=== PATIENT | female | born 1950 | race Caucasian/White ===

== ENCOUNTER → 2016-04-07 | Outpatient (CLI) | payer OTHER ==
[2016-04-07 13:50] LABS: ALBUMIN 3.2 GM/DL (3.2-5.2); ALBUMIN/GLOBULIN RATIO 0.64 (1.00-1.93); BILIRUBIN,TOTAL 0.5 MG/DL (0.2-1.0); CALCIUM LEVEL 8.7 MG/DL (8.8-10.2); CREATININE FOR GFR 1.49 MG/DL (0.55-1.02); FREE T4 1.31 NG/DL (0.76-1.46); GLOMERULAR FILTRATION RATE 37.2 (>45); POTASSIUM SERUM 4.6 MEQ/L (3.5-5.1); TOTAL PROTEIN 8.2 GM/DL (6.4-8.2); URIC ACID 9.2 MG/DL (2.6-6.0)
== END ==
LOC: M SMT 08:29
PROVIDERS: ATTEND Family Medicine
DX: I10 Essential (primary) hypertension (principal); M10.9 Gout, unspecified; E03.9 Hypothyroidism, unspecified; D51.9 Vitamin B12 deficiency anemia, unspecified

== ENCOUNTER → 2016-04-07 | Outpatient (REF) | payer OTHER | LOC: M LAB REF 13:06 | PROVIDERS: ATTEND Internal Medicine Medical Oncology | DX: D51.9 Vitamin B12 deficiency anemia, unspecified (principal) ==

== ENCOUNTER → 2016-07-09 | Outpatient (CLI) | payer OTHER ==
[2016-07-09 14:15] LABS: ALBUMIN 3.1 GM/DL (3.2-5.2); ALBUMIN/GLOBULIN RATIO 0.67 (1.00-1.93); BILIRUBIN,TOTAL 0.5 MG/DL (0.2-1.0); CALCIUM LEVEL 8.5 MG/DL (8.8-10.2); CREATININE FOR GFR 1.57 MG/DL (0.55-1.02); FREE T4 0.99 NG/DL (0.76-1.46); POTASSIUM SERUM 4.8 MEQ/L (3.5-5.1); TOTAL PROTEIN 7.7 GM/DL (6.4-8.2)
== END ==
LOC: M SMT 07:46
PROVIDERS: ATTEND Family Medicine
DX: E03.9 Hypothyroidism, unspecified (principal)

== ENCOUNTER → 2016-09-28 | Outpatient (CLI) | payer OTHER ==
[2016-09-28 14:30] LABS: CALCIUM LEVEL 8.8 MG/DL (8.8-10.2); CREATININE FOR GFR 1.53 MG/DL (0.55-1.02); FREE T4 1.26 NG/DL (0.76-1.46); POTASSIUM SERUM 4.3 MEQ/L (3.5-5.1); THYROXINE (T4) 7.7 UG/DL (4.5-12.0)
== END ==
LOC: M SMT 08:11
PROVIDERS: ATTEND Family Medicine
DX: E03.9 Hypothyroidism, unspecified (principal); I10 Essential (primary) hypertension

== ENCOUNTER → 2017-04-08 | Outpatient (REF) | payer OTHER ==
[2017-04-08 14:53] LABS: ANION GAP 9 MEQ/L (8-16); BLOOD UREA NITROGEN 22 MG/DL (7-18); CALCIUM LEVEL 8.6 MG/DL (8.8-10.2); CARBON DIOXIDE LEVEL 28 MEQ/L (21-32); CHLORIDE LEVEL 107 MEQ/L (98-107); CREATININE FOR GFR 1.33 MG/DL (0.55-1.02); FREE T4 1.51 NG/DL (0.76-1.46); GLOMERULAR FILTRATION RATE 42.2 (>45); GLUCOSE, FASTING 113 MG/DL (80-110); POTASSIUM SERUM 4.7 MEQ/L (3.5-5.1); SODIUM LEVEL 144 MEQ/L (136-145)
[2017-04-08 15:51] LABS: ESTIMATED AVERAGE GLUCOSE 97 MG/DL (60-110)
== END ==
LOC: M LABSMT 13:46
DX: E03.9 Hypothyroidism, unspecified (principal); R94.4 Abnormal results of kidney function studies; R73.9 Hyperglycemia, unspecified

== ENCOUNTER → 2017-07-26 | Outpatient (CLI) | payer OTHER ==
[2017-07-26 13:31] LABS: BASO # 0.1 10^3/uL (0.0-0.2); BASO % 0.6 % (0.0-1.0); EOS # 0.1 10^3/uL (0.0-0.50); EOS % 1.4 % (0.0-3.0); HEMATOCRIT 40.3 % (36.0-47.0); HEMOGLOBIN 13.2 g/dl (12.0-15.5); IMMATURE GRANULOCYTE % 0.5 % (0-3.0); LYMPH # 2.4 10^3/uL (1.5-4.5); LYMPH % 28.5 % (24.0-44.0); MEAN CORPUSCULAR HEMOGLOBIN 32.1 pg (27.0-33.0); MEAN CORPUSCULAR HGB CONC 32.8 g/dl (32.0-36.5); MEAN CORPUSCULAR VOLUME 98.1 fl (80.0-96.0); MONO # 0.5 10^3/uL (0.0-0.8); MONO % 5.6 % (0.0-5.0); NEUTROPHILS # 5.4 10^3/uL (1.8-7.7); NEUTROPHILS % 63.4 % (36.0-66.0); PLATELET COUNT, AUTOMATED 187 10^3/uL (150-450); RED BLOOD COUNT 4.11 10^6/uL (4.00-5.40); RED CELL DISTRIBUTION WIDTH 12.7 % (11.5-14.5); WHITE BLOOD COUNT 8.6 10^3/uL (4.0-10.0)
[2017-07-26 13:42] LABS: ALBUMIN 3.4 GM/DL (3.2-5.2); ALBUMIN/GLOBULIN RATIO 0.71 (1.00-1.93); ALKALINE PHOSPHATASE 119 U/L (45-117); ALT/SGPT 13 U/L (12-78); ANION GAP 7 MEQ/L (8-16); AST/SGOT 14 U/L (7-37); BILIRUBIN,TOTAL 0.8 MG/DL (0.2-1.0); BLOOD UREA NITROGEN 25 MG/DL (7-18); CALCIUM LEVEL 8.7 MG/DL (8.8-10.2); CARBON DIOXIDE LEVEL 27 MEQ/L (21-32); CHLORIDE LEVEL 110 MEQ/L (98-107); CHOLESTEROL LEVEL 174 MG/DL (<200); CHOLESTEROL RISK RATIO 3.702 (<5); FREE T4 1.21 NG/DL (0.76-1.46); GLOMERULAR FILTRATION RATE 39.8 (>45); GLUCOSE, FASTING 105 MG/DL (70-100); HDL CHOLESTEROL 47 MG/DL (>40); NON-HDL-C 127 MG/DL; SODIUM LEVEL 144 MEQ/L (136-145); TOTAL PROTEIN 8.2 GM/DL (6.4-8.2); TRIGLYCERIDES LEVEL 105 MG/DL (<150); URIC ACID 7.6 MG/DL (2.6-6.0)
[2017-07-26 13:46] LABS: POTASSIUM SERUM 5.3 MEQ/L (3.5-5.1)
== END ==
LOC: M SMT 08:18
DX: E03.9 Hypothyroidism, unspecified (principal); I10 Essential (primary) hypertension; M10.9 Gout, unspecified
CPT/HCPCS: 84443

== ENCOUNTER → 2017-10-11 | Outpatient (CLI) | payer OTHER ==
[2017-10-11 14:06] LABS: ANION GAP 7 MEQ/L (8-16); BLOOD UREA NITROGEN 30 MG/DL (7-18); CALCIUM LEVEL 8.7 MG/DL (8.8-10.2); CARBON DIOXIDE LEVEL 28 MEQ/L (21-32); CHLORIDE LEVEL 109 MEQ/L (98-107); FREE T4 1.18 NG/DL (0.76-1.46); GLOMERULAR FILTRATION RATE 36.8 (>45); GLUCOSE, FASTING 107 MG/DL (70-100); POTASSIUM SERUM 5.2 MEQ/L (3.5-5.1); SODIUM LEVEL 144 MEQ/L (136-145)
== END ==
LOC: M SMT 08:15
DX: E03.9 Hypothyroidism, unspecified (principal)

== ENCOUNTER → 2018-01-12 | Outpatient (CLI) | payer OTHER ==
[2018-01-12 12:37] LABS: ESTIMATED AVERAGE GLUCOSE 100 MG/DL (60-110); HEMOGLOBIN A1c 5.1 %
[2018-01-12 13:15] LABS: ANION GAP 10 MEQ/L (8-16); BLOOD UREA NITROGEN 39 MG/DL (7-18); CALCIUM LEVEL 8.6 MG/DL (8.8-10.2); CARBON DIOXIDE LEVEL 25 MEQ/L (21-32); CHLORIDE LEVEL 107 MEQ/L (98-107); GLOMERULAR FILTRATION RATE 34.1 (>45); GLUCOSE, FASTING 98 MG/DL (70-100); POTASSIUM SERUM 4.8 MEQ/L (3.5-5.1); SODIUM LEVEL 142 MEQ/L (136-145)
== END ==
LOC: M SMT 07:56
DX: R73.01 Impaired fasting glucose (principal); E03.9 Hypothyroidism, unspecified
CPT/HCPCS: 84443

== ENCOUNTER → 2018-04-17 | Outpatient (CLI) | payer OTHER ==
[2018-04-17 10:26] LABS: BASO % 0.4 % (0.0-1.0); EOS # 0.1 10^3/uL (0.0-0.50); EOS % 0.7 % (0.0-3.0); HEMATOCRIT 39.1 % (36.0-47.0); HEMOGLOBIN 13.2 g/dl (12.0-15.5); LYMPH # 2.3 10^3/uL (1.5-4.5); MEAN CORPUSCULAR HEMOGLOBIN 32.3 pg (27.0-33.0); MEAN CORPUSCULAR HGB CONC 33.8 g/dl (32.0-36.5); MEAN CORPUSCULAR VOLUME 95.6 fl (80.0-96.0); MONO # 0.6 10^3/uL (0.0-0.8); MONO % 5.4 % (0.0-5.0); NEUTROPHILS # 7.5 10^3/uL (1.8-7.7); NEUTROPHILS % 70.9 % (36.0-66.0); PLATELET COUNT, AUTOMATED 208 10^3/uL (150-450); RED BLOOD COUNT 4.09 10^6/uL (4.00-5.40); WHITE BLOOD COUNT 10.6 10^3/uL (4.0-10.0)
[2018-04-17 10:59] LABS: CREATININE FOR GFR 1.5 MG/DL (0.55-1.30); FREE T4 1.35 NG/DL (0.76-1.46); GLOMERULAR FILTRATION RATE 36.7 (>45); POTASSIUM SERUM 4.8 MEQ/L (3.5-5.1); THYROID STIMULATING HORMONE 4.48 uIU/ML (0.358-3.740); URIC ACID 8.2 MG/DL (2.6-6.0)
== END ==
LOC: M SMT 07:45
PROVIDERS: ATTEND Physician Assistant
DX: E03.9 Hypothyroidism, unspecified (principal); D51.9 Vitamin B12 deficiency anemia, unspecified; R73.01 Impaired fasting glucose; M10.9 Gout, unspecified

== ENCOUNTER → 2018-07-18 | Outpatient (CLI) | payer OTHER ==
[2018-07-18 10:34] LABS: ALBUMIN 2.9 GM/DL (3.2-5.2); BILIRUBIN,TOTAL 0.9 MG/DL (0.2-1.0); CREATININE FOR GFR 1.41 MG/DL (0.55-1.30); FREE T4 1.45 NG/DL (0.76-1.46); GLOMERULAR FILTRATION RATE 39.4 (>45); POTASSIUM SERUM 4.6 MEQ/L (3.5-5.1); THYROID STIMULATING HORMONE 3.56 uIU/ML (0.358-3.740); TOTAL PROTEIN 7.9 GM/DL (6.4-8.2); URIC ACID 7.6 MG/DL (2.6-6.0)
[2018-07-18 10:50] LABS: HEMOGLOBIN A1c 5.2 %
== END ==
LOC: M SMT 07:57
PROVIDERS: ATTEND Physician Assistant
DX: R73.01 Impaired fasting glucose (principal); E03.9 Hypothyroidism, unspecified; M10.9 Gout, unspecified; D51.9 Vitamin B12 deficiency anemia, unspecified

== ENCOUNTER → 2018-09-12 | Outpatient (CLI) | payer OTHER ==
[2018-09-12 10:12] LABS: BASO % 0.4 % (0.0-1.0); EOS # 0.1 10^3/uL (0.0-0.50); EOS % 1.8 % (0.0-3.0); HEMATOCRIT 41.1 % (36.0-47.0); HEMOGLOBIN 13.2 g/dl (12.0-15.5); LYMPH # 2.6 10^3/uL (1.5-4.5); LYMPH % 34.3 % (24.0-44.0); MEAN CORPUSCULAR HEMOGLOBIN 32.2 pg (27.0-33.0); MEAN CORPUSCULAR HGB CONC 32.1 g/dl (32.0-36.5); MEAN CORPUSCULAR VOLUME 100.2 fl (80.0-96.0); MONO # 0.5 10^3/uL (0.0-0.8); MONO % 6.3 % (0.0-5.0); NEUTROPHILS # 4.3 10^3/uL (1.8-7.7); NEUTROPHILS % 56.5 % (36.0-66.0); PLATELET COUNT, AUTOMATED 175 10^3/uL (150-450); WHITE BLOOD COUNT 7.6 10^3/uL (4.0-10.0)
[2018-09-12 10:14] LABS: CALCIUM LEVEL 8.7 MG/DL (8.8-10.2); CREATININE FOR GFR 1.39 MG/DL (0.55-1.30); POTASSIUM SERUM 4.6 MEQ/L (3.5-5.1)
== END ==
LOC: M SMT 07:45
PROVIDERS: ATTEND Physician Assistant
DX: Z01.818 Encounter for other preprocedural examination (principal)

== ENCOUNTER → 2019-08-28 | Outpatient (CLI) | payer OTHER ==
[2019-08-28 11:04] LABS: HEMATOCRIT 40.9 % (36.0-47.0); HEMOGLOBIN 13.5 g/dl (12.0-15.5); PLATELET COUNT, AUTOMATED 144 10^3/uL (150-450); RED BLOOD COUNT 4.09 10^6/uL (4.00-5.40); WHITE BLOOD COUNT 6.6 10^3/uL (4.0-10.0)
[2019-08-28 11:32] LABS: CALCIUM LEVEL 8.7 MG/DL (8.8-10.2); CHOLESTEROL RISK RATIO 3.528 (<5); CREATININE FOR GFR 1.39 MG/DL (0.55-1.30); GLOMERULAR FILTRATION RATE 39.9 (>39); POTASSIUM SERUM 4.6 MEQ/L (3.5-5.1)
== END ==
LOC: M LAB 08:35
PROVIDERS: ATTEND Physician Assistant
DX: I11.9 Hypertensive heart disease without heart failure (principal)

== ENCOUNTER → 2019-09-07 | Outpatient (CLI) | payer OTHER ==
[2019-09-07 08:14] LABS: BASO % 0.3 % (0.0-1.0); EOS # 0.1 10^3/uL (0.0-0.5); EOS % 1.6 % (0.0-3.0); LYMPH # 1.5 10^3/uL (1.5-5.0); LYMPH % 21.5 % (24.0-44.0); MEAN CORPUSCULAR HEMOGLOBIN 32.2 pg (27.0-33.0); MEAN CORPUSCULAR HGB CONC 32.4 g/dl (32.0-36.5); MEAN CORPUSCULAR VOLUME 99.2 fl (80.0-96.0); MONO # 0.5 10^3/uL (0.0-0.8); MONO % 7.3 % (0.0-5.0); NEUTROPHILS # 4.7 10^3/uL (1.5-8.5); NEUTROPHILS % 68.6 % (36.0-66.0); PLATELET COUNT, AUTOMATED 123 10^3/uL (150-450); RED BLOOD COUNT 3.73 10^6/uL (4.00-5.40); WHITE BLOOD COUNT 6.9 10^3/uL (4.0-10.0)
== END ==
LOC: M LAB 07:35
PROVIDERS: ATTEND Nurse Practitioner Family
DX: D69.6 Thrombocytopenia, unspecified (principal)

== ENCOUNTER → 2019-10-09 | Outpatient (CLI) | payer OTHER ==
[2019-10-09 07:50] LABS: BASO % 0.6 % (0.0-1.0); EOS # 0.1 10^3/uL (0.0-0.5); EOS % 2.1 % (0.0-3.0); HEMOGLOBIN 12.2 g/dl (12.0-15.5); LYMPH # 1.3 10^3/uL (1.5-5.0); LYMPH % 24.2 % (24.0-44.0); MEAN CORPUSCULAR HEMOGLOBIN 33.3 pg (27.0-33.0); MEAN CORPUSCULAR VOLUME 101.1 fl (80.0-96.0); MONO # 0.4 10^3/uL (0.0-0.8); MONO % 7.6 % (0.0-5.0); NEUTROPHILS # 3.4 10^3/uL (1.5-8.5); NEUTROPHILS % 64.7 % (36.0-66.0); PLATELET COUNT, AUTOMATED 118 10^3/uL (150-450); RED BLOOD COUNT 3.66 10^6/uL (4.00-5.40); WHITE BLOOD COUNT 5.3 10^3/uL (4.0-10.0)
[2019-10-09 08:25] LABS: ALBUMIN 2.9 GM/DL (3.2-5.2); BILIRUBIN,TOTAL 1.1 MG/DL (0.2-1.0); CALCIUM LEVEL 8.2 MG/DL (8.8-10.2); CREATININE FOR GFR 1.3 MG/DL (0.55-1.30); FREE T4 1.22 NG/DL (0.76-1.46); GLOMERULAR FILTRATION RATE 43.1 (>39); THYROID STIMULATING HORMONE 7.97 uIU/ML (0.358-3.740); TOTAL PROTEIN 7.4 GM/DL (6.4-8.2)
== END ==
LOC: M LAB 07:26
PROVIDERS: ATTEND Nurse Practitioner Family
DX: Z01.812 Encounter for preprocedural laboratory examination (principal)

== ENCOUNTER → 2019-11-23 | Outpatient (CLI) | payer OTHER ==
[2019-11-23 09:15] LABS: CALCIUM LEVEL 8.2 MG/DL (8.8-10.2); CREATININE FOR GFR 1.32 MG/DL (0.55-1.30); FREE T4 1.15 NG/DL (0.76-1.46); GLOMERULAR FILTRATION RATE 42.4 (>39); POTASSIUM SERUM 5.3 MEQ/L (3.5-5.1); THYROID STIMULATING HORMONE 5.85 uIU/ML (0.358-3.740)
[2019-11-23 12:58] LABS: HEMOGLOBIN A1c 5.2 %
== END ==
LOC: M LAB 06:55
PROVIDERS: ATTEND Physician Assistant
DX: D51.9 Vitamin B12 deficiency anemia, unspecified (principal); E03.9 Hypothyroidism, unspecified; R73.01 Impaired fasting glucose; I10 Essential (primary) hypertension

== ENCOUNTER → 2019-11-30 | Outpatient (CLI) | payer OTHER ==
[2019-11-30 08:14] LABS: BASO % 0.4 % (0.0-1.0); EOS # 0.1 10^3/uL (0.0-0.5); EOS % 2.2 % (0.0-3.0); HEMATOCRIT 37.9 % (36.0-47.0); HEMOGLOBIN 12.4 g/dl (12.0-15.5); LYMPH # 1.3 10^3/uL (1.5-5.0); MEAN CORPUSCULAR HEMOGLOBIN 33.1 pg (27.0-33.0); MEAN CORPUSCULAR HGB CONC 32.7 g/dl (32.0-36.5); MEAN CORPUSCULAR VOLUME 101.1 fl (80.0-96.0); MONO # 0.4 10^3/uL (0.0-0.8); MONO % 7.2 % (0.0-5.0); NEUTROPHILS # 3.6 10^3/uL (1.5-8.5); NEUTROPHILS % 65.6 % (36.0-66.0); PLATELET COUNT, AUTOMATED 124 10^3/uL (150-450); RED BLOOD COUNT 3.75 10^6/uL (4.00-5.40); WHITE BLOOD COUNT 5.4 10^3/uL (4.0-10.0)
== END ==
LOC: M LAB 07:22
PROVIDERS: ATTEND Physician Assistant
DX: D51.9 Vitamin B12 deficiency anemia, unspecified (principal); E03.9 Hypothyroidism, unspecified; R73.01 Impaired fasting glucose; I10 Essential (primary) hypertension

== ENCOUNTER → 2020-08-25 | Outpatient (CLI) | payer OTHER ==
[2020-08-25 08:23] LABS: BASO % 0.7 % (0.0-1.0); EOS # 0.1 10^3/uL (0.0-0.5); EOS % 2.3 % (0.0-3.0); HEMATOCRIT 38.9 % (36.0-47.0); HEMOGLOBIN 12.6 g/dl (12.0-15.5); LYMPH # 1.2 10^3/uL (1.5-5.0); LYMPH % 20.7 % (24.0-44.0); MEAN CORPUSCULAR HEMOGLOBIN 33.4 pg (27.0-33.0); MEAN CORPUSCULAR HGB CONC 32.4 g/dl (32.0-36.5); MEAN CORPUSCULAR VOLUME 103.2 fl (80.0-96.0); MONO # 0.4 10^3/uL (0.0-0.8); MONO % 7.3 % (2.0-8.0); NEUTROPHILS # 3.9 10^3/uL (1.5-8.5); NEUTROPHILS % 68.3 % (36.0-66.0); PLATELET COUNT, AUTOMATED 93 10^3/uL (150-450); RED BLOOD COUNT 3.77 10^6/uL (4.00-5.40); WHITE BLOOD COUNT 5.7 10^3/uL (4.0-10.0)
[2020-08-25 08:53] LABS: FREE T4 1.23 NG/DL (0.76-1.46); THYROID STIMULATING HORMONE 5.33 uIU/ML (0.358-3.740)
[2020-08-25 10:12] LABS: FOLATE 9.9 NG/ML
== END ==
LOC: M LAB 07:16
PROVIDERS: ATTEND Family Medicine
DX: D51.9 Vitamin B12 deficiency anemia, unspecified (principal); E66.01 Morbid (severe) obesity due to excess calories

== ENCOUNTER 2020-11-25 07:07 | Inpatient (IN) | payer OTHER, MEDICARE ==
[~2020-11-25] VITALS: Ht 175.3 cm; Wt 113.9 kg
[2020-11-25] MEDS ORDERED: SYNT112T2 PO (07:28)
[2020-11-25] MEDS ORDERED: ALLO100T PO (07:28)
[2020-11-25] MEDS ORDERED: AMLO1TAB24 PO (07:28)
[2020-11-25] MEDS ORDERED: NYST10006 TOP (07:28)
[2020-11-25] MEDS ORDERED: COLC1TAB14 PO (07:28)
[2020-11-25] MEDS ORDERED: TELM1TAB17 PO (07:28)
[2020-11-25] MEDS ORDERED: CYAN1000VL IM (07:28)
[2020-11-25] MEDS ORDERED: TIMO0.5S29 OU (07:28)
[2020-11-25] MEDS ORDERED: ERGO500029 PO (07:28)
[2020-11-25 07:48] LABS: HEMATOCRIT 41.2 % (36.0-47.0); HEMOGLOBIN 13.4 g/dl (12.0-15.5); MEAN CORPUSCULAR HEMOGLOBIN 32.7 pg (27.0-33.0); MEAN CORPUSCULAR HGB CONC 32.5 g/dl (32.0-36.5); MEAN CORPUSCULAR VOLUME 100.5 fl (80.0-96.0); PLATELET COUNT, AUTOMATED 314 10^3/uL (150-450); WHITE BLOOD COUNT 20.9 10^3/uL (4.0-10.0)
[2020-11-25] MEDS: METOPROLOL 5 MG/5 ML VIAL IV SCH ×3 (07:50→08:08)
--- NOTE | 2020-11-25 08:11 | REP ---
INDICATION: dysrhythmia. COMPARISON: No comparison chest x-ray TECHNIQUE: Portable upright AP chest radiograph. FINDINGS: The lungs are symmetrically aerated and no focal infiltrate is seen. Pleural angles are sharp. Heart is enlarged. Pulmonary vasculature is not increased. EKG electrodes are seen. IMPRESSION: Cardiomegaly. Otherwise no acute disease. <Electronically signed by Odin Conklin > 11/25/20 [id number]
[2020-11-25] MEDS ORDERED: ALLO300T2 PO (08:12)
[2020-11-25] MEDS ORDERED: HOME MED LIST COMPLETE! XX SCH (08:25)
[2020-11-25 08:36] LABS: LYMPHOCYTES 11 % (16-44); METAMYELOCYTES 2 % (0-0); MONOCYTES 3 % (0-5); MYELOCYTES 1 % (0-0); NEUTROPHILS 82 % (28-66); PLATELET ESTIMATE NORMAL (NORMAL); POLYCHROMASIA 1+
[2020-11-25] MEDS ORDERED: allopurinoL 300 MG TAB PO SCH (09:00)
[2020-11-25 09:10] LABS: RSV AMPLIFICATION NEGATIVE (NEGATIVE)
[2020-11-25 09:14] LABS: INR 1.19; PROTHROMBIN TIME 15.5 SECONDS (12.7-14.5)
[2020-11-25 09:50] LABS: ALBUMIN 1.4 GM/DL (3.2-5.2); BILIRUBIN,DIRECT 1.3 MG/DL (0.0-0.2); BILIRUBIN,TOTAL 2.2 MG/DL (0.2-1.0); CALCIUM LEVEL 7.9 MG/DL (8.8-10.2); CK-MB VALUE MASS 1.6 NG/ML (<3.6); CREATININE FOR GFR 2.87 MG/DL (0.55-1.30); FREE T4 1.29 NG/DL (0.76-1.46); GLOMERULAR FILTRATION RATE 17.2 (>39); MAGNESIUM LEVEL 2.3 MG/DL (1.8-2.4); MB/CK RELATIVE INDEX 4.57 (< OR =4); PHOSPHORUS LEVEL 4.6 MG/DL (2.5-4.9); POTASSIUM SERUM 4.3 MEQ/L (3.5-5.1); THYROID STIMULATING HORMONE 5.43 uIU/ML (0.358-3.740); TOTAL PROTEIN 7.1 GM/DL (6.4-8.2); TROPONIN I 0.5 NG/ML (< 0.10)
[2020-11-25] MEDS ORDERED: DIGOXIN INJ 0.5 MG/2 ML AMP (J1160) IV ONE ×2 (10:10→16:00)
[2020-11-25] MEDS ORDERED: atenoloL 50 MG TAB PO ONE (10:10)
[2020-11-25] MEDS ORDERED: NS 1,000 ML IV SCH (11:45)
[2020-11-25] MEDS ORDERED: FLUCONAZOLE IV ONE (12:00)
[2020-11-25] MEDS ORDERED: NYSTATIN 100,000 UNITS/GM TOPICAL PWD 15 GM TOP PRN (12:05)
[2020-11-25] MEDS ORDERED: HEPARIN SOD (PORCINE) 5000UNITS/ML 1ML VIAL/SYRINGE IV PRN (12:15)
[2020-11-25] MEDS ORDERED: HEPARIN SOD (PORCINE) 5000UNITS/ML 1ML VIAL/SYRINGE IV ONE (12:15)
[2020-11-25 12:42] LABS: PTH INTACT 360.6 PG/ML (18.5-88.0); TOTAL 25(OH) VITAMIN D 10.1 NG/ML (30.0-100.0)
[2020-11-25] MEDS ORDERED: diltiaZEM 125 MG in NS 100 ML IV SCH (13:15)
[2020-11-25] MEDS ORDERED: cefTRIAXone SOD 1 GM in D5W MINI-BAG PLUS 50 ML IV SCH (14:00)
--- NOTE | 2020-11-25 14:21 | HPEPDOC ---
[facility] Medical History & Physical Date of Admission Nov 25, 2020 Date of Service: Nov 25, 2020 Attending Physician: TIM MALONE MD History and Physical CHIEF COMPLAINT: new onset A-fib/ A-flutter with RVR. Sepsis by SIRS criteria. HISTORY OF PRESENT ILLNESS: Pt is a 70 y/o female who was transported to [facility] ED by EMS for complaints of generalized weakness and fatigue. In the ER EKG found that the patient was in A-fib. Patient complained of no chest pain, palpitations, SOB, dyspnea, or any other symptoms consistent with A-fib. Pt was subsequently treated with Metoprolol and Digoxin in the ER. Patient has no history of A-fib in the past. Pt was also found to have diffuse rash over her chest and groin. Patient has no fever, chills, night sweats, or constitutional symptoms. Pt says that she has frequent occurrences of generalized weakness before her B12 injections, but current episode was worse than previous ones. PAST MEDICAL HISTORY: 1. CKD-3B 2. Hypothyroidism. 3. Vitamin B12 deficiency 4. HTN. PAST SURGICAL HISTORY: 1. Surgery for glaucoma - pt unsure of procedure. 2. Colonoscopy. SOCIAL HISTORY: Children: 3 adult children Tobacco use:Pt denies ETOH: Pt denies Illicit drug use: Pt denies IV drug use: Pt denies FAMILY HISTORY: Father: Dies from heart problems Mother: No relevant conditions ALLERGIES: Please see below. REVIEW OF SYSTEMS: CONSTITUTIONAL: Pt denies fever or chills. HEENT: Pt denies headache. CARDIOVASCULAR: Denies chest pain or palpitations. RESPIRATORY: Patient denies SOB or dyspnea. GASTROINTESTINAL: Denies ABD pain at rest. GENITOURINARY: Denies pain or discoloration with urination. MUSCULOSKELETAL: No joint pain. NEUROLOGICAL: No numbness or tingling. HOME MEDICATIONS: Please see below. PHYSICAL EXAMINATION: VITAL SIGNS: see below. GENERAL APPEARANCE: Pt is a 69 y/o female seen supine in an ER bed. Pt was not in any acute distress. HEENT: NC, AT, EOMI, no scleral icterus, and mucous membranes are moist. CARDIOVASCULAR: Normal S1 and S2. No extra heart sounds or murmurs are heard. LUNGS: BL clear and equal breath sounds on exam. No wheezing, stridor, or crackles on auscultation. ABDOMEN: Pt has tenderness on palpation of her RUQ possibly from cellulitis. Pt has no tenderness anywhere else on her ABD. Rash covers genital area and covers both side of chest under her breast in her folds. Rash is erythematous, foul smelling, and macular. EXTREMITIES: No edema present BL. NEUROLOGICAL: No weakness or loss of sensation. PSYCHIATRIC: Alert and oriented *4. LABORATORY DATA: See below. new IMAGING "IMPRESSION: Cardiomegaly. Otherwise no acute disease." MICROBIOLOGY: Please see below. ASSESSMENT: Pt is a 69 y/o female with PMHx of Hypothyroidism, Intrinsic factor deficiency, Gout, HTN, and Hypothyroidism. Pt presented to the [facility] ED with complaints of generalized weakness and fatigue greater than normal. Pt was found to be in A-fib with RVR on EKG, BUN and Cr elevated above baseline indicating JENN, Rash covering her left chest and groin that is consistent with cellulitis, and patient has elevated billirubin with unknown etiology. PLAN: # New onset A-fib or A-flutter with RVR 2/2 due to sepsis vs. dehydration - Patient was tachycardic with rate of 152 on admission. - Pt was received IV digoxin and Metoprolol for rate control in the ER. We will continue these medications. - Patient has a CHADVASC score of 3, making her a candidate for anticoagulation. Pt will be put on Heparin IV. - Cause of A-fib is unknown, Blood Cultures were drawn to rule out sepsis and IV fluids will be started to treat dehydration. - Patient will get 2D echo to assess for thrombus and structural changes that could cause A-fib. # JENN 2/2 dehydration - Patient has elevated BUN and Cr above normal levels. (based on previous labs Pt has CKD 3B as of 11/23/19) - Patient's JENN is most likely pre-renal due to dehydration. Patient will be put on IV fluids at 100cc/hr. - Patient has elevated PTH and low 25-OH Vitamin D consistent with Diagnosis of CKD. - Renal ultrasound is pending. - Hold losartan # Cellulitis - cause is bacterial or fungal or both. - Patient has no fever, Tachycardia, and WBC count of >20K. Patient fulfills SIRS criteria. - Blood cultures pending - Lactic acid was elevated - Start IV ceftriaxone and IV fluconazole. #Elevated Billirubin - etiology unknown. - AST , ALP, and ALT within normal limits. - Pts Albumin is low. - Liver ultrasound is pending. # Elevated Troponin - Troponin's are elevated on blood draw in the ER. ECG showed A-fib/ a-flutter. - Most likely etiology is type 2 TN from blood shunting from stress on the heart in A-fib/ A-flutter. We will continue to trend Troponin's for changes. # Hypothyroidism - TSH levels were slightly elevated. Pt's fatigue could be partially be due to low thyroid hormone. - Continue Patient's Levothyroxine. We will reassess and determine if higher dose will benefit patient. # HTN - Continue at home amlodipine. # DVT prophylaxis - Patient in on IV heparin for A-fib/A-flutter see above. Code status: Full code Disposition: Pending clinical improvement. Vital Signs Vital Signs Date Time Temp Pulse Resp B/P (MAP) Pulse Ox O2 Delivery O2 Flow Rate FiO2 11/25/20 13:31 104 118/56 (76) 96 Room Air 11/25/20 10:05 20 11/25/20 07:21 96.8 Laboratory Data Labs 24H Laboratory Tests 2 11/25/20 07:35: Immature Granulocyte % (Auto) , Neutrophils (%) (Auto) , Nucleated Red Blood Cells % (auto) 0.0, Neutrophils 82H, Band Neutrophils 1, Lymphocytes (Manual) 11L, Monocytes (Manual) 3, Metamyelocytes 2H, Myelocytes 1H, Polychromasia 1+, Macrocytosis 1+, Platelet Estimate NORMAL 11/25/20 07:41: Coronavirus (COVID-19)(PCR) NEGATIVE, Influenza Type A (RT-PCR) NEGATIVE, Influenza Type B (RT-PCR) NEGATIVE, Respiratory Syncytial Virus (PCR) NEGATIVE 11/25/20 08:28: Osmolality 321H, 25-Hydroxy Vitamin D Total 10.1L, Parathyroid Hormone (Intact) 360.6H 11/25/20 08:51: Prothrombin Time 15.5H, Prothromb Time International Ratio 1.19, Activated Partial Thromboplast Time 20.0L, Anion Gap 9, Glomerular Filtration Rate 17.2L, Calcium Level 7.9L, Phosphorus Level 4.6, Magnesium Level 2.3, Total Bilirubin 2.2H, Direct Bilirubin 1.3H, Aspartate Amino Transf (AST/SGOT) 23, Alanine Aminotransferase (ALT/SGPT) 12, Alkaline Phosphatase 95, Total Creatine Kinase 35, Creatine Kinase MB 1.6, Creatine Kinase MB Relative Index 4.57H, Troponin I 0.50H, Total Protein 7.1, Albumin 1.4L, Albumin/Globulin Ratio 0.2L, Thyroid Stimulating Hormone (TSH) 5.430H, Free Thyroxine 1.29 CBC/BMP Laboratory Tests 11/25/20 07:35 11/25/20 08:51 Microbiology Microbiology 11/25/20 Blood Culture, Received Pending Home Medications Scheduled Amlodipine Besylate (Amlodipine Besylate) 5 Mg Tablet, 5 MG PO DAILY Cyanocobalamin (Cyanocobalamin Injection) 1,000 Mcg/1 Ml Vial, 1 ML IM Q30D NEXT DOSE DUE 12/01/20 Ergocalciferol (Vitamin D2) (Vitamin D2) 50,000 Units Cap, 50,000 UNITS PO QWEEK SUNDAYS Levothyroxine Sodium (Synthroid) 112 Mcg Tablet, 112 MCG PO DAILY Telmisartan/Hydrochlorothiazid (Telmisartan-Hctz 80-25 mg Tab) 1 Each Tablet, 1 TAB PO DAILY Timolol Maleate (Timolol Maleate) 0.5% 5ML Drops, 1 DROP OU BID allopurinoL (allopurinoL) 300 Mg Tablet, 300 MG PO DAILY Scheduled PRN Nystatin (Nystop) 60 Gm Powder, 1 APLCT TOP TID PRN for RASH APPLIES UNDER BREASTS Allergies Coded Allergies: No Known Allergies (Unverified , 11/25/20) A-FIB/CHADSVASC A-FIB History Current/History of A-Fib/PAF?: Yes Current PO Anticoag Therapy: Yes Age/Risk Factor Scoring CHADSVASC: CHADSVASC Response (Comments) Value Age Risk Factor Age 65-74 years old 1 Gender Risk Factor Female 1 Hx of CHF No 0 Hx of HTN Yes 1 Hx of Stroke/TIA/or VTE No 0 Hx of Diabetes No 0 Hx of Vascular Disease No 0 Total 3 Treatment Treatment ordered: Other Other anticoagulant ordered: Heparin Subcutaneous GME ATTESTATION GME ATTESTATION My faculty preceptor for this patient encounter was physically present during the encounter and was fully available. All aspects of the patient interview, examination, medical decision making process, and medical care plan development were reviewed and approved by the faculty preceptor. The faculty preceptor is aware and concurs with the plan as stated in the body of this note and will attest to such by his/her cosignature. ATTENDING NOTE I, Tim Malone MD, have independently examined this patient and performed my own physical exam, as well as reviewed the documentation and edited where necessary. I have discussed in detail with the resident / student the findings and plan of treatment as documented by the resident / student and edited their note. I agree with their findings and treatment plan and have edited their documentation. PAUL SHRESTHA OMS-3 Nov 25, 2020 14:21 NORMA MAY DO Nov 27, 2020 17:42 TIM MALONE MD Dec 05, 2020 11:28
[2020-11-25] MEDS ORDERED: FLUCONAZOLE IV SCH (15:35)
[2020-11-25 15:56] LABS: CK-MB VALUE MASS 1.7 NG/ML (<3.6); MB/CK RELATIVE INDEX 8.1 (< OR =4); TROPONIN I 0.51 NG/ML (< 0.10)
--- NOTE | 2020-11-25 15:58 | REP ---
INDICATION: INCREASED BILIRUBIN, JENN. COMPARISON: None. TECHNIQUE: Transabdominal ultrasound FINDINGS: Multiple ultrasonographic images of the liver show the hepatic parenchymal echo pattern to be diffusely increased and coarsened in appearance. There is no intrahepatic or extrahepatic ductal dilatation. The common bile duct measures 3.6 mm. Multiple ultrasonographic images of the gallbladder show multiple mobile echogenic foci within the gallbladder lumen which cast acoustic shadows. The gallbladder wall measures 3.3 mm. The imaged portion of the pancreas is within normal limits. The spleen measures 14.5 x 6.3 x12.2 cm. No perisplenic abnormalities are noted. The right kidney measures 9.9 x 6.2 x 4.8 cm. The renal cortical echotexture is within normal limits. Corticomedullary differentiation is preserved. There is no hydronephrosis. There are no masses. The left kidney measures 9.4 x 4.7 x 4.7 cm. The renal cortical echotexture is within normal limits. Corticomedullary differentiation is preserved. There is no hydronephrosis. There is an oval-shaped solid appearing hypoechoic nodule in the interpolar region which measures 1.4 x 1.2 x 1.5 cm. The imaged portion of the abdominal aorta is within normal limits. There is evidence of free fluid. IMPRESSION: 1. Evidence of fatty infiltration of the liver. 2. Cholelithiasis with gallbladder wall thickening and positive sonographic Merida sign. Correlate clinically to assess for cholecystitis. 3. Possible left renal mass as described above. Pre and postcontrast enhanced renal CT is recommended. 4. There is a small amount of ascites. 5. There is splenomegaly. <Electronically signed by Durga Marie > 11/25/20 [id number]
[2020-11-25 16:02] VITALS: BP 130/61
[2020-11-25] MEDS: amLODIPine 5 MG TAB PO SCH (16:37)
[2020-11-25] MEDS: METOPROLOL TART 12.5 MG PER 1/2 TAB PO SCH (18:01)
[2020-11-25] MEDS: HEPARIN DRIP 25,000 UNITS in IV 1 EA IV SCH (18:53)
[2020-11-25 20:00] VITALS: BP 123/58
[2020-11-25] MEDS: PIPERACILLIN/TAZOBACTAM SOD 4.5 GM in D5W MINI-BAG PLUS 50 ML IV SCH (20:38)
--- NOTE | 2020-11-25 20:38 | ECHO ---
ECHOCARDIOGRAM DATE OF PROCEDURE: 11/25/2020 Age: 70 years Gender: Female Height: 69 inches Weight: 246 pounds Body Surface Area: 2.26 m2. Inpatient: PCU, room 3214 REFERRING PHYSICIAN: Rebeka Roland D.O. INDICATION: Atrial fibrillation. Murmur. Abnormal EKG. MEASUREMENTS: 2D Measurements: RV 4.6 cm LV 4.6 cm Septum 1.3 cm Posterior wall 1.3 cm Aortic Root 3.2 cm LA 4.7 cm LVEF 55% Doppler Measurements: AV 3.15 m/s LVOT 1.08 m/s LVOT diameter 1.9 cm Mean AV gradient 22 mmHg Dimensionless index 0.38 MV-E 1.59 Early mitral deceleration time 224 ms Pressure half-time 66 ms MVA 3.3 cm2 PV 1.0 m/s Pulmonary artery acceleration time 85 ms PASP 43 mmHg IVC 2.2 cm COMMENTS: Underlying atrial fibrillation with controlled ventricular response. Subtle intraventricular conduction disturbance. Technically difficult study in light of the patient's body habitus, but diagnostically useful information was still obtained. M-Mode and Two Dimensional Echocardiography was performed with pulse, continuous wave, color flow, and tissue Doppler studies. Mild concentric left ventricular hypertrophy with normal wall motion. Moderately dilated left atrium, but unable to comment on LV diastolic function or estimate mean left atrial pressure in light of mitral valve disorder and atrial fibrillation. Mildly dilated right heart chambers with slight right ventricular free wall hypokinesis and Doppler evidence of at least moderately severe pulmonary hypertension. Mildly dilated inferior vena cava (IVC) with reduced respiratory collapse suggestive of at least a mildly elevated central venous pressure. Moderate calcific aortic stenosis with mild insufficiency. Normal aortic dimensions. Moderately severe mitral annular calcification with at least mild LV inflow tract obstruction and moderate mitral insufficiency. Normal-appearing tricuspid valve with at least mild insufficiency. Unable to detect any clear cut vegetation or pedunculated mass, but could not rule out a small sessile vegetation in light of the irregularity of her valvular structures believed to be related to degenerative change. No pericardial effusion. MTDD
[2020-11-25] MEDS: FLUCONAZOLE 50MG TABLET PO SCH (20:43)
[2020-11-25] MEDS ORDERED: METOPROLOL TART 12.5 MG PER 1/2 TAB PO SCH (21:00)
[2020-11-25 21:41] LABS: CK-MB VALUE MASS 1.7 NG/ML (<3.6); MB/CK RELATIVE INDEX 6.3 (< OR =4); TROPONIN I 0.49 NG/ML (< 0.10)
[2020-11-25] MEDS: TIMOLOL MALEATE 0.5% OPHTH SOLN 5 ML OU SCH (21:53)
[2020-11-26] VITALS (7 sets, daily range): BP systolic 100–122; BP diastolic 55–69
[2020-11-26] MEDS: PIPERACILLIN/TAZOBACTAM SOD 4.5 GM in D5W MINI-BAG PLUS 50 ML IV SCH ×3 (04:16→20:25)
--- NOTE | 2020-11-26 04:28 | ECGEPIP ---
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
[2020-11-26] MEDS: LEVOTHYROXINE 112MCG TABLET (0.112MG) PO SCH (06:29)
[2020-11-26 08:23] LABS: INR 1.34
[2020-11-26 08:25] LABS: PARTIAL THROMBOPLASTIN TIME 73.6 SECONDS (25.9-37.0)
[2020-11-26 08:46] LABS: ALBUMIN 1.3 GM/DL (3.2-5.2); BILIRUBIN,TOTAL 1.7 MG/DL (0.2-1.0); CALCIUM LEVEL 7.4 MG/DL (8.8-10.2); CREATININE FOR GFR 2.8 MG/DL (0.55-1.30); GLOMERULAR FILTRATION RATE 17.7 (>39); POTASSIUM SERUM 4.5 MEQ/L (3.5-5.1); TOTAL PROTEIN 6.2 GM/DL (6.4-8.2)
[2020-11-26 09:10] LABS: BASO % 0.2 % (0.0-1.0); EOS # 0.1 10^3/uL (0.0-0.5); EOS % 0.3 % (0.0-3.0); HEMATOCRIT 38.1 % (36.0-47.0); HEMOGLOBIN 12.4 g/dl (12.0-15.5); LYMPH # 1.7 10^3/uL (1.5-5.0); LYMPH % 9.6 % (24.0-44.0); MEAN CORPUSCULAR HGB CONC 32.5 g/dl (32.0-36.5); MEAN CORPUSCULAR VOLUME 101.3 fl (80.0-96.0); MONO # 0.8 10^3/uL (0.0-0.8); MONO % 4.5 % (2.0-8.0); NEUTROPHILS # 13.8 10^3/uL (1.5-8.5); NEUTROPHILS % 76.5 % (36.0-66.0); PLATELET COUNT, AUTOMATED 290 10^3/uL (150-450); RED BLOOD COUNT 3.76 10^6/uL (4.00-5.40)
[2020-11-26] MEDS ORDERED: NS 1,000 ML IV SCH (09:10)
[2020-11-26] MEDS: amLODIPine 5 MG TAB PO SCH (09:36)
[2020-11-26] MEDS: METOPROLOL TART 12.5 MG PER 1/2 TAB PO SCH (09:36)
[2020-11-26] MEDS: TIMOLOL MALEATE 0.5% OPHTH SOLN 5 ML OU SCH ×2 (09:37→21:22)
[2020-11-26] MEDS: FLUCONAZOLE 50MG TABLET PO SCH (09:37)
[2020-11-26] MEDS ORDERED: FLUCONAZOLE IV SCH (12:00)
[2020-11-26] MEDS: HEPARIN DRIP 25,000 UNITS in IV 1 EA IV SCH (12:15)
--- NOTE | 2020-11-26 14:17 | IPNPDOC ---
Text Note Date of Service The patient was seen on 11/26/20. NOTE Subjective: Patient is a 70-year-old female who was transported to the [facility] emergency department EMS with complaints of generalized weakness and fatigue. In speaking with the patient's , the patient has been feeling weak and complaining of some right-sided upper abdominal/back pain for some time. Patient apparently fell out of bed at home. Patient was found to be in atrial fibrillation which the patient does not have a history of. Patient is now rate controlled after a few doses of metoprolol. Patient had echocardiogram ordered that was performed and shows mild left ventricular inflow obstruction and a possible vegetation. Patient is otherwise feeling well at this time does not have any other complaints. Review of systems: General: Patient denies fevers HEENT: Patient denies headaches Cardiovascular: Patient denies chest pain Respiratory: Patient denies shortness of breath, cough GI: Patient denies abdominal pain, nausea, vomiting, diarrhea : Patient denies increased frequency or pain with urination Extremities: Patient denies swelling or pain in extremities Neurological: Patient denies numbness or tingling in legs Physical exam: Vitals: See below General: Alert and oriented female patient who was laying in bed when I walked in the room. Patient not appear to be in any acute distress. HEENT: Normocephalic, atraumatic, moist mucous membranes. Neck: No lymphadenopathy or thyromegaly Cardiac: Regular rate and rhythm, no murmurs, normal S1, normal S2 Pulm: Clear to auscultation bilaterally. No wheezes, rhonchi, rales Abd: Nondistended, nontender to palpation, normal bowel sounds Ext: No edema bilateral lower extremities Skin: [place] macules with raised scales on the underside of the breast and under the abdominal fold Labs: See below Imaging: Abdominal ultrasound performed on 11/25/2020 is reported to show evidence of fatty infiltration of the liver. Cholelithiasis with gallbladder wall thickening and positive sonographic Merida sign. Correlate clinically to assess for cholecystitis. Possible left renal mass as described above pre and postcontrast enhanced renal CT is recommended. There is small amount of ascites. There is splenomegaly. Assessment/plan: 70-year-old female who presented to the hospital with weakness was found to meet sepsis criteria most likely secondary to cholecystitis who was also found to be in atrial fibrillation with RVR. 1. New onset atrial fibrillation with rapid ventricular response. Patient initially had heart rate of 152. Patient received IV digoxin and metoprolol for rate control which helped. Patient's rate is now controlled. Patient was started on heparin drip. I spoke with Dr. Kemp who read the patient's echocardiogram. Recommendations appreciated. Patient has been switched to Eliquis from heparin drip. Patient will also have repeat blood cultures as the vegetation on the valve may represent endocarditis however, patient does not have any other signs of endocarditis and does not have any other criteria. If the repeat blood cultures are negative and the patient does not clinically improve as we believe the patient's infection is comfortable cholecystitis, then LEN will not be performed. If the patient clinically gets worse, LEN can be p erformed. We also put the patient on atenolol 25 mg 4 times daily with hold parameters less than 90. This will allow us to see what the dose of atenolol will be to send the patient home on depending on how much she gets in 24 hours to keep her heart rate less than 90. 2. Acute kidney injury secondary to dehydration. Patient received 1 L of IV fluids which did not improve her creatinine. She received another liter of IV fluids at this time we will continue to monitor the patient's creatinine closely. If the patient's creatinine continues not to resolve with IV fluids, patient may require nephrology consult. 3. Cholecystitis. Patient is currently on IV Zosyn and will need to continue on this. I have contacted Dr. Rosas of general surgery who will see the patient. 4. Intertrigo. Patient is currently on ketoconazole and nystatin cream. 5. Elevated bilirubin. AST and ALT are within normal limits. Liver ultrasound did show fatty infiltration. Bilirubin has been mildly improved. 6. Elevated troponin. Patient's troponins are most likely secondary to A. fib. Now the patient is rate controlled we will monitor the troponins however, these were trended x3 and were unchanged. 7. Hypothyroidism. TSH levels were slightly elevated. We will continue to monitor. 8. Hypertension. Continue home amlodipine. DVT Prophylaxis: IV heparin Disposition: Pending clinical improvement I did attempt to review records from [facility] on the patient as the patient says she sees cardiology in [place] and has seen providers in [place] however, the patient had initially selected to decline this axis. I did speak with the patient about this and she did verbally agree to give consent however, as of 14:19 I was still unable to access her records on [facility]. VS,Noelle, I+O VS, Noelle, I+O Laboratory Tests 11/26/20 07:35 Vital Signs Date Time Temp Pulse Resp B/P (MAP) Pulse Ox O2 Delivery O2 Flow Rate FiO2 11/26/20 09:36 91 105/61 11/26/20 08:00 96.4 20 99 Room Air I&O- Last 24 Hours up to 6 AM 11/26/20 06:00 Intake Total 250 ml Output Total 50 ml Balance 200 ml KRISTIN AIKEN DO Nov 26, 2020 14:17
[2020-11-26 16:52] LABS: CALCIUM LEVEL 7.1 MG/DL (8.8-10.2); CREATININE FOR GFR 2.77 MG/DL (0.55-1.30); POTASSIUM SERUM 4.5 MEQ/L (3.5-5.1)
[2020-11-26] MEDS: atenoloL 25 MG TAB PO SCH ×2 (18:00→20:25)
[2020-11-26] MEDS: APIXABAN 5 MG TAB (ELIQUIS) PO SCH (20:25)
--- NOTE | 2020-11-26 20:59 | CR ---
CONSULTATION DATE: 11/26/2020 REASON FOR CONSULTATION: Sepsis with gallbladder ultrasound showing evidence of gallstones and reported gallbladder wall thickening although the gallbladder wall is within normal limits by their measurements. Given that normal is greater than 4 mm and it was measured at its greatest width of 3.3 mm. HISTORY OF PRESENT ILLNESS: In any case, the patient presented with weakness and I have asked her if she has had any abdominal pain. She states that she has no abdominal pain. She is a relatively difficult historian to get a straight story out of but came in for mostly weakness and fatigue and was found to have atrial fibrillation, and an elevated white count of 20,000. She states that she has been recently on some steroids for some gout although I am not sure if she is still in the midst of tapering this or where she is in her current treatment for this. In any case, she had some evidence of a fungal rash underneath her right breast with some significant erythema to this and the concern was that this was a cellulitis originally, and then after performing an ultrasound of her abdomen because of elevated bilirubin, the gallbladder was found to have gallstones. PAST MEDICAL HISTORY: The patient's past medical history is significant for: 1. History of chronic kidney disease. 2. Hypothyroidism. 3. Intrinsic factor deficiency. 4. Hypertension. 5. History of glaucoma. PAST SURGICAL HISTORY: The patient's past surgical history is significant for history of colonoscopies with diverticulosis. PHYSICAL EXAMINATION: GENERAL APPEARANCE: A 69-year-old morbidly obese female who looks stated age. HEENT: Unremarkable. LUNGS: Clear anteriorly. HEART: Regular with multiple irregular beats. ABDOMEN: Soft, mildly uncomfortable with palpation in the right upper quadrant, over the rash but truly no other significant areas of tenderness. EXTREMITIES: Warm and well perfused. IMPRESSION AND PLAN: The patient has some gallstones and at this point I am not convinced that this is cholecystitis given that she states her abdomen does not hurt and she has been eating fine without any GI complaints and thus it seems less likely that this is the etiology. I feel that it is reasonable to progress her diet to a low fat diet as tolerated, but etiology of the sepsis/elevated white count is questionable whether this was a cellulitis on her abdominal wall/underneath her breasts on the right hand side, this is relatively significant and severe but relatively surprising to give a white count of 20,000. Once again, I am not sure where she is in her treatment for her gout with her steroid taper or whether this is a historical issue, or whether this is where she is somewhere in the middle of this taper, but she did remark that she is wondering if all this going on is related to the steroid taper that she has been on. In any case, I would recommend continue supportive care, increase her activity and continue local care with the cellulitis/fungal infection and contact us if she has increasing abdominal pain or concerns. But otherwise I feel that this can be treated from a medical standpoint and will be glad to reevaluate her should that be necessary.
[2020-11-26] MEDS ORDERED: atenoloL 50 MG TAB PO SCH (21:00)
[2020-11-27] VITALS: BP 104/51
[2020-11-27 04:00] VITALS: BP 119/56
[2020-11-27] MEDS: PIPERACILLIN/TAZOBACTAM SOD 4.5 GM in D5W MINI-BAG PLUS 50 ML IV SCH ×3 (04:53→20:47)
[2020-11-27] MEDS: atenoloL 25 MG TAB PO SCH ×3 (05:17→16:56)
[2020-11-27] MEDS: LEVOTHYROXINE 112MCG TABLET (0.112MG) PO SCH (05:17)
[2020-11-27 07:18] VITALS: BP 111/53
[2020-11-27 07:25] LABS: HEMATOCRIT 37.1 % (36.0-47.0); HEMOGLOBIN 12.1 g/dl (12.0-15.5); MEAN CORPUSCULAR HEMOGLOBIN 33.1 pg (27.0-33.0); MEAN CORPUSCULAR HGB CONC 32.6 g/dl (32.0-36.5); MEAN CORPUSCULAR VOLUME 101.4 fl (80.0-96.0); PLATELET COUNT, AUTOMATED 297 10^3/uL (150-450); RED BLOOD COUNT 3.66 10^6/uL (4.00-5.40); WHITE BLOOD COUNT 18.6 10^3/uL (4.0-10.0)
[2020-11-27 07:46] LABS: ALBUMIN 1.2 GM/DL (3.2-5.2); CALCIUM LEVEL 7.5 MG/DL (8.8-10.2); CREATININE FOR GFR 2.7 MG/DL (0.55-1.30); GLOMERULAR FILTRATION RATE 18.5 (>39); PHOSPHORUS LEVEL 5.1 MG/DL (2.5-4.9)
[2020-11-27] MEDS: amLODIPine 5 MG TAB PO SCH (08:06)
[2020-11-27 08:16] LABS: EOSINOPHILS 1 % (0-3); LYMPHOCYTES 5 % (16-44); METAMYELOCYTES 3 % (0-0); MONOCYTES 1 % (0-5); MYELOCYTES 2 % (0-0); NEUTROPHILS 86 % (28-66); PLATELET ESTIMATE NORMAL (NORMAL)
--- NOTE | 2020-11-27 08:52 | IPNPDOC ---
Subjective Date Seen The patient was seen on 11/27/20. Subjective Chief Complaint/HPI This is a 70 y/o female with a pmh of htn, hypothyroidism, gout and obesity who presented to our ED on 11/25 with a cc of weakness and fatigue as well as some right sided abd pain. Patient apparently suffered a fall out of bed. Patient found to be in atrial fibrillation with rapid ventricular response in our ED. ECHO performed showed possible vegetation and patient was started on empiric zosyn. As of my exam of the patient on 11/27, she states that she is feeling mostly well despite some persistent abdominal discomfort. Patient tells me that she has also begun experiencing bouts of diarrhea and come on so rapidly she has trouble making it to the bathroom. Patient tells me that the bouts come and go and has had several the past two days. Patient denies any nausea/vomiting associated with her symptoms. Please see ROS for complete symptoms review. General: Denies: Chills, Night Sweats Constitutional: Denies: Chills, Fever Eyes: Denies: Vision change ENT: Denies: Head Aches, Dysphagia Skin: Denies: Rash, Lesions Pulmonary: Denies: Dyspnea, Cough Cardiovascular: Denies: Chest Pain, Palpitations Gastrointestinal: Reports: Abdominal Pain, Diarrhea; Denies: Nausea, Vomiting Genitourinary: Denies: Dysuria Hematologic: Denies: Bruising Neurological: Denies: Weakness, Numbness Objective Physical Examination General Exam: Positive: Alert, No Acute Distress Eye Exam: Positive: EOMI; Negative: Sclera icteric ENT Exam: Positive: Atraumatic, Mucous membr. moist/pink Chest Exam: Positive: Clear to auscultation, Normal air movement Heart Exam: Positive: Rate Normal, Irregular Rhythm Abdomen Exam: Positive: Soft; Negative: Tenderness Extremity Exam: Negative: Clubbing, Cyanosis, Edema Skin Exam: Positive: Nl turgor and temperature; Negative: Rash Neuro Exam: Positive: Normal Speech Psych Exam: Positive: Mental status NL; Negative: Mood NL (depressed mood, tearful at times) Assessment /Plan Assessment This is a 70 y/o female with a pmh of htn, hypothyroidism, gout and obesity who presented to our ED on 11/25 with a cc of weakness and fatigue as well as some right sided abd pain. Patient apparently suffered a fall out of bed. Patient found to be in atrial fibrillation with rapid ventricular response in our ED. ECHO performed showed possible vegetation and patient was started on empiric zosyn. Plan/VTE VTE Prophylaxis Ordered?: Yes Plan 1. A-fib with RVR - patient converted with iv digoxin and metoprolol - Dr. Kemp, cardiology, consulted and recommended atenolol, eliquis as medical therapy. Appreciate [employer] tre[employer] consultant advice. - Telemetry unremarkable overnight 2. Diarrhea - patient states that she has begun having loose bowel movements with bowel urgency - will monitor as patient has been on iv abx zosyn 3. Leukocytosis - Patient's leukocytosis currently a flat curve with no significant improvement - Patient thought to have possible endocarditis on ECHO - second set of blood cultures are pending - Patient found to have gallstones on abdominal imaging, Dr. Rosas, general surgery, has been consulted and recommends supportive care. Appreciate [employer] tre[employer] consultant advice. - If blood cultures negative, leukocytosis likely secondary to mild cholecystitis - continue zosyn 4. Acute kidney injury - patient's cr still 2.7 despite two days of iv fluids - Dr. Bryanna Hannon, nephrology, has been consulted. Appreciate all assistance and recommendations - Continue to monitor on daily labs 5. Intertrigo - continue topical ketoconazole and nystatin 6. Troponinemia - 2/2 tachyarrhythmia - Flat curve over 3 sets 7. Hypothyroidism - monitor for now 8. HTN - continue amlodipine DVT prophylaxis - eliquis Disposition Pending clinical improvement VS, I&O, 24H, Fishbone Vital Signs/I&O Vital Signs Date Time Temp Pulse Resp B/P (MAP) Pulse Ox O2 Delivery O2 Flow Rate FiO2 11/27/20 08:06 98 111/53 11/27/20 07:18 97.5 20 98 Room Air I&O- Last 24 Hours up to 6 AM 11/27/20 06:00 Intake Total 1535 ml Output Total 180 ml Balance 1355 ml Laboratory Data 24H LABS Laboratory Tests 2 11/26/20 15:50: Anion Gap 10, Glomerular Filtration Rate 18.0L, Calcium Level 7.1L 11/26/20 17:07: Urine Color YELLOW, Urine Appearance CLOUDYH, Urine pH 5.0, Urine Specific [place] 1.017, Urine Protein NEGATIVE, Urine Glucose (UA) NEGATIVE, Urine Ketones NEGATIVE, Urine Blood 2+H, Urine Nitrite NEGATIVE, Urine Bilirubin NEGATIVE, Urine Urobilinogen 2.0H, Urine Leukocyte Esterase 1+H, Urine WBC (Auto) 10H, Urine RBC (Auto) 1, Urine Hyaline Casts (Auto) 0, Urine Bacteria (Auto) 1+H, Urine Squamous Epithelial Cells 6, Urine Sperm (Auto) 11/26/20 17:35: Erythrocyte Sedimentation Rate 75H, C-Reactive Protein, Quantitative 11.20H 11/27/20 07:08: Anion Gap 10, Glomerular Filtration Rate 18.5L, Calcium Level 7.5L, Immature Granulocyte % (Auto) , Neutrophils (%) (Auto) , Nucleated Red Blood Cells % (auto) 0.0, Neutrophils 86H, Band Neutrophils 2, Lymphocytes (Manual) 5L, Monocytes (Manual) 1, Eosinophils (Manual) 1, Metamyelocytes 3H, Myelocytes 2H, Macrocytosis 1+, Platelet Estimate NORMAL, Phosphorus Level 5.1H, Albumin 1.2L CBC/BMP Laboratory Tests 11/26/20 15:50 11/27/20 07:08 Microbiology Microbiology 11/26/20 Blood Culture, Received Pending 11/26/20 Blood Culture, Received Pending 11/26/20 Urine Culture, Received Pending 11/25/20 Blood Culture - Preliminary, Resulted No growth after 24 hours . All specim... 11/25/20 Blood Culture - Preliminary, Resulted No growth after 24 hours . All specim... YEIMY BETANOCURT Nov 27, 2020 08:52
[2020-11-27] MEDS: FLUCONAZOLE 50MG TABLET PO SCH (09:08)
[2020-11-27] MEDS: TIMOLOL MALEATE 0.5% OPHTH SOLN 5 ML OU SCH ×2 (09:08→20:48)
[2020-11-27] MEDS: APIXABAN 5 MG TAB (ELIQUIS) PO SCH ×2 (09:08→20:47)
[2020-11-27 11:09] VITALS: BP 116/51
[2020-11-27 15:06] VITALS: BP 122/53
[2020-11-27 17:41] LABS: CLOSTRIDIUM DIFFICILE PCR NEGATIVE (NEGATIVE)
[2020-11-27 20:00] VITALS: BP 108/62
--- NOTE | 2020-11-27 22:15 | ECGEPIP ---
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: oliver : 1950 Requested By: Rebeka Roland Order Number: [id number] Reading MD: Jose Gaitan Measurements Intervals Harvey Rate: 107 P: GA: QRS: -25 QRSD: 120 T: 135 QT: 382 QTc: 509 Interpretive Statements Poor data quality, interpretation may be adversely affected Atrial fibrillation with rapid ventricular response Left ventricular hypertrophy with QRS widening and repolarization abnormality ( R in aVL , [place] product ) Possible prior anteroseptal infarct , age undetermined Last tracing on 11/25/20, heart rate was 139 bpm Electronically Signed on 11-27-2020 22:15:06 EDT by Jose Gaitan
[2020-11-28] VITALS (7 sets, daily range): BP systolic 101–153; BP diastolic 49–77
[2020-11-28] MEDS: PIPERACILLIN/TAZOBACTAM SOD 4.5 GM in D5W MINI-BAG PLUS 50 ML IV SCH (04:45)
[2020-11-28] MEDS: atenoloL 25 MG TAB PO SCH ×5 (05:23→23:59)
[2020-11-28] MEDS: LEVOTHYROXINE 112MCG TABLET (0.112MG) PO SCH (05:23)
[2020-11-28 05:24] LABS: HEMATOCRIT 36.7 % (36.0-47.0); MEAN CORPUSCULAR HEMOGLOBIN 32.8 pg (27.0-33.0); MEAN CORPUSCULAR HGB CONC 32.7 g/dl (32.0-36.5); MEAN CORPUSCULAR VOLUME 100.3 fl (80.0-96.0); PLATELET COUNT, AUTOMATED 327 10^3/uL (150-450); RED BLOOD COUNT 3.66 10^6/uL (4.00-5.40); WHITE BLOOD COUNT 18.5 10^3/uL (4.0-10.0)
[2020-11-28 05:49] LABS: ALBUMIN 1.3 GM/DL (3.2-5.2); CREATININE FOR GFR 2.77 MG/DL (0.55-1.30); PHOSPHORUS LEVEL 4.8 MG/DL (2.5-4.9); POTASSIUM SERUM 4.1 MEQ/L (3.5-5.1)
[2020-11-28 05:56] LABS: EOSINOPHILS 1 % (0-3); LYMPHOCYTES 11 % (16-44); METAMYELOCYTES 1 % (0-0); MONOCYTES 6 % (0-5); MYELOCYTES 4 % (0-0); NEUTROPHILS 77 % (28-66); PLATELET ESTIMATE NORMAL (NORMAL)
[2020-11-28 05:57] LABS: PLATELET CLUMPS SMALL AMT
[2020-11-28] MEDS: amLODIPine 5 MG TAB PO SCH (09:58)
[2020-11-28] MEDS: APIXABAN 5 MG TAB (ELIQUIS) PO SCH ×2 (09:58→21:44)
[2020-11-28] MEDS: TIMOLOL MALEATE 0.5% OPHTH SOLN 5 ML OU SCH ×2 (09:59→21:45)
[2020-11-28] MEDS: FLUCONAZOLE 50MG TABLET PO SCH (09:59)
[2020-11-28] MEDS: CALCITRIOL 0.25 MCG CAP (S0169) PO SCH (12:16)
--- NOTE | 2020-11-28 13:12 | IPN ---
PROGRESS NOTE DATE: 11/28/2020 SUBJECTIVE: Ms. Auguste is seen and examined this morning at the bedside. She denies any shortness of breath. She reports incontinence. She also complains of diarrhea. Laboratory studies show essentially no change in renal function. PHYSICAL EXAMINATION: VITAL SIGNS: Temperature 96.5, pulse 73, respiratory rate 18, blood pressure 136/63, saturating 100% on room air. INTAKE/OUTPUT: Intake yesterday was not fully recorded. Urine output was recorded as 3 voids and 3 bowel movements were recorded as well. Weight in the bed scale today is 110.9 kg. GENERAL: Patient is seen awake, alert, oriented, sitting in bed, in no distress. HEENT: Extraocular muscles are intact. Tongue is moist. Dentition is very poor; multiple missing teeth. Jugular veins are not elevated. HEART: Heart sounds are irregularly irregular. There is no peripheral edema. LUNGS: Clear to auscultation. No crackle or rale. ABDOMEN: Soft and nontender on exam. Her rash was not examined today. NEUROLOGIC: She is oriented x3, interactive, conversational. PSYCH: Appropriate mood and affect. LABORATORY DATA: White count 18.5, hemoglobin 12.0, platelets 327,000. Potassium 4.1, bicarbonate 20, creatinine 2.77. GFR 18. Albumin 1.3. MICROBIOLOGY: Blood cultures drawn November 26 no growth for 24 hours times two sets. Urine culture done November 26 no growth of clinical significance. INPATIENT MEDICATIONS: Reviewed by myself. No changes are noted as compared to yesterday. PROBLEMS: 1. 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 Vanita Maguire, to get labs done between the period of November 2019 up until this admission to see when the decline in renal function first started. She is off of ARB therapy which she was taking at home. There is no obstruction on imaging. There is no proteinuria. There is no hematuria. She has been complaining of diarrhea and watery bowel movements, but she is tolerating p.o. intake. I will give a small dose of I.V. fluid today in view of her diarrhea. 2. Possible left renal mass: 1.5 cm lesion seen in the left interpolar region. She is going to need to follow-up with urology for this. She is not suitable for any CAT scan with I.V. contrast in view of her GRF of only 18 mL per minute and high risk of contrast induced nephropathy. 3. Hypertension: She was on Telmisartan and Hydrochlorothiazide at home, these have both been discontinued in view of worsening renal function. Blood pressure is now well controlled with Amlodipine and Atenolol, and heart rate is controlled as well given her new onset atrial fibrillation. 4. Metabolic acidosis: It is mild, there is no need for sodium bicarbonate supplementation at this time. 5. Hypoalbuminemia: Her albumin levels are very low; less than 1.5. She also has mild elevation in total bilirubin and on imaging there was a coarsened apparent to the hepatic parenchyma. Patient herself is unaware of any baseline liver issues. 6. Status post sepsis: White count remains elevated at 18, but the patient is afebrile and hemodynamically stable. She also had elevated ESR and elevated CRP. She is on antibiotics as per the primary service and on antifungal as well and topical antifungal powder. She had multiple sets of negative blood cultures and urine culture.
--- NOTE | 2020-11-28 13:12 | IPN ---
PROGRESS NOTE DATE: 11/28/2020 SUBJECTIVE: She is seen in the PCU. She was admitted with weakness and fatigue after falling out of bed with atrial fibrillation with rapid ventricular response, since has converted to sinus rhythm on echocardiogram. The note talks about there being a hospital vegetation but I think closer reading of the echocardiogram report is that was unable to detect any clear cut vegetation or pediculated mass, but could not rule out small sessile vegetation in light of the irregularity of her valvular structures believed to be related to degenerative change. Essentially, I think cardiology is saying that this is a degenerate valve without obvious vegetation. Blood cultures have been negative. She has a history of chronic kidney disease. Dr. Hannon has been seeing her. Her renal function has not improved despite IV fluid. She has leukocytosis, which has been persisting as well. She is currently on some IV Zosyn. OBJECTIVE: Physical examination: Afebrile. Vital signs: Stable. Systolic pressure is between 101 and 153, pulse is 73 and regular. 100% O2 saturation. She is alert and oriented and conversant. Lungs: Clear. Heart: Regular rate and rhythm. 1/6 systolic ejection murmur. Abdomen: Soft, obese, nontender, no masses. Intertrigo underneath the right breast, which is improving per the patient. Trace peripheral edema. LABORATORY: White count 18.5, hemoglobin 12, platelets 327. Sodium 141, potassium 4.1, BUN 84, creatinine 2.7, glucose 119. Clostridium difficile yesterday was negative. IMPRESSION: 1. Atrial fibrillation converted to sinus rhythm. She seems to be in sinus rhythm on examination today. 2. Leukocytosis, seems to be chronic and unchanged. She has been seen by General surgery concerning her gallbladder. Her blood cultures are negative. I do not think she has endocarditis. Will probably stop her antibiotics and re-culture if she increases her white count or pick ups a fever to include diarrhea on Zosyn. 3. Acute kidney injury. Nephrology has been consulted as renal function is stable with decreased filtration rate. 4. Intertrigo, improved with her current topical.
--- NOTE | 2020-11-28 14:31 | CR ---
CONSULTATION DATE: 11/27/2020 REQUESTING PROVIDER: SUNNY Red REASON FOR CONSULTATION: Worsening renal function in this patient with known CKD stage 3D along with abnormal renal imaging. PAST MEDICAL HISTORY: Miss Kalyani Correa is previously unknown to me. She is a 70-year-old female with a past medical history of longstanding CKD stage 3B. I reviewed prior labs in the [facility] going back to 2011 and the patient's baseline GFR is about 35-40 mL per minute. She was last at her documented baseline renal function in November of 2019 with a GFR of 42 mL per minute at that time. The patient then has no labs in the [facility] until November of this year when she was hospitalized. The patient was hospitalized on November 25 because of new onset atrial fibrillation with rapid ventricular response along with sepsis in the setting of cellulitis. The patient's admission creatinine was 2.8 and over the past 4 days of her hospital stay, her renal function has been essentially unchanged. She had ultrasound done of her kidneys which revealed no obstruction but there is a possible 1.5 cm mass in the interpolar region of the left kidney. The patient herself had no idea of her prior CKD stage 3B, tells me her PCP is Dr. Maguire, cannot recall the last time that she had outpatient blood work done, reports occasional use of NSAID but nothing on a regular basis and her complaint is regarding rash on her chest and perineal area. The patient initially received IV digoxin on this admission and is now on atenolol for rate control and she is anticoagulated with Eliquis. PAST MEDICAL HISTORY: 1. CKD stage 3B last at her documented baseline renal function in November,. 2. Hypothyroidism. 3. Hypertension. 4. Vitamin B12 deficiency. 5. New onset atrial fibrillation. 6. Moderate to severe pulmonary hypertension. 7. Hypothyroidism. 8. Morbid obesity. 9. Possible left renal mass. 10. Secondary hyperparathyroidism of renal origin. 11. Gout. PAST SURGICAL HISTORY: Colonoscopy. SOCIAL HISTORY: , lives with her , has three children, denies alcohol, drugs or smoking. FAMILY HISTORY: Significant for heart disease. ALLERGIES: No known drug allergies. HOME MEDICATIONS: Reviewed and include amlodipine 5 mg daily, vitamin D2 50,000 units once weekly, cyanocobalamin injection once a month, levothyroxine 112 mcg p.o. daily, telmisartan hydrochlorothiazide one tab daily, allopurinol 300 mg daily, nystatin p.r.n. powder. REVIEW OF SYSTEMS: Constitutional: Denies fevers or chills. Eyes: Denies vision changes or tearing. ENT: Reports poor dentition, missing teeth. Denies odynophagia. Cardiac: Reports atrial fibrillation. Denies chest pain. Denies leg swelling. Respiratory: Denies shortness of breath or cough. Gastrointestinal: Denies nausea, vomiting or diarrhea. Genitourinary: Denies dysuria or hematuria. Musculoskeletal: Reports a history of gout. Endocrine: Reports hypothyroidism and secondary hyperparathyroidism. Hematologic: Denies anemia, was recently started on anticoagulant. Skin: Reports cellulitis and rash of the chest and groin. Neurologic: Denies seizure or syncope. Psychiatric: Denies depression. Reports some anxiety. Remainder of review of systems is negative or as per HPI. PHYSICAL EXAMINATION: Vital signs: Temperature 98.5, pulse 74, respiratory rate 16, blood pressure 108/62, saturating 98% on room air. Intake yesterday was 1.5 liters. Urine output was recorded as a total of 5 voids. Weight in the bed scale today is 113.4 kg. General: Patient was seen sitting in bed, elderly and obese female, awake, alert, oriented x3 in no distress. HEENT: Extraocular muscles are intact. Tongue is moist. Dentition is very poor. There are multiple missing teeth. Neck veins were not elevated. Heart: Heart sounds are irregularly irregular. There is no peripheral edema. There is no dependent edema. Lungs: Clear to auscultation bilaterally, no crackle, rale or rhonchus. Abdomen: Soft, obese and nontender. She has a rash underneath her breast folds and she also reports a rash in the perineal area which I did not examine. Neurologic: She is oriented x3, no focal deficit. Psychiatric: Appropriate mood and affect. LABORATORY DATA: White count 18.5. On admission, white count was 20.9, hemoglobin 12.0, platelets 327. Sodium 141, potassium 4.1, bicarbonate 20. BUN 84. On admission, BUN was 92. Creatinine 2.7. On admission, creatinine was 2.8. GFR 18. Glucose 112. Phosphorus 4.8, albumin 1.3. Parathyroid hormone 360. Vitamin D was only 10.1. Urinalysis is negative for protein and there is only 1 RBC per high powered film. There was 1+ bacteria and leukocyte esterase. IMAGING: She had an abdominal ultrasound done on November 25 that shows no obstruction of the kidneys. There is a possible 1.5 cm left renal mass in the interpolar region. INPATIENT MEDICATIONS: 1. Zosyn 4.5 gm IV q.8 hourly. 2. Tylenol 650 mg p.o. p.r.n. 3. Amlodipine 5 mg daily. 4. Eliquis 5 mg p.o. b.i.d. 5. Atenolol 25 mg p.o. q.6 hourly withholding parameters. 6. Fluconazole 150 mg p.o. daily. 7. Levothyroxine 112 mcg p.o. daily. 8. Vitamin D 50,000 units p.o. on Sundays. PROBLEMS: 1. JENN superimposed on CKD stage 3B versus possible progression of CKD stage 3B now to CKD stage 4. I reviewed the historical labs in the [facility] from 2011 up until 2020. The patient has a baseline GFR of about 35-40 mL per minute going back all the way to 2011. She was last at her baseline renal function in November, (GFR equals 42 at that time). Then there are no labs seen in the [facility] for a whole year up until admission currently with labs done on November 25. At that point, creatinine has been around 2.7 with a GFR of 18 and has had virtually no change throughout this admission. We are checking with PCP office to see if patient has had any interval labs between November of 2019 and November of 2020 so that we can ascertain when the decline in renal function occurred. She takes NSAIDs at home on a p.r.n. basis and is also on Telmisartan hydrochlorothiazide at home and I would keep her off of all of these medications going forward. Her urinalysis is otherwise fairly benign with no significant proteinuria and no significant RBC in the urine. Her electrolytes and volume status are acceptable and renal imaging was likewise negative for obstruction. She is going to need close followup in the nephrology office once she is medically ready for discharge. There is no indication for dialysis at this time. 2. Possible left renal mass. Abdominal ultrasound is reviewed with a 1.5 cm possible mass in the left interpolar region. The patient is not suitable for contrast CT scan in view of current GFR of 18 mL per minute and high risk of dye induced nephropathy. She is going to need to follow up with urology as an outpatient in view of this possible left renal mass. 3. Hypertension. The patient takes amlodipine, telmisartan and hydrochlorothiazide at home. I would keep her off of NICK, ARB or diuretic at the present time. In the hospital, blood pressure is controlled with amlodipine and atenolol and no changes are being made to this regimen. 4. Status post sepsis. Most likely related to a cellulitic rash of the groin and under the breast folds and it is being managed by the primary team. Her white count still persists. She is on Zosyn as well. She had an echocardiogram done on November 25 that could not rule out any smaller sessile vegetation and she did have two sets of blood cultures done on November 25 and on November 26 and all blood cultures were negative. Management of antibiotics and cellulitis is all as per primary service. 5. Secondary hyperparathyroidism of renal origin. Parathyroid hormone level was elevated at 360. I feel this is also indicative that patient has had progression of her chronic kidney disease. Her vitamin D level was deficient. She is receiving vitamin D supplementation and I have also ordered calcitriol three days per week. 6. New onset atrial fibrillation. The patient is on atenolol for rate control and on Eliquis for anticoagulation. 7. Disposition. We will try and obtain labs between November, and November, to see when the decline in renal function first began. No need for IV fluids at this time. Keep off of NICK, ARB and nephrotoxics. She will need to see urology as an outpatient for possible left renal mass and will need to see nephrology as well. We will continue to follow her along with you. Thank you for the consult. GODFREY
--- NOTE | 2020-11-28 15:48 | IPN ---
PROGRESS NOTE DATE: 11/28/2020 SUBJECTIVE: I was informed around 11:45 this morning that Kalyani had 7 seconds of asystole. She became responsive after stimulation and she was back in atrial fibrillation with a heart rate around 48 and blood pressure 136/63 after the event. She was sleeping at the time. The case was discussed with Dr. Tayo Kemp, who will see the patient in consultation. He read her echocardiogram and he agrees that there is nothing on the echocardiogram to strongly suggest endocarditis and with the negative blood cultures, the diagnosis is not tenable. He advised change in the parameters of the Atenolol to only give if the heart rate is greater than 125 and I made those changes. I am also stopping her Fluconazole as it has potential toxicity and drug interactions with some of her other medications.
[2020-11-29] VITALS: BP 110/53
[2020-11-29 04:00] VITALS: BP 103/65
[2020-11-29] MEDS: atenoloL 25 MG TAB PO SCH ×3 (06:00→18:00)
[2020-11-29 06:20] LABS: HEMATOCRIT 34.9 % (36.0-47.0); HEMOGLOBIN 11.4 g/dl (12.0-15.5); MEAN CORPUSCULAR HGB CONC 32.7 g/dl (32.0-36.5); MEAN CORPUSCULAR VOLUME 101.2 fl (80.0-96.0); PLATELET COUNT, AUTOMATED 312 10^3/uL (150-450); RED BLOOD COUNT 3.45 10^6/uL (4.00-5.40); WHITE BLOOD COUNT 18.3 10^3/uL (4.0-10.0)
[2020-11-29] MEDS: LEVOTHYROXINE 112MCG TABLET (0.112MG) PO SCH (06:32)
[2020-11-29 06:40] LABS: ALBUMIN 1.4 GM/DL (3.2-5.2); CALCIUM LEVEL 7.3 MG/DL (8.8-10.2); CREATININE FOR GFR 2.56 MG/DL (0.55-1.30); GLOMERULAR FILTRATION RATE 19.7 (>39); PHOSPHORUS LEVEL 4.7 MG/DL (2.5-4.9)
[2020-11-29 06:45] LABS: ATYPICAL LYMPH 2 % (0-5); LYMPHOCYTES 7 % (16-44); METAMYELOCYTES 1 % (0-0); MONOCYTES 6 % (0-5); MYELOCYTES 2 % (0-0); NEUTROPHILS 82 % (28-66); PLATELET ESTIMATE NORMAL (NORMAL)
[2020-11-29 06:46] LABS: PLATELET CLUMPS SMALL AMT; POIKILOCYTOSIS 1+
[2020-11-29 08:00] VITALS: BP 118/60
[2020-11-29] MEDS: amLODIPine 5 MG TAB PO SCH (09:00)
[2020-11-29] MEDS: TIMOLOL MALEATE 0.5% OPHTH SOLN 5 ML OU SCH ×2 (10:19→21:11)
[2020-11-29] MEDS: APIXABAN 5 MG TAB (ELIQUIS) PO SCH ×2 (10:19→21:11)
--- NOTE | 2020-11-29 11:16 | IPN ---
PROGRESS NOTE DATE: 11/29/2020 SUBJECTIVE: Kalyani seen in PCU. No reports of further asystole. Discussed with Dr. Kemp case twice yesterday, waiting for his formal consultation. She denies any syncope, chest pain or shortness of breath. OBJECTIVE: Vital signs listed. Afebrile. Lungs clear. Heart regular rate and rhythm, right around 70. Abdomen soft, nontender, no masses. Trace peripheral edema. Intertrigo is improved. LABS: White count 18.3, hemoglobin 11.4, platelets 312. Sodium 141, potassium 4, BUN 82, creatinine 2.5. ASSESSMENT: 1. Asystole, no recurrence. Cardiology has been consulted, awaiting their formal consultation. 2. Leukocytosis. Case was discussed with Dr. Angel yesterday. She is concerned that the lesion on the liver as seen on ultrasound might be an area of infection. I have ordered CT of abdomen and pelvis without contrast today. 3. Intertrigo, improved with current therapy. I did discontinue her oral Fluconazole yesterday after she had her asystolic event. 4. Atrial fibrillation, converted to sinus rhythm. She is anticoagulated with Eliquis 5 mg twice daily. 5. We did stop her Zosyn yesterday, she has not developed any fever, her white count is unchanged. 6. Hypothyroidism, current dose of Levothyroxine 112 mcg daily. 7. Hypertension, continue her Amlodipine 5 mg daily. 8. Acute kidney injury superimposed on stage 3B chronic kidney disease. Nephrology involvement, she was on Telmisartan as well as non-steroidal at home which might have contributed.
--- NOTE | 2020-11-29 11:41 | REP ---
INDICATION: ? mass on US COMPARISON: 02/22/2006 CT, 11/25/2020 ultrasound. TECHNIQUE: CT Scan of the abdomen and pelvis was performed without intravenous contrast. Sagittal and coronal reconstruction images performed. Study is limited by patient body habitus and streak artifact from the patient's arms, as well as the lack of IV contrast. FINDINGS: Lung bases: There are small bilateral effusions with dependent atelectatic changes in both lung bases. Liver: Grossly unremarkable. Gallbladder: Grossly unremarkable. Spleen: Grossly unremarkable. Adrenals: Normal. Pancreas: Grossly unremarkable.. Kidneys: No hydronephrosis. There are scattered bilateral punctate calcifications seen in both pelvocaliceal regions. Ureters demonstrate no dilatation or calculus. Renal contours appear unchanged compared to the prior CT exam, with no gross mass identified. However, without IV contrast a small intraparenchymal nodule cannot be excluded. Small and large bowel: There is sigmoid and left colonic diverticulosis. There is no free air or obstruction. Free fluid: There is moderate ascites, located predominantly on the right side of the abdomen and pelvis.. Abdominal aorta: No aneurysm. Adenopathy: None. Appendix: Not inflamed. Osseous structures: There are degenerative changes of the spine without compression deformity. Pelvis: No mass. No bladder calculus seen. IMPRESSION: Small bilateral pleural effusions and dependent atelectatic changes. No gross renal mass, however, evaluation is limited without IV contrast. No free air or obstruction. Moderate abdominal and pelvic ascites, located primarily to the right of midline. <Electronically signed by Martir Laurent > 11/29/20 [id number]
[2020-11-29 12:00] VITALS: BP 120/58
--- NOTE | 2020-11-29 14:44 | CR ---
CONSULTATION DATE: 11/25/2020 TIME: 12:01 p.m. REFERRING PHYSICIAN: Owen Carter M.D. REASON FOR CONSULTATION: Sick sinus syndrome/tachycardia/bradycardia syndrome. Persistent atrial fibrillation. HISTORY OF PRESENT ILLNESS: Kalyani Correa is a 70-year-old woman with persistent atrial fibrillation (this hospitalization), sick sinus syndrome/tachycardiac-bradycardia syndrome requiring AV giancarlo slowing medications to control rapid ventricular response and observation of a seven second asystole episode that occurred 11/28/2020 at 11:19 a.m. She has systemic hypertension, hypertensive heart disease (without heart failure), nonrheumatic mitral valve disease with mitral regurgitation and mitral stenosis, and degenerative, calcific aortic valve disease with aortic regurgitation and aortic stenosis (nonrheumatic). Echocardiogram Doppler 11/25/2020 reported moderate left atrial dilatation (4.7 cm), preserved LV systolic function with LVEF 55%. The patient was in atrial fibrillation with controlled ventricular response at the time of her echocardiogram. It was noted to be a technically difficult study. Mild concentric LVH with normal wall motion. Mildly dilated right ventricle and right atrium with slight hypokinesis of the right ventricular free wall and suggestive of at least moderately-severe pulmonary hypertension. Mildly dilated IVC with reduced respiratory variation suggestive of at least mild elevation of CVP. Moderate calcific aortic valve stenosis with mild aortic regurgitation. Moderately severe mitral annular calcification with at least mild mitral stenosis and presence of moderate mitral regurgitation. Normal tricuspid valve with at least mild tricuspid regurgitation. The patient presented to the hospital on this occasion on 11/25/2020 at which time she was noted to have new onset atrial fibrillation which rapid ventricular response and per admission H&P had sepsis by SIRS criteria. She was also noted to have acute kidney injury, cellulitis, elevated bilirubin, elevated troponin, hypothyroidism. Cardiac status: Patient is not aware of any palpitations. Denies any presyncope and syncope or lightheadedness. Denies any shortness of breath with exertion. No orthopnea or PND. No chest pain or chest discomfort with or without activity. No embolic events and no intermittent claudication. No known adverse drug reactions. MEDICATIONS PRIOR TO ADMISSION: 1. Allopurinol 300 mg daily. 2. Amlodipine 5 mg daily. 3. Vitamin B12 1000 mcg intramuscular every 30 days. 4. Vitamin D2 5000 units p.o. once a week on Sundays. 5. Levothyroxine 112 mcg daily. 6. Nystatin topical t.i.d. p.r.n. on her breasts. 7. Telmisartan/hydrochlorothiazide 8025 mg once daily. 8. Timolol ophthalmic solution 0.5% one drop on both eyes b.i.d. The patient's current medications in the hospital are as follows: 1. Vitamin D 5000 units on Sundays. 2. Calcitriol 0.25 mcg p.o. Mondays, Wednesdays, Fridays. 3. Eliquis 5 mg b.i.d. 4. Atenolol 25 mg p.o. q.6 h. 5. Levothyroxine 112 mcg daily. 6. Timolol ophthalmic solution one drop, both eyes b.i.d. 7. Nystatin topical t.i.d. p.r.n. applied to rash. 8. Acetaminophen 650 mg q.4h p.r.n. 9. Amlodipine 5 mg p.o. daily. PAST MEDICAL AND SURGICAL HISTORY: Chronic kidney disease stage 3D, hypothyroidism, vitamin B12 deficiency, systemic hypertension, hypertensive heart disease (with CHF), abnormal ECG, obesity, persistent atrial fibrillation (this hospitalization, diagnosis 11/25/2020). She was in sinus rhythm the last time she was seen in my office on 08/29/2020. Regadenoson stress SPECT myocardial perfusion study, 10/16/2018 was thought to show normal perfusion. Normal LV wall motion. LVEF 56%. PAST SURGICAL HISTORY: 1. Colonoscopy 06/2013. 2. Pulmonary biopsy, 04/2015. 3. Cataract extraction, left eye, 10/2018. 4. Right eye cataract extraction, 2019. FAMILY HISTORY: Father diseased of heart disease, age 52. Mother at age 78 of natural causes. One son with heart disease. One brother diseased at age 68, another brother with CAD and kidney disease on dialysis. Sister with heart disease, at age 50, another sister at age 56 with ovarian cancer and another sister with heart disease. SOCIAL HISTORY: . Lives with spouse. Disabled. 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 Ambulates with a wheeled quad walker with hand breaks and seat. Nonsmoker, No alcohol. She is vision impaired. REVIEW OF SYSTEMS: Fatigue. Nocturia twice a night. Arthralgias, arthritis, gout. Anxiety and depression. No panic attacks. Anemia. All other 12-point review of systems negative. PHYSICAL EXAMINATION: BP this morning was 118/60 with a pulse of 72 (irregular). Temperature 97.2, respiratory rate 20, O2 saturation 98% on room air. Height 69 inches, weight 113.4 kilograms, BMI 36.9. Patient is obese, not in any respiratory or psychologic distress. No conjunctival scleral icterus or xanthomas. Teeth were in poor condition. Trachea midline. No palpable thyroid. Jugular venous pulsations were 3 cm. Respiratory expansion and effort were good. No crackles or wheezes. Variable S1. S2 was single. No S3. A grade 2-3 systolic ejection murmur, right second interspace with radiation to the carotids. Carotids are normal in volume and contour, and without bruits. No palpable abdominal aorta but difficult to palpate due to abdominal obesity. Pedal pulses normal. No peripheral edema in the legs. No clubbing of the nail beds, cyanosis or splinter hemorrhages. Abdomen was obese, soft, nontender with normal bowel sounds. No hepatosplenomegaly or organomegaly palpable. Liver span difficult to assess due to abdominal obesity. Stool for occult blood to be ordered as the patient has been diagnosed with atrial fibrillation. Gait testing deferred. No kyphosis or scoliosis. Gross motor strength and tone appear normal. No fasciculations or tremors. No skin lesions, skin pallor or icterus. Oriented to person, place and time. Mood and affect was normal. Laboratory work 11/29/2020 showed WBC 18.3, hemoglobin 11.4, hematocrit 34.9, platelets 312, sodium 141, potassium 4.0, chloride 109, CO2 22, BUN 82, creatinine 2.56, estimated GFR 19.7, glucose 106. calcium low at 7.3, phosphorus normal at 4.7, albumin low at 1.4. Laboratory work 11/25/2020 showed TSH of 5.430 (elevated), free T4 1.29. I independently visualized the patient's portable AP sitting chest x-ray acquired 11/25/2020. Appears to have cardiomegaly. Some scoliosis was present. Pleural angles sharp. Pulmonary vasculature did not appear increased. Electrocardiogram, 11/25/2020 at 7:30 a.m. shows atrial fibrillation with rapid ventricular response, 151 BPM, LVH with moderate QRS widening (____) with LVH repolarization abnormalities, poor R wave progression (could not rule out septal infarct, age undetermined), repolarization abnormalities most likely secondary to LVH, cannot rule out high lateral subendocardial ischemia. ASSESSMENT AND PLAN: 1. Persistent atrial fibrillation. Patient has not been symptomatic with palpitations. She was last noted to be in sinus rhythm in our office on 08/29/2020. She has been in atrial fibrillation since she was hospitalized on this occasion, 11/25/2020 without any episodes of sinus rhythm. She presented with rapid response and requires AV giancarlo slowing medication to control the rapid response. During this hospitalization, she had a seven second pause observed 11/29/2020 at 11:19 a.m. She therefore would also be considered to have tachycardia-bradycardia syndrome and qualifies for a permanent pacemaker. She qualifies for anticoagulation and is presently on Eliquis 5 mg b.i.d. She has associated valvular heart disease with her echocardiogram Doppler during this hospitalization showing extensive mitral annular calcification with at least mild mitral stenosis and moderate mitral regurgitation. I recommend a rate controlled approach rather than anti-electrode therapy or atrial fibrillation radiofrequency ablation or cryoballoon atrial fibrillation ablation. Unless I see documentation of the patient spontaneously converting to sinus rhythm during this hospitalization, I believe that it would be appropriate just to go forward with a single chamber permanent pacemaker. Pacemaker implantation was explained to the patient including the alternative of no pacemaker (increased risk for recurrent asystole resulting in syncope and its consequences including potential for bodily harm as a result of syncope). Risks of pacemaker implantation explained to the patient including but not all inclusive: Infection (1%), pneumothorax (1%), bleeding and hematoma (increased risk with recent exposure to anticoagulation), redislodgement, poor wound healing, cardiac dysrhythmias, adverse drug reaction and cardiac perforation with cardiac tamponade (3-06/999). Patient was very reluctant to agree to a pacemaker at this time and wanted to discuss this further with her . As it stands at this time, the patient is not willing to undergo implantation of a permanent pacemaker. The other issue with regards to pacemaker implant is when would this patient be cleared from the standpoint of infectious disease to safely implant a pacemaker. I spoke by cell phone to Dr. Owen Carter with regards to the situation with the patient electing to have a pacemaker at this time and also with regards to timing of pacemaker implant with regards to her being cleared from an infectious disease standpoint. Dr. Carter indicated that he would speak with infectious disease physician, Dr. Angel, to get her opinion as to when it would be safe to implant a pacemaker from the infectious disease standpoint. For now, agree with ongoing use of atenolol and Eliquis. At this point, I would not discontinue the patient's timolol eye drops. 2. Sick sinus syndrome/tachycardia-bradycardia syndrome. As per persistent atrial fibrillation category above. 3. Systemic hypertension. Blood pressure presently controlled in hospital. Patient's blood pressure is currently controlled on atenolol and amlodipine. No changes were made to the patient's atenolol and amlodipine dosing at this time. 4. Hypertensive heart disease (CHF). Documentation of left ventricular hypertrophy by ECG and echo. NYHA functional class 1. Appears compensated on examination. No history of decompensated heart failure. Management of hypertension as above. 5. Nonrheumatic mitral valve disease with extensive mitral annular calcification. Moderate mitral regurgitation and at least mild mitral stenosis reported on the echocardiogram Doppler from this hospitalization. Recommend a yearly echocardiogram Doppler. At this point, patient does not qualify for mitral valve surgery. 6. Nonrheumatic aortic valve disease with echocardiogram Doppler during this hospitalization reporting moderate aortic stenosis and mild aortic regurgitation. Recommend a yearly echocardiogram Doppler. At this point, she does not qualify for a TAVR. 7. Abnormal ECG. ECG findings as noted above. Thank you kindly for asking me to participate in the cardiac care of Kalyani Correa. Ivelisse Angel M.D.
[2020-11-29 16:00] VITALS: BP 124/67
[2020-11-29 20:00] VITALS: BP 115/57
[2020-11-30] VITALS: BP 126/69
[2020-11-30 03:30] LABS: HEMATOCRIT 34.8 % (36.0-47.0); HEMOGLOBIN 11.4 g/dl (12.0-15.5); MEAN CORPUSCULAR HGB CONC 32.8 g/dl (32.0-36.5); MEAN CORPUSCULAR VOLUME 100.9 fl (80.0-96.0); PLATELET COUNT, AUTOMATED 267 10^3/uL (150-450); RED BLOOD COUNT 3.45 10^6/uL (4.00-5.40); WHITE BLOOD COUNT 13.4 10^3/uL (4.0-10.0)
[2020-11-30 03:58] LABS: ALBUMIN 1.3 GM/DL (3.2-5.2); CALCIUM LEVEL 7.2 MG/DL (8.8-10.2); CREATININE FOR GFR 2.16 MG/DL (0.55-1.30); GLOMERULAR FILTRATION RATE 23.9 (>39); PHOSPHORUS LEVEL 4.1 MG/DL (2.5-4.9); POTASSIUM SERUM 3.8 MEQ/L (3.5-5.1)
[2020-11-30 04:00] VITALS: BP 123/68
[2020-11-30 04:20] LABS: EOSINOPHILS 1 % (0-3); LYMPHOCYTES 9 % (16-44); METAMYELOCYTES 3 % (0-0); MONOCYTES 7 % (0-5); NEUTROPHILS 79 % (28-66)
[2020-11-30 04:21] LABS: PLATELET ESTIMATE NORMAL (NORMAL)
[2020-11-30] MEDS: atenoloL 25 MG TAB PO SCH ×2 (06:00)
[2020-11-30] MEDS: LEVOTHYROXINE 112MCG TABLET (0.112MG) PO SCH (06:07)
[2020-11-30 08:00] VITALS: BP 145/72
[2020-11-30] MEDS: APIXABAN 5 MG TAB (ELIQUIS) PO SCH (09:00)
[2020-11-30] MEDS: VITAMIN D 50,000 UNITS CAPSULE (ERGOCALCIFEROL 1.25MG) PO SCH (09:11)
[2020-11-30] MEDS: amLODIPine 5 MG TAB PO SCH (09:12)
[2020-11-30] MEDS: TIMOLOL MALEATE 0.5% OPHTH SOLN 5 ML OU SCH ×2 (09:12→20:29)
[2020-11-30 12:00] VITALS: BP 142/88
--- NOTE | 2020-11-30 13:59 | IPN ---
PROGRESS NOTE DATE: 11/30/2020 SUBJECTIVE: Liyah is seen in the progressive care unit (PCU). No more asystolic events. Case was discussed yesterday with Dr. Gamble, who feels the patient would be appropriate for a pacemaker. We want to make sure that she is clear for this from an infectious disease standpoint. Dr. Angel and I have been discussing the case informally and I am going to put her on formal consultation. Her leukocytosis is resolving. I stopped her Zosyn on 11/28/2020. There has been no fever and her white count is trending down. Blood cultures are all negative. There was some concern about a possible left renal mass on ultrasound and we wanted to make sure that did not look like an abscess, so we did a CT scan yesterday and there is no mention of any abnormality in the left kidney of any note. Clinically, she is stable. She is not cooperating with physical therapy today. PHYSICAL EXAMINATION: VITAL SIGNS: Blood pressure 126/68, pulse 64. GENERAL APPEARANCE: Alert, conversant. No distress. Arguing with the physical therapist about getting out of bed. LUNGS: Clear. HEART: Regular rhythm with a 1/6 systolic ejection murmur. ABDOMEN: Soft, nontender. No masses. EXTREMITIES: Trace peripheral edema. LABORATORY DATA: White count 13.4, hemoglobin 11, platelets 267. Sodium 142, potassium 3.8, BUN 76, creatinine 2.1, glucose 118. IMPRESSION: 1. Asystolic event. Appreciate cardiology's input. The feel she is appropriate for a pacemaker. We will let Dr. Angel to weight in to make sure there are no infectious complications to prevent this being done. I held her Eliquis today in anticipation of possible procedure tomorrow. 2. Leukocytosis. This is improving. Left renal lesion was not present on CT scan. White count is trending down. She has been off antibiotics for 48 hours now with improved white count and no fever. 3. Atrial fibrillation. Rate is controlled. 4. Hypothyroidism. Stable on current dose of levothyroxine. 5. Acute kidney injury. Nephrology is involved. She is off her angiotensin converting enzyme (NICK) inhibitor and nonsteroidal. 6. Deconditioning. She is poorly motivated to participate with physical therapy, which will delay her improvement.
[2020-11-30 20:00] VITALS: BP 124/62
[2020-11-30] MEDS: ATENOLOL 12.5MG PER 1/2 TABLET PO SCH ×2 (20:15→21:00)
--- NOTE | 2020-11-30 22:12 | IPN ---
NEPHROLOGY PROGRESS NOTE DATE: 11/30/2020 SUBJECTIVE: Kalyani was seen and examined this morning at the bedside. She has no complaints. She reports no shortness of breath. Her renal function has marginally improved on the blood work today. Her white count has also significantly improved from 18 down to 13. OBJECTIVE: VITAL SIGNS: Temperature 97.5, pulse 75, respiratory rate 17, blood pressure 142/88, saturating 99% on room air. INTAKE AND OUTPUT: Intake yesterday was 1.8 liters. Urine output was recorded as 7 voids. Weight in the bed scale today is not recorded. PHYSICAL EXAMINATION: GENERAL APPEARANCE: The patient was seen lying in bed morbidly obese female, awake, alert, oriented and in no distress. HEENT: The extraocular muscles are intact. Tongue is moist. NECK: Supple. Jugular veins are not elevated. HEART: Irregular. There is a faint murmur. LUNGS: Clear to auscultation. No crackles or rales. ABDOMEN: Soft, obese and nontender. EXTREMITIES: No significant edema. LABORATORY STUDIES: Sodium 142, potassium 3.8, bicarbonate 22, BUN 76, creatinine 2.1, phosphorous 4.1, albumin 1.3, hemoglobin 11.4. IMAGING: She had a CT of the abdomen and pelvis yesterday to further image the small possible left renal mass that was seen on ultrasound (1.5 cm). The non-contrast CAT scan did not worm picker any such findings. INPATIENT MEDICATIONS: She continues on Amlodipine 5 mg p.o. daily. She is off of Eliquis. Her Atenolol dose is decreased to 12.5 mg p.o. twice daily. The remainder medications are unchanged as compared to yesterday. PROBLEMS: 1. Acute kidney injury superimposed on chronic kidney disease stage 3b peak creatinine on this admission was 2.8, and over the past 48 hours renal function has improved with creatinine down to 2.1. She takes Lotensin, Hydrochlorothiazide at home which has been held thus far on this admission, and there have not been any fluid problems so far. I would to hold the diuretic. She had a prior baseline GFR of about 40 mL per minute as recently as November of 2019. Apparently she did not have any renal function checked between November of 2019 until this admission. 2. Leukocytosis her white count was persistently elevated at 18 but now over the past 24 hours, white count has finally come down to 13. The improvement in her leukocytosis also coincided with the improvement in renal function. She has been off of antibiotics and afebrile. 3. Atrial fibrillation with recent asystolic pause - The patient is most likely going to agree for a pacemaker placement and her chronic anticoagulation is hence on hold, and her beta davonte dose was also decreased by Cardiology. 4. Possible left renal mass, too small to characterize via non-contrast CAT scan either the patient will have a repeat renal ultrasound in 6 months to reevaluate/Urology follow up/possibility of CAT scan with contrast only if her renal function significantly improves.
[2020-12-01] VITALS: BP 126/59
[2020-12-01 04:00] VITALS: BP 137/68
[2020-12-01 05:31] LABS: HEMATOCRIT 36.1 % (36.0-47.0); HEMOGLOBIN 11.6 g/dl (12.0-15.5); MEAN CORPUSCULAR HEMOGLOBIN 32.8 pg (27.0-33.0); MEAN CORPUSCULAR HGB CONC 32.1 g/dl (32.0-36.5); PLATELET COUNT, AUTOMATED 252 10^3/uL (150-450); RED BLOOD COUNT 3.54 10^6/uL (4.00-5.40); WHITE BLOOD COUNT 11.7 10^3/uL (4.0-10.0)
[2020-12-01 05:50] LABS: ALBUMIN 1.3 GM/DL (3.2-5.2); CALCIUM LEVEL 7.2 MG/DL (8.8-10.2); GLOMERULAR FILTRATION RATE 26.1 (>39); POTASSIUM SERUM 4.3 MEQ/L (3.5-5.1)
[2020-12-01 06:17] LABS: EOSINOPHILS 1 % (0-3); LYMPHOCYTES 11 % (16-44); METAMYELOCYTES 1 % (0-0); MONOCYTES 2 % (0-5); MYELOCYTES 4 % (0-0); NEUTROPHILS 79 % (28-66); SMUDGE CELLS 1+
[2020-12-01 06:18] LABS: PLATELET CLUMPS SMALL AMT; PLATELET ESTIMATE NORMAL (NORMAL)
[2020-12-01] MEDS: LEVOTHYROXINE 112MCG TABLET (0.112MG) PO SCH (06:25)
[2020-12-01 07:05] VITALS: BP 120/57
[2020-12-01] MEDS: ATENOLOL 12.5MG PER 1/2 TABLET PO SCH ×2 (10:01→21:00)
[2020-12-01] MEDS: amLODIPine 5 MG TAB PO SCH (10:01)
[2020-12-01] MEDS: TIMOLOL MALEATE 0.5% OPHTH SOLN 5 ML OU SCH ×2 (10:01→21:09)
[2020-12-01] MEDS: CALCITRIOL 0.25 MCG CAP (S0169) PO SCH (10:06)
[2020-12-01 11:46] VITALS: BP 129/60
--- NOTE | 2020-12-01 12:50 | IPN ---
PROGRESS NOTE DATE: 12/01/2020 SUBJECTIVE: Kalyani has had no further asystole episodes. She is in atrial fibrillation with a controlled rate. Plan is for a pacemaker tomorrow. She was seen by Dr. Gamble from Cardiology and Dr. Marylou Hannon from Nephrology. She has had no fever or chills. She has been hesitant to participate with Physical Therapy and seems to lack some motivation towards working towards discharge. OBJECTIVE: VITAL SIGNS: Blood pressure is 120/57, afebrile. She was 100% O2 saturation on room air. GENERAL APPEARANCE: She is alert and conversant. LUNGS: Clear. HEART: Irregular rate and rhythm. ABDOMEN: Soft, nontender. EXTREMITIES: Trace peripheral edema. LABORATORY DATA: Sodium is 142, potassium is 4.3, creatinine is 2 from 2.5 two days ago, white count is down to 11.7, potassium is steadily declining as well. Hemoglobin is 11.6, platelets are 252,000. Per telemetry nurse, there has been no asystole. IMPRESSION: 1. Asystole, no recurrence since the initial event. Cardiology was consulted. Pacemaker is planned. 2. Leukocytosis, white count has gradually declined. I stopped the IV antibiotics two days ago and white count continues to improve. There is no sign of infection. 3. Intertrigo, improved on her topical regimen. 4. Atrial fibrillation, her Eliquis is on hold pending pacemaker. 5. Hypertension, blood pressure is well-controlled. 6. Acute kidney injury superimposed on Stage III chronic kidney disease. Her Telmisartan has been held. Nephrology is following her. Creatinine is gradually returning to baseline.
[2020-12-01 15:25] VITALS: BP 141/67
--- NOTE | 2020-12-01 19:35 | IPN ---
NEPHROLOGY PROGRESS NOTE DATE: 12/01/2020 SUBJECTIVE: Mrs. Correa is seen this morning at her bedside. She is laying in her bed without any acute distress. She denies any dyspnea, chest pain, palpitations, nausea or vomiting. She understands the Cardiology recommendation for a permanent pacemaker placement and is willing to proceed. She is concerned about her kidney function and asked several questions. I have explained to her that kidney function is gradually improving. She was admitted with atrial fibrillation and rapid ventricular rate. She had a 7 second pause due to which permanent pacemaker has been recommended by Dr. Gamble. She did have an echocardiogram during this hospitalization which has already been reviewed. OBJECTIVE: PHYSICAL EXAMINATION: VITAL SIGNS: Temperature is 97.1 degrees Fahrenheit, heart rate 74 per minute, respiratory rate 18 per minute, blood pressure 129/60 mm of mercury and oxygen saturation is 100% on room air. HEENT: Head is atraumatic. NECK: Supple and without JVD or thyroid enlargement. HEART: Sounds seem to be regular at present. LUNGS: Clear to auscultation bilaterally. ABDOMEN: Soft, obese and nontender and bowel sounds are normal. EXTREMITIES: Without any cyanosis or clubbing. NEUROLOGICAL: Awake, alert and oriented x3. INPATIENT MEDICATIONS: The patient's medications have been reviewed. She remains on Atenolol 12.5 mg twice daily, vitamin D 50,000 units once a week, Calcitriol 0.25 mcg three times a week, Levothyroxine 112 mcg daily, Amlodipine 5 mg daily, Tylenol 650 mg as needed for pain, Timolol eye drops twice daily. LABORATORY STUDIES: Today's labs show sodium 142, potassium 4.3, chloride 112, CO2 22, BUN 70 and creatinine 2.0, glucose 114, and calcium 7.2. Albumin level is only 1.3. WBC count is 11.7, hemoglobin 11.6 and hematocrit 36, platelet count 252. PROBLEMS: 1. Acute kidney injury superimposed on chronic kidney disease most likely this was related to rapid atrial fibrillation and kidney function is now gradually improving. The patient has no uremic symptoms and I have reassured her that at this point she is not at any significant risk for ending up on dialysis. Her electrolytes are stable and volume status seems well compensated. 2. Congestive heart failure most likely this was also related to atrial fibrillation with rapid ventricular rate. Clinically her volume status seems well compensated and she is now being followed by Cardiology and scheduled for a permanent pacemaker in view of tachybrady syndrome. 3. Hypoalbuminemia - The patient seems to have either fatty infiltration of the liver or cirrhosis. Her albumin level is significantly low and some peripheral edema could be related to low albumin. 4. Anemia her anemia is mild and stable. There is no need for any urgent intervention. 5. Tachybrady syndrome - The patient is going to have a permanent pacemaker and waiting for it.
[2020-12-01 20:00] VITALS: BP 139/58
[2020-12-02] VITALS: BP 117/58
[2020-12-02 04:00] VITALS: BP 123/63
[2020-12-02] MEDS: LEVOTHYROXINE 112MCG TABLET (0.112MG) PO SCH (05:14)
[2020-12-02 05:32] LABS: HEMATOCRIT 36.3 % (36.0-47.0); HEMOGLOBIN 11.7 g/dl (12.0-15.5); MEAN CORPUSCULAR HEMOGLOBIN 32.6 pg (27.0-33.0); MEAN CORPUSCULAR HGB CONC 32.2 g/dl (32.0-36.5); MEAN CORPUSCULAR VOLUME 101.1 fl (80.0-96.0); PLATELET COUNT, AUTOMATED 246 10^3/uL (150-450); RED BLOOD COUNT 3.59 10^6/uL (4.00-5.40); WHITE BLOOD COUNT 11.3 10^3/uL (4.0-10.0)
[2020-12-02 05:56] LABS: ALBUMIN 1.3 GM/DL (3.2-5.2); CALCIUM LEVEL 7.3 MG/DL (8.8-10.2); CREATININE FOR GFR 1.81 MG/DL (0.55-1.30); GLOMERULAR FILTRATION RATE 29.3 (>39); PHOSPHORUS LEVEL 3.4 MG/DL (2.5-4.9); POTASSIUM SERUM 3.7 MEQ/L (3.5-5.1)
[2020-12-02 06:12] LABS: ATYPICAL LYMPH 1 % (0-5); LYMPHOCYTES 17 % (16-44); MONOCYTES 6 % (0-5); MYELOCYTES 2 % (0-0); NEUTROPHILS 74 % (28-66)
[2020-12-02 06:13] LABS: PLATELET ESTIMATE NORMAL (NORMAL)
[2020-12-02 06:14] LABS: POLYCHROMASIA 1+
--- NOTE | 2020-12-02 07:15 | IPN ---
PROGRESS NOTE DATE: 12/01/2020 SUBJECTIVE: The patient denies any chest pain or chest discomfort. She is not having any dyspnea at rest or with minimal activity in the room. No dizziness or lightheadedness. Denies any palpitations. PHYSICAL EXAMINATION: Not in any respiratory or psychologic distress. Weight 111 kilograms. Temperature 97.5, pulse 69 (atrial fibrillation), respiratory rate 18, BP 141/67, O2 saturation 98% on room air. Jugular venous pulsations were 3 cm. First heart sound was variable in intensity. Second heart sound was normal in intensity. No S3 appreciated. Grade 1 systolic ejection murmur over the right second interspace without radiation to the carotids appreciated. Respiratory expansion effort was good. No crackles or wheezes. No edema in the legs. Abdomen was obese, soft and nontender. Alert and oriented x3. Mood and affect were normal. Laboratory work, 12/01/2020 was reviewed: WBC 11.7, hemoglobin 11.6, hematocrit 36.1, platelets 252, sodium 143, potassium 4.7, chloride 112, CO2 22, BUN 70, creatinine 2.00, estimated GFR 26.1, glucose 114, albumin 1.3. ASSESSMENT AND RECOMMENDATIONS: 1. Persistent atrial fibrillation, suspect atrial fibrillation is likely longstanding and may very well be permanent. Asymptomatic. She has associated sick sinus syndrome/tachycardiac/bradycardia syndrome with advanced AV block with documentation of a more than 7 second episode of asystole. She requires AV giancarlo slowing medications to control the tachycardia response of the tachy-steven syndrome. Pacemaker implantation was again discussed with the patient. Today she is agreeable to undergo implantation of a single chamber pacemaker. Risks of pacemaker implantation discussed with the patient included but not all inclusive: infection (1%), pneumothorax (1%), bleeding, poor wound healing, adverse drug reaction, cardiac dysrhythmias, lead dislodgement, and cardiac perforation with cardiac tamponade (05/999). She signed the consent form. The plan is to proceed with implantation of a single chamber pacemaker sometime tomorrow. She will be placed back on anticoagulation 12 hours after implantation of a permanent pacemaker. Continue atenolol at the current dosage. 2. Sick sinus syndrome/tachycardia-bradycardia syndrome. As per atrial fibrillation category above. 3. Systemic hypertension. Blood pressure recently well controlled at the moment. Continue amlodipine and atenolol at the current dosages. 4. Hypertensive heart disease (with CHF). Management as per systemic hypertension category above. 5. Mitral valve disease (nonrheumatic) with mitral stenosis and mitral regurgitation. 6. Nonrheumatic aortic valve disease with aortic stenosis and aortic regurgitation. 7. Abnormal ECG. ECG findings as documented on the electrocardiogram interpretation.
[2020-12-02 08:00] VITALS: BP 125/61
[2020-12-02] MEDS ORDERED: LR 1,000 ML IV SCH ×2 (08:00→21:45)
[2020-12-02] MEDS: TIMOLOL MALEATE 0.5% OPHTH SOLN 5 ML OU SCH ×2 (10:08→22:53)
[2020-12-02] MEDS: amLODIPine 5 MG TAB PO SCH (10:09)
[2020-12-02] MEDS: ATENOLOL 12.5MG PER 1/2 TABLET PO SCH (10:10)
[2020-12-02 12:00] VITALS: BP 128/56
--- NOTE | 2020-12-02 14:44 | IPNPDOC ---
Date Seen The patient was seen on 12/02/20. Progress Note SUBJECTIVE: Patient was seen and examined at bedside. No acute events overnight. Telemetry was reviewed showing no significant asystole. Occasional episodes of bradycardia down to 45. Patient states that she is not having chest pain palpitation shortness of breath, nausea, vomiting or diarrhea. She patient was comfortable in bed. Patient is n.p.o. awaiting placement of a pacemaker this afternoon by Dr. Hernandez. OBJECTIVE PHYSICAL EXAMINATION: VITAL SIGNS: please see below General: NAD, comfortable HEENT: PERRLA, EOMI, sclerae clear Neck: supple, normal ROM, no JVD Respiratory: lungs CTAB, no wheeze, no rales, no crackles CVS: RRR, normal S1, S2, no murmurs Abdo: soft, no masses, no hepatosplenomegaly, BS+, no rebound tenderness Extremities: no edema, pulses 2+ MSK: no joint deformities, normal ROM Neuro: no focal neuro deficits, moving all 4 extremities, CN2-12 intact. Strength 5/5 in all 4 extremities. No nystagmus. Psych: calm, cooperative, AAO x 3 LABORATORY DATA, IMAGING STUDIES, MICROBIOLOGY: Please see below. DVT prophylaxis ordered?: Mechanical prophylaxis, Eliquis on hold anticipation of pacemaker placement ASSESSMENT AND PLAN: 70 y/o female with a pmh of htn, hypothyroidism, gout and obesity who presented to our ED on 11/25 with a cc of weakness and fatigue as well as some right sided abd pain. Patient apparently suffered a fall out of bed. Patient found to be in atrial fibrillation with rapid ventricular response in our ED. ECHO performed showed possible vegetation and patient was started on empiric zosyn. Patient received 3 days of zosyn, and it was DC. Dr. Angel is consulted on 12/02/20 to assess for endocarditis prior to placement of pacemaker. PROBLEMS: Asystole Persistent Atrial fibrillation: asymptomatic. Likely permanent. Requires atenol ol to slow tachycardia portion of Tachy Oniel syndrome. Has [address] Gamble consulted. Plan for pacemaker placement on 12/02/20. Resume eliquis 12 hrs after pacemaker implantation. Asystole/Sick Sinus Syndrome/Tachy Oniel syndrome: presented with advanced AV block, > 7 sec period of asystole. Pacemeker implantation on 12/02/[address] Gamble. Systemic Hypertension: BP well controlled. C/w atenolol and amlodipine. Leukocytosis: WBC trended down. patient has been afebrile. No abdominal pain. Has been examined by Dr. Rosas, no suspicion for cholecystitis. Blood cultures negative. Echo report per Dr. Kemp, was unable to r/o small sessile vegetation. I d/w Dr. Gamble, as patient has negative cultures, no fevers, very low suspicion for endocarditis. Patient received 3 days of zosyn, now DC. I consulted Dr. Angel on 12/02/20 to assess patient for endocarditis or other source of infection prior to placement of pacemaker. After evaluation, patient was cleared from ID standpoint to proceed with pacemaker placement. JENN on CKD III: followed by Dr. Hannon. Cr trending down. JENN likely attributed to afib. Electrolytes appropriate. Intertrigo: c/w topic therapy. Anemia: stable. Dispo: pending pacemaker implantation. Patient has low motivation to participate in PT. states will try more after pacemaker. VS, I&O, 24H, [facility] Vital Signs/I&O Vital Signs Date Time Temp Pulse Resp B/P (MAP) Pulse Ox O2 Delivery O2 Flow Rate FiO2 12/02/20 12:00 97.6 64 20 128/56 (80) 100 Room Air I&O- Last 24 Hours up to 6 AM 12/02/20 06:00 Intake Total 880 ml Output Total 0 ml Balance 880 ml Laboratory Data 24H LABS Laboratory Tests 2 12/01/20 21:07: Coronavirus (COVID-19)(PCR) NEGATIVE 12/02/20 05:12: Immature Granulocyte % (Auto) , Neutrophils (%) (Auto) , Nucleated Red Blood Cells % (auto) 0.0, Neutrophils 74H, Lymphocytes (Manual) 17, Monocytes (Manual) 6H, Myelocytes 2H, Atypical Lymphocytes 1, Red Blood Cell Morphology , Polychromasia 1+, Platelet Estimate NORMAL, Anion Gap 7L, Glomerular Filtration Rate 29.3L, Calcium Level 7.3L, Phosphorus Level 3.4, Albumin 1.3L CBC/BMP Laboratory Tests 12/02/20 05:12 Microbiology Microbiology 11/26/20 Blood Culture - Final, Complete NO GROWTH AFTER 5 DAYS 11/26/20 Blood Culture - Final, Complete NO GROWTH AFTER 5 DAYS 11/26/20 Urine Culture - Final, Complete 11/25/20 Blood Culture - Final, Complete NO GROWTH AFTER 5 DAYS 11/25/20 Blood Culture - Final, Complete NO GROWTH AFTER 5 DAYS ENMANUEL DIAZ MD Dec 02, 2020 14:44
[2020-12-02 16:00] VITALS: BP 127/61
[2020-12-02] MEDS ORDERED: ceFAZolin SOD 2 GM in IV 1 EA IV ONE (16:00)
[2020-12-02 16:50] LABS: C REACTIVE PROTEIN QUANTITATIV 4.96 MG/DL (0.00-0.30)
[2020-12-02] MEDS ORDERED: ceFAZolin 1GM VIAL (J0690 PER 500MG) As Ordered ONE (18:47)
[2020-12-02] MEDS ORDERED: MIDAZOLAM INJ 2MG/2ML VIAL (J2250 PER 1MG) As Ordered ONE (18:48)
[2020-12-02] MEDS ORDERED: fentaNYL 100 MCG/2 ML INJECTION (J3010) As Ordered ONE (18:49)
[2020-12-02] MEDS ORDERED: propofoL 200 MG/20 ML VIAL As Ordered ONE ×2 (18:49→18:59)
[2020-12-02] MEDS ORDERED: ONDANSETRON 4MG/2ML VIAL As Ordered ONE (18:49)
[2020-12-02] MEDS ORDERED: LIDOCAINE 2% 100MG/5ML SDV (FOR ANES.) As Ordered ONE (18:49)
[2020-12-02] MEDS ORDERED: ISOVUE-300 61% 50ML VIAL As Ordered ONE (18:50)
[2020-12-02] MEDS ORDERED: MUPIROCIN 2% OINT 22 GM TUBE As Ordered ONE (18:50)
[2020-12-02] MEDS ORDERED: LIDOCAINE 1% SDV 30ML VIAL As Ordered ONE (18:50)
[2020-12-02] MEDS ORDERED: PHENYLephrine 500MCG 5ML (100MCG/ML) SYRINGE As Ordered ONE ×3 (19:37→20:05)
[2020-12-02] MEDS ORDERED: ONDANSETRON 4MG/2ML VIAL IV PRN (21:45)
[2020-12-02] MEDS ORDERED: fentaNYL 100 MCG/2 ML INJECTION (J3010) IV PRN (21:45)
[2020-12-02] MEDS ORDERED: PERCOCET 5MG/325MG TAB PO PRN (21:45)
[2020-12-02] MEDS ORDERED: METOCLOPRAMIDE INJ 10MG/2ML VIAL (J2765 PER 1) IV PRN (21:45)
[2020-12-02 22:20] VITALS: BP 118/79
--- NOTE | 2020-12-02 22:39 | REPVR ---
PROCEDURE INFORMATION: Exam: XR Chest Exam date and time: 12/02/2020 9:51 PM Age: 70 years old Clinical indication: Device placement; Cardiac defibrillator placementor adjustment; Additional info: S/P pacemaker TECHNIQUE: Imaging protocol: XR of the chest. Views: 1 view. COMPARISON: CR PORTABLE CHEST X-RAY 11/25/2020 7:47 AM FINDINGS: Tubes, catheters and devices: Single lead pacer is present, with lead projecting over the right ventricle. Lungs: Degree of lung inflation is normal. No evidence of pulmonary edema. No focal consolidation or parenchymal lung mass. Pleural spaces: No pneumothorax. Blunted costophrenic angles suggest pleural fluid , correlating with recent CT findings Heart/Mediastinum: Cardiac silhouette is prominent in size. No adenopathy or hilar mass. Bones/joints: Osseous structures show no concerning abnormality. IMPRESSION: 1. Appropriate placement of right ventricular pacing device without evidence of pneumothorax or other complication. 2. Residual pleural effusions and cardiac enlargement as seen on the recent CT, but with no active pulmonary edema Electronically signed by: Alber Espinoza On 12/02/2020 22:38:40 PM
[2020-12-02] MEDS: NYSTATIN 100,000 UNITS/GM TOPICAL PWD 15 GM TOP SCH (22:54)
[2020-12-03] VITALS: BP 131/62
[2020-12-03 04:00] VITALS: BP 134/62
[2020-12-03 06:12] LABS: BASO # 0.1 10^3/uL (0.0-0.2); EOS # 0.1 10^3/uL (0.0-0.5); EOS % 0.7 % (0.0-3.0); HEMATOCRIT 39.2 % (36.0-47.0); HEMOGLOBIN 12.5 g/dl (12.0-15.5); LYMPH # 1.5 10^3/uL (1.5-5.0); LYMPH % 12.6 % (24.0-44.0); MEAN CORPUSCULAR HEMOGLOBIN 32.6 pg (27.0-33.0); MEAN CORPUSCULAR HGB CONC 31.9 g/dl (32.0-36.5); MEAN CORPUSCULAR VOLUME 102.3 fl (80.0-96.0); MONO # 1.1 10^3/uL (0.0-0.8); MONO % 8.7 % (2.0-8.0); NEUTROPHILS # 8.8 10^3/uL (1.5-8.5); NEUTROPHILS % 72.3 % (36.0-66.0); PLATELET COUNT, AUTOMATED 221 10^3/uL (150-450); RED BLOOD COUNT 3.83 10^6/uL (4.00-5.40); WHITE BLOOD COUNT 12.2 10^3/uL (4.0-10.0)
[2020-12-03] MEDS: LEVOTHYROXINE 112MCG TABLET (0.112MG) PO SCH (06:25)
[2020-12-03 06:46] LABS: ALBUMIN 1.4 GM/DL (3.2-5.2); CALCIUM LEVEL 7.1 MG/DL (8.8-10.2); CREATININE FOR GFR 1.63 MG/DL (0.55-1.30); GLOMERULAR FILTRATION RATE 33.1 (>39); PHOSPHORUS LEVEL 4.1 MG/DL (2.5-4.9); POTASSIUM SERUM 4.3 MEQ/L (3.5-5.1)
[2020-12-03 07:19] VITALS: BP 114/58
--- NOTE | 2020-12-03 07:55 | REP ---
INDICATION: PACEMAKER INSERTION. COMPARISON: None. TECHNIQUE: Intraoperative fluoroscopic imaging using portable C-arm technique. FINDINGS: Images demonstrate satisfactory single lead pacemaker placement. Total fluoroscopic time 18 minutes. IMPRESSION: Satisfactory single lead pacemaker placement. <Electronically signed by Raymundo Ramirez > 12/03/20 [id number]
[2020-12-03] MEDS: amLODIPine 5 MG TAB PO SCH (08:43)
[2020-12-03] MEDS: ASCORBIC ACID 250 MG TAB PO SCH (09:03)
[2020-12-03] MEDS: CALCITRIOL 0.25 MCG CAP (S0169) PO SCH (09:03)
[2020-12-03] MEDS: NYSTATIN 100,000 UNITS/GM TOPICAL PWD 15 GM TOP SCH (09:04)
[2020-12-03] MEDS: LACTOBACILLUS ACIDOPHILUS CAP (BACID) PO SCH ×2 (09:04→18:25)
[2020-12-03] MEDS: APIXABAN 5 MG TAB (ELIQUIS) PO SCH ×2 (09:04→20:43)
[2020-12-03] MEDS: METOPROLOL SUCC (TopROL XL) 50MG **XL** TAB PO SCH (09:04)
[2020-12-03] MEDS: TIMOLOL MALEATE 0.5% OPHTH SOLN 5 ML OU SCH ×2 (09:05→20:44)
--- NOTE | 2020-12-03 11:09 | RO ---
OPERATIVE NOTE DATE OF OPERATION: 12/02/2020 PREOPERATIVE DIAGNOSES: 1. Sick sinus syndrome/tachycardia-bradycardia syndrome. 2. Advanced second degree AV block (7 second asystole). POSTOPERATIVE DIAGNOSES: 1. Sick sinus syndrome/tachycardia-bradycardia syndrome. 2. Advanced second degree AV block (7 second asystole). FINDINGS: 1. Sick sinus syndrome/tachycardia-bradycardia syndrome. 2. Advanced second degree AV block (7 second asystole). PROCEDURE PERFORMED: Implantation of a Medtronic single chamber pacemaker. SURGEON: Shamar Gamble MD. FOAM CHARGER: None. ANESTHESIA: Lidocaine 1% local/monitored anesthetic care. SPECIMENS: No specimens. ESTIMATED BLOOD LOSS: 15 mL. No blood products replaced. DRAINS: None. COMPLICATIONS: None. PROCEDURE DESCRIPTION: Patient was prepped and draped over the left pectoral region. 3M Ioban was then applied. Lidocaine 1% was used for local anesthetic. The left subclavian venogram was performed using 20 mL of a mixture of 5 parts to 1 Isovue/normal saline. This was injected via a peripheral IV in the left upper extremity. This was used in real time with the venogram to obtain percutaneous venous access with a micropuncture needle which was successful. I noted that the left subclavian vein and left axillary vein was very small in diameter and was quite ectatic looking. I guidewire exchanged the micropuncture introducer with a guidewire from the 7-Jamaican sheath. Next, an incision approximately 2-1/2 inches in length was 1 cm below the skin entry site of the guidewire with the PEAK PlasmaBlade. The PEAK PlasmaBlade was used to get through the fatty layer and the fibrous Akila's fascia. I then formed the pacemaker pocket in a caudal direction using two fingers with blunt dissection the Akila's fascia from the prepectoral fascia. Next, the guidewire was pulled through the skin incision site. The 7-Jamaican sheath with introducer was placed over the guidewire. Attempts at getting the pacing lead to go from the innominate vein into the superior vena cava was unsuccessful due to severe tortuosity at that region. I then guidewire exchanged and used an angled guidewire and switched to a long 7-Jamaican SafeSheath. Ultimately I was successful using the long SafeSheath to get the pacing lead into the heart. I placed under fluoroscopic guidance the right ventricle pacing lead into the right ventricle where it was secured with a total of 10 turns. This position was found to be electrically and anatomically satisfactory, and no diaphragm stimulation could be palpated at either side a full output pacing. The 7-Jamaican sheath was then broken apart and removed. The ventricular lead was secured to the pectoral muscle using the supplied tie down sleeve using two individual sutures consisting of 0 Ethibond to secure it to the pectoral muscle. Next, I took an 0 Ethibond suture and placed it in the lateral aspect of the pacemaker pocket to the pectoral muscle to serve as a tie down for the pacemaker pulse generator. The terminal pin of the ventricular lead was placed into the pacemaker header and secured by tightening the set screw with the hex screwdriver. Next, this lead material was then coiled underneath the pacemaker pulse generator and placed along with the pacemaker pulse generator into the pacemaker pocket. I took a medium size Tyrx antimicrobial envelope and cut it into four pieces which were placed at the bottom of the pocket. The deep layer of the incision was closed using individual sutures consisting of 2-0 Vicryl. Some additional 3-0 Vicryl sutures were used to help approximate the more superficial layer. The skin was then closed using cordell. The patient tolerated the procedure well without any immediate complications. The pacemaker pulse generator implanted was a Medtronic Playita XT SR MRI SureScan which had model number W1SR01 with serial number [id number]. The Tyrx envelope implanted was a Cree with reference number [id number] with lot number [id number]. The right ventricle pacing lead implanted was a Medtronic model 4067-58 cm with serial number [id number]. Testing of the right ventricle lead with the pulse analyzer showed bipolar configuration and capture threshold of 0.8 volts at 0.4 milliseconds and a lead impedance of 1,045 ohms with R wave amplitude of 20.6. Device based testing in the operating room in bipolar configuration showed R waves of 20, lead impedance of 1,007 ohms and capture threshold of 0.75 volts at 0.4 milliseconds. [facility]
[2020-12-03 12:00] VITALS: BP 120/61
--- NOTE | 2020-12-03 13:16 | IPNPDOC ---
Date Seen The patient was seen on 12/03/20. Progress Note SUBJECTIVE: Patient seen examined at bedside. She is alert awake oriented to person time and place. She complains of slight tenderness at the site of the pacemaker insertion of the left upper chest. Her left arm is in a sling. Patient's denies any additional chest pain shortness of breath cavitations nausea vomiting or diarrhea. She tolerated her breakfast well. Yesterday she refused to participate in physical therapy, I encouraged her to work with them today. She appears to be debilitated and requires ongoing PT. I suspect she may return home with home services however at this stage rehab is not ruled out. OBJECTIVE PHYSICAL EXAMINATION: VITAL SIGNS: please see below General: NAD, comfortable, obese female HEENT: PERRLA, EOMI, sclerae clear Neck: supple, normal ROM, no JVD Respiratory: lungs CTAB, no wheeze, no rales, no crackles CVS: normal S1, S2, no murmurs. Rate is well controlled regular rhythm. Pacemaker in place in left upper chest. Left arm in sling. Abdo: soft, no masses, no hepatosplenomegaly, BS+, no rebound tenderness Extremities: no edema, pulses 2+ MSK: no joint deformities, normal ROM Neuro: no focal neuro deficits, moving all 4 extremities, CN2-12 intact. Strength 5/5 in all 4 extremities. No nystagmus. Psych: calm, cooperative, AAO x 3 LABORATORY DATA, IMAGING STUDIES, MICROBIOLOGY: Please see below. DVT prophylaxis ordered?: Mechanical prophylaxis, Eliquis on hold anticipation of pacemaker placement ASSESSMENT AND PLAN: 70 y/o female with a pmh of htn, hypothyroidism, gout and obesity who presented to our ED on 11/25 with a cc of weakness and fatigue as well as some right sided abd pain. Patient apparently suffered a fall out of bed. Patient found to be in atrial fibrillation with rapid ventricular response in our ED. ECHO performed showed possible vegetation and patient was started on empiric zosyn. Patient received 3 days of zosyn, and it was DC. Dr. Angel is consulted on 12/02/20 to assess for endocarditis prior to placement of pacemaker. Dr. Gay has cleared the patient to proceed with pacemaker implantation as the patient requires no further antibiotic therapy. PROBLEMS: Persistent Atrial fibrillation: asymptomatic. Likely permanent. Requires atenolol to slow tachycardia portion of Tachy Oniel syndrome. Has [address] Gamble consulted. Pacemaker implanted by Dr. Gamble on 12/02/2020. The patient was resumed on Eliquis 5 mg twice daily thereafter. Patient has atenolol switched to metoprolol XL 50 mg once per day Asystole/Sick Sinus Syndrome/Tachy Oniel syndrome: presented with advanced AV block, > 7 sec period of asystole. Pacemaker implantation on 12/02/[address] Gamble. Systemic Hypertension: BP well controlled. C/w metoprolol XL 50 mg daily and amlodipine. Leukocytosis: WBC trended down. patient has been afebrile. No abdominal pain. Has been examined by Dr. Rosas, no suspicion for cholecystitis. Blood cultures negative. Echo report per Dr. Kemp, was unable to r/o small sessile vegetation. I d/w Dr. Gamble, as patient has negative cultures, no fevers, very low suspicion for endocarditis. Patient received 3 days of zosyn, now DC. I consulted Dr. Angel on 12/02/20 to assess patient for endocarditis or other source of infection prior to placement of pacemaker. She cleared patient to proceed with pacemaker implantation. No further abx therapy indicated. JENN on CKD III: followed by Dr. Hannon. Cr trending down. JENN likely attributed to afib. Electrolytes appropriate. Intertrigo: c/w topical nystatin therapy. Anemia: stable. Dispo: Patient has low motivation to participate in PT. ongoing eval, may require rehab. [facility] Vital Signs/I&O Vital Signs Date Time Temp Pulse Resp B/P (MAP) Pulse Ox O2 Delivery O2 Flow Rate FiO2 12/03/20 09:04 68 114/58 12/03/20 07:19 97.0 18 99 Room Air 12/03/20 04:00 2.0 I&O- Last 24 Hours up to 6 AM 12/03/20 06:00 Intake Total 2080 ml Output Total 15 ml Balance 2065 ml Laboratory Data 24H LABS Laboratory Tests 2 12/03/20 05:33: Immature Granulocyte % (Auto) 4.7H, Neutrophils (%) (Auto) 72.3H, Lymphocytes (%) (Auto) 12.6L, Monocytes (%) (Auto) 8.7H, Eosinophils (%) (Auto) 0.7, Basophils (%) (Auto) 1.0, Neutrophils # (Auto) 8.8H, Lymphocytes # (Auto) 1.5, Monocytes # (Auto) 1.1H, Eosinophils # (Auto) 0.1, Basophils # (Auto) 0.1, Nucleated Red Blood Cells % (auto) 0.0, Anion Gap 11, Glomerular Filtration Rate 33.1L, Calcium Level 7.1L, Phosphorus Level 4.1#, Albumin 1.4L CBC/BMP Laboratory Tests 12/03/20 05:33 Microbiology Microbiology 11/26/20 Blood Culture - Final, Complete NO GROWTH AFTER 5 DAYS 11/26/20 Blood Culture - Final, Complete NO GROWTH AFTER 5 DAYS 11/26/20 Urine Culture - Final, Complete 11/25/20 Blood Culture - Final, Complete NO GROWTH AFTER 5 DAYS 11/25/20 Blood Culture - Final, Complete NO GROWTH AFTER 5 DAYS ENMANUEL DIAZ MD Dec 03, 2020 13:16
--- NOTE | 2020-12-03 13:30 | CR ---
CONSULTATION DATE: 12/02/2020 REQUESTED BY: Dr. Maynard REASON FOR CONSULTATION: Evaluation of sepsis. HISTORY OF PRESENT ILLNESS: Mrs. Correa is a 70-year-old female who was brought into [facility] by ambulance for weakness and fatigue. In the ER she had been in atrial fibrillation and later was noted to have significant asystolic pauses on telemetry. The patient was seen in consultation by Dr. aGmble and he recommended pacemaker placement to be done tonight. The patient denied any chest pain, palpitations, shortness of breath or any significant symptoms other than weakness. She denied any dysuria, hematuria, nausea, vomiting on admission. She started having diarrhea after started IV antibiotic. The patient was noted to have on admission a rash that was felt to be related to mucocutaneous candidiasis, it was mostly on her abdomen under her breasts which were extremely large. The rash was treated with Fluconazole for a total of 4 days with marked improvement. She also was treated with Ceftriaxone one dose on 11/25 and Zosyn for 4 days. Blood cultures were negative times two sets. Urine culture had less than 10,000 gram negative rods. On 11/26 blood culture repeated negative as well. She had CT of abdomen and pelvis which showed moderate ascites on the right side of the pelvis and there was concern on ultrasound of left renal mass which was not confirmed by CT abdomen. The patient feels well. She was only concerned about her frequent bowel movements, happening about 6 times a day. According to the nurse today they are getting more consistent since antibiotics were discontinued. MEDICAL HISTORY: Chronic kidney disease stage 3B, hypothyroidism, vitamin B12 deficiency, hypertension, morbid obesity with very large breasts, mucocutaneous candidiasis, sick sinus syndrome with asystolic pauses and atrial fibrillation. SURGICAL HISTORY: Glaucoma, colonoscopy. FAMILY HISTORY: Significant for heart disease. SOCIAL HISTORY: She lives at home. She has three adult children. She does not smoke, drink or use alcohol. REVIEW OF SYSTEMS: The patient denies any fever, chills or headache. She has no chest pain or palpitations. She is just complaining of weakness. She has no urinary symptoms. No cough or shortness of breath. She stated her rash has resolved with treatment. LABORATORY DATA: On admission white count 20.9, down to 18.5 and currently 11.3; hemoglobin 11.7, hematocrit 36.3, platelets 246. 74% neutrophils, 17% lymphocytes, 2% myelocytes. Sodium 142, potassium 3.7, chloride 113, bicarb 22, BUN 63, creatinine 1.81, glucose 112, calcium 7.3, phosphorus 3.4, CRP 4.96 down from 11.2. Albumin 1.3. Procalcitonin was 3.05. Blood cultures, two sets on 11/25 and 11/26, four sets total are negative. Urine culture has less than 10,000 gram negative rods. PHYSICAL EXAMINATION: GENERAL: Pleasant female in no acute distress, sitting on the commode. VITAL SIGNS: Temperature 97.8, pulse 77, respirations 18, blood pressure 117/69, O2 sat 99% on 2 liters nasal cannula. HEART: Normal S1, S2, no S3 appreciated. Grade 1/6 systolic ejection murmur. LUNGS: Clear, no wheezes, rhonchi or rales. ABDOMEN: Morbidly obese, soft, nontender. EXTREMITIES: No cyanosis, clubbing or edema. NEUROLGIC: Normal, alert and oriented x3. Moves all extremities. BREASTS: Very large with mild erythema underneath and moisture. IMPRESSION: This is a 70-year-old female who was admitted with sepsis based on SIRS criteria but the patient did not have any symptoms to localize an infection. Her white count was elevated at 20,000, blood cultures times four sets were negative, urinalysis had only 10 white cells but urine culture had less than 10,000 bacteria. The patient was treated with four days of broad spectrum including Rocephin and Zosyn. She clinically improved but she was noted to have sick sinus syndrome with significant asystole and needed a pacemaker. At this point I do not see any indication for more IV antibiotics. She was treated for mucocutaneous candidiasis with improvement of her rash. PLAN: Do not resume antibiotics. Monitor for diarrhea as she is having at least six bowel movements of loose stools. If it worsens she may need to get C. diff testing. Suggest using probiotics twice a day. There is no contraindication for pacemaker placement darrin. Needs Nystatin powder under breasts routinely for two weeks not as needed. Case discussed with Dr. Maynard and the patient will undergo pacemaker placement by Dr. Mavis clifford. [facility] MED[facility] CENTERMahesh
--- NOTE | 2020-12-03 14:23 | REP ---
INDICATION: Day 1 post pacemaker implant, may be off telemetry for CXR COMPARISON: 12/02/2020. TECHNIQUE: AP and lateral. FINDINGS: On the lateral view posteriorly and inferiorly there is a small area of increased density suggesting atelectasis or infiltrate in that region. There is mild cardiomegaly. There is tortuosity of the thoracic aorta. The mediastinal silhouette is unchanged. Left single lead pacemaker appears to be in good position. There are degenerative changes of the spine. IMPRESSION: Suspect small area of atelectasis or infiltrate posteriorly and inferiorly, as seen on the lateral view, not visualized on the frontal view. Left single lead pacemaker. <Electronically signed by Martir Laurent > 12/03/20 [id number]
[2020-12-03 16:00] VITALS: BP 124/69
[2020-12-03 20:00] VITALS: BP 115/63
[2020-12-04] VITALS: BP 107/58
[2020-12-04 04:00] VITALS: BP 129/68
[2020-12-04] MEDS: LEVOTHYROXINE 112MCG TABLET (0.112MG) PO SCH (06:12)
[2020-12-04 08:00] VITALS: BP 116/55
--- NOTE | 2020-12-04 08:37 | ECGEPIP ---
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
[2020-12-04] MEDS: amLODIPine 5 MG TAB PO SCH (09:00)
[2020-12-04 09:08] LABS: BASO # 0.1 10^3/uL (0.0-0.2); BASO % 0.5 % (0.0-1.0); EOS # 0.1 10^3/uL (0.0-0.5); EOS % 0.5 % (0.0-3.0); HEMATOCRIT 35.4 % (36.0-47.0); HEMOGLOBIN 11.4 g/dl (12.0-15.5); LYMPH # 1.4 10^3/uL (1.5-5.0); LYMPH % 10.9 % (24.0-44.0); MEAN CORPUSCULAR HEMOGLOBIN 32.7 pg (27.0-33.0); MEAN CORPUSCULAR HGB CONC 32.2 g/dl (32.0-36.5); MEAN CORPUSCULAR VOLUME 101.4 fl (80.0-96.0); MONO # 1.1 10^3/uL (0.0-0.8); MONO % 8.6 % (2.0-8.0); NEUTROPHILS # 10.1 10^3/uL (1.5-8.5); NEUTROPHILS % 77.2 % (36.0-66.0); PLATELET COUNT, AUTOMATED 213 10^3/uL (150-450); RED BLOOD COUNT 3.49 10^6/uL (4.00-5.40); WHITE BLOOD COUNT 13.1 10^3/uL (4.0-10.0)
[2020-12-04 09:39] LABS: ALBUMIN 1.4 GM/DL (3.2-5.2); BILIRUBIN,TOTAL 0.7 MG/DL (0.2-1.0); CALCIUM LEVEL 7.4 MG/DL (8.8-10.2); CREATININE FOR GFR 1.77 MG/DL (0.55-1.30); GLOMERULAR FILTRATION RATE 30.1 (>39); MAGNESIUM LEVEL 2.1 MG/DL (1.8-2.4); POTASSIUM SERUM 4.2 MEQ/L (3.5-5.1); TOTAL PROTEIN 6.5 GM/DL (6.4-8.2)
[2020-12-04] MEDS: ASCORBIC ACID 250 MG TAB PO SCH (10:25)
[2020-12-04] MEDS: APIXABAN 5 MG TAB (ELIQUIS) PO SCH ×2 (10:26→20:02)
[2020-12-04] MEDS: METOPROLOL SUCC (TopROL XL) 50MG **XL** TAB PO SCH (10:26)
[2020-12-04] MEDS: NYSTATIN 100,000 UNITS/GM TOPICAL PWD 15 GM TOP SCH (10:27)
[2020-12-04] MEDS: TIMOLOL MALEATE 0.5% OPHTH SOLN 5 ML OU SCH ×2 (10:27→20:02)
[2020-12-04] MEDS: LACTOBACILLUS ACIDOPHILUS CAP (BACID) PO SCH ×2 (10:35→18:14)
--- NOTE | 2020-12-04 11:08 | IPNPDOC ---
Date Seen The patient was seen on 12/04/20. Progress Note SUBJECTIVE: Patient seen examined at bedside. She is alert awake oriented to person time and place. She does not have any chest pain shortness of breath cavitations nausea vomiting or diarrhea. No acute events noted on telemetry. Dates that her diarrhea has resolved. OBJECTIVE PHYSICAL EXAMINATION: VITAL SIGNS: please see below General: NAD, comfortable, obese female HEENT: PERRLA, EOMI, sclerae clear Neck: supple, normal ROM, no JVD Respiratory: lungs CTAB, no wheeze, no rales, no crackles CVS: normal S1, S2, no murmurs. Rate is well controlled regular rhythm. Pacemaker in place in left upper chest. Left arm in sling. Abdo: soft, no masses, no hepatosplenomegaly, BS+, no rebound tenderness Extremities: no edema, pulses 2+ MSK: no joint deformities, normal ROM Neuro: no focal neuro deficits, moving all 4 extremities, CN2-12 intact. Strength 5/5 in all 4 extremities. No nystagmus. Psych: calm, cooperative, AAO x 3 LABORATORY DATA, IMAGING STUDIES, MICROBIOLOGY: Please see below. DVT prophylaxis ordered?: Mechanical prophylaxis, Eliquis on hold anticipation of pacemaker placement ASSESSMENT AND PLAN: 70 y/o female with a pmh of htn, hypothyroidism, gout and obesity who presented to our ED on 11/25 with a cc of weakness and fatigue as well as some right sided abd pain. Patient apparently suffered a fall out of bed. Patient found to be in atrial fibrillation with rapid ventricular response in our ED. ECHO performed showed possible vegetation and patient was started on empiric zosyn. Patient received 3 days of zosyn, and it was DC. Dr. Angel is consulted on 12/02/20 to assess for endocarditis prior to placement of pacemaker. Dr. Gay has cleared the patient to proceed with pacemaker implantation as the patient requires no further antibiotic therapy. Patient had a pacemaker implanted on 12/02/2020. PROBLEMS: Persistent Atrial fibrillation: asymptomatic. Likely permanent. Requires atenolol to slow tachycardia portion of Tachy Oniel syndrome. Has [address] Gamble consulted. Pacemaker implanted by Dr. Gamble on 12/02/2020. The patient was resumed on Eliquis 5 mg twice daily thereafter. Patient has atenolol switched to metoprolol XL 50 mg once per day Asystole/Sick Sinus Syndrome/Tachy Oniel syndrome: presented with advanced AV block, > 7 sec period of asystole. Pacemaker implantation on 12/02/[address] Gamble. Systemic Hypertension: BP well controlled. C/w metoprolol XL 50 mg daily and amlodipine. Leukocytosis: WBC trended down. patient has been afebrile. No abdominal pain. Has been examined by Dr. Rosas, no suspicion for cholecystitis. Blood cultures negative. Echo report per Dr. Kemp, was unable to r/o small sessile vegetation. I d/w Dr. Gamble, as patient has negative cultures, no fevers, very low suspicion for endocarditis. Patient received 3 days of zosyn, now DC. I consulted Dr. Angel on 12/02/20 to assess patient for endocarditis or other source of infection prior to placement of pacemaker. She cleared patient to proceed with pacemaker implantation. No further abx therapy indicated. She had several episodes of the diarrhea however these have now resolved. She denies abdominal pain. JENN on CKD III: followed by Dr. Hannon. Cr trending down. JENN likely attributed to afib. Electrolytes appropriate. Intertrigo: c/w topical nystatin therapy. Anemia: stable. Dispo: Patient has low motivation to participate in PT. ongoing eval, may require rehab. Patient made ALC status as of 12/04/2020 VS, I&O, 24H, Fishbone Vital Signs/I&O Vital Signs Date Time Temp Pulse Resp B/P (MAP) Pulse Ox O2 Delivery O2 Flow Rate FiO2 12/04/20 10:26 105 122/80 12/04/20 08:00 97.1 16 100 Room Air 12/03/20 12:00 2.0 I&O- Last 24 Hours up to 6 AM 12/04/20 06:00 Intake Total 1140 ml Output Total 0 ml Balance 1140 ml Laboratory Data 24H LABS Laboratory Tests 2 12/04/20 08:48: Immature Granulocyte % (Auto) 2.3, Neutrophils (%) (Auto) 77.2H, Lymphocytes (%) (Auto) 10.9L, Monocytes (%) (Auto) 8.6H, Eosinophils (%) (Auto) 0.5, Basophils (%) (Auto) 0.5, Neutrophils # (Auto) 10.1H, Lymphocytes # (Auto) 1.4L, Monocytes # (Auto) 1.1H, Eosinophils # (Auto) 0.1, Basophils # (Auto) 0.1, Nucleated Red Blood Cells % (auto) 0.0, Anion Gap 8, Glomerular Filtration Rate 30.1L, Calcium Level 7.4L, Magnesium Level 2.1, Total Bilirubin 0.7, Aspartate Amino Transf (AST/SGOT) 19, Alanine Aminotransferase (ALT/SGPT) 19, Alkaline Phosphatase 65, Total Protein 6.5, Albumin 1.4L, Albumin/Globulin Ratio 0.3L CBC/BMP Laboratory Tests 12/04/20 08:48 Microbiology Microbiology 11/26/20 Blood Culture - Final, Complete NO GROWTH AFTER 5 DAYS 11/26/20 Blood Culture - Final, Complete NO GROWTH AFTER 5 DAYS 11/26/20 Urine Culture - Final, Complete 11/25/20 Blood Culture - Final, Complete NO GROWTH AFTER 5 DAYS 11/25/20 Blood Culture - Final, Complete NO GROWTH AFTER 5 DAYS ENMANUEL DIAZ MD Dec 04, 2020 11:08
[2020-12-04 12:00] VITALS: BP 113/58
--- NOTE | 2020-12-04 19:24 | IPN ---
PROGRESS NOTE DATE: 12/04/2020 SUBJECTIVE: Kalyani had her pacemaker placed 48 hours ago. She had no complications, no nausea, vomiting or diarrhea. She only had one documented bowel movement today, but was incontinent. Stools are more firm. LABORATORY: White count 13.1, hemoglobin 11.4, hematocrit 35.4, platelets 213, 77% neutrophils, 11% lymphocytes, 8% monocytes. Sodium 142, potassium 4.2, chloride 111, bicarbonate 23, BUN 55, creatinine 1.77, which has increased from 2.87, magnesium 2.1, bilirubin 0.7, AST 19, ALT 19, alkaline phosphatase 65, total protein 6.5, albumin 1.4, C-reactive protein 4.96 down from 11.2. PHYSICAL EXAMINATION: Pacemaker left upper chest, nontender, mild dry blood on the dressing. Temperature is 96.3, pulse 72, respirations 14, blood pressure 113/58, O2 saturation 100% on room air. Heart: Normal S1, S2, distant. Lungs are clear, no wheezes, rales or rhonchi. Abdomen: Morbidly obese with large breasts, nontender. Extremities: No clubbing, cyanosis or edema. Neurological examination: Alert and oriented x3. The patient states she is anxious about snf or rehab placement. However, she does not want to get out of bed. She is upset. IMPRESSION: 1. Atrial fibrillation persistent, status post pacemaker for asystole and sick sinus syndrome, doing well. 2. Leukocytosis, improving. C-reactive protein had decreased. The patient has been off antibiotics since 11/28 with no evidence of recurrent infection. 3. Mucocutaneous candidiasis, much improved with Diflucan and nystatin powder. PLAN: Infectious disease is signing off. There is no current evidence of infection.
[2020-12-04 20:00] VITALS: BP 107/56
--- NOTE | 2020-12-04 22:44 | IPN ---
NEPHROLOGY PROGRESS NOTE DATE: 12/04/2020 SUBJECTIVE: Mrs. Correa is seen this morning at her bedside. She is feeling better today and reports that she did walk with the physical therapist, however could not climb stairs. She is somewhat discouraged. She denies any nausea, vomiting, dyspnea or chest pain at present. OBJECTIVE: PHYSICAL EXAMINATION: VITAL SIGNS: Temperature is 96.3 degrees Fahrenheit, heart rate 72 per morning, respiratory rate 16 per minute, blood pressure is 113/58 mm of mercury and oxygen saturation is 100% on room air. HEENT: Head is atraumatic. NECK: Supple and without JVD or thyroid enlargement. CHEST: New pacemaker on left upper chest is present. Incision is clean. HEART: Sounds are irregular in rhythm. LUNGS: Clear to auscultation. ABDOMEN: Obese, soft and nontender and bowel sounds are normal. EXTREMITIES: Without any cyanosis or clubbing. She has no peripheral edema. NEUROLOGICAL: She is awake, alert and oriented x3. LABORATORY STUDIES: Today's labs show sodium 142, potassium 4.2, CO2 23, BUN 55 and creatinine 1.77. Glucose 108 and calcium 7.4. Total protein 6.5 and albumin 1.4. Hemoglobin 11.4 and hematocrit 35.4. WBC count is 13.1. PROBLEMS: 1. Acute kidney injury superimposed on chronic kidney disease - kidney function seems stable with slight changes. At this point she is not on any diuretics and we will continue to monitor her kidney function closely. 2. Atrial fibrillation and tachybrady syndrome - The patient is status post pacemaker placement and she is now on Eliquis 5 mg twice daily. Her pacemaker is functioning well. 3. Congestive heart failure at present her volume status is very well compensated and no need for diuretics. 4. Secondary hyperparathyroidism - The patient remains on Calcitriol 0.25 mcg three times a week. 5. Generalized weakness and deconditioning - The patient is likely to require some more rehab before she can be safely discharged to home.
[2020-12-05 05:03] VITALS: BP 119/65
[2020-12-05] MEDS: LEVOTHYROXINE 112MCG TABLET (0.112MG) PO SCH (05:10)
[2020-12-05] MEDS: amLODIPine 5 MG TAB PO SCH (09:00)
[2020-12-05] MEDS: METOPROLOL SUCC (TopROL XL) 50MG **XL** TAB PO SCH (09:52)
[2020-12-05] MEDS: ASCORBIC ACID 250 MG TAB PO SCH (09:52)
[2020-12-05] MEDS: NYSTATIN 100,000 UNITS/GM TOPICAL PWD 15 GM TOP SCH (09:52)
[2020-12-05] MEDS: TIMOLOL MALEATE 0.5% OPHTH SOLN 5 ML OU SCH ×2 (09:52→21:49)
[2020-12-05] MEDS: APIXABAN 5 MG TAB (ELIQUIS) PO SCH ×2 (09:52→21:49)
[2020-12-05] MEDS: LACTOBACILLUS ACIDOPHILUS CAP (BACID) PO SCH ×2 (09:53→17:25)
[2020-12-05] MEDS: CALCITRIOL 0.25 MCG CAP (S0169) PO SCH (09:56)
[2020-12-05] MEDS ORDERED: FUROSEMIDE 20 MG TAB PO ONE (12:45)
[2020-12-05 20:00] VITALS: BP 128/59
--- NOTE | 2020-12-05 21:10 | IPN ---
NEPHROLOGY PROGRESS NOTE DATE: 12/05/2020 SUBJECTIVE: Mrs. Correa is seen this morning on her bedside. She is feeing about the same. She reports that she is going to walk with the physical therapist. Yesterday she could not climb the stairs. She denies any dyspnea or chest pain. She has no nausea or vomiting. PHYSICAL EXAMINATION: VITAL SIGNS: Temperature 98.2 degrees Fahrenheit, heart rate 82 per minute, respiratory rate 17 per minute, blood pressure 119/65 mmHg, oxygen saturation 96% on room air. HEAD: Atraumatic. NECK: Supple and jugular venous distention (JVD) difficult to be assessed. HEART SOUNDS: Irregular in rhythm. LUNGS: Slightly diminished breath sounds at dependent parts. ABDOMEN: Obese and nontender. Bowel sounds are normal. EXTREMITIES: Without any cyanosis or clubbing. She has now trace edema bilaterally. NEUROLOGIC: She is awake, alert and oriented times three. LABORATORY DATA: Patient did not have any labs done today. PROBLEMS: 1. Acute kidney injury superimposed on chronic kidney disease. Her kidney function has improved and leveled off. Yesterday her creatinine was 1.7. We will check her renal profile again tomorrow. 2. Congestive heart failure. Her volume status is now slightly decompensated. I am going to start her on furosemide 20 mg daily. 3. Hypertension. Blood pressure has been very well controlled and she remains on amlodipine. She is also on metoprolol now 50 mg daily along with amlodipine 5 mg. 4. Hyperparathyroidism. Patient remains on calcitriol 0.25 mcg on Tuesday, Tuesday and Tuesday. 5. Anemia. Her anemia has been stable and does not need any intervention. CBC will be checked again tomorrow. 6. Hypoalbuminemia. This is a chronic issue and unchanged. She needs to increase her protein intake. Peripheral edema could also be related to low serum albumin level.
[2020-12-05 21:45] VITALS: BP 127/67
[2020-12-06] MEDS: LEVOTHYROXINE 112MCG TABLET (0.112MG) PO SCH (05:42)
[2020-12-06 06:00] VITALS: BP 122/81
[2020-12-06 06:33] LABS: HEMATOCRIT 33.8 % (36.0-47.0); HEMOGLOBIN 10.8 g/dl (12.0-15.5); MEAN CORPUSCULAR HEMOGLOBIN 32.8 pg (27.0-33.0); MEAN CORPUSCULAR VOLUME 102.7 fl (80.0-96.0); PLATELET COUNT, AUTOMATED 171 10^3/uL (150-450); RED BLOOD COUNT 3.29 10^6/uL (4.00-5.40); WHITE BLOOD COUNT 9.7 10^3/uL (4.0-10.0)
[2020-12-06 06:47] LABS: ALBUMIN 1.3 GM/DL (3.2-5.2); CALCIUM LEVEL 7.5 MG/DL (8.8-10.2); CREATININE FOR GFR 1.93 MG/DL (0.55-1.30); GLOMERULAR FILTRATION RATE 27.2 (>39); PHOSPHORUS LEVEL 3.3 MG/DL (2.5-4.9); POTASSIUM SERUM 4.4 MEQ/L (3.5-5.1)
[2020-12-06] MEDS: amLODIPine 5 MG TAB PO SCH (09:00)
[2020-12-06] MEDS ORDERED: FUROSEMIDE 20 MG TAB PO SCH (09:00)
[2020-12-06] MEDS: METOPROLOL SUCC (TopROL XL) 50MG **XL** TAB PO SCH (09:00)
[2020-12-06] MEDS: LACTOBACILLUS ACIDOPHILUS CAP (BACID) PO SCH ×2 (09:26→18:01)
[2020-12-06] MEDS: TIMOLOL MALEATE 0.5% OPHTH SOLN 5 ML OU SCH ×2 (09:28→20:51)
[2020-12-06] MEDS: NYSTATIN 100,000 UNITS/GM TOPICAL PWD 15 GM TOP SCH (09:28)
[2020-12-06] MEDS: ASCORBIC ACID 250 MG TAB PO SCH (09:30)
[2020-12-06] MEDS: APIXABAN 5 MG TAB (ELIQUIS) PO SCH ×2 (09:30→20:50)
--- NOTE | 2020-12-06 12:57 | IPN ---
PROGRESS NOTE DATE: 12/06/2020 Mrs. Correa is seen this morning on her bedside. She is lying in her bed as usual. She reports that she did get out of bed and sit in the chair for 3 yours yesterday. She also walked in the room with her walker and physical therapist. She denies any nausea, vomiting, dyspnea, or chest pain. PHYSICAL EXAMINATION: This morning temperature is 96.9 degrees Fahrenheit, heart rate 72 per minute, respiratory rate 18 per minute, blood pressure 122/80 mmHg, and oxygen saturation 100% on room air. Head is atraumatic. Neck supple and without jugular venous distention (JVD) or thyroid enlargement. Perm-A-Cath is present on left upper chest, and incision is clean. Heart sounds are irregular, and lungs sound clear to auscultation. Abdomen soft, and nontender, and bowel sounds are normal. Extremities without any cyanosis or clubbing. She has minimal peripheral edema. Today's labs show WBC count 9.7, hemoglobin 10.8, hematocrit 33.8, platelets 171. Sodium 142, potassium 4.4, CO2 of 26, BUN 50, and creatinine 1.93. Glucose 98 and calcium 7.5. Her albumin level is 1.3. PROBLEMS: 1. Acute kidney injury superimposed on chronic kidney disease. Kidney function had initially improved; however, now her creatinine is gradually increasing again. She was given furosemide 20 mg yesterday and today. I am going to stop the diuretic for now. She does have some peripheral edema; however, she also has very low serum albumin, which may have caused the peripheral edema. She is also on amlodipine, which can be a cause of peripheral edema. In any event, at this point I will hold off on further diuretic use and watch her volume status closely. 2. Atrial fibrillation with tachy-steven syndrome. Patient is status post new pacemaker placement, which is healing nicely. 3. Generalized weakness and deconditioning. Patient is getting some physical therapy, and she is anticipating to go for subacute rehabilitation before she can go home.
[2020-12-07] MEDS: LEVOTHYROXINE 112MCG TABLET (0.112MG) PO SCH (05:55)
[2020-12-07 06:00] VITALS: BP 132/72
[2020-12-07] MEDS: LACTOBACILLUS ACIDOPHILUS CAP (BACID) PO SCH ×2 (10:03→17:44)
[2020-12-07] MEDS: VITAMIN D 50,000 UNITS CAPSULE (ERGOCALCIFEROL 1.25MG) PO SCH (10:04)
[2020-12-07] MEDS: APIXABAN 5 MG TAB (ELIQUIS) PO SCH ×2 (10:04→20:49)
[2020-12-07] MEDS: ASCORBIC ACID 250 MG TAB PO SCH (10:04)
[2020-12-07] MEDS: NYSTATIN 100,000 UNITS/GM TOPICAL PWD 15 GM TOP SCH (10:05)
[2020-12-07] MEDS: TIMOLOL MALEATE 0.5% OPHTH SOLN 5 ML OU SCH ×2 (10:06→20:49)
[2020-12-07] MEDS: METOPROLOL SUCC (TopROL XL) 50MG **XL** TAB PO SCH (10:11)
[2020-12-07] MEDS: amLODIPine 5 MG TAB PO SCH (10:11)
--- NOTE | 2020-12-07 13:45 | IPN ---
NEPHROLOGY PROGRESS NOTE DATE: 12/07/2020 SUBJECTIVE: Mrs. Correa is seen this morning on her bedside. She is resting in the bed and laying comfortably. She reports that she did get up and sit in the chair yesterday, but did not get up so far today. She denies any dyspnea, chest pain, nausea or vomiting. PHYSICAL EXAMINATION: VITAL SIGNS: Temperature 97.8 degrees Fahrenheit, heart rate 80 per minute, respiratory rate 18 per minute, blood pressure 132/72 mmHg, oxygen saturation 97% on room air. HEAD: Atraumatic. NECK: Supple and jugular venous distention (JVD) difficult to be assessed. LUNGS: Clear to auscultation. HEART SOUNDS: Irregular. ABDOMEN: Obese and nontender. Bowel sounds are normal. EXTREMITIES: Without any cyanosis or clubbing. Lower extremity edema is mild and unchanged. LABORATORY DATA: Patient did not have any new labs done today. PROBLEMS: 1. Acute kidney injury superimposed on chronic kidney disease. She had slight fluctuation in her kidney function when she was off diuretic. Kidney function improved; however, even with small dose of diuretic, her kidney function seems to be heading back to where it was. Her renal profile will be checked tomorrow morning. 2. Congestive heart failure. She had rapid atrial fibrillation and tachy/steven syndrome. Since her pacemaker, her heart rate has been well-controlled and she is now on furosemide 20 mg daily. She also has very low serum albumin level of only 1.3, which is most likely contributing to some peripheral edema. She is laying very comfortably without any problems with her breathing and lungs sound clear. 3. Anemia. Her anemia has been stable and does not need any intervention.
[2020-12-08] MEDS: LEVOTHYROXINE 112MCG TABLET (0.112MG) PO SCH (05:56)
[2020-12-08 06:00] VITALS: BP 111/53
[2020-12-08 06:18] LABS: BASO # 0.1 10^3/uL (0.0-0.2); BASO % 0.8 % (0.0-1.0); EOS # 0.1 10^3/uL (0.0-0.5); EOS % 1.7 % (0.0-3.0); HEMATOCRIT 34.6 % (36.0-47.0); LYMPH # 1.4 10^3/uL (1.5-5.0); MEAN CORPUSCULAR HEMOGLOBIN 32.9 pg (27.0-33.0); MEAN CORPUSCULAR HGB CONC 31.8 g/dl (32.0-36.5); MEAN CORPUSCULAR VOLUME 103.6 fl (80.0-96.0); MONO # 0.8 10^3/uL (0.0-0.8); NEUTROPHILS % 66.2 % (36.0-66.0); PLATELET COUNT, AUTOMATED 142 10^3/uL (150-450); RED BLOOD COUNT 3.34 10^6/uL (4.00-5.40); WHITE BLOOD COUNT 7.5 10^3/uL (4.0-10.0)
[2020-12-08 06:30] LABS: CALCIUM LEVEL 7.4 MG/DL (8.8-10.2); CREATININE FOR GFR 1.8 MG/DL (0.55-1.30); GLOMERULAR FILTRATION RATE 29.5 (>39); POTASSIUM SERUM 4.5 MEQ/L (3.5-5.1)
[2020-12-08] MEDS: ASCORBIC ACID 250 MG TAB PO SCH (09:26)
[2020-12-08] MEDS: LACTOBACILLUS ACIDOPHILUS CAP (BACID) PO SCH ×2 (09:26→18:02)
[2020-12-08] MEDS: APIXABAN 5 MG TAB (ELIQUIS) PO SCH ×2 (09:26→20:20)
[2020-12-08] MEDS: NYSTATIN 100,000 UNITS/GM TOPICAL PWD 15 GM TOP SCH (09:27)
[2020-12-08] MEDS: TIMOLOL MALEATE 0.5% OPHTH SOLN 5 ML OU SCH ×2 (09:28→20:20)
[2020-12-08] MEDS: CALCITRIOL 0.25 MCG CAP (S0169) PO SCH (09:34)
[2020-12-08] MEDS: METOPROLOL SUCC (TopROL XL) 50MG **XL** TAB PO SCH (09:36)
[2020-12-08] MEDS: amLODIPine 5 MG TAB PO SCH (09:36)
--- NOTE | 2020-12-08 20:46 | IPNPDOC ---
Subjective CC/HPI The patient is a 70-year-old female admitted with a reason for visit of Acute Renal Failure, Atrial Fibrillation With Rapi. Events since last encounter No New complaints. She remains in persistent Afib, Cr slowly improving. Currently ALC status, awaiting placement. General: Denies: ROS Unobtainable, Chills, Night Sweats, Fatigue, Malaise, Normal Appetite, Other Symptoms Constitutional: Denies: Chills, Fever, Malaise, Night Sweats, Weakness, Fatigue, Weight Loss, Lethargy, Other Eyes: Denies: Pain, Vision change, Conjunctivae inflammation, Eyelid inflam mation, Redness, Other ENT: Denies: Head Aches, Ear Pain, Dysphagia, Sinus Congestion, Post Nasal Drip, Sore Throat, Epistaxis, Other Symptoms Skin: Denies: Rash, Lesions, Jaundice, Bruising, Itching, Dry, Breakdown, Nail Changes, Other Pulmonary: Denies: Dyspnea, Cough, Pleuritic Chest Pain, Other Symptoms Cardiovascular: Reports: Palpitations; Denies: Edema Gastrointestinal: Denies: Nausea, Vomiting, Abdominal Pain, Diarrhea, Constipation, Melena, Hematochezia, Other Symptoms Genitourinary: Denies: Dysuria, Frequency, Incontinence, Hematuria, Retention, Other Symptoms Hematologic: Denies: Bruising, Bleeding Excessively, Petecchia, Purpura, Enlarged Lymph Nodes, Other Hematologic Endocrine: Denies: Polydipsia, Polyphagia, Polyuria, Heat Intolerance, Cold Intolerance, Other Endocrine Sx Musculoskeletal: Denies: Neck Pain, Back Pain, Shoulder Pain, Arm Pain, Hand Pain, Leg Pain, Foot Pain, Joint Pain, Muscle Pain, Spasms, Other Symptoms Neurological: Denies: Weakness, Numbness, Incoordination, Change in speech, Confusion, Seizures, Other Symptoms Psych: Denies: Mood Normal, Anxiety, Depression, Memory Issues, Thoughts of Self Harm, Anger, Thoughts of Harming Other, Other Psych Objective Physical Examination General Exam: Alert, No Acute Distress, Other (Obese body habitus) EYE EXAM: PERRLA, Conjunctiva & lids normal, EOMI ENT EXAM: Atraumatic, Mucous membr. moist/pink Neck Exam: Supple; No: JVD Chest Exam: Clear to auscultation, Normal air movement Heart Exam: Tachycardic, Irregular Rhythm, Other (Lt sided Pacemkaer noted) Telemetry: Atrial fibrillation ABDOMEN EXAM: Normal bowel sounds, Soft; No: Tenderness, Hepatospenomegaly Extremity Exam: Normal pulses; No: Clubbing, Cyanosis, Edema Skin Exam: Nl turgor and temperature Neuro Exam: Normal Speech, Strength at 5/5 X4 ext Psych Exam: Mental status NL, Mood NL Vital Signs/I&O Vital Signs Date Time Temp Pulse Resp B/P (MAP) Pulse Ox O2 Delivery O2 Flow Rate FiO2 12/08/20 09:36 105 141/78 12/08/20 06:00 97.8 17 97 Room Air 12/03/20 12:00 2.0 I&O- Last 24 Hours up to 6 AM 12/08/20 06:00 Intake Total 570 ml Output Total 0 ml Balance 570 ml Laboratory Data Labs 24H Laboratory Tests 2 12/08/20 05:29: Immature Granulocyte % (Auto) 1.3, Neutrophils (%) (Auto) 66.2H, Lymphocytes (%) (Auto) 19.0L, Monocytes (%) (Auto) 11.0H, Eosinophils (%) (Auto) 1.7, Basophils (%) (Auto) 0.8, Neutrophils # (Auto) 5.0, Lymphocytes # (Auto) 1.4L, Monocytes # (Auto) 0.8, Eosinophils # (Auto) 0.1, Basophils # (Auto) 0.1, Nucleated Red Blood Cells % (auto) 0.0, Anion Gap 6L, Glomerular Filtration Rate 29.5L, Calcium Level 7.4L, Magnesium Level 2.0 CBC/BMP Laboratory Tests 12/08/20 05:29 Current Medications Current Medications Medications (Trade) Dose Ordered Sig/Ba Route PRN Reason Start Time Stop Time Status Last Admin Dose Admin Acetaminophen (Tylenol Tab) 650 mg Q4H PRN PO MILD PAIN or TEMP > 101 11/25/20 11:40 Allopurinol (Zyloprim) 300 mg DAILY PO 11/25/20 09:00 11/25/20 13:39 DC Amlodipine Besylate (Norvasc) 5 mg DAILY PO 11/25/20 09:00 12/08/20 09:36 Apixaban (Eliquis) 5 mg BID PO 12/03/20 09:00 12/08/20 20:20 Apixaban (Eliquis) 5 mg BID PO 11/26/20 21:00 11/30/20 10:26 DC 11/29/20 21:11 Ascorbic Acid (Vitamin C) 250 mg DAILY PO 12/03/20 09:00 01/01/21 09:01 12/08/20 09:26 Atenolol (Tenormin) 12.5 mg BID PO 11/30/20 21:00 12/02/20 22:19 DC 12/02/20 10:10 Atenolol (Tenormin) 25 mg Q6H PO 11/26/20 18:00 11/30/20 12:10 DC 11/28/20 12:16 Atenolol (Tenormin) 50 mg BID PO 11/26/20 21:00 11/26/20 17:01 DC Calcitriol (Rocaltrol) 0.25 mcg MoWeFr PO 11/28/20 09:00 12/08/20 09:34 Ceftriaxone Sodium 1 gm/ Dextrose 50 ml @ 100 mls/hr Q24H IV 11/25/20 14:00 11/25/20 19:46 DC 11/25/20 16:53 Diltiazem HCl 125 mg/Sodium Chloride 125 ml @ 5 mls/hr Q24H IV 11/25/20 13:15 11/25/20 16:50 DC Fentanyl Citrate (Sublimaze) 25 mcg Q5MP PRN IV PAIN LEVEL 8-10 12/02/20 21:45 12/03/20 00:45 DC Fluconazole (Diflucan) 150 mg DAILY PO 11/25/20 09:00 11/28/20 14:25 DC 11/28/20 09:59 Fluconazole 300 mg/IV Miscellaneous Supplies 150 ml @ 100 mls/hr Q24H IV 11/25/20 15:35 11/25/20 15:41 DC Fluconazole 330 mg/IV Miscellaneous Supplies 165 ml @ 100 mls/hr Q24H IV 11/26/20 12:00 11/25/20 14:20 DC Furosemide (Lasix) 20 mg DAILY PO 12/06/20 09:00 12/06/20 12:36 DC 12/06/20 09:27 Heparin Sodium (Porcine) (Heparin) ASDIRECTED PRN IV SEE LABEL COMMENTS 11/25/20 12:15 11/26/20 17:01 DC Heparin Sodium (Porcine) 46457 units/IV Miscellaneous Supplies 250 ml @ 0 mls/hr Q0M IV 11/25/20 12:15 11/26/20 17:01 DC 11/26/20 12:15 Home Med (Home Med List Complete!) ASDIRECTED XX 11/25/20 08:25 11/25/20 08:29 DC Lactated Ringer's 1,000 ml @ 90 mls/hr Q11H7M IV 12/02/20 08:00 12/02/20 22:20 DC 12/02/20 10:10 Lactated Ringer's 1,000 ml @ 100 mls/hr Q10H IV 12/02/20 21:45 12/03/20 00:45 DC 12/02/20 22:55 Lactobacillus Acidophilus (Bacid) 1 ea BIDWM PO 12/03/20 08:00 12/08/20 18:02 Levothyroxine Sodium (Synthroid) 112 mcg DAILY@0600 PO 11/26/20 06:00 12/08/20 05:56 Metoclopramide HCl (REGLAN INJection) 10 mg Q6HP PRN IV NAUSEA OR VOMITING 12/02/20 21:45 12/03/20 00:45 DC Metoprolol Succinate (TopROL XL) 50 mg DAILY PO 12/03/20 09:00 12/08/20 09:36 Metoprolol Tartrate (Lopressor) 5 mg Q5M IV 11/25/20 07:40 11/25/20 07:51 DC 11/25/20 08:08 Metoprolol Tartrate (Lopressor) 12.5 mg BID PO 11/25/20 16:50 11/26/20 16:47 DC 11/26/20 09:36 Metoprolol Tartrate (Lopressor) 12.5 mg BID PO 11/25/20 21:00 11/25/20 16:47 DC Non-Formulary Medication (Heparin Iv Rate Change Documentation ml/ Hr) ASDIRECTED XX 11/25/20 12:15 11/26/20 17:01 DC Nystatin (Mycostatin Powder, Nystop) 1 dose TID PRN TOP RASH 11/25/20 12:05 12/02/20 22:02 DC Nystatin (Mycostatin Powder, Nystop) APPLY UNDER BREASTS DAILY TOP 12/02/20 22:05 12/08/20 09:27 Ondansetron HCl (ZOFRAN INJection) 4 mg Q4HP PRN IV NAUSEA OR VOMITING 12/02/20 21:45 12/03/20 00:45 DC Oxycodone/ Acetaminophen (Percocet 5mg/ 325mg Tablet) 1 tab ASDIRECTED PRN PO PAIN LEVEL 1-4 12/02/20 21:45 12/03/20 00:45 DC Piperacillin Sod/ Tazobactam Sod 4.5 gm/Dextrose 50 ml @ 50 mls/hr Q8H IV 11/25/20 20:00 11/28/20 10:30 DC 11/28/20 04:45 Sodium Chloride 1,000 ml @ 100 mls/hr Q10H IV 11/25/20 11:45 11/25/20 21:44 DC 11/25/20 16:37 Sodium Chloride 1,000 ml @ 200 mls/hr Q5H IV 11/26/20 09:10 11/26/20 14:09 DC 11/26/20 09:47 Timolol Maleate (Timoptic 0.5% Ophth Narcisa) 1 drop BID OU 11/25/20 21:00 12/08/20 20:20 Vitamin D (Drisdol) 50,000 units Hernandez@0900 PO 11/30/20 09:00 12/07/20 10:04 Allergies Coded Allergies: No Known Allergies (Unverified , 11/25/20) Assessment/Plan Date Seen The patient was seen on 12/08/20 at 20:40. Plan / VTE VTE Prophylaxis Ordered?: Yes Plan Orders past 48 Hours Orders Cbc With Differential (12/08/20 06:00) Cbc With Differential (12/09/20 06:00) Cbc With Differential (12/10/20 06:00) Cbc With Differential (12/11/20 06:00) Cbc With Differential (12/12/20 06:00) Cbc With Differential (12/13/20 06:00) Cbc With Differential (12/14/20 06:00) Basic Metabolic Profile (12/08/20 06:00) Basic Metabolic Profile (12/09/20 06:00) Basic Metabolic Profile (12/10/20 06:00) Basic Metabolic Profile (12/11/20 06:00) Basic Metabolic Profile (12/12/20 06:00) Basic Metabolic Profile (12/13/20 06:00) Basic Metabolic Profile (12/14/20 06:00) Magnesium Level (12/08/20 06:00) Magnesium Level (12/09/20 06:00) Magnesium Level (12/10/20 06:00) Magnesium Level (12/11/20 06:00) Magnesium Level (12/12/20 06:00) Magnesium Level (12/13/20 06:00) Magnesium Level (12/14/20 06:00) Plan Text JENN on CKD3 Baseline Cr 1.3 Iron Def anemia Persistent Afib sick Sinus syndrome/Tachy Oniel s/p Pacemaker. Chronic Gout. No need of diuretic. Renal function gradually improving. IV Iron for anemia. Afib managed by cardiology. Pt is ALC she will be seen couple times a week now. Please call nephrology for any questions. LINDSAY MAKI MD Dec 08, 2020 20:46
[2020-12-09 06:00] VITALS: BP 106/60
[2020-12-09] MEDS: LEVOTHYROXINE 112MCG TABLET (0.112MG) PO SCH (06:02)
[2020-12-09 06:21] LABS: BASO # 0.1 10^3/uL (0.0-0.2); BASO % 0.6 % (0.0-1.0); EOS # 0.1 10^3/uL (0.0-0.5); EOS % 1.7 % (0.0-3.0); HEMATOCRIT 32.8 % (36.0-47.0); HEMOGLOBIN 10.6 g/dl (12.0-15.5); LYMPH # 1.6 10^3/uL (1.5-5.0); LYMPH % 19.3 % (24.0-44.0); MEAN CORPUSCULAR HEMOGLOBIN 33.1 pg (27.0-33.0); MEAN CORPUSCULAR HGB CONC 32.3 g/dl (32.0-36.5); MEAN CORPUSCULAR VOLUME 102.5 fl (80.0-96.0); MONO # 0.9 10^3/uL (0.0-0.8); MONO % 10.4 % (2.0-8.0); NEUTROPHILS # 5.5 10^3/uL (1.5-8.5); NEUTROPHILS % 66.5 % (36.0-66.0); PLATELET COUNT, AUTOMATED 137 10^3/uL (150-450); WHITE BLOOD COUNT 8.3 10^3/uL (4.0-10.0)
[2020-12-09 06:38] LABS: CALCIUM LEVEL 7.4 MG/DL (8.8-10.2); CREATININE FOR GFR 1.73 MG/DL (0.55-1.30); GLOMERULAR FILTRATION RATE 30.9 (>39); MAGNESIUM LEVEL 2.1 MG/DL (1.8-2.4); POTASSIUM SERUM 4.5 MEQ/L (3.5-5.1)
[2020-12-09] MEDS: LACTOBACILLUS ACIDOPHILUS CAP (BACID) PO SCH ×2 (09:13→17:47)
[2020-12-09] MEDS: ASCORBIC ACID 250 MG TAB PO SCH (09:13)
[2020-12-09] MEDS: amLODIPine 5 MG TAB PO SCH (09:14)
[2020-12-09] MEDS: APIXABAN 5 MG TAB (ELIQUIS) PO SCH ×2 (09:15→20:09)
[2020-12-09] MEDS: METOPROLOL SUCC (TopROL XL) 50MG **XL** TAB PO SCH (09:15)
[2020-12-09] MEDS: NYSTATIN 100,000 UNITS/GM TOPICAL PWD 15 GM TOP SCH (09:17)
[2020-12-09] MEDS: TIMOLOL MALEATE 0.5% OPHTH SOLN 5 ML OU SCH ×2 (09:18→20:09)
[2020-12-09 09:43] LABS: URIC ACID 12.1 MG/DL (2.6-6.0)
--- NOTE | 2020-12-09 12:40 | IPNPDOC ---
Text Note Date of Service The patient was seen on 12/09/20. NOTE Subjective: Patient is a 70-year-old female with a PMHx of HTN, Hypothyroidism, Gout, Obesity, who presented to the emergency room on 11/25 with complaint of weakness and fatigue. Patient also complains of right-sided abdominal pain. Patient reported that she had fallen out of bed. Upon arrival to emergency room, patient was found to have atrial fibrillation with RVR. Patient had an echocardiogram completed which had revealed possible evidence of vegetation and patient was started on empiric antibiotics. Infectious disease was called on consultation; had deemed that the patient does not have endocarditis is cleared to proceed with pacemaker placement on 12/02. Patient was seen and examined at the bedside. Patient denies any chest pain, shortness breath or palpitations. Has not spent any nausea, vomiting, abdominal pain or diarrhea. Objective: Vitals (See below) General: Lying in bed, appears comfortable, Awake / Alert, Oriented x3 HEENT: NC, AT CVS: +S1S2 Lungs: Fair air entry b/l, no wheezing, rales or rhonchi Abdomen: Soft, ND, NT Extremities: - Edema, - Calf tenderness Imaging: CXR 11/25: Cardiomegaly. Otherwise no acute disease. Abdomen US 11/25: 1. Evidence of fatty infiltration of the liver. 2. Cholelithiasis with gallbladder wall thickening and positive sonographic Merida sign. Correlate clinically to assess for cholecystitis. 3. Possible left renal mass as described above. Pre and postcontrast enhanced renal CT is recommended. 4. There is a small amount of ascites. 5. There is splenomegaly. CT abdomen / pelvis 11/29: Small bilateral pleural effusions and dependent atelectatic changes. No gross renal mass, however, evaluation is limited without IV contrast. No free air or obstruction. Moderate abdominal and pelvic ascites, located primarily to the right of midline. Fluoro guided Pacemaker placement 12/02: Satisfactory single lead pacemaker placement. CXR 12/02: 1. Appropriate placement of right ventricular pacing device without evidence of pneumothorax or other complication. 2. Residual pleural effusions and cardiac enlargement as seen on the recent CT, but with no active pulmonary edema CXR 12/03: Suspect small area of atelectasis or infiltrate posteriorly and inferiorly, as seen on the lateral view, not visualized on the frontal view. Left single lead pacemaker. Assessment and plan: Persistent A. fib - Patient is currently asymptomatic - s/p PM placement on 12/02 - c/w Metoprolol succinate - c/w full anticoagulation with Eliquis Asystole/Sick Sinus Syndrome/Tachy Oniel syndrome - Presented with advanced AV block, > 7 sec period of asystole - s/p Pacemaker implantation on 12/02/[address] Gamble Systemic Hypertension - BP well controlled - c/w Amlodipine / Metoprolol s/p Leukocytosis - ROS negative - Patient is hemodynamically stable and afebrile - Initial echocardiogram completed suggested small sessile vegetation; of her clinically patient did not exhibit any signs of endocarditis - Findings were initially discussed with Dr. Gamble, and infectious disease, Dr. Angel - no indication for further antibiotics - Was evaluated by General surgery on 12/02; no evidence of cholecystitis - ID on consultation; appreciate their input JENN on CKD - Cr baseline of 1.3-1.6 - Cr has been trending toward baseline - Nephrology on consultation; appreciate their input Intertrigo - c/w topical nystatin therapy Hypothyroidism - c/w Levothyroxine Anemia - Hg stable - No evidence of bleeding / indications for transfusion DVT prophylaxis - c/w full anticoagulation with Eliquis Disposition: - c/w ALC status - Awaiting PT / OT clearance; may need rehab VSNoelle, I+O VSNoelle I+O Laboratory Tests 12/09/20 05:24 Vital Signs Date Time Temp Pulse Resp B/P (MAP) Pulse Ox O2 Delivery O2 Flow Rate FiO2 12/09/20 09:15 78 116/61 12/09/20 06:00 97.4 17 97 Room Air 12/03/20 12:00 2.0 I&O- Last 24 Hours up to 6 AM 12/09/20 06:00 Intake Total 400 ml Output Total 0 ml Balance 400 ml KARLY COLE MD Dec 09, 2020 12:40
[2020-12-10] MEDS: LEVOTHYROXINE 112MCG TABLET (0.112MG) PO SCH (05:31)
[2020-12-10 06:00] VITALS: BP 116/62
[2020-12-10 06:00] LABS: BASO # 0.1 10^3/uL (0.0-0.2); BASO % 0.7 % (0.0-1.0); EOS # 0.1 10^3/uL (0.0-0.5); EOS % 1.6 % (0.0-3.0); HEMATOCRIT 32.5 % (36.0-47.0); HEMOGLOBIN 10.4 g/dl (12.0-15.5); LYMPH # 1.9 10^3/uL (1.5-5.0); LYMPH % 23.1 % (24.0-44.0); MEAN CORPUSCULAR HEMOGLOBIN 32.6 pg (27.0-33.0); MEAN CORPUSCULAR VOLUME 101.9 fl (80.0-96.0); MONO # 0.9 10^3/uL (0.0-0.8); MONO % 10.9 % (2.0-8.0); NEUTROPHILS % 62.5 % (36.0-66.0); PLATELET COUNT, AUTOMATED 133 10^3/uL (150-450); RED BLOOD COUNT 3.19 10^6/uL (4.00-5.40)
[2020-12-10 06:32] LABS: CALCIUM LEVEL 7.2 MG/DL (8.8-10.2); CREATININE FOR GFR 1.78 MG/DL (0.55-1.30); GLOMERULAR FILTRATION RATE 29.9 (>39); POTASSIUM SERUM 4.7 MEQ/L (3.5-5.1)
[2020-12-10] MEDS: LACTOBACILLUS ACIDOPHILUS CAP (BACID) PO SCH ×2 (08:15→17:07)
[2020-12-10] MEDS: METOPROLOL SUCC (TopROL XL) 50MG **XL** TAB PO SCH (08:15)
[2020-12-10] MEDS: APIXABAN 5 MG TAB (ELIQUIS) PO SCH ×2 (08:15→20:17)
[2020-12-10] MEDS: amLODIPine 5 MG TAB PO SCH (08:15)
[2020-12-10] MEDS: ASCORBIC ACID 250 MG TAB PO SCH (08:15)
[2020-12-10] MEDS: TIMOLOL MALEATE 0.5% OPHTH SOLN 5 ML OU SCH ×2 (08:15→20:17)
[2020-12-10] MEDS: NYSTATIN 100,000 UNITS/GM TOPICAL PWD 15 GM TOP SCH (08:15)
[2020-12-10] MEDS: CALCITRIOL 0.25 MCG CAP (S0169) PO SCH (08:38)
[2020-12-10] MEDS: allopurinoL 300 MG TAB PO SCH (09:40)
[2020-12-10] MEDS ORDERED: FUROSEMIDE 40MG/4ML VIAL (J1940) IV ONE (11:35)
[2020-12-10] MEDS ORDERED: TORSEMIDE 20 MG TAB PO ONE (12:20)
--- NOTE | 2020-12-10 12:52 | IPNPDOC ---
Subjective CC/HPI The patient is a 70-year-old female admitted with a reason for visit of Acute Renal Failure, Atrial Fibrillation With Rapi. Events since last encounter Seen after 2 days. Feels good. Reports Rt leg edema. Renal function is stable with Cr 1.7-->1.7 General: Reports: ROS Unobtainable; Denies: Chills, Night Sweats, Fatigue, Malaise, Normal Appetite, Other Symptoms Constitutional: Denies: Chills, Fever, Malaise, Night Sweats, Weakness, Fatigue, Weight Loss, Lethargy, Other Eyes: Denies: Pain, Vision change, Conjunctivae inflammation, Eyelid inflammation, Redness, Other ENT: Denies: Head Aches, Ear Pain, Dysphagia, Sinus Congestion, Post Nasal Drip, Sore Throat, Epistaxis, Other Symptoms Skin: Denies: Rash, Lesions, Jaundice, Bruising, Itching, Dry, Breakdown, Nail Changes, Other Pulmonary: Denies: Dyspnea, Cough, Pleuritic Chest Pain, Other Symptoms Cardiovascular: Reports: Edema (Rt leg); Denies: Chest Pain, Palpitations, Orthopnea, Paroxysmal Noc. Dyspnea, Lt Headedness, Other Symptoms Gastrointestinal: Denies: Nausea, Vomiting, Abdominal Pain, Diarrhea, Constipation, Melena, Hematochezia, Other Symptoms Genitourinary: Denies: Dysuria, Frequency, Incontinence, Hematuria, Retention, Other Symptoms Hematologic: Denies: Bruising, Bleeding Excessively, Petecchia, Purpura, Enlarged Lymph Nodes, Other Hematologic Musculoskeletal: Denies: Neck Pain, Back Pain, Shoulder Pain, Arm Pain, Hand Pain, Leg Pain, Foot Pain, Joint Pain, Muscle Pain, Spasms, Other Symptoms Neurological: Denies: Numbness Psych: Reports: Mood Normal Objective Physical Examination General Exam: Alert, No Acute Distress, Other (Obese body habitus) EYE EXAM: PERRLA, Conjunctiva & lids normal, EOMI ENT EXAM: Atraumatic, Mucous membr. moist/pink Neck Exam: Supple; No: JVD Chest Exam: Clear to auscultation, Normal air movement Heart Exam: Tachycardic, Irregular Rhythm, Other (Lt sided Pacemkaer noted) Telemetry: Atrial fibrillation ABDOMEN EXAM: Normal bowel sounds, Soft; No: Tenderness, Hepatospenomegaly Extremity Exam: Edema (Rt leg 1+ edema, Lt leg trace edema), Normal pulses; No: Clubbing, Cyanosis Skin Exam: Nl turgor and temperature Neuro Exam: Normal Speech, Strength at 5/5 X4 ext Psych Exam: Mental status NL, Mood NL Vital Signs/I&O Vital Signs Date Time Temp Pulse Resp B/P (MAP) Pulse Ox O2 Delivery O2 Flow Rate FiO2 12/10/20 06:00 98.3 82 18 116/62 (80) 98 Room Air I&O- Last 24 Hours up to 6 AM 12/10/20 05:59 Intake Total 1570 ml Output Total 0 ml Balance 1570 ml Laboratory Data Labs 24H Laboratory Tests 2 12/10/20 05:46: Immature Granulocyte % (Auto) 1.2, Neutrophils (%) (Auto) 62.5, Lymphocytes (%) (Auto) 23.1L, Monocytes (%) (Auto) 10.9H, Eosinophils (%) (Auto) 1.6, Basophils (%) (Auto) 0.7, Neutrophils # (Auto) 5.0, Lymphocytes # (Auto) 1.9, Monocytes # (Auto) 0.9H, Eosinophils # (Auto) 0.1, Basophils # (Auto) 0.1, Nucleated Red Blood Cells % (auto) 0.0, Anion Gap 5L, Glomerular Filtration Rate 29.9L, Calcium Level 7.2L, Magnesium Level 2.0 CBC/BMP Laboratory Tests 12/10/20 05:46 Current Medications Current Medications Medications (Trade) Dose Ordered Sig/Ba Route PRN Reason Start Time Stop Time Status Last Admin Dose Admin Acetaminophen (Tylenol Tab) 650 mg Q4H PRN PO MILD PAIN or TEMP > 101 11/25/20 11:40 Allopurinol (Zyloprim) 300 mg DAILY PO 12/10/20 09:00 12/10/20 09:40 Allopurinol (Zyloprim) 300 mg DAILY PO 11/25/20 09:00 11/25/20 13:39 DC Amlodipine Besylate (Norvasc) 5 mg DAILY PO 11/25/20 09:00 12/09/20 09:14 Apixaban (Eliquis) 5 mg BID PO 12/03/20 09:00 12/10/20 08:15 Apixaban (Eliquis) 5 mg BID PO 11/26/20 21:00 11/30/20 10:26 DC 11/29/20 21:11 Ascorbic Acid (Vitamin C) 250 mg DAILY PO 12/03/20 09:00 01/01/21 09:01 12/10/20 08:15 Atenolol (Tenormin) 12.5 mg BID PO 11/30/20 21:00 12/02/20 22:19 DC 12/02/20 10:10 Atenolol (Tenormin) 25 mg Q6H PO 11/26/20 18:00 11/30/20 12:10 DC 11/28/20 12:16 Atenolol (Tenormin) 50 mg BID PO 11/26/20 21:00 11/26/20 17:01 DC Calcitriol (Rocaltrol) 0.25 mcg MoWeFr PO 11/28/20 09:00 12/10/20 08:38 Ceftriaxone Sodium 1 gm/ Dextrose 50 ml @ 100 mls/hr Q24H IV 11/25/20 14:00 11/25/20 19:46 DC 11/25/20 16:53 Diltiazem HCl 125 mg/Sodium Chloride 125 ml @ 5 mls/hr Q24H IV 11/25/20 13:15 11/25/20 16:50 DC Fentanyl Citrate (Sublimaze) 25 mcg Q5MP PRN IV PAIN LEVEL 8-10 12/02/20 21:45 12/03/20 00:45 DC Fluconazole (Diflucan) 150 mg DAILY PO 11/25/20 09:00 11/28/20 14:25 DC 11/28/20 09:59 Fluconazole 300 mg/IV Miscellaneous Supplies 150 ml @ 100 mls/hr Q24H IV 11/25/20 15:35 11/25/20 15:41 DC Fluconazole 330 mg/IV Miscellaneous Supplies 165 ml @ 100 mls/hr Q24H IV 11/26/20 12:00 11/25/20 14:20 DC Furosemide (Lasix) 20 mg DAILY PO 12/06/20 09:00 12/06/20 12:36 DC 12/06/20 09:27 Heparin Sodium (Porcine) (Heparin) ASDIRECTED PRN IV SEE LABEL COMMENTS 11/25/20 12:15 11/26/20 17:01 DC Heparin Sodium (Porcine) 22295 units/IV Miscellaneous Supplies 250 ml @ 0 mls/hr Q0M IV 11/25/20 12:15 11/26/20 17:01 DC 11/26/20 12:15 Home Med (Home Med List Complete!) ASDIRECTED XX 11/25/20 08:25 11/25/20 08:29 DC Lactated Ringer's 1,000 ml @ 90 mls/hr Q11H7M IV 12/02/20 08:00 12/02/20 22:20 DC 12/02/20 10:10 Lactated Ringer's 1,000 ml @ 100 mls/hr Q10H IV 12/02/20 21:45 12/03/20 00:45 DC 12/02/20 22:55 Lactobacillus Acidophilus (Bacid) 1 ea BIDWM PO 12/03/20 08:00 12/10/20 08:15 Levothyroxine Sodium (Synthroid) 112 mcg DAILY@0600 PO 11/26/20 06:00 12/10/20 05:31 Metoclopramide HCl (REGLAN INJection) 10 mg Q6HP PRN IV NAUSEA OR VOMITING 12/02/20 21:45 12/03/20 00:45 DC Metoprolol Succinate (TopROL XL) 50 mg DAILY PO 12/03/20 09:00 12/10/20 08:15 Metoprolol Tartrate (Lopressor) 5 mg Q5M IV 11/25/20 07:40 11/25/20 07:51 DC 11/25/20 08:08 Metoprolol Tartrate (Lopressor) 12.5 mg BID PO 11/25/20 16:50 11/26/20 16:47 DC 11/26/20 09:36 Metoprolol Tartrate (Lopressor) 12.5 mg BID PO 11/25/20 21:00 11/25/20 16:47 DC Non-Formulary Medication (Heparin Iv Rate Change Documentation ml/ Hr) ASDIRECTED XX 11/25/20 12:15 11/26/20 17:01 DC Nystatin (Mycostatin Powder, Nystop) 1 dose TID PRN TOP RASH 11/25/20 12:05 12/02/20 22:02 DC Nystatin (Mycostatin Powder, Nystop) APPLY UNDER BREASTS DAILY TOP 12/02/20 22:05 12/10/20 08:15 Ondansetron HCl (ZOFRAN INJection) 4 mg Q4HP PRN IV NAUSEA OR VOMITING 12/02/20 21:45 12/03/20 00:45 DC Oxycodone/ Acetaminophen (Percocet 5mg/ 325mg Tablet) 1 tab ASDIRECTED PRN PO PAIN LEVEL 1-4 12/02/20 21:45 12/03/20 00:45 DC Piperacillin Sod/ Tazobactam Sod 4.5 gm/Dextrose 50 ml @ 50 mls/hr Q8H IV 11/25/20 20:00 11/28/20 10:30 DC 11/28/20 04:45 Sodium Chloride 1,000 ml @ 100 mls/hr Q10H IV 11/25/20 11:45 11/25/20 21:44 DC 11/25/20 16:37 Sodium Chloride 1,000 ml @ 200 mls/hr Q5H IV 11/26/20 09:10 11/26/20 14:09 DC 11/26/20 09:47 Timolol Maleate (Timoptic 0.5% Ophth Narcisa) 1 drop BID OU 11/25/20 21:00 12/10/20 08:15 Vitamin D (Drisdol) 50,000 units Hernandez@0900 PO 11/30/20 09:00 12/07/20 10:04 Allergies Coded Allergies: No Known Allergies (Unverified , 11/25/20) Assessment/Plan Date Seen The patient was seen on 12/10/20 at 12:48. Plan / VTE VTE Prophylaxis Ordered?: Yes Plan Orders past 48 Hours Orders Uric Acid (12/09/20 05:24) Allopurinol (Zyloprim) (12/10/20 09:00) Ot Eval & Treat As Needed (12/10/20 09:55) Furosemide Injection (Lasix Injection) (12/10/20 11:35) Torsemide (Demadex) (12/10/20 12:20) Plan Text JENN on CKD3 Baseline Cr 1.3 Iron Def anemia Persistent Afib sick Sinus syndrome/Tachy Oniel s/p Pacemaker. Chronic Gout. Leg edema Give torsemide 20 mg today. Renal function stable with Cr~1.7. Afib controlled. Allopurinol restarted due to elevated uric acid level. LINDSAY MAKI MD Dec 10, 2020 12:52
[2020-12-11 01:25] LABS: MYOGLOBIN SCREEN, URINE POSITIVE (NEGATIVE)
[2020-12-11] MEDS: LEVOTHYROXINE 112MCG TABLET (0.112MG) PO SCH (05:48)
[2020-12-11 06:00] VITALS: BP 120/64
[2020-12-11 06:12] LABS: BASO # 0.1 10^3/uL (0.0-0.2); BASO % 0.7 % (0.0-1.0); EOS # 0.1 10^3/uL (0.0-0.5); EOS % 1.6 % (0.0-3.0); HEMATOCRIT 34.6 % (36.0-47.0); HEMOGLOBIN 11.1 g/dl (12.0-15.5); LYMPH # 1.7 10^3/uL (1.5-5.0); LYMPH % 20.4 % (24.0-44.0); MEAN CORPUSCULAR HEMOGLOBIN 32.7 pg (27.0-33.0); MEAN CORPUSCULAR HGB CONC 32.1 g/dl (32.0-36.5); MEAN CORPUSCULAR VOLUME 102.1 fl (80.0-96.0); MONO # 0.8 10^3/uL (0.0-0.8); MONO % 10.3 % (2.0-8.0); NEUTROPHILS # 5.4 10^3/uL (1.5-8.5); NEUTROPHILS % 65.8 % (36.0-66.0); PLATELET COUNT, AUTOMATED 133 10^3/uL (150-450); RED BLOOD COUNT 3.39 10^6/uL (4.00-5.40); WHITE BLOOD COUNT 8.2 10^3/uL (4.0-10.0)
[2020-12-11 06:38] LABS: CALCIUM LEVEL 7.2 MG/DL (8.8-10.2); CREATININE FOR GFR 1.86 MG/DL (0.55-1.30); GLOMERULAR FILTRATION RATE 28.4 (>39); MAGNESIUM LEVEL 1.9 MG/DL (1.8-2.4); POTASSIUM SERUM 4.5 MEQ/L (3.5-5.1)
[2020-12-11] MEDS: ASCORBIC ACID 250 MG TAB PO SCH (08:44)
[2020-12-11] MEDS: LACTOBACILLUS ACIDOPHILUS CAP (BACID) PO SCH ×2 (08:44→18:08)
[2020-12-11] MEDS: NYSTATIN 100,000 UNITS/GM TOPICAL PWD 15 GM TOP SCH (08:44)
[2020-12-11] MEDS: allopurinoL 300 MG TAB PO SCH (08:44)
[2020-12-11] MEDS: CEFDINIR 300 MG CAP (OMNICEF) PO SCH ×2 (08:44→20:47)
[2020-12-11] MEDS: TIMOLOL MALEATE 0.5% OPHTH SOLN 5 ML OU SCH ×2 (08:44→20:47)
[2020-12-11] MEDS: APIXABAN 5 MG TAB (ELIQUIS) PO SCH ×2 (08:47→20:47)
[2020-12-11] MEDS: amLODIPine 5 MG TAB PO SCH (08:47)
[2020-12-11] MEDS: METOPROLOL SUCC (TopROL XL) 50MG **XL** TAB PO SCH (09:00)
--- NOTE | 2020-12-11 13:36 | REP ---
INDICATION: Edema Rt>Lt. R/o DVT COMPARISON: None. TECHNIQUE: Real time compression and duplex Doppler interrogation of the bilateral lower extremity deep venous system is performed. Compression ultrasound is performed of the bilateral peroneal and posterior tibial veins. FINDINGS: Bilaterally, the common femoral, superficial femoral and popliteal veins are fully compressible with transducer pressure and demonstrate normal spontaneous and phasic flow, without evidence of deep venous thrombosis. The peroneal and posterior tibial veins could not be visualized due to patient body habitus. IMPRESSION: No evidence of deep venous thrombosis of the bilateral lower extremity femoral popliteal venous system. <Electronically signed by Martir Laurent > 12/11/20 [id number]
[2020-12-11] MEDS: ACETAMINOPHEN TAB 650MG DOSE (2X325MG) PO PRN (18:09)
--- NOTE | 2020-12-11 20:49 | IPNPDOC ---
Subjective CC/HPI The patient is a 70-year-old female admitted with a reason for visit of Acute Renal Failure, Atrial Fibrillation With Rapi. Events since last encounter Pt seen today AM. She c/o dysuria, feels tired today, also reports Rt leg edema. Renal function stable Cr1.7-->1.8 today. General: Reports: Fatigue, Malaise; Denies: Chills, Night Sweats Constitutional: Reports: Malaise; Denies: Chills, Fever, Night Sweats, Weakness Eyes: Denies: Pain, Vision change, Conjunctivae inflammation, Eyelid inflammation, Redness, Other ENT: Denies: Head Aches, Ear Pain, Dysphagia, Sinus Congestion, Post Nasal Drip, Sore Throat, Epistaxis, Other Symptoms Skin: Denies: Rash, Lesions, Jaundice, Bruising, Itching, Dry, Breakdown, Nail Changes, Other Pulmonary: Denies: Dyspnea, Cough Cardiovascular: Denies: Chest Pain, Palpitations, Orthopnea, Paroxysmal Noc. Dyspnea, Edema, Lt Headedness, Other Symptoms Gastrointestinal: Denies: Nausea, Vomiting, Abdominal Pain, Diarrhea, Constipation, Melena, Hematochezia, Other Symptoms Genitourinary: Denies: Dysuria, Frequency, Incontinence, Hematuria, Retention, Other Symptoms Hematologic: Denies: Bruising, Bleeding Excessively, Petecchia, Purpura, Enlarged Lymph Nodes, Other Hematologic Musculoskeletal: Denies: Neck Pain, Back Pain, Shoulder Pain, Arm Pain, Hand Pain, Leg Pain, Foot Pain, Joint Pain, Muscle Pain, Spasms, Other Symptoms Neurological: Denies: Weakness, Numbness, Incoordination, Change in speech, Confusion, Seizures, Other Symptoms Psych: Reports: Mood Normal Objective Physical Examination General Exam: Alert, No Acute Distress, Other (Obese body habitus) EYE EXAM: PERRLA, Conjunctiva & lids normal, EOMI ENT EXAM: Atraumatic, Mucous membr. moist/pink Neck Exam: Supple; No: JVD Chest Exam: Clear to auscultation, Normal air movement Heart Exam: Tachycardic, Irregular Rhythm, Other (Lt sided Pacemkaer noted with sadia in skin) Telemetry: Atrial fibrillation ABDOMEN EXAM: Normal bowel sounds, Soft; No: Tenderness, Hepatospenomegaly Extremity Exam: Edema (Rt leg 1+ edema, Lt leg trace edema), Normal pulses; No: Clubbing, Cyanosis Skin Exam: Nl turgor and temperature Neuro Exam: Normal Speech, Strength at 5/5 X4 ext Psych Exam: Mental status NL, Mood NL Vital Signs/I&O Vital Signs Date Time Temp Pulse Resp B/P (MAP) Pulse Ox O2 Delivery O2 Flow Rate FiO2 12/11/20 09:00 84 115/62 12/11/20 06:00 97.5 16 100 Room Air I&O- Last 24 Hours up to 6 AM 12/11/20 06:00 Intake Total 490 ml Output Total 380 ml Balance 110 ml Laboratory Data Labs 24H Laboratory Tests 2 12/11/20 00:51: Total Creatine Kinase 9L 12/11/20 01:17: Urine Color REDH, Urine Appearance CLOUDYH, Urine pH 6.0, Urine Specific [place] 1.006, Urine Protein 2+H, Urine Glucose (UA) NEGATIVE, Urine Ketones NEGATIVE, Urine Blood 3+H, Urine Nitrite NEGATIVE, Urine Bilirubin NEGATIVE, Urine Urobilinogen 0.2, Urine Leukocyte Esterase 2+H, Urine WBC (Auto) 145H, Urine RBC (Auto) TNTCH, Urine Hyaline Casts (Auto) 0, Urine Bacteria (Auto) NEGATIVE, Urine Squamous Epithelial Cells 11, Urine Sperm (Auto) , Urine Myoglobin POSITIVEH 12/11/20 05:33: Total Creatine Kinase 11L, Immature Granulocyte % (Auto) 1.2, Neutrophils (%) (Auto) 65.8, Lymphocytes (%) (Auto) 20.4L, Monocytes (%) (Auto) 10.3H, Eosinophils (%) (Auto) 1.6, Basophils (%) (Auto) 0.7, Neutrophils # (Auto) 5.4, Lymphocytes # (Auto) 1.7, Monocytes # (Auto) 0.8, Eosinophils # (Auto) 0.1, Basophils # (Auto) 0.1, Nucleated Red Blood Cells % (auto) 0.0, Anion Gap 7L, Glomerular Filtration Rate 28.4L, Calcium Level 7.2L, Magnesium Level 1.9 CBC/BMP Laboratory Tests 12/11/20 05:33 Current Medications Current Medications Medications (Trade) Dose Ordered Sig/Ba Route PRN Reason Start Time Stop Time Status Last Admin Dose Admin Acetaminophen (Tylenol Tab) 650 mg Q4H PRN PO MILD PAIN or TEMP > 101 9/7/21 11:40 12/11/20 18:09 Allopurinol (Zyloprim) 300 mg DAILY PO 12/10/20 09:00 12/11/20 08:44 Allopurinol (Zyloprim) 300 mg DAILY PO 11/25/20 09:00 11/25/20 13:39 DC Amlodipine Besylate (Norvasc) 5 mg DAILY PO 11/25/20 09:00 12/09/20 09:14 Apixaban (Eliquis) 5 mg BID PO 12/03/20 09:00 12/11/20 08:47 Apixaban (Eliquis) 5 mg BID PO 11/26/20 21:00 11/30/20 10:26 DC 11/29/20 21:11 Ascorbic Acid (Vitamin C) 250 mg DAILY PO 12/03/20 09:00 01/01/21 09:01 12/11/20 08:44 Atenolol (Tenormin) 12.5 mg BID PO 11/30/20 21:00 12/02/20 22:19 DC 12/02/20 10:10 Atenolol (Tenormin) 25 mg Q6H PO 11/26/20 18:00 11/30/20 12:10 DC 11/28/20 12:16 Atenolol (Tenormin) 50 mg BID PO 11/26/20 21:00 11/26/20 17:01 DC Calcitriol (Rocaltrol) 0.25 mcg MoWeFr PO 11/28/20 09:00 12/10/20 08:38 Cefdinir (Omnicef) 300 mg BID PO 12/11/20 09:00 12/11/20 08:44 Ceftriaxone Sodium 1 gm/ Dextrose 50 ml @ 100 mls/hr Q24H IV 11/25/20 14:00 11/25/20 19:46 DC 11/25/20 16:53 Diltiazem HCl 125 mg/Sodium Chloride 125 ml @ 5 mls/hr Q24H IV 11/25/20 13:15 11/25/20 16:50 DC Fentanyl Citrate (Sublimaze) 25 mcg Q5MP PRN IV PAIN LEVEL 8-10 12/02/20 21:45 12/03/20 00:45 DC Fluconazole (Diflucan) 150 mg DAILY PO 11/25/20 09:00 11/28/20 14:25 DC 11/28/20 09:59 Fluconazole 300 mg/IV Miscellaneous Supplies 150 ml @ 100 mls/hr Q24H IV 11/25/20 15:35 11/25/20 15:41 DC Fluconazole 330 mg/IV Miscellaneous Supplies 165 ml @ 100 mls/hr Q24H IV 11/26/20 12:00 11/25/20 14:20 DC Furosemide (Lasix) 20 mg DAILY PO 12/06/20 09:00 12/06/20 12:36 DC 12/06/20 09:27 Heparin Sodium (Porcine) (Heparin) ASDIRECTED PRN IV SEE LABEL COMMENTS 11/25/20 12:15 11/26/20 17:01 DC Heparin Sodium (Porcine) 00743 units/IV Miscellaneous Supplies 250 ml @ 0 mls/hr Q0M IV 11/25/20 12:15 11/26/20 17:01 DC 11/26/20 12:15 Home Med (Home Med List Complete!) ASDIRECTED XX 11/25/20 08:25 11/25/20 08:29 DC Lactated Ringer's 1,000 ml @ 90 mls/hr Q11H7M IV 12/02/20 08:00 12/02/20 22:20 DC 12/02/20 10:10 Lactated Ringer's 1,000 ml @ 100 mls/hr Q10H IV 12/02/20 21:45 12/03/20 00:45 DC 12/02/20 22:55 Lactobacillus Acidophilus (Bacid) 1 ea BIDWM PO 12/03/20 08:00 12/11/20 18:08 Levothyroxine Sodium (Synthroid) 112 mcg DAILY@0600 PO 11/26/20 06:00 12/11/20 05:48 Metoclopramide HCl (REGLAN INJection) 10 mg Q6HP PRN IV NAUSEA OR VOMITING 12/02/20 21:45 12/03/20 00:45 DC Metoprolol Succinate (TopROL XL) 50 mg DAILY PO 12/03/20 09:00 12/10/20 08:15 Metoprolol Tartrate (Lopressor) 5 mg Q5M IV 11/25/20 07:40 11/25/20 07:51 DC 11/25/20 08:08 Metoprolol Tartrate (Lopressor) 12.5 mg BID PO 11/25/20 16:50 11/26/20 16:47 DC 11/26/20 09:36 Metoprolol Tartrate (Lopressor) 12.5 mg BID PO 11/25/20 21:00 11/25/20 16:47 DC Non-Formulary Medication (Heparin Iv Rate Change Documentation ml/ Hr) ASDIRECTED XX 11/25/20 12:15 11/26/20 17:01 DC Nystatin (Mycostatin Powder, Nystop) 1 dose TID PRN TOP RASH 11/25/20 12:05 12/02/20 22:02 DC Nystatin (Mycostatin Powder, Nystop) APPLY UNDER BREASTS DAILY TOP 12/02/20 22:05 12/11/20 08:44 Ondansetron HCl (ZOFRAN INJection) 4 mg Q4HP PRN IV NAUSEA OR VOMITING 12/02/20 21:45 12/03/20 00:45 DC Oxycodone/ Acetaminophen (Percocet 5mg/ 325mg Tablet) 1 tab ASDIRECTED PRN PO PAIN LEVEL 1-4 12/02/20 21:45 12/03/20 00:45 DC Piperacillin Sod/ Tazobactam Sod 4.5 gm/Dextrose 50 ml @ 50 mls/hr Q8H IV 11/25/20 20:00 11/28/20 10:30 DC 11/28/20 04:45 Sodium Chloride 1,000 ml @ 100 mls/hr Q10H IV 11/25/20 11:45 11/25/20 21:44 DC 11/25/20 16:37 Sodium Chloride 1,000 ml @ 200 mls/hr Q5H IV 11/26/20 09:10 11/26/20 14:09 DC 11/26/20 09:47 Timolol Maleate (Timoptic 0.5% Ophth Narcisa) 1 drop BID OU 11/25/20 21:00 12/11/20 08:44 Vitamin D (Drisdol) 50,000 units Hernandez@0900 PO 11/30/20 09:00 12/07/20 10:04 Allergies Coded Allergies: No Known Allergies (Unverified , 11/25/20) Assessment/Plan Date Seen The patient was seen on 12/11/20 at 20:44. Plan / VTE VTE Prophylaxis Ordered?: Yes Plan Orders past 48 Hours Orders Allopurinol (Zyloprim) (12/10/20 09:00) Ot Eval & Treat As Needed (12/10/20 09:55) Furosemide Injection (Lasix Injection) (12/10/20 11:35) Torsemide (Demadex) (12/10/20 12:20) Ua W/ Reflex To Culture (12/11/20 00:23) Creatine Phosphokinase (12/11/20 00:23) Urine Myoglobin Screen (12/11/20 00:23) Catheter - Urinary Straight (12/11/20 00:40) Reflex Urine Culture (12/11/20 01:17) Cefdinir (Omnicef) (12/11/20 09:00) * Nursing Order * (12/11/20 09:16) Creatine Phosphokinase (12/11/20 05:33) Duplex, Ext Lower Veins, Bilat (12/11/20 12:01) Remove Sadia / Sutures (12/11/20 13:20) * Nursing Order * (12/11/20 13:20) Plan Text JENN on CKD3 Baseline Cr 1.3 Iron Def anemia Persistent Afib sick Sinus syndrome/Tachy Oniel s/p Pacemaker. Chronic Gout. Leg edema Hematuria Given torsemide 20 mg yesterday. Renal function stable with Cr~1.7. Afib controlled. Allopurinol restarted due to elevated uric acid level. Doppler Bilat LE done which ruled out DVT. No diuretic today. Check bladder scan to r/o retention Send urine Cx. LINDSAY MAKI MD Dec 11, 2020 20:49
[2020-12-12] MEDS: LEVOTHYROXINE 112MCG TABLET (0.112MG) PO SCH (05:33)
[2020-12-12 06:00] VITALS: BP 142/81
[2020-12-12 06:43] LABS: BASO # 0.1 10^3/uL (0.0-0.2); BASO % 0.7 % (0.0-1.0); EOS # 0.2 10^3/uL (0.0-0.5); EOS % 2.3 % (0.0-3.0); HEMATOCRIT 33.8 % (36.0-47.0); HEMOGLOBIN 10.8 g/dl (12.0-15.5); LYMPH # 1.6 10^3/uL (1.5-5.0); LYMPH % 22.5 % (24.0-44.0); MEAN CORPUSCULAR HEMOGLOBIN 32.9 pg (27.0-33.0); MONO # 0.6 10^3/uL (0.0-0.8); MONO % 8.2 % (2.0-8.0); NEUTROPHILS # 4.8 10^3/uL (1.5-8.5); NEUTROPHILS % 65.2 % (36.0-66.0); PLATELET COUNT, AUTOMATED 128 10^3/uL (150-450); RED BLOOD COUNT 3.28 10^6/uL (4.00-5.40); WHITE BLOOD COUNT 7.3 10^3/uL (4.0-10.0)
[2020-12-12 07:09] LABS: CALCIUM LEVEL 7.4 MG/DL (8.8-10.2); CREATININE FOR GFR 2.07 MG/DL (0.55-1.30); GLOMERULAR FILTRATION RATE 25.1 (>39); MAGNESIUM LEVEL 1.6 MG/DL (1.8-2.4); POTASSIUM SERUM 4.6 MEQ/L (3.5-5.1)
[2020-12-12] MEDS: amLODIPine 5 MG TAB PO SCH (09:00)
[2020-12-12 09:33] VITALS: BP 119/58
[2020-12-12] MEDS: CALCITRIOL 0.25 MCG CAP (S0169) PO SCH (09:43)
[2020-12-12] MEDS: APIXABAN 5 MG TAB (ELIQUIS) PO SCH ×2 (09:43→21:13)
[2020-12-12] MEDS: CEFDINIR 300 MG CAP (OMNICEF) PO SCH ×2 (09:43→21:13)
[2020-12-12] MEDS: allopurinoL 300 MG TAB PO SCH (09:43)
[2020-12-12] MEDS: METOPROLOL SUCC (TopROL XL) 50MG **XL** TAB PO SCH (09:43)
[2020-12-12] MEDS: TIMOLOL MALEATE 0.5% OPHTH SOLN 5 ML OU SCH ×2 (09:44→21:13)
[2020-12-12] MEDS: LACTOBACILLUS ACIDOPHILUS CAP (BACID) PO SCH ×2 (09:44→17:12)
[2020-12-12] MEDS: ASCORBIC ACID 250 MG TAB PO SCH (09:44)
[2020-12-12] MEDS: NYSTATIN 100,000 UNITS/GM TOPICAL PWD 15 GM TOP SCH (09:44)
[2020-12-12] MEDS ORDERED: MAGNESIUM OXIDE 400MG TAB (MAG-OX) PO ONE (09:55)
--- NOTE | 2020-12-12 10:32 | REP ---
INDICATION: Retention / Hematuria. COMPARISON: 11/29/2020 the latest prior TECHNIQUE: Once again, standard helical technique without intravenous or oral bowel preparatory contrast. This causes exam limitations as on the prior exam. FINDINGS: The lung bases are unchanged. There are bilateral pleural effusions status quo. There are bilateral lung base subsegmental atelectatic changes. Concomitant pneumonia cannot be ruled out. There is ascites status quo. The liver, spleen, gallbladder, pancreas, adrenal glands, and kidneys are unchanged. The abdominal aorta and para-aortic regions are unchanged. The bowel loops and the mesenteries are unchanged. The osseous structures are unchanged. IMPRESSION: Limited noncontrast CT examination of the abdomen and pelvis, as described above, showing no evidence of change compared to the examination which was obtained 13 days ago. <Electronically signed by Durga Marie > 12/12/20 [id number]
[2020-12-12] MEDS ORDERED: TORSEMIDE 10 MG TABLET PO ONE (11:30)
--- NOTE | 2020-12-12 12:06 | IPNPDOC ---
Subjective CC/HPI The patient is a 70-year-old female admitted with a reason for visit of Acute Renal Failure, Atrial Fibrillation With Rapi. Events since last encounter Pt was seen at bedside. She was requiring straight cath due to retention. Sahni was placed today AM. She c/o some edema Rt leg. Renal function worse General: Denies: Chills, Night Sweats, Fatigue Constitutional: Denies: Chills, Fever, Malaise, Night Sweats, Weakness, Fatigue, Weight Loss, Lethargy, Other Eyes: Denies: Pain, Vision change, Conjunctivae inflammation, Eyelid inflammation, Redness, Other ENT: Denies: Head Aches, Ear Pain, Dysphagia, Sinus Congestion, Post Nasal Drip, Sore Throat, Epistaxis, Other Symptoms Skin: Denies: Rash, Lesions, Jaundice, Bruising, Itching, Dry, Breakdown, Nail Changes, Other Pulmonary: Denies: Dyspnea, Cough, Pleuritic Chest Pain, Other Symptoms Cardiovascular: Denies: Chest Pain, Palpitations, Orthopnea, Paroxysmal Noc. Dyspnea, Edema, Lt Headedness, Other Symptoms Gastrointestinal: Denies: Nausea, Vomiting, Abdominal Pain, Diarrhea, Constipation, Melena, Hematochezia, Other Symptoms Genitourinary: Reports: Other Symptoms (Retention) Hematologic: Denies: Bruising, Bleeding Excessively Musculoskeletal: Denies: Neck Pain, Back Pain, Shoulder Pain, Arm Pain, Hand Pain, Leg Pain, Foot Pain, Joint Pain, Muscle Pain, Spasms, Other Symptoms Neurological: Denies: Weakness, Numbness, Incoordination, Change in speech, Confusion, Seizures, Other Symptoms Psych: Reports: Mood Normal Objective Physical Examination General Exam: Alert, No Acute Distress, Other (Obese body habitus) EYE EXAM: PERRLA, Conjunctiva & lids normal, EOMI ENT EXAM: Atraumatic, Mucous membr. moist/pink Neck Exam: Supple; No: JVD Chest Exam: Clear to auscultation, Normal air movement Heart Exam: Tachycardic, Irregular Rhythm, Other (Lt sided Pacemkaer noted with sadia in skin) Telemetry: Atrial fibrillation ABDOMEN EXAM: Normal bowel sounds (Sahni catheter in situ), Soft; No: Tenderness, Hepatospenomegaly Extremity Exam: Edema (Rt leg 1+ edema, Lt leg trace edema), Normal pulses; No: Clubbing, Cyanosis Skin Exam: Nl turgor and temperature Neuro Exam: Normal Speech, Strength at 5/5 X4 ext Psych Exam: Mental status NL, Mood NL Vital Signs/I&O Vital Signs Date Time Temp Pulse Resp B/P (MAP) Pulse Ox O2 Delivery O2 Flow Rate FiO2 12/12/20 09:43 99 119/58 12/12/20 09:33 98 Room Air 12/12/20 06:00 97.7 18 I&O- Last 24 Hours up to 6 AM 12/12/20 06:00 Intake Total 590 ml Output Total 0 ml Balance 590 ml Laboratory Data Labs 24H Laboratory Tests 2 12/12/20 05:46: Immature Granulocyte % (Auto) 1.1, Neutrophils (%) (Auto) 65.2, Lymphocytes (%) (Auto) 22.5L, Monocytes (%) (Auto) 8.2H, Eosinophils (%) (Auto) 2.3, Basophils (%) (Auto) 0.7, Neutrophils # (Auto) 4.8, Lymphocytes # (Auto) 1.6, Monocytes # (Auto) 0.6, Eosinophils # (Auto) 0.2, Basophils # (Auto) 0.1, Nucleated Red Blood Cells % (auto) 0.0, Anion Gap 7L, Glomerular Filtration Rate 25.1L, Calcium Level 7.4L, Magnesium Level 1.6L CBC/BMP Laboratory Tests 12/12/20 05:46 Current Medications Current Medications Medications (Trade) Dose Ordered Sig/Ba Route PRN Reason Start Time Stop Time Status Last Admin Dose Admin Acetaminophen (Tylenol Tab) 650 mg Q4H PRN PO MILD PAIN or TEMP > 101 11/25/20 11:40 12/11/20 18:09 Allopurinol (Zyloprim) 300 mg DAILY PO 12/10/20 09:00 12/12/20 09:43 Allopurinol (Zyloprim) 300 mg DAILY PO 11/25/20 09:00 11/25/20 13:39 DC Amlodipine Besylate (Norvasc) 5 mg DAILY PO 11/25/20 09:00 12/09/20 09:14 Apixaban (Eliquis) 5 mg BID PO 12/03/20 09:00 12/12/20 09:43 Apixaban (Eliquis) 5 mg BID PO 11/26/20 21:00 11/30/20 10:26 DC 11/29/20 21:11 Ascorbic Acid (Vitamin C) 250 mg DAILY PO 12/03/20 09:00 01/01/21 09:01 12/12/20 09:44 Atenolol (Tenormin) 12.5 mg BID PO 11/30/20 21:00 12/02/20 22:19 DC 12/02/20 10:10 Atenolol (Tenormin) 25 mg Q6H PO 11/26/20 18:00 11/30/20 12:10 DC 11/28/20 12:16 Atenolol (Tenormin) 50 mg BID PO 11/26/20 21:00 11/26/20 17:01 DC Calcitriol (Rocaltrol) 0.25 mcg MoWeFr PO 11/28/20 09:00 12/12/20 09:43 Cefdinir (Omnicef) 300 mg BID PO 12/11/20 09:00 12/12/20 09:43 Ceftriaxone Sodium 1 gm/ Dextrose 50 ml @ 100 mls/hr Q24H IV 11/25/20 14:00 11/25/20 19:46 DC 11/25/20 16:53 Diltiazem HCl 125 mg/Sodium Chloride 125 ml @ 5 mls/hr Q24H IV 11/25/20 13:15 11/25/20 16:50 DC Fentanyl Citrate (Sublimaze) 25 mcg Q5MP PRN IV PAIN LEVEL 8-10 12/02/20 21:45 12/03/20 00:45 DC Fluconazole (Diflucan) 150 mg DAILY PO 11/25/20 09:00 11/28/20 14:25 DC 11/28/20 09:59 Fluconazole 300 mg/IV Miscellaneous Supplies 150 ml @ 100 mls/hr Q24H IV 11/25/20 15:35 11/25/20 15:41 DC Fluconazole 330 mg/IV Miscellaneous Supplies 165 ml @ 100 mls/hr Q24H IV 11/26/20 12:00 11/25/20 14:20 DC Furosemide (Lasix) 20 mg DAILY PO 12/06/20 09:00 12/06/20 12:36 DC 12/06/20 09:27 Heparin Sodium (Porcine) (Heparin) ASDIRECTED PRN IV SEE LABEL COMMENTS 11/25/20 12:15 11/26/20 17:01 DC Heparin Sodium (Porcine) 96878 units/IV Miscellaneous Supplies 250 ml @ 0 mls/hr Q0M IV 11/25/20 12:15 11/26/20 17:01 DC 11/26/20 12:15 Home Med (Home Med List Complete!) ASDIRECTED XX 11/25/20 08:25 11/25/20 08:29 DC Lactated Ringer's 1,000 ml @ 90 mls/hr Q11H7M IV 12/02/20 08:00 12/02/20 22:20 DC 12/02/20 10:10 Lactated Ringer's 1,000 ml @ 100 mls/hr Q10H IV 12/02/20 21:45 12/03/20 00:45 DC 12/02/20 22:55 Lactobacillus Acidophilus (Bacid) 1 ea BIDWM PO 12/03/20 08:00 12/12/20 09:44 Levothyroxine Sodium (Synthroid) 112 mcg DAILY@0600 PO 11/26/20 06:00 12/12/20 05:33 Metoclopramide HCl (REGLAN INJection) 10 mg Q6HP PRN IV NAUSEA OR VOMITING 12/02/20 21:45 12/03/20 00:45 DC Metoprolol Succinate (TopROL XL) 50 mg DAILY PO 12/03/20 09:00 12/12/20 09:43 Metoprolol Tartrate (Lopressor) 5 mg Q5M IV 11/25/20 07:40 11/25/20 07:51 DC 11/25/20 08:08 Metoprolol Tartrate (Lopressor) 12.5 mg BID PO 11/25/20 16:50 11/26/20 16:47 DC 11/26/20 09:36 Metoprolol Tartrate (Lopressor) 12.5 mg BID PO 11/25/20 21:00 11/25/20 16:47 DC Non-Formulary Medication (Heparin Iv Rate Change Documentation ml/ Hr) ASDIRECTED XX 11/25/20 12:15 11/26/20 17:01 DC Nystatin (Mycostatin Powder, Nystop) 1 dose TID PRN TOP RASH 11/25/20 12:05 12/02/20 22:02 DC Nystatin (Mycostatin Powder, Nystop) APPLY UNDER BREASTS DAILY TOP 12/02/20 22:05 12/12/20 09:44 Ondansetron HCl (ZOFRAN INJection) 4 mg Q4HP PRN IV NAUSEA OR VOMITING 12/02/20 21:45 12/03/20 00:45 DC Oxycodone/ Acetaminophen (Percocet 5mg/ 325mg Tablet) 1 tab ASDIRECTED PRN PO PAIN LEVEL 1-4 12/02/20 21:45 12/03/20 00:45 DC Piperacillin Sod/ Tazobactam Sod 4.5 gm/Dextrose 50 ml @ 50 mls/hr Q8H IV 11/25/20 20:00 11/28/20 10:30 DC 11/28/20 04:45 Sodium Chloride 1,000 ml @ 100 mls/hr Q10H IV 11/25/20 11:45 11/25/20 21:44 DC 11/25/20 16:37 Sodium Chloride 1,000 ml @ 200 mls/hr Q5H IV 11/26/20 09:10 11/26/20 14:09 DC 11/26/20 09:47 Timolol Maleate (Timoptic 0.5% Ophth Narcisa) 1 drop BID OU 11/25/20 21:00 12/12/20 09:44 Vitamin D (Drisdol) 50,000 units Hernandez@0900 PO 11/30/20 09:00 12/07/20 10:04 Allergies Coded Allergies: No Known Allergies (Unverified , 11/25/20) Assessment/Plan Date Seen The patient was seen on 12/12/20 in AM. Plan / VTE VTE Prophylaxis Ordered?: Yes Plan Orders past 48 Hours Orders Torsemide (Demadex) (12/10/20 12:20) Ua W/ Reflex To Culture (12/11/20 00:23) Creatine Phosphokinase (12/11/20 00:23) Urine Myoglobin Screen (12/11/20 00:23) Catheter - Urinary Straight (12/11/20 00:40) Reflex Urine Culture (12/11/20 01:17) Cefdinir (Omnicef) (12/11/20 09:00) * Nursing Order * (12/11/20 09:16) Creatine Phosphokinase (12/11/20 05:33) Duplex, Ext Lower Veins, Bilat (12/11/20 12:01) Remove Sadia / Sutures (12/11/20 13:20) * Nursing Order * (12/11/20 13:20) Bladder Scan >300ml Notify Qmp (12/11/20 20:49) Catheter - Urinary Straight (12/12/20 06:28) Urinary Catheter DOCUMENT BID (12/12/20 09:37) Ct Abd & Pelvis W/O Contrast (12/12/20 09:44) Magnesium Oxide (Mag-Ox) (12/12/20 09:55) Torsemide (Demadex) (12/12/20 11:30) Plan Text JENN on CKD3 Baseline Cr 1.3 Persistent Afib sick Sinus syndrome/Tachy Oinel s/p Pacemaker. Chronic Gout. Leg edema Urinary retention torsemide today. Sahni was placed for retention. hopefully renal function should start improving. continue Allopurinol. Send urine Cx. LINDSAY MAKI MD Dec 12, 2020 12:06
--- NOTE | 2020-12-13 03:04 | IPNPDOC ---
Text Note Date of Service Significant event NOTE Notified patient having notable amount of bright red vaginal discharge. This is new for her, she is on Eliquis. No other new complaints, VSS. Plan for H&H monitoring and monitoring patient for any signs symptoms of symptomatic anemia. We will hold Eliquis for now. Consider gynecological recommendations in a.m.; should pt have any clinical changes- would opt for blood replacement and recommendations tonight. WCTM VS,Fishbone, I+O VS, Fishbone, I+O Laboratory Tests 12/12/20 05:46 Vital Signs Date Time Temp Pulse Resp B/P (MAP) Pulse Ox O2 Delivery O2 Flow Rate FiO2 12/12/20 09:43 99 119/58 12/12/20 09:33 98 Room Air 12/12/20 06:00 97.7 18 I&O- Last 24 Hours up to 6 AM 12/13/20 06:00 Intake Total 1050 ml Output Total 1450 ml Balance -400 ml WALTER MENESES NP Dec 13, 2020 03:00
[2020-12-13 05:42] LABS: BASO % 0.5 % (0.0-1.0); EOS # 0.2 10^3/uL (0.0-0.5); EOS % 2.4 % (0.0-3.0); HEMATOCRIT 32.3 % (36.0-47.0); HEMOGLOBIN 10.4 g/dl (12.0-15.5); LYMPH # 1.9 10^3/uL (1.5-5.0); LYMPH % 23.8 % (24.0-44.0); MEAN CORPUSCULAR HEMOGLOBIN 32.7 pg (27.0-33.0); MEAN CORPUSCULAR HGB CONC 32.2 g/dl (32.0-36.5); MEAN CORPUSCULAR VOLUME 101.6 fl (80.0-96.0); MONO # 0.7 10^3/uL (0.0-0.8); MONO % 8.3 % (2.0-8.0); NEUTROPHILS % 63.8 % (36.0-66.0); PLATELET COUNT, AUTOMATED 124 10^3/uL (150-450); RED BLOOD COUNT 3.18 10^6/uL (4.00-5.40); WHITE BLOOD COUNT 7.8 10^3/uL (4.0-10.0)
[2020-12-13] MEDS: LEVOTHYROXINE 112MCG TABLET (0.112MG) PO SCH (05:52)
[2020-12-13 05:58] LABS: CALCIUM LEVEL 7.1 MG/DL (8.8-10.2); CREATININE FOR GFR 2.21 MG/DL (0.55-1.30); GLOMERULAR FILTRATION RATE 23.3 (>39); MAGNESIUM LEVEL 1.8 MG/DL (1.8-2.4); POTASSIUM SERUM 4.3 MEQ/L (3.5-5.1)
[2020-12-13 06:00] VITALS: BP 139/60
[2020-12-13] MEDS: allopurinoL 300 MG TAB PO SCH (08:10)
[2020-12-13] MEDS: NYSTATIN 100,000 UNITS/GM TOPICAL PWD 15 GM TOP SCH (08:10)
[2020-12-13] MEDS: LACTOBACILLUS ACIDOPHILUS CAP (BACID) PO SCH ×2 (08:10→18:12)
[2020-12-13] MEDS: ASCORBIC ACID 250 MG TAB PO SCH (08:10)
[2020-12-13] MEDS: CEFDINIR 300 MG CAP (OMNICEF) PO SCH (08:10)
[2020-12-13] MEDS: TIMOLOL MALEATE 0.5% OPHTH SOLN 5 ML OU SCH ×2 (08:10→21:00)
[2020-12-13] MEDS: amLODIPine 5 MG TAB PO SCH (08:22)
[2020-12-13] MEDS: METOPROLOL SUCC (TopROL XL) 50MG **XL** TAB PO SCH (09:00)
--- NOTE | 2020-12-13 10:08 | REP ---
INDICATION: Reported vaginal discharge. COMPARISON: None. TECHNIQUE: 2D and color Doppler ultrasound images were obtained of the pelvis transabdominally. FINDINGS: The uterus measures 7.4 x 56.2 x 5.0 cm. There is hypoechoic material within the endometrial canal measuring 3.5 x 2.4 x 2.3 cm, may be hemorrhage/hematoma. There is no blood flow noted within the endometrial canal. There is a large amount of pelvic ascites. The ovaries are not identified. There is a Sahni catheter present in the urinary bladder. IMPRESSION: 1. Complex material within the endometrial canal may be hemorrhage/hematoma. 2. Large amount of ascites. 3. Sahni catheter present in the urinary bladder. <Electronically signed by Irving Guillermo > 12/13/20 1009
--- NOTE | 2020-12-13 10:35 | IPNPDOC ---
Subjective CC/HPI The patient is a 70-year-old female admitted with a reason for visit of Acute Renal Failure, Atrial Fibrillation With Rapi. 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 eliquis was stopped. Diuretic was given yesterday. Renal function is slightly worse Cr2-->2.2. General: Reports: Fatigue; Denies: Chills, Night Sweats Constitutional: Denies: Chills, Fever Eyes: Denies: Pain, Vision change ENT: Denies: Head Aches, Ear Pain Skin: Denies: Rash, Lesions Pulmonary: Denies: Dyspnea, Cough Cardiovascular: Denies: Chest Pain, Palpitations Gastrointestinal: Denies: Nausea, Vomiting Genitourinary: Reports: Other Symptoms (Sahni) Hematologic: Reports: Other Hematologic (Vaginal bleed) Musculoskeletal: Denies: Neck Pain, Back Pain Neurological: Reports: Weakness; Denies: Numbness Psych: Reports: Mood Normal Objective Physical Examination General Exam: Alert, No Acute Distress, Other (Obese body habitus) EYE EXAM: PERRLA, Conjunctiva & lids normal, EOMI ENT EXAM: Atraumatic, Mucous membr. moist/pink Neck Exam: Supple; No: JVD Chest Exam: Clear to auscultation, Normal air movement Heart Exam: Tachycardic, Irregular Rhythm, Other (Lt sided Pacemkaer noted ) Telemetry: Atrial fibrillation ABDOMEN EXAM: Normal bowel sounds (Sahni catheter in situ), Soft; No: Tenderness, Hepatospenomegaly Extremity Exam: Edema (trace edema in legs), Normal pulses; No: Clubbing, Cyanosis Skin Exam: Nl turgor and temperature Neuro Exam: Normal Speech, Strength at 5/5 X4 ext Psych Exam: Mental status NL, Mood NL Vital Signs/I&O Vital Signs Date Time Temp Pulse Resp B/P (MAP) Pulse Ox O2 Delivery O2 Flow Rate FiO2 12/13/20 08:22 92 111/62 12/13/20 06:00 97.8 19 96 Room Air I&O- Last 24 Hours up to 6 AM 12/13/20 06:00 Intake Total 1150 ml Output Total 1850 ml Balance -700 ml Laboratory Data Labs 24H Laboratory Tests 2 12/13/20 05:21: Immature Granulocyte % (Auto) 1.2, Neutrophils (%) (Auto) 63.8, Lymphocytes (%) (Auto) 23.8L, Monocytes (%) (Auto) 8.3H, Eosinophils (%) (Auto) 2.4, Basophils (%) (Auto) 0.5, Neutrophils # (Auto) 5.0, Lymphocytes # (Auto) 1.9, Monocytes # (Auto) 0.7, Eosinophils # (Auto) 0.2, Basophils # (Auto) 0.0, Nucleated Red Blood Cells % (auto) 0.0, Anion Gap 7L, Glomerular Filtration Rate 23.3L, Calcium Level 7.1L, Magnesium Level 1.8 CBC/BMP Laboratory Tests 12/13/20 05:21 Current Medications Current Medications Medications (Trade) Dose Ordered Sig/Ba Route PRN Reason Start Time Stop Time Status Last Admin Dose Admin Acetaminophen (Tylenol Tab) 650 mg Q4H PRN PO MILD PAIN or TEMP > 101 11/25/20 11:40 12/11/20 18:09 Allopurinol (Zyloprim) 300 mg DAILY PO 12/10/20 09:00 12/13/20 08:10 Allopurinol (Zyloprim) 300 mg DAILY PO 11/25/20 09:00 11/25/20 13:39 DC Amlodipine Besylate (Norvasc) 5 mg DAILY PO 11/25/20 09:00 12/09/20 09:14 Apixaban (Eliquis) 5 mg BID PO 12/03/20 09:00 Hold 12/12/20 21:13 Apixaban (Eliquis) 5 mg BID PO 11/26/20 21:00 11/30/20 10:26 DC 11/29/20 21:11 Ascorbic Acid (Vitamin C) 250 mg DAILY PO 12/03/20 09:00 01/01/21 09:01 12/13/20 08:10 Atenolol (Tenormin) 12.5 mg BID PO 11/30/20 21:00 12/02/20 22:19 DC 12/02/20 10:10 Atenolol (Tenormin) 25 mg Q6H PO 11/26/20 18:00 11/30/20 12:10 DC 11/28/20 12:16 Atenolol (Tenormin) 50 mg BID PO 11/26/20 21:00 11/26/20 17:01 DC Calcitriol (Rocaltrol) 0.25 mcg MoWeFr PO 11/28/20 09:00 12/12/20 09:43 Cefdinir (Omnicef) 300 mg BID PO 12/11/20 09:00 12/13/20 09:32 DC 12/13/20 08:10 Ceftriaxone Sodium 1 gm/ Dextrose 50 ml @ 100 mls/hr Q24H IV 11/25/20 14:00 11/25/20 19:46 DC 11/25/20 16:53 Diltiazem HCl 125 mg/Sodium Chloride 125 ml @ 5 mls/hr Q24H IV 11/25/20 13:15 11/25/20 16:50 DC Fentanyl Citrate (Sublimaze) 25 mcg Q5MP PRN IV PAIN LEVEL 8-10 12/02/20 21:45 12/03/20 00:45 DC Fluconazole (Diflucan) 150 mg DAILY PO 11/25/20 09:00 11/28/20 14:25 DC 11/28/20 09:59 Fluconazole 300 mg/IV Miscellaneous Supplies 150 ml @ 100 mls/hr Q24H IV 11/25/20 15:35 11/25/20 15:41 DC Fluconazole 330 mg/IV Miscellaneous Supplies 165 ml @ 100 mls/hr Q24H IV 11/26/20 12:00 11/25/20 14:20 DC Furosemide (Lasix) 20 mg DAILY PO 12/06/20 09:00 12/06/20 12:36 DC 12/06/20 09:27 Heparin Sodium (Porcine) (Heparin) ASDIRECTED PRN IV SEE LABEL COMMENTS 11/25/20 12:15 11/26/20 17:01 DC Heparin Sodium (Porcine) 96044 units/IV Miscellaneous Supplies 250 ml @ 0 mls/hr Q0M IV 11/25/20 12:15 11/26/20 17:01 DC 11/26/20 12:15 Home Med (Home Med List Complete!) ASDIRECTED XX 11/25/20 08:25 11/25/20 08:29 DC Lactated Ringer's 1,000 ml @ 90 mls/hr Q11H7M IV 12/02/20 08:00 12/02/20 22:20 DC 12/02/20 10:10 Lactated Ringer's 1,000 ml @ 100 mls/hr Q10H IV 12/02/20 21:45 12/03/20 00:45 DC 12/02/20 22:55 Lactobacillus Acidophilus (Bacid) 1 ea BIDWM PO 12/03/20 08:00 12/13/20 08:10 Levofloxacin (Levaquin) 750 mg Q48H PO 12/13/20 11:00 12/17/20 11:01 Levothyroxine Sodium (Synthroid) 112 mcg DAILY@0600 PO 11/26/20 06:00 12/13/20 05:52 Magnesium Hydroxide (Milk Of Magnesia) 30 ml BIDP PRN PO CONSTIPATION 12/13/20 09:30 Metoclopramide HCl (REGLAN INJection) 10 mg Q6HP PRN IV NAUSEA OR VOMITING 12/02/20 21:45 12/03/20 00:45 DC Metoprolol Succinate (TopROL XL) 50 mg DAILY PO 12/03/20 09:00 12/12/20 09:43 Metoprolol Tartrate (Lopressor) 5 mg Q5M IV 11/25/20 07:40 11/25/20 07:51 DC 11/25/20 08:08 Metoprolol Tartrate (Lopressor) 12.5 mg BID PO 11/25/20 16:50 11/26/20 16:47 DC 11/26/20 09:36 Metoprolol Tartrate (Lopressor) 12.5 mg BID PO 11/25/20 21:00 11/25/20 16:47 DC Non-Formulary Medication (Heparin Iv Rate Change Documentation ml/ Hr) ASDIRECTED XX 11/25/20 12:15 11/26/20 17:01 DC Nystatin (Mycostatin Powder, Nystop) 1 dose TID PRN TOP RASH 11/25/20 12:05 12/02/20 22:02 DC Nystatin (Mycostatin Powder, Nystop) APPLY UNDER BREASTS DAILY TOP 12/02/20 22:05 12/13/20 08:10 Ondansetron HCl (ZOFRAN INJection) 4 mg Q4HP PRN IV NAUSEA OR VOMITING 12/02/20 21:45 12/03/20 00:45 DC Oxycodone/ Acetaminophen (Percocet 5mg/ 325mg Tablet) 1 tab ASDIRECTED PRN PO PAIN LEVEL 1-4 12/02/20 21:45 12/03/20 00:45 DC Piperacillin Sod/ Tazobactam Sod 4.5 gm/Dextrose 50 ml @ 50 mls/hr Q8H IV 11/25/20 20:00 11/28/20 10:30 DC 11/28/20 04:45 Senna/Docusate Sodium (Senokot S) 2 tab BIDP PRN PO CONSTIPATION 12/13/20 09:30 Sodium Chloride 1,000 ml @ 100 mls/hr Q10H IV 11/25/20 11:45 11/25/20 21:44 DC 11/25/20 16:37 Sodium Chloride 1,000 ml @ 200 mls/hr Q5H IV 11/26/20 09:10 11/26/20 14:09 DC 11/26/20 09:47 Timolol Maleate (Timoptic 0.5% Ophth Narcisa) 1 drop BID OU 11/25/20 21:00 12/13/20 08:10 Vitamin D (Drisdol) 50,000 units Hernandez@0900 PO 11/30/20 09:00 12/07/20 10:04 Allergies Coded Allergies: No Known Allergies (Unverified , 11/25/20) Assessment/Plan Date Seen The patient was seen on 12/13/20 at 10:31. Plan / VTE VTE Prophylaxis Ordered?: No Plan Orders past 48 Hours Orders Duplex, Ext Lower Veins, Bilat (12/11/20 12:01) Remove [place] / Sutures (12/11/20 13:20) * Nursing Order * (12/11/20 13:20) Bladder Scan >300ml Notify Qmp (12/11/20 20:49) Catheter - Urinary Straight (12/12/20 06:28) Urinary Catheter DOCUMENT BID (12/12/20 09:37) Ct Abd & Pelvis W/O Contrast (12/12/20 09:44) Magnesium Oxide (Mag-Ox) (12/12/20 09:55) Torsemide (Demadex) (12/12/20 11:30) Hemoglobin & Hematocrit (12/13/20 14:00) Hemoglobin & Hematocrit (12/13/20 22:00) Hemoglobin & Hematocrit (12/14/20 06:00) Us Pelvic Non-Ob Complete (12/13/20 09:28) Docusate Sod/Senna (Senokot S) (12/13/20 09:30) Milk Of Magnesia (Milk Of Magnesia) (12/13/20 09:30) Levofloxacin (Levaquin) (12/13/20 11:00) * Nursing Order * (12/13/20 10:00) Plan Text JENN on CKD3 Baseline Cr 1.3 Persistent Afib sick Sinus syndrome/Tachy Oniel s/p Pacemaker. Chronic Gout. Leg edema Urinary retention Vaginal bleed. Bump in Cr 2-->2.2. No diuretic today.Continue Sahni for retention. continue Allopurinol. Eliquis stopped due to vaginal bleed. Clinical Statistical Programmer recommendations to follow. LINDSAY MAKI MD Dec 13, 2020 10:35
[2020-12-13] MEDS: LevoFLOXacin 750 MG TABLET PO SCH (10:49)
[2020-12-13] MEDS: SENOKOT S TAB PO PRN (15:59)
[2020-12-14 06:00] VITALS: BP 111/63
[2020-12-14] MEDS: LEVOTHYROXINE 112MCG TABLET (0.112MG) PO SCH (06:07)
[2020-12-14 06:09] LABS: BASO # 0.1 10^3/uL (0.0-0.2); BASO % 0.7 % (0.0-1.0); EOS # 0.2 10^3/uL (0.0-0.5); EOS % 2.2 % (0.0-3.0); HEMOGLOBIN 10.6 g/dl (12.0-15.5); LYMPH # 1.8 10^3/uL (1.5-5.0); LYMPH % 23.5 % (24.0-44.0); MEAN CORPUSCULAR HGB CONC 32.1 g/dl (32.0-36.5); MEAN CORPUSCULAR VOLUME 99.7 fl (80.0-96.0); MONO # 0.7 10^3/uL (0.0-0.8); MONO % 9.7 % (2.0-8.0); NEUTROPHILS # 4.7 10^3/uL (1.5-8.5); NEUTROPHILS % 62.4 % (36.0-66.0); PLATELET COUNT, AUTOMATED 125 10^3/uL (150-450); RED BLOOD COUNT 3.31 10^6/uL (4.00-5.40); WHITE BLOOD COUNT 7.6 10^3/uL (4.0-10.0)
[2020-12-14 06:31] LABS: CALCIUM LEVEL 7.2 MG/DL (8.8-10.2); CREATININE FOR GFR 2.05 MG/DL (0.55-1.30); GLOMERULAR FILTRATION RATE 25.4 (>39); MAGNESIUM LEVEL 1.5 MG/DL (1.8-2.4); POTASSIUM SERUM 4.3 MEQ/L (3.5-5.1)
[2020-12-14] MEDS: amLODIPine 5 MG TAB PO SCH (09:00)
[2020-12-14] MEDS: TIMOLOL MALEATE 0.5% OPHTH SOLN 5 ML OU SCH ×2 (09:14→20:30)
[2020-12-14] MEDS: LACTOBACILLUS ACIDOPHILUS CAP (BACID) PO SCH ×2 (09:14→17:18)
[2020-12-14] MEDS: allopurinoL 300 MG TAB PO SCH (09:14)
[2020-12-14] MEDS: APIXABAN 5 MG TAB (ELIQUIS) PO SCH ×2 (09:14→20:30)
[2020-12-14] MEDS: MAGNESIUM OXIDE 400MG TAB (MAG-OX) PO SCH (09:14)
[2020-12-14] MEDS: NYSTATIN 100,000 UNITS/GM TOPICAL PWD 15 GM TOP SCH (09:14)
[2020-12-14] MEDS: ASCORBIC ACID 250 MG TAB PO SCH (09:14)
[2020-12-14] MEDS: VITAMIN D 50,000 UNITS CAPSULE (ERGOCALCIFEROL 1.25MG) PO SCH (09:16)
[2020-12-14] MEDS: METOPROLOL SUCC (TopROL XL) 50MG **XL** TAB PO SCH (09:19)
--- NOTE | 2020-12-14 10:20 | IPNPDOC ---
Subjective CC/HPI The patient is a 70-year-old female admitted with a reason for visit of Acute Renal Failure, Atrial Fibrillation With Rapi. Events since last encounter Pt is tired and lazy. Reports she was not able to sleep well. she has Ps eudomonas UTI. Levaquin was started.Renal function stable General: Reports: Fatigue Constitutional: Reports: Malaise; Denies: Chills, Fever Eyes: Denies: Pain ENT: Denies: Head Aches, Ear Pain Skin: Denies: Rash, Lesions Pulmonary: Denies: Dyspnea, Cough Cardiovascular: Reports: Palpitations Gastrointestinal: Denies: Nausea, Vomiting Genitourinary: Denies: Dysuria, Frequency Hematologic: Denies: Bruising, Bleeding Excessively Musculoskeletal: Denies: Neck Pain, Back Pain Neurological: Reports: Weakness Psych: Reports: Mood Normal Objective Physical Examination General Exam: Alert, No Acute Distress, Other (Obese body habitus) EYE EXAM: PERRLA, Conjunctiva & lids normal, EOMI ENT EXAM: Atraumatic, Mucous membr. moist/pink Neck Exam: Supple; No: JVD Chest Exam: Clear to auscultation, Normal air movement Heart Exam: Tachycardic, Irregular Rhythm, Other (Lt sided Pacemkaer noted ) Telemetry: Atrial fibrillation ABDOMEN EXAM: Normal bowel sounds (Sahni catheter in situ), Soft; No: Tenderness, Hepatospenomegaly Extremity Exam: Edema (trace edema in legs), Normal pulses; No: Clubbing, Cyanosis Skin Exam: Nl turgor and temperature Neuro Exam: Normal Speech, Strength at 5/5 X4 ext Psych Exam: Mental status NL, Mood NL Vital Signs/I&O Vital Signs Date Time Temp Pulse Resp B/P (MAP) Pulse Ox O2 Delivery O2 Flow Rate FiO2 12/14/20 09:19 117 121/78 12/14/20 06:00 96.7 16 97 Room Air I&O- Last 24 Hours up to 6 AM 12/14/20 06:00 Intake Total 680 ml Output Total 950 ml Balance -270 ml Laboratory Data Labs 24H Laboratory Tests 2 12/14/20 05:19: Immature Granulocyte % (Auto) 1.5, Neutrophils (%) (Auto) 62.4, Lymphocytes (%) (Auto) 23.5L, Monocytes (%) (Auto) 9.7H, Eosinophils (%) (Auto) 2.2, Basophils (%) (Auto) 0.7, Neutrophils # (Auto) 4.7, Lymphocytes # (Auto) 1.8, Monocytes # (Auto) 0.7, Eosinophils # (Auto) 0.2, Basophils # (Auto) 0.1, Nucleated Red Blood Cells % (auto) 0.0, Anion Gap 8, Glomerular Filtration Rate 25.4L, Calcium Level 7.2L, Magnesium Level 1.5L CBC/BMP Laboratory Tests 12/14/20 05:19 Current Medications Current Medications Medications (Trade) Dose Ordered Sig/Ba Route PRN Reason Start Time Stop Time Status Last Admin Dose Admin Acetaminophen (Tylenol Tab) 650 mg Q4H PRN PO MILD PAIN or TEMP > 101 11/25/20 11:40 12/11/20 18:09 Allopurinol (Zyloprim) 300 mg DAILY PO 12/10/20 09:00 12/14/20 09:14 Allopurinol (Zyloprim) 300 mg DAILY PO 11/25/20 09:00 11/25/20 13:39 DC Amlodipine Besylate (Norvasc) 5 mg DAILY PO 11/25/20 09:00 12/09/20 09:14 Apixaban (Eliquis) 5 mg BID PO 12/03/20 09:00 12/14/20 09:14 Apixaban (Eliquis) 5 mg BID PO 11/26/20 21:00 11/30/20 10:26 DC 11/29/20 21:11 Ascorbic Acid (Vitamin C) 250 mg DAILY PO 12/03/20 09:00 01/01/21 09:01 12/14/20 09:14 Atenolol (Tenormin) 12.5 mg BID PO 11/30/20 21:00 12/02/20 22:19 DC 12/02/20 10:10 Atenolol (Tenormin) 25 mg Q6H PO 11/26/20 18:00 11/30/20 12:10 DC 11/28/20 12:16 Atenolol (Tenormin) 50 mg BID PO 11/26/20 21:00 11/26/20 17:01 DC Calcitriol (Rocaltrol) 0.25 mcg MoWeFr PO 11/28/20 09:00 12/12/20 09:43 Cefdinir (Omnicef) 300 mg BID PO 12/11/20 09:00 12/13/20 09:32 DC 12/13/20 08:10 Ceftriaxone Sodium 1 gm/ Dextrose 50 ml @ 100 mls/hr Q24H IV 11/25/20 14:00 11/25/20 19:46 DC 11/25/20 16:53 Diltiazem HCl 125 mg/Sodium Chloride 125 ml @ 5 mls/hr Q24H IV 11/25/20 13:15 11/25/20 16:50 DC Fentanyl Citrate (Sublimaze) 25 mcg Q5MP PRN IV PAIN LEVEL 8-10 12/02/20 21:45 12/03/20 00:45 DC Fluconazole (Diflucan) 150 mg DAILY PO 11/25/20 09:00 11/28/20 14:25 DC 11/28/20 09:59 Fluconazole 300 mg/IV Miscellaneous Supplies 150 ml @ 100 mls/hr Q24H IV 11/25/20 15:35 11/25/20 15:41 DC Fluconazole 330 mg/IV Miscellaneous Supplies 165 ml @ 100 mls/hr Q24H IV 11/26/20 12:00 11/25/20 14:20 DC Furosemide (Lasix) 20 mg DAILY PO 12/06/20 09:00 12/06/20 12:36 DC 12/06/20 09:27 Heparin Sodium (Porcine) (Heparin) ASDIRECTED PRN IV SEE LABEL COMMENTS 11/25/20 12:15 11/26/20 17:01 DC Heparin Sodium (Porcine) 08942 units/IV Miscellaneous Supplies 250 ml @ 0 mls/hr Q0M IV 11/25/20 12:15 11/26/20 17:01 DC 11/26/20 12:15 Home Med (Home Med List Complete!) ASDIRECTED XX 11/25/20 08:25 11/25/20 08:29 DC Lactated Ringer's 1,000 ml @ 90 mls/hr Q11H7M IV 12/02/20 08:00 12/02/20 22:20 DC 12/02/20 10:10 Lactated Ringer's 1,000 ml @ 100 mls/hr Q10H IV 12/02/20 21:45 12/03/20 00:45 DC 12/02/20 22:55 Lactobacillus Acidophilus (Bacid) 1 ea BIDWM PO 12/03/20 08:00 12/14/20 09:14 Levofloxacin (Levaquin) 750 mg Q48H PO 12/13/20 11:00 12/17/20 11:01 12/13/20 10:49 Levothyroxine Sodium (Synthroid) 112 mcg DAILY@0600 PO 11/26/20 06:00 12/14/20 06:07 Magnesium Hydroxide (Milk Of Magnesia) 30 ml BIDP PRN PO CONSTIPATION 12/13/20 09:30 Magnesium Oxide (Mag-Ox) 400 mg DAILY PO 12/14/20 09:00 12/14/20 09:14 Metoclopramide HCl (REGLAN INJection) 10 mg Q6HP PRN IV NAUSEA OR VOMITING 12/02/20 21:45 12/03/20 00:45 DC Metoprolol Succinate (TopROL XL) 50 mg DAILY PO 12/03/20 09:00 12/14/20 09:19 Metoprolol Tartrate (Lopressor) 5 mg Q5M IV 11/25/20 07:40 11/25/20 07:51 DC 11/25/20 08:08 Metoprolol Tartrate (Lopressor) 12.5 mg BID PO 11/25/20 16:50 11/26/20 16:47 DC 11/26/20 09:36 Metoprolol Tartrate (Lopressor) 12.5 mg BID PO 11/25/20 21:00 11/25/20 16:47 DC Non-Formulary Medication (Heparin Iv Rate Change Documentation ml/ Hr) ASDIRECTED XX 11/25/20 12:15 11/26/20 17:01 DC Nystatin (Mycostatin Powder, Nystop) 1 dose TID PRN TOP RASH 11/25/20 12:05 12/02/20 22:02 DC Nystatin (Mycostatin Powder, Nystop) APPLY UNDER BREASTS DAILY TOP 12/02/20 22:05 12/14/20 09:14 Ondansetron HCl (ZOFRAN INJection) 4 mg Q4HP PRN IV NAUSEA OR VOMITING 12/02/20 21:45 12/03/20 00:45 DC Oxycodone/ Acetaminophen (Percocet 5mg/ 325mg Tablet) 1 tab ASDIRECTED PRN PO PAIN LEVEL 1-4 12/02/20 21:45 12/03/20 00:45 DC Piperacillin Sod/ Tazobactam Sod 4.5 gm/Dextrose 50 ml @ 50 mls/hr Q8H IV 11/25/20 20:00 11/28/20 10:30 DC 11/28/20 04:45 Senna/Docusate Sodium (Senokot S) 2 tab BIDP PRN PO CONSTIPATION 12/13/20 09:30 12/13/20 15:59 Sodium Chloride 1,000 ml @ 100 mls/hr Q10H IV 11/25/20 11:45 11/25/20 21:44 DC 11/25/20 16:37 Sodium Chloride 1,000 ml @ 200 mls/hr Q5H IV 11/26/20 09:10 11/26/20 14:09 DC 11/26/20 09:47 Timolol Maleate (Timoptic 0.5% Ophth Narcisa) 1 drop BID OU 11/25/20 21:00 12/14/20 09:14 Vitamin D (Drisdol) 50,000 units Hernandez@0900 PO 11/30/20 09:00 12/14/20 09:16 Allergies Coded Allergies: No Known Allergies (Unverified , 11/25/20) Assessment/Plan Date Seen The patient was seen on 12/14/20 at 10:18. Plan / VTE VTE Prophylaxis Ordered?: No Plan Orders past 48 Hours Orders Torsemide (Demadex) (12/12/20 11:30) Us Pelvic Non-Ob Complete (12/13/20 09:28) Docusate Sod/Senna (Senokot S) (12/13/20 09:30) Milk Of Magnesia (Milk Of Magnesia) (12/13/20 09:30) Levofloxacin (Levaquin) (12/13/20 11:00) * Nursing Order * (12/13/20 10:00) * Nursing Order * (12/13/20 13:27) Party Plan Sales Unit Advisor Consult (12/13/20 13:27) Pap Request For Service (12/13/20 14:56) Pap Request For Service (12/13/20 15:03) * Nursing Order * (12/13/20 15:20) Magnesium Oxide (Mag-Ox) (12/14/20 09:00) Plan Text JENN on CKD3 Baseline Cr 1.3 Persistent Afib sick Sinus syndrome/Tachy Oniel s/p Pacemaker. Chronic Gout. Leg edema Urinary retention/ Pseudomonas UTI Cr fluctuating but stable 2.2-->2. No diuretic today.Continue Sahni for retention. Levaquin for Pseudomonas UTI. LINDSAY MAKI MD Dec 14, 2020 10:20
[2020-12-14] MEDS ORDERED: RAMELTEON 8 MG TAB (ROZEREM) PO PRN (15:40)
[2020-12-14] MEDS: MOM 30ML SUSPENSION UDC PO PRN (17:18)
[2020-12-14] MEDS: SENOKOT S TAB PO PRN (17:18)
[2020-12-15] MEDS: MOM 30ML SUSPENSION UDC PO PRN (05:20)
[2020-12-15] MEDS: SENOKOT S TAB PO PRN (05:20)
[2020-12-15] MEDS: LEVOTHYROXINE 112MCG TABLET (0.112MG) PO SCH (05:20)
[2020-12-15 06:00] VITALS: BP 128/66
[2020-12-15] MEDS: amLODIPine 5 MG TAB PO SCH (09:00)
[2020-12-15] MEDS: allopurinoL 300 MG TAB PO SCH (09:25)
[2020-12-15] MEDS: APIXABAN 5 MG TAB (ELIQUIS) PO SCH ×2 (09:25→20:08)
[2020-12-15] MEDS: ASCORBIC ACID 250 MG TAB PO SCH (09:25)
[2020-12-15] MEDS: MAGNESIUM OXIDE 400MG TAB (MAG-OX) PO SCH (09:25)
[2020-12-15] MEDS: LevoFLOXacin 750 MG TABLET PO SCH (09:25)
[2020-12-15] MEDS: LACTOBACILLUS ACIDOPHILUS CAP (BACID) PO SCH ×2 (09:25→17:22)
[2020-12-15] MEDS: NYSTATIN 100,000 UNITS/GM TOPICAL PWD 15 GM TOP SCH (09:26)
[2020-12-15] MEDS: TIMOLOL MALEATE 0.5% OPHTH SOLN 5 ML OU SCH ×2 (09:26→20:08)
[2020-12-15] MEDS: METOPROLOL SUCC (TopROL XL) 50MG **XL** TAB PO SCH (09:27)
[2020-12-15] MEDS: CALCITRIOL 0.25 MCG CAP (S0169) PO SCH (09:29)
[2020-12-15 10:05] LABS: BASO # 0.1 10^3/uL (0.0-0.2); BASO % 0.7 % (0.0-1.0); EOS # 0.2 10^3/uL (0.0-0.5); EOS % 1.6 % (0.0-3.0); HEMATOCRIT 35.1 % (36.0-47.0); HEMOGLOBIN 11.4 g/dl (12.0-15.5); LYMPH # 1.8 10^3/uL (1.5-5.0); LYMPH % 19.7 % (24.0-44.0); MEAN CORPUSCULAR HEMOGLOBIN 32.9 pg (27.0-33.0); MEAN CORPUSCULAR HGB CONC 32.5 g/dl (32.0-36.5); MEAN CORPUSCULAR VOLUME 101.2 fl (80.0-96.0); MONO # 0.7 10^3/uL (0.0-0.8); MONO % 7.5 % (2.0-8.0); NEUTROPHILS # 6.3 10^3/uL (1.5-8.5); NEUTROPHILS % 69.1 % (36.0-66.0); PLATELET COUNT, AUTOMATED 161 10^3/uL (150-450); RED BLOOD COUNT 3.47 10^6/uL (4.00-5.40); WHITE BLOOD COUNT 9.1 10^3/uL (4.0-10.0)
[2020-12-15 10:28] LABS: CALCIUM LEVEL 7.8 MG/DL (8.8-10.2); CREATININE FOR GFR 1.88 MG/DL (0.55-1.30); GLOMERULAR FILTRATION RATE 28.1 (>39); MAGNESIUM LEVEL 1.8 MG/DL (1.8-2.4); POTASSIUM SERUM 4.4 MEQ/L (3.5-5.1)
--- NOTE | 2020-12-15 18:09 | IPN ---
NEPHROLOGY PROGRESS NOTE DATE: 12/15/2020 SUBJECTIVE: Kalyani is seen and examined this morning at the bedside. She denies any new complaints. She is on alternate level of care status. Her renal function has been stable the past 2 weeks with creatinine ranging from mostly 1.7 to 2.0. The patient has intermittently received diuretics but she is not on any standing diuretics. She has a Sahni catheter because of episodes of urinary retention. She also had a pacemaker placed on December 02 and she is pending placement. She denies any shortness of breath. She reports chronic swelling in her right leg. OBJECTIVE: VITAL SIGNS: Temperature 97.4, pulse 76, respiratory rate 18, blood pressure 128/66, saturating 96% on room air. INTAKE AND OUTPUT: Intake yesterday was 1,380. Urine output was only recorded as 600 mL. Weight in the bed scale today is not recorded. GENERAL APPEARANCE: The patient is seen lying in bed, awake, alert, oriented, comfortable, in no distress. HEENT: The extraocular muscles are intact. Tongue is moist. NECK: Supple. Jugular veins are not elevated. HEART: Irregular, S1, S2. There is chronic edema in the right leg and the right leg is notably bigger than the left leg. CHEST: There is a pacemaker in the left chest wall. LUNGS: Clear to auscultation. No crackles or rales. ABDOMEN: Soft and nontender. There are bowel sounds. There is a Sahni catheter in place. EXTREMITIES: There is no clubbing or cyanosis. I noticed that the right leg is bigger in appearance and has about 1+ chronic edema and the left leg does not. NEUROLOGICAL: She is oriented x3, interactive and conversational. LABORATORY STUDIES: Sodium 142, potassium 4.4, bicarbonate 26, BUN 34, creatinine 1.8, magnesium 1.8, hemoglobin 11.4, platelet count 161. IMAGING: Duplex of the lower extremities is reviewed from December 11. That was negative for DVT in the lower extremities. INPATIENT MEDICATIONS: The patient's medications were reviewed by myself, and no change is noted over the past 2 days. PROBLEMS: 1. Acute kidney injury superimposed on chronic kidney disease stage 3b - The patient has a baseline GFR of about 40 mL per minute. Her peak creatinine on this admission was 2.8 and renal function has since improved and has been stable over the past 2 weeks with a GFR now in the 20's and creatinine of 1.8 on the latest labs. She did have an episode of urinary retention and now has a Sahni catheter. She has received diuretics on an as-needed basis during this admission. She does have asymmetric leg edema (right leg notably swollen as compared to the left) and her serum albumin is significantly low, likely leading to a third spacing of fluid. No diuretic was ordered for today. 2. Asymmetric localized edema - right lower extremity is notably larger than the left. She had a negative venous duplex several days ago. She has received diuretics on an intermittent basis. 3. Hypoalbuminemia serum albumin has been less than 1.5. The patient has bilateral pleural effusions seen on recent CAT scan along with moderate degree of ascites. However her renal function does seem to worsen when she is given regular diuretic, hence she has been receiving it on an as-needed basis. I will try her on Torsemide 20 mg every other day and see how she does. She should have high protein intake. The cause of her low albumin is unclear, possibly some liver issue. She did have low platelets that was transient and has improved. 4. Hypertension - blood pressures are well controlled with Metoprolol and Amlodipine. 5. Secondary hyperparathyroidism of renal origin she is on Calcitriol. 6. Atrial fibrillation status post pacemaker placement she is rate controlled with beta davonte and anticoagulated with Eliquis.
[2020-12-16] MEDS: LEVOTHYROXINE 112MCG TABLET (0.112MG) PO SCH (05:25)
[2020-12-16] MEDS: ACETAMINOPHEN TAB 650MG DOSE (2X325MG) PO PRN (05:26)
[2020-12-16 06:00] VITALS: BP 134/68
[2020-12-16 06:08] LABS: BASO % 0.5 % (0.0-1.0); EOS # 0.2 10^3/uL (0.0-0.5); EOS % 2.7 % (0.0-3.0); HEMATOCRIT 32.9 % (36.0-47.0); HEMOGLOBIN 10.6 g/dl (12.0-15.5); LYMPH # 1.8 10^3/uL (1.5-5.0); LYMPH % 23.7 % (24.0-44.0); MEAN CORPUSCULAR HEMOGLOBIN 32.5 pg (27.0-33.0); MEAN CORPUSCULAR HGB CONC 32.2 g/dl (32.0-36.5); MEAN CORPUSCULAR VOLUME 100.9 fl (80.0-96.0); MONO # 0.6 10^3/uL (0.0-0.8); MONO % 8.5 % (2.0-8.0); NEUTROPHILS # 4.7 10^3/uL (1.5-8.5); NEUTROPHILS % 62.6 % (36.0-66.0); PLATELET COUNT, AUTOMATED 154 10^3/uL (150-450); RED BLOOD COUNT 3.26 10^6/uL (4.00-5.40); WHITE BLOOD COUNT 7.5 10^3/uL (4.0-10.0)
[2020-12-16 06:33] LABS: CALCIUM LEVEL 7.5 MG/DL (8.8-10.2); CREATININE FOR GFR 1.96 MG/DL (0.55-1.30); GLOMERULAR FILTRATION RATE 26.8 (>39); MAGNESIUM LEVEL 1.9 MG/DL (1.8-2.4); POTASSIUM SERUM 4.5 MEQ/L (3.5-5.1)
[2020-12-16] MEDS: allopurinoL 300 MG TAB PO SCH (07:54)
[2020-12-16] MEDS: LACTOBACILLUS ACIDOPHILUS CAP (BACID) PO SCH ×2 (07:54→17:30)
[2020-12-16] MEDS: APIXABAN 5 MG TAB (ELIQUIS) PO SCH ×2 (07:54→20:00)
[2020-12-16] MEDS: ASCORBIC ACID 250 MG TAB PO SCH (07:55)
[2020-12-16] MEDS: amLODIPine 5 MG TAB PO SCH (07:55)
[2020-12-16] MEDS: METOPROLOL SUCC (TopROL XL) 50MG **XL** TAB PO SCH (07:56)
[2020-12-16] MEDS: MAGNESIUM OXIDE 400MG TAB (MAG-OX) PO SCH (07:56)
[2020-12-16] MEDS: TIMOLOL MALEATE 0.5% OPHTH SOLN 5 ML OU SCH ×2 (07:57→20:00)
[2020-12-16] MEDS: NYSTATIN 100,000 UNITS/GM TOPICAL PWD 15 GM TOP SCH (07:57)
[2020-12-16] MEDS: TORSEMIDE 20 MG TAB PO SCH (07:57)
[2020-12-16 14:12] VITALS: BP 127/73
[2020-12-16 22:00] VITALS: BP 103/55
[2020-12-17] MEDS: LEVOTHYROXINE 112MCG TABLET (0.112MG) PO SCH (05:41)
[2020-12-17 06:00] VITALS: BP 102/56
[2020-12-17 06:10] LABS: CALCIUM LEVEL 7.4 MG/DL (8.8-10.2); CREATININE FOR GFR 2.36 MG/DL (0.55-1.30); GLOMERULAR FILTRATION RATE 21.6 (>39); MAGNESIUM LEVEL 2.2 MG/DL (1.8-2.4); POTASSIUM SERUM 4.3 MEQ/L (3.5-5.1)
[2020-12-17 06:23] LABS: BASO # 0.1 10^3/uL (0.0-0.2); BASO % 0.7 % (0.0-1.0); EOS # 0.2 10^3/uL (0.0-0.5); EOS % 2.6 % (0.0-3.0); HEMATOCRIT 32.3 % (36.0-47.0); HEMOGLOBIN 10.3 g/dl (12.0-15.5); LYMPH # 2.2 10^3/uL (1.5-5.0); LYMPH % 28.9 % (24.0-44.0); MEAN CORPUSCULAR HEMOGLOBIN 32.6 pg (27.0-33.0); MEAN CORPUSCULAR HGB CONC 31.9 g/dl (32.0-36.5); MEAN CORPUSCULAR VOLUME 102.2 fl (80.0-96.0); MONO # 0.6 10^3/uL (0.0-0.8); MONO % 7.6 % (2.0-8.0); NEUTROPHILS # 4.4 10^3/uL (1.5-8.5); NEUTROPHILS % 57.8 % (36.0-66.0); PLATELET COUNT, AUTOMATED 163 10^3/uL (150-450); RED BLOOD COUNT 3.16 10^6/uL (4.00-5.40); WHITE BLOOD COUNT 7.6 10^3/uL (4.0-10.0)
[2020-12-17] MEDS: APIXABAN 5 MG TAB (ELIQUIS) PO SCH (09:00)
[2020-12-17] MEDS: amLODIPine 5 MG TAB PO SCH (09:00)
[2020-12-17 10:04] LABS: HEMATOCRIT 35.5 % (36.0-47.0); HEMOGLOBIN 11.2 g/dl (12.0-15.5)
[2020-12-17] MEDS: LACTOBACILLUS ACIDOPHILUS CAP (BACID) PO SCH ×2 (10:13→18:23)
[2020-12-17] MEDS: ASCORBIC ACID 250 MG TAB PO SCH (10:13)
[2020-12-17] MEDS: MAGNESIUM OXIDE 400MG TAB (MAG-OX) PO SCH (10:14)
[2020-12-17] MEDS: allopurinoL 300 MG TAB PO SCH (10:16)
[2020-12-17] MEDS: METOPROLOL SUCC (TopROL XL) 50MG **XL** TAB PO SCH (10:16)
[2020-12-17] MEDS: TIMOLOL MALEATE 0.5% OPHTH SOLN 5 ML OU SCH ×2 (10:17→20:23)
[2020-12-17] MEDS: NYSTATIN 100,000 UNITS/GM TOPICAL PWD 15 GM TOP SCH (10:17)
[2020-12-17] MEDS: CALCITRIOL 0.25 MCG CAP (S0169) PO SCH (10:21)
[2020-12-17] MEDS: LevoFLOXacin 750 MG TABLET PO SCH (11:22)
[2020-12-18] MEDS: LEVOTHYROXINE 112MCG TABLET (0.112MG) PO SCH (05:43)
[2020-12-18 06:00] VITALS: BP 105/64
[2020-12-18 06:06] LABS: BASO # 0.1 10^3/uL (0.0-0.2); EOS # 0.2 10^3/uL (0.0-0.5); EOS % 3.2 % (0.0-3.0); HEMATOCRIT 32.7 % (36.0-47.0); HEMOGLOBIN 10.4 g/dl (12.0-15.5); LYMPH # 1.8 10^3/uL (1.5-5.0); LYMPH % 27.9 % (24.0-44.0); MEAN CORPUSCULAR HEMOGLOBIN 32.6 pg (27.0-33.0); MEAN CORPUSCULAR HGB CONC 31.8 g/dl (32.0-36.5); MEAN CORPUSCULAR VOLUME 102.5 fl (80.0-96.0); MONO # 0.6 10^3/uL (0.0-0.8); MONO % 8.9 % (2.0-8.0); NEUTROPHILS # 3.5 10^3/uL (1.5-8.5); NEUTROPHILS % 56.3 % (36.0-66.0); PLATELET COUNT, AUTOMATED 161 10^3/uL (150-450); RED BLOOD COUNT 3.19 10^6/uL (4.00-5.40); WHITE BLOOD COUNT 6.3 10^3/uL (4.0-10.0)
[2020-12-18 06:30] LABS: CALCIUM LEVEL 7.6 MG/DL (8.8-10.2); CREATININE FOR GFR 2.26 MG/DL (0.55-1.30); GLOMERULAR FILTRATION RATE 22.7 (>39); MAGNESIUM LEVEL 2.2 MG/DL (1.8-2.4); POTASSIUM SERUM 4.4 MEQ/L (3.5-5.1)
[2020-12-18] MEDS: ASCORBIC ACID 250 MG TAB PO SCH (08:00)
[2020-12-18] MEDS: METOPROLOL SUCC (TopROL XL) 50MG **XL** TAB PO SCH ×2 (08:02→08:20)
[2020-12-18] MEDS: amLODIPine 5 MG TAB PO SCH (08:03)
[2020-12-18] MEDS: TORSEMIDE 20 MG TAB PO SCH (08:03)
[2020-12-18] MEDS: LACTOBACILLUS ACIDOPHILUS CAP (BACID) PO SCH ×2 (08:03→17:48)
[2020-12-18] MEDS: MAGNESIUM OXIDE 400MG TAB (MAG-OX) PO SCH (08:03)
[2020-12-18] MEDS: allopurinoL 300 MG TAB PO SCH (08:03)
[2020-12-18] MEDS: NYSTATIN 100,000 UNITS/GM TOPICAL PWD 15 GM TOP SCH (08:04)
[2020-12-18] MEDS: TIMOLOL MALEATE 0.5% OPHTH SOLN 5 ML OU SCH ×2 (08:04→20:18)
--- NOTE | 2020-12-18 12:06 | IPNPDOC ---
Text Note Date of Service The patient was seen on 12/18/20. NOTE SUBJECTIVE: -No acute complaints. Without complaints of chest pain, abdominal pain, flank pain, SOB, nausea or emesis -has been having vaginal bleeding, thankfully remains hemodynamically stable and with a stable H/H INTERIM EVENTS: -Heel Slugger has been officially consulted at this time with goal to pursue a D&C for persistent abnormal post menopausal vaginal bleeding with inconclusive pathology of recent biopsy, and building rental manager recommended a D&C. -Lissethis has thus been held at this time OBJECTIVE: Vitals: See below General: Lying in bed, appears comfortable, obese, Awake / Alert, Oriented x3 HEENT: NC, AT, poor dentition, MMM CVS: irregular rhythm, regular rate, +S1S2, systolic murmur at apex Lungs: CTAB, no wheezing, rales or rhonchi Abdomen: Soft, ND, NT Extremities: R lower extremity is larger than L per baseline, no calf tenderness, WWP Labs: WBC 6.3 hgb 10.4 platelets 161 na 140 K 4.4 BUN 33 Cr 2.26 Imaging: CXR 11/25: Cardiomegaly. Otherwise no acute disease. Abdomen US 11/25: 1. Evidence of fatty infiltration of the liver. 2. Cholelithiasis with gallbladder wall thickening and positive sonographic Merida sign. Correlate clinically to assess for cholecystitis. 3. Possible left renal mass as described above. Pre and postcontrast enhanced renal CT is recommended. 4. There is a small amount of ascites. 5. There is splenomegaly. CT abdomen / pelvis 11/29: Small bilateral pleural effusions and dependent atelectatic changes. No gross renal mass, however, evaluation is limited without IV contrast. No free air or obstruction. Moderate abdominal and pelvic ascites, located primarily to the right of midline. Fluoro guided Pacemaker placement 12/02: Satisfactory single lead pacemaker placement. CXR 12/02: 1. Appropriate placement of right ventricular pacing device without evidence of pneumothorax or other complication. 2. Residual pleural effusions and cardiac enlargement as seen on the recent CT, but with no active pulmonary edema CXR 12/03: Suspect small area of atelectasis or infiltrate posteriorly and inferiorly, as seen on the lateral view, not visualized on the frontal view. Left single lead pacemaker. TTE 11/25: INDICATION: Atrial fibrillation. Murmur. Abnormal EKG. MEASUREMENTS: 2D Measurements: RV 4.6 cm LV 4.6 cm Septum 1.3 cm Posterior wall 1.3 cm Aortic Root 3.2 cm LA 4.7 cm LVEF 55% Doppler Measurements: AV 3.15 m/s LVOT 1.08 m/s LVOT diameter 1.9 cm Mean AV gradient 22 mmHg Dimensionless index 0.38 MV-E 1.59 Early mitral deceleration time 224 ms Pressure half-time 66 ms MVA 3.3 cm2 PV 1.0 m/s Pulmonary artery acceleration time 85 ms PASP 43 mmHg IVC 2.2 cm COMMENTS: Underlying atrial fibrillation with controlled ventricular response. Subtle intraventricular conduction disturbance. Technically difficult study in light of the patient's body habitus, but diagnostically useful information was still obtained. M-Mode and Two Dimensional Echocardiography was performed with pulse, continuous wave, color flow, and tissue Doppler studies. Mild concentric left ventricular hypertrophy with normal wall motion. Moderately dilated left atrium, but unable to comment on LV diastolic function or estimate mean left atrial pressure in light of mitral valve disorder and atrial fibrillation. Mildly dilated right heart chambers with slight right ventricular free wall hypokinesis and Doppler evidence of at least moderately severe pulmonary hypertension. Mildly dilated inferior vena cava (IVC) with reduced respiratory collapse suggestive of at least a mildly elevated central venous pressure. Moderate calcific aortic stenosis with mild insufficiency. Normal aortic dimensions. Moderately severe mitral annular calcification with at least mild LV inflow tract obstruction and moderate mitral insufficiency. Normal-appearing tricuspid valve with at least mild insufficiency. Unable to detect any clear cut vegetation or pedunculated mass, but could not rule out a small sessile vegetation in light of the irregularity of her valvular structures believed to be related to degenerative change. 12/13: Pelvic US: The uterus measures 7.4 x 56.2 x 5.0 cm. There is hypoechoic material within the endometrial canal measuring 3.5 x 2.4 x 2.3 cm, may be hemorrhage/hematoma. There is no blood flow noted within the endometrial canal. There is a large amount of pelvic ascites. The ovaries are not identified. There is a Sahni catheter present in the urinary bladder. IMPRESSION: 1. Complex material within the endometrial canal may be hemorrhage/hematoma. 2. Large amount of ascites. 3. Sahni catheter present in the urinary bladder. 12/12 CT A/P: The lung bases are unchanged. There are bilateral pleural effusions status quo. There are bilateral lung base subsegmental atelectatic changes. Concomitant pneumonia cannot be ruled out. There is ascites status quo. The liver, spleen, gallbladder, pancreas, adrenal glands, and kidneys are unchanged. The abdominal aorta and para-aortic regions are unchanged. The bowel loops and the mesenteries are unchanged. The osseous structures are unchanged. IMPRESSION: Limited noncontrast CT examination of the abdomen and pelvis, as described above, showing no evidence of change compared to the examination which was obtained 13 days ago. 12/11: Bilateral lower extremity doppler venous US: Bilaterally, the common femoral, superficial femoral and popliteal veins are fully compressible with transducer pressure and demonstrate normal spontaneous and phasic flow, without evidence of deep venous thrombosis. The peroneal and posterior tibial veins could not be visualized due to patient body habitus. IMPRESSION: No evidence of deep venous thrombosis of the bilateral lower extremity femoral popliteal venous system. Assessment: 70-year-old W with HTN, Hypothyroidism, Gout, Obesity, who presented to the emergency room on 11/25 with complaint of weakness and fatigue, right-sided abdominal pain and a recent fall and was admitted for atrial fibrillation with RVR with a course that was c/b sick sinus syndrome and episodes of Mobitz II 2nd degree heart block s/p pacemaker placement on 12/02, pseudomonas UTI s/p a course of levaquin and more recently noted post menopausal vaginal bleeding now being considered for D&C by gynecology. Pre-op assessment for D&C: -Recent echo showed normal EF, mild volume overload with ongoing PRN diuresis and currently euvolemic -Recent EKG showed Afib without ST segment changes, and the patient has no complaints of chest pain -No current evidence of infection, recently treated fro pseudomonas UTI, completed 12/17 -has JENN on CKD that is being actively managed by nephrology with PRN diuretic therapy -BP is well controlled, to hold antihypertensives except for metoprolol that is to be administered on the day of surgery -Eliquis is currently on hold in anticipation of upcoming D&C -patient is recently s/p PPM -Anemia is stable with stable H/H despite some vaginal bleeding, no need for transfusion at this time -The patient is medically cleared for D&C surgery at this time Persistent A. fib - Patient is currently asymptomatic - s/p PPM placement on 9/14 - c/w Metoprolol succinate - holding Eliquis for upcoming surgery Asystole/Sick Sinus Syndrome/Tachy Oniel syndrome - Presented with advanced AV block, > 7 sec period of asystole - s/p Pacemaker implantation on 12/02/[address] Gamble Systemic Hypertension - BP well controlled - c/w Amlodipine / Metoprolol Presented with Leukocytosis - Initial echocardiogram completed suggested small sessile vegetation; of her clinically patient did not exhibit any signs of endocarditis - Findings were initially discussed with Dr. Gamble, and infectious disease, Dr. Angel - no indication for further antibiotics - Was evaluated by General surgery on 12/02; no evidence of cholecystitis - Bcx were negative JENN on CKD - Cr baseline of 1.3-1.6 - Nephrology on consultation; appreciate their input w/ PRN diuresis Intertrigo - c/w topical nystatin therapy Hypothyroidism - c/w Levothyroxine Anemia - Hg stable despite vaginal bleeding DVT prophylaxis - Holding Eliquis, for pending D&C Disposition: - Will need rehab s/p D&C VS,Noelle, I+O VS, Noelle, I+O Laboratory Tests 12/17/20 09:18 12/18/20 05:17 Vital Signs Date Time Temp Pulse Resp B/P (MAP) Pulse Ox O2 Delivery O2 Flow Rate FiO2 12/18/20 06:00 97.7 71 18 105/64 (78) 99 Room Air I&O- Last 24 Hours up to 6 AM 12/18/20 06:00 Intake Total 120 ml Output Total 800 ml Balance -680 ml RADHA LÓPEZ MD Dec 18, 2020 08:00
--- NOTE | 2020-12-18 17:41 | IPN ---
PROGRESS NOTE DATE: 12/18/2020 SUBJECTIVE: Kalyani is seen and examined this morning at the bedside. She reports no complaints. She is scheduled for dilatation and curettage (D and C) to be done tomorrow, and a request is on hold. She denies any shortness of breath. Reports she has been working with physical therapy. Laboratory studies show creatinine has bumped up slightly to 2.3 after initiation of every other day torsemide. VITAL SIGNS: Temperature 97.7, pulse 71, respiratory rate 18, blood pressure 105/64, saturating 99% on room air. Intake yesterday was not fully recorded. Urine output was recorded as 600 mL, and there were two bowel movements. The output is likely not completely recorded. GENERAL: She is seen lying in bed, elderly female, awake, alert, oriented times three in no distress. Extraocular muscles are intact. Tongue is moist. Dentition is very poor. HEART: Sounds are irregular, S1, S2. There is a systolic murmur. There is some chronic, nonpitting edema in the right lower extremity. The left leg has no edema. LUNGS: Clear to auscultation bilaterally. No crackle or rale. She is comfortable on room air. ABDOMEN: Soft, obese, and nontender. EXTREMITIES: She moves all four extremities on command. As mentioned before, the right extremity is larger. There is edema, but it is not pitting. The left extremity has no edema. NEUROLOGIC: She is oriented times three, interactive, conversational. LABORATORY DATA: Sodium 140, potassium 4.4, bicarbonate 27, BUN 33, creatinine 2.2, magnesium 2.2. Hemoglobin 10.4, platelets 161. INPATIENT MEDICATIONS: Reviewed by myself. She continues on torsemide 20 mg by mouth every other day. She has had two doses thus far. There is no change in her medications over the past several days. I do note that the Eliquis is on hold. PROBLEMS: 1. Acute kidney injury (JENN) superimposed on chronic kidney disease (CKD), stage IIIB, versus progression of chronic kidney disease now to stage IV. Patient's renal function has plateaued from around creatinine 1.8-2.2, and this might be her new renal function at baseline. She is only receiving every other day torsemide with a watch on the renal parameters, and if her creatinine rises any further, I will stop the torsemide. She does have asymmetric leg edema. Right leg is large as compared to left leg, but there is no pitting edema on the right. Her serum albumin is significantly low, likely leading to a third spacing of fluid. 2. Asymmetric localized edema, right lower extremity notably larger than the left but no pitting edema in either leg. She had a negative venous duplex several days ago. Her renal function does seem to worsen even with low-dose diuretic. Right now she is receiving torsemide 20 mg every other day, and if her creatinine increases above 2.2, I will stop the diuretic. 3. Hypoalbuminemia. Serum albumin has been less than 1.5. Patient also has bilateral pleural effusions seen on CT scan seen on imaging along with moderate degree of ascites. We are seeing how she does with a low dose every other day diuretic. The cause of her low albumin is unclear. Questionable liver issue. 4. Hypertension. Blood pressures are well controlled with metoprolol and amlodipine. 5. Secondary hyperparathyroidism of renal origin. She is on calcitriol. Her phosphorus and calcium levels are acceptable. 6. Hypomagnesemia. It has improved with magnesium supplementation. 7. Atrial fibrillation, status post pacemaker placement, rate controlled with metoprolol and has been anticoagulated with Eliquis.
[2020-12-19] VITALS (7 sets, daily range): BP systolic 106–126; BP diastolic 58–76
[2020-12-19] MEDS: LEVOTHYROXINE 112MCG TABLET (0.112MG) PO SCH (05:41)
[2020-12-19 06:31] LABS: BASO # 0.1 10^3/uL (0.0-0.2); BASO % 0.8 % (0.0-1.0); EOS # 0.1 10^3/uL (0.0-0.5); EOS % 2.2 % (0.0-3.0); HEMATOCRIT 31.3 % (36.0-47.0); HEMOGLOBIN 10.2 g/dl (12.0-15.5); LYMPH % 32.1 % (24.0-44.0); MEAN CORPUSCULAR HEMOGLOBIN 32.8 pg (27.0-33.0); MEAN CORPUSCULAR HGB CONC 32.6 g/dl (32.0-36.5); MEAN CORPUSCULAR VOLUME 100.6 fl (80.0-96.0); MONO # 0.6 10^3/uL (0.0-0.8); MONO % 9.8 % (2.0-8.0); NEUTROPHILS # 3.4 10^3/uL (1.5-8.5); NEUTROPHILS % 52.9 % (36.0-66.0); PLATELET COUNT, AUTOMATED 175 10^3/uL (150-450); RED BLOOD COUNT 3.11 10^6/uL (4.00-5.40); WHITE BLOOD COUNT 6.3 10^3/uL (4.0-10.0)
[2020-12-19 06:59] LABS: CALCIUM LEVEL 7.4 MG/DL (8.8-10.2); CREATININE FOR GFR 2.32 MG/DL (0.55-1.30); MAGNESIUM LEVEL 1.9 MG/DL (1.8-2.4); POTASSIUM SERUM 4.1 MEQ/L (3.5-5.1)
[2020-12-19] MEDS: LACTOBACILLUS ACIDOPHILUS CAP (BACID) PO SCH ×2 (08:00→18:01)
[2020-12-19] MEDS: amLODIPine 5 MG TAB PO SCH (08:40)
[2020-12-19] MEDS: CALCITRIOL 0.25 MCG CAP (S0169) PO SCH (08:40)
[2020-12-19] MEDS: MAGNESIUM OXIDE 400MG TAB (MAG-OX) PO SCH (08:40)
[2020-12-19] MEDS: NYSTATIN 100,000 UNITS/GM TOPICAL PWD 15 GM TOP SCH (08:41)
[2020-12-19] MEDS: METOPROLOL SUCC (TopROL XL) 50MG **XL** TAB PO SCH ×2 (08:41→15:53)
[2020-12-19] MEDS: ASCORBIC ACID 250 MG TAB PO SCH (08:41)
[2020-12-19] MEDS: TIMOLOL MALEATE 0.5% OPHTH SOLN 5 ML OU SCH ×2 (08:41→20:01)
[2020-12-19] MEDS: allopurinoL 300 MG TAB PO SCH (08:41)
[2020-12-19] MEDS ORDERED: propofoL 200 MG/20 ML VIAL As Ordered ONE (13:18)
[2020-12-19] MEDS ORDERED: LIDOCAINE 2% 100MG/5ML SDV (FOR ANES.) As Ordered ONE (13:18)
[2020-12-19] MEDS ORDERED: MIDAZOLAM INJ 2MG/2ML VIAL (J2250 PER 1MG) As Ordered ONE (13:18)
[2020-12-19] MEDS ORDERED: fentaNYL 100 MCG/2 ML INJECTION (J3010) As Ordered ONE (13:18)
[2020-12-19] MEDS ORDERED: ESMOLOL INJ 100MG/10ML VIAL As Ordered ONE (14:08)
[2020-12-19] MEDS ORDERED: ONDANSETRON 4MG/2ML VIAL IV PRN (15:25)
[2020-12-19] MEDS ORDERED: fentaNYL 100 MCG/2 ML INJECTION (J3010) IV PRN (15:25)
[2020-12-19] MEDS ORDERED: LR 1,000 ML IV SCH (15:25)
[2020-12-19] MEDS ORDERED: oxyCODONE 5MG TAB PO PRN (15:25)
--- NOTE | 2020-12-19 15:59 | RO ---
OPERATIVE NOTE DATE OF OPERATION: 12/19/2020 PREOPERATIVE DIAGNOSIS: Postmenopausal bleeding, abnormal sonogram. POSTOPERATIVE DIAGNOSIS: Postmenopausal bleeding, abnormal sonogram. PROCEDURE: Dilatation and curettage (D and C), hysteroscopy, Myosure. ANESTHESIA: Laryngeal mask airway (LMA). SURGEON: Dr. Britni Orr BRIEF DESCRIPTION OF PROCEDURE AND FINDINGS: Kalyani was brought to the operating room, where sufficient LMA anesthesia was induced. She was prepped, draped, and positioned in the usual sterile fashion. She already had a Sahni in from the floor separate from this procedure. So after anesthesia and prep, the cervix was grasped with a single-tooth tenaculum, carefully dilated in order to allow the hysteroscope to be placed, and the endometrial cavity visualized. There was overgrowth of the endometrium, which is not typical for a 70-year-old, with some polyps, but not the 3 cm lesion that had been suspected, but definitely overgrowth. The Myosure device was used to clear this. She did spot, consistent with her history of Eliquis, which, of course, was stopped perioperatively, but not a surprise for her to have some bleeding but not atypically so or dangerously so. With use of the Myosure, we removed the majority, though not 100% of that endometrial tissue, sent it to pathology for pathologic evaluation, and the procedure was ended. ESTIMATED BLOOD LOSS FOR THE PROCEDURE: About 10 mL. FLUID REPLACEMENT: Crystalloid. COMPLICATIONS: None. CONDITION AND DISPOSITION: Kalyani tolerated the procedure well and was recovering in the recovery room in good condition.
[2020-12-20 06:00] VITALS: BP 108/66
[2020-12-20] MEDS: LEVOTHYROXINE 112MCG TABLET (0.112MG) PO SCH (06:00)
[2020-12-20 06:46] LABS: BASO # 0.1 10^3/uL (0.0-0.2); BASO % 0.9 % (0.0-1.0); EOS # 0.1 10^3/uL (0.0-0.5); EOS % 2.2 % (0.0-3.0); HEMATOCRIT 33.3 % (36.0-47.0); HEMOGLOBIN 10.6 g/dl (12.0-15.5); LYMPH # 1.9 10^3/uL (1.5-5.0); LYMPH % 29.3 % (24.0-44.0); MEAN CORPUSCULAR HEMOGLOBIN 32.2 pg (27.0-33.0); MEAN CORPUSCULAR HGB CONC 31.8 g/dl (32.0-36.5); MEAN CORPUSCULAR VOLUME 101.2 fl (80.0-96.0); MONO # 0.6 10^3/uL (0.0-0.8); MONO % 9.6 % (2.0-8.0); NEUTROPHILS # 3.6 10^3/uL (1.5-8.5); NEUTROPHILS % 55.2 % (36.0-66.0); PLATELET COUNT, AUTOMATED 172 10^3/uL (150-450); RED BLOOD COUNT 3.29 10^6/uL (4.00-5.40); WHITE BLOOD COUNT 6.5 10^3/uL (4.0-10.0)
[2020-12-20 07:07] LABS: CALCIUM LEVEL 7.4 MG/DL (8.8-10.2); CREATININE FOR GFR 2.34 MG/DL (0.55-1.30); GLOMERULAR FILTRATION RATE 21.8 (>39); MAGNESIUM LEVEL 2.1 MG/DL (1.8-2.4); POTASSIUM SERUM 4.3 MEQ/L (3.5-5.1)
[2020-12-20] MEDS: amLODIPine 5 MG TAB PO SCH (07:52)
[2020-12-20] MEDS: METOPROLOL SUCC (TopROL XL) 50MG **XL** TAB PO SCH (07:53)
[2020-12-20] MEDS: TORSEMIDE 10 MG TABLET PO SCH (08:24)
[2020-12-20] MEDS: ASCORBIC ACID 250 MG TAB PO SCH (08:39)
[2020-12-20] MEDS: MAGNESIUM OXIDE 400MG TAB (MAG-OX) PO SCH (08:39)
[2020-12-20] MEDS: allopurinoL 300 MG TAB PO SCH (08:39)
[2020-12-20] MEDS: LACTOBACILLUS ACIDOPHILUS CAP (BACID) PO SCH ×2 (08:39→17:57)
[2020-12-20] MEDS: TIMOLOL MALEATE 0.5% OPHTH SOLN 5 ML OU SCH ×2 (08:40→20:14)
[2020-12-20] MEDS: NYSTATIN 100,000 UNITS/GM TOPICAL PWD 15 GM TOP SCH (08:40)
[2020-12-20 10:00] VITALS: BP 121/66
[2020-12-20 14:00] VITALS: BP 119/79
--- NOTE | 2020-12-20 14:56 | IPNPDOC ---
Text Note Date of Service The patient was seen on 12/20/20. NOTE SUBJECTIVE: -No acute complaints. Without complaints of chest pain, abdominal pain, flank pain, SOB, nausea or emesis -PPM incision dehisced, nursing placed foam dressing over it -some vaginal bleeding, much reduced amount per nursing from prior to D&C INTERIM EVENTS: -Had D&C on 12/19, without complications OBJECTIVE: Vitals: See below General: Lying in bed, appears comfortable, obese, Awake / Alert, Oriented x3 HEENT: NC, AT, poor dentition, MMM CVS: irregular rhythm, regular rate, +S1S2, systolic murmur at apex. PPM incision dehisced, nursing placed foam over it, no surrounding erythema or fluctuance Lungs: CTAB, no wheezing, rales or rhonchi Abdomen: Soft, ND, NT Extremities: R lower extremity is larger than L per baseline, no calf tenderness, WWP Labs: Reviewed, stable Imaging: CXR 11/25: Cardiomegaly. Otherwise no acute disease. Abdomen US 11/25: 1. Evidence of fatty infiltration of the liver. 2. Cholelithiasis with gallbladder wall thickening and positive sonographic Merida sign. Correlate clinically to assess for cholecystitis. 3. Possible left renal mass as described above. Pre and postcontrast enhanced renal CT is recommended. 4. There is a small amount of ascites. 5. There is splenomegaly. CT abdomen / pelvis 11/29: Small bilateral pleural effusions and dependent atelectatic changes. No gross renal mass, however, evaluation is limited without IV contrast. No free air or obstruction. Moderate abdominal and pelvic ascites, located primarily to the right of midline. Fluoro guided Pacemaker placement 12/02: Satisfactory single lead pacemaker placement. CXR 12/02: 1. Appropriate placement of right ventricular pacing device without evidence of pneumothorax or other complication. 2. Residual pleural effusions and cardiac enlargement as seen on the recent CT, but with no active pulmonary edema CXR 12/03: Suspect small area of atelectasis or infiltrate posteriorly and inferiorly, as seen on the lateral view, not visualized on the frontal view. Left single lead pacemaker. TTE 11/25: INDICATION: Atrial fibrillation. Murmur. Abnormal EKG. MEASUREMENTS: 2D Measurements: RV 4.6 cm LV 4.6 cm Septum 1.3 cm Posterior wall 1.3 cm Aortic Root 3.2 cm LA 4.7 cm LVEF 55% Doppler Measurements: AV 3.15 m/s LVOT 1.08 m/s LVOT diameter 1.9 cm Mean AV gradient 22 mmHg Dimensionless index 0.38 MV-E 1.59 Early mitral deceleration time 224 ms Pressure half-time 66 ms MVA 3.3 cm2 PV 1.0 m/s Pulmonary artery acceleration time 85 ms PASP 43 mmHg IVC 2.2 cm COMMENTS: Underlying atrial fibrillation with controlled ventricular response. Subtle intraventricular conduction disturbance. Technically difficult study in light of the patient's body habitus, but diagnostically useful information was still obtained. M-Mode and Two Dimensional Echocardiography was performed with pulse, continuous wave, color flow, and tissue Doppler studies. Mild concentric left ventricular hypertrophy with normal wall motion. Moderately dilated left atrium, but unable to comment on LV diastolic function or estimate mean left atrial pressure in light of mitral valve disorder and atrial fibrillation. Mildly dilated right heart chambers with slight right ventricular free wall hypokinesis and Doppler evidence of at least moderately severe pulmonary hypertension. Mildly dilated inferior vena cava (IVC) with reduced respiratory collapse suggestive of at least a mildly elevated central venous pressure. Moderate calcific aortic stenosis with mild insufficiency. Normal aortic dimensions. Moderately severe mitral annular calcification with at least mild LV inflow tract obstruction and moderate mitral insufficiency. Normal-appearing tricuspid valve with at least mild insufficiency. Unable to detect any clear cut vegetation or pedunculated mass, but could not rule out a small sessile vegetation in light of the irregularity of her valvular structures believed to be related to degenerative change. 12/13: Pelvic US: The uterus measures 7.4 x 56.2 x 5.0 cm. There is hypoechoic material within the endometrial canal measuring 3.5 x 2.4 x 2.3 cm, may be hemorrhage/hematoma. There is no blood flow noted within the endometrial canal. There is a large amount of pelvic ascites. The ovaries are not identified. There is a Sahni catheter present in the urinary bladder. IMPRESSION: 1. Complex material within the endometrial canal may be hemorrhage/hematoma. 2. Large amount of ascites. 3. Sahni catheter present in the urinary bladder. 12/12 CT A/P: The lung bases are unchanged. There are bilateral pleural effusions status quo. There are bilateral lung base subsegmental atelectatic changes. Concomitant pneumonia cannot be ruled out. There is ascites status quo. The liver, spleen, gallbladder, pancreas, adrenal glands, and kidneys are unchanged. The abdominal aorta and para-aortic regions are unchanged. The bowel loops and the mesenteries are unchanged. The osseous structures are unchanged. IMPRESSION: Limited noncontrast CT examination of the abdomen and pelvis, as described above, showing no evidence of change compared to the examination which was obtained 13 days ago. 12/11: Bilateral lower extremity doppler venous US: Bilaterally, the common femoral, superficial femoral and popliteal veins are fully compressible with transducer pressure and demonstrate normal spontaneous and phasic flow, without evidence of deep venous thrombosis. The peroneal and posterior tibial veins could not be visualized due to patient body habitus. IMPRESSION: No evidence of deep venous thrombosis of the bilateral lower extremity femoral popliteal venous system. 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 Persistent A. fib - Patient is currently asymptomatic - s/p PPM placement on 12/02 - c/w Metoprolol succinate - holding Eliquis with vaginal bleeding postop, to restart tomorrow if all stable Asystole/Sick Sinus Syndrome/Tachy Oniel syndrome s/p PPM c/b incision site dehiscence - Presented with advanced AV block, > 7 sec period of asystole - s/p Pacemaker implantation on 12/02/[address] Gamble - reached out to Dr. Gamble about the dehiscence, pending call back Systemic Hypertension - BP well controlled - c/w antihypertensives Presented with Leukocytosis - Initial echocardiogram completed suggested small sessile vegetation; of her clinically patient did not exhibit any signs of endocarditis - Findings were initially discussed with Dr. Gamble, and infectious disease, Dr. Angel - no indication for further antibiotics - Was evaluated by General surgery on 12/02; no evidence of cholecystitis - Bcx were negative JENN on CKD - Cr baseline of 1.3-1.6 - Nephrology on consultation; appreciate their input w/ PRN diuresis Intertrigo - c/w topical nystatin therapy Hypothyroidism - c/w Levothyroxine Anemia - Hg stable despite vaginal bleeding DVT prophylaxis - Holding Eliquis, with plan to restart tomorrow Disposition: - Will need rehab VS,Fishbone, I+O VS, Fishbone, I+O Laboratory Tests 12/20/20 05:41 Vital Signs Date Time Temp Pulse Resp B/P (MAP) Pulse Ox O2 Delivery O2 Flow Rate FiO2 12/20/20 10:00 97.1 77 16 121/66 (84) 98 Room Air 12/19/20 14:55 12.0 I&O- Last 24 Hours up to 6 AM 12/20/20 06:00 Intake Total 760 ml Output Total 460 ml Balance 300 ml RADHA LÓPEZ MD Dec 20, 2020 11:08
[2020-12-20] MEDS: APIXABAN 5 MG TAB (ELIQUIS) PO SCH (20:13)
[2020-12-21] MEDS: LEVOTHYROXINE 112MCG TABLET (0.112MG) PO SCH (05:35)
[2020-12-21] MEDS: ACETAMINOPHEN TAB 650MG DOSE (2X325MG) PO PRN (05:36)
[2020-12-21 06:00] VITALS: BP 113/67
[2020-12-21 06:18] LABS: BASO # 0.1 10^3/uL (0.0-0.2); BASO % 0.8 % (0.0-1.0); EOS # 0.1 10^3/uL (0.0-0.5); EOS % 2.2 % (0.0-3.0); HEMATOCRIT 32.7 % (36.0-47.0); HEMOGLOBIN 10.4 g/dl (12.0-15.5); LYMPH # 1.9 10^3/uL (1.5-5.0); LYMPH % 30.8 % (24.0-44.0); MEAN CORPUSCULAR HEMOGLOBIN 32.5 pg (27.0-33.0); MEAN CORPUSCULAR HGB CONC 31.8 g/dl (32.0-36.5); MEAN CORPUSCULAR VOLUME 102.2 fl (80.0-96.0); MONO # 0.6 10^3/uL (0.0-0.8); MONO % 9.3 % (2.0-8.0); NEUTROPHILS # 3.3 10^3/uL (1.5-8.5); NEUTROPHILS % 53.2 % (36.0-66.0); PLATELET COUNT, AUTOMATED 156 10^3/uL (150-450); WHITE BLOOD COUNT 6.2 10^3/uL (4.0-10.0)
[2020-12-21 06:37] LABS: CALCIUM LEVEL 7.7 MG/DL (8.8-10.2); CREATININE FOR GFR 2.04 MG/DL (0.55-1.30); GLOMERULAR FILTRATION RATE 25.6 (>39)
[2020-12-21] MEDS: amLODIPine 5 MG TAB PO SCH (09:00)
[2020-12-21] MEDS: NYSTATIN 100,000 UNITS/GM TOPICAL PWD 15 GM TOP SCH (10:47)
[2020-12-21] MEDS: LACTOBACILLUS ACIDOPHILUS CAP (BACID) PO SCH ×2 (10:47→17:03)
[2020-12-21] MEDS: TIMOLOL MALEATE 0.5% OPHTH SOLN 5 ML OU SCH ×2 (10:47→20:19)
[2020-12-21] MEDS: APIXABAN 5 MG TAB (ELIQUIS) PO SCH ×2 (10:47→20:18)
[2020-12-21] MEDS: MAGNESIUM OXIDE 400MG TAB (MAG-OX) PO SCH (10:48)
[2020-12-21] MEDS: ASCORBIC ACID 250 MG TAB PO SCH (10:48)
[2020-12-21] MEDS: allopurinoL 300 MG TAB PO SCH (10:48)
[2020-12-21] MEDS: METOPROLOL SUCC (TopROL XL) 50MG **XL** TAB PO SCH (10:48)
--- NOTE | 2020-12-21 13:31 | IPNPDOC ---
Text Note Date of Service The patient was seen on 12/21/20. NOTE SUBJECTIVE: -No acute complaints. Without complaints of chest pain, abdominal pain, flank pain, SOB, nausea or emesis -PPM incision dehisced, informed Dr. Gamble, who requested gen surgery consult for wound evaluation. Dr. Rosas on seeing images of the wound recommended wet to dry dressings BID and will evaluate her today -nephrology restarted her eliquis and she is doing well without increased bleeding. Now minimal vaginal bleeding OBJECTIVE: Vitals: See below General: Lying in bed, appears comfortable, obese, Awake / Alert, Oriented x3 HEENT: NC, AT, poor dentition, MMM CVS: irregular rhythm, regular rate, +S1S2, systolic murmur at apex. PPM incision dehisced, nursing placed dressing, c/d/i, no drainage or surrounding erythema Lungs: CTAB, no wheezing, rales or rhonchi Abdomen: Soft, ND, NT Extremities: R lower extremity is larger than L per baseline, no calf tenderness, WWP Labs: Reviewed, stable Imaging: CXR 11/25: Cardiomegaly. Otherwise no acute disease. Abdomen US 11/25: 1. Evidence of fatty infiltration of the liver. 2. Cholelithiasis with gallbladder wall thickening and positive sonographic Merida sign. Correlate clinically to assess for cholecystitis. 3. Possible left renal mass as described above. Pre and postcontrast enhanced renal CT is recommended. 4. There is a small amount of ascites. 5. There is splenomegaly. CT abdomen / pelvis 11/29: Small bilateral pleural effusions and dependent atelectatic changes. No gross renal mass, however, evaluation is limited without IV contrast. No free air or obstruction. Moderate abdominal and pelvic ascites, located primarily to the right of midline. Fluoro guided Pacemaker placement 12/02: Satisfactory single lead pacemaker placement. CXR 12/02: 1. Appropriate placement of right ventricular pacing device without evidence of pneumothorax or other complication. 2. Residual pleural effusions and cardiac enlargement as seen on the recent CT, but with no active pulmonary edema CXR 12/03: Suspect small area of atelectasis or infiltrate posteriorly and inferiorly, as seen on the lateral view, not visualized on the frontal view. Left single lead pacemaker. TTE 11/25: INDICATION: Atrial fibrillation. Murmur. Abnormal EKG. MEASUREMENTS: 2D Measurements: RV 4.6 cm LV 4.6 cm Septum 1.3 cm Posterior wall 1.3 cm Aortic Root 3.2 cm LA 4.7 cm LVEF 55% Doppler Measurements: AV 3.15 m/s LVOT 1.08 m/s LVOT diameter 1.9 cm Mean AV gradient 22 mmHg Dimensionless index 0.38 MV-E 1.59 Early mitral deceleration time 224 ms Pressure half-time 66 ms MVA 3.3 cm2 PV 1.0 m/s Pulmonary artery acceleration time 85 ms PASP 43 mmHg IVC 2.2 cm COMMENTS: Underlying atrial fibrillation with controlled ventricular response. Subtle intraventricular conduction disturbance. Technically difficult study in light of the patient's body habitus, but diagnostically useful information was still obtained. M-Mode and Two Dimensional Echocardiography was performed with pulse, continuous wave, color flow, and tissue Doppler studies. Mild concentric left ventricular hypertrophy with normal wall motion. Moderately dilated left atrium, but unable to comment on LV diastolic function or estimate mean left atrial pressure in light of mitral valve disorder and atrial fibrillation. Mildly dilated right heart chambers with slight right ventricular free wall hypokinesis and Doppler evidence of at least moderately severe pulmonary hypertension. Mildly dilated inferior vena cava (IVC) with reduced respiratory collapse suggestive of at least a mildly elevated central venous pressure. Moderate calcific aortic stenosis with mild insufficiency. Normal aortic dimensions. Moderately severe mitral annular calcification with at least mild LV inflow tract obstruction and moderate mitral insufficiency. Normal-appearing tricuspid valve with at least mild insufficiency. Unable to detect any clear cut vegetation or pedunculated mass, but could not rule out a small sessile vegetation in light of the irregularity of her valvular structures believed to be related to degenerative change. 12/13: Pelvic US: The uterus measures 7.4 x 56.2 x 5.0 cm. There is hypoechoic material within the endometrial canal measuring 3.5 x 2.4 x 2.3 cm, may be hemorrhage/hematoma. There is no blood flow noted within the endometrial canal. There is a large amount of pelvic ascites. The ovaries are not identified. There is a Sahni catheter present in the urinary bladder. IMPRESSION: 1. Complex material within the endometrial canal may be hemorrhage/hematoma. 2. Large amount of ascites. 3. Sahni catheter present in the urinary bladder. 12/12 CT A/P: The lung bases are unchanged. There are bilateral pleural effusions status quo. There are bilateral lung base subsegmental atelectatic changes. Concomitant pneumonia cannot be ruled out. There is ascites status quo. The liver, spleen, gallbladder, pancreas, adrenal glands, and kidneys are unchanged. The abdominal aorta and para-aortic regions are unchanged. The bowel loops and the mesenteries are unchanged. The osseous structures are unchanged. IMPRESSION: Limited noncontrast CT examination of the abdomen and pelvis, as described above, showing no evidence of change compared to the examination which was obtained 13 days ago. 12/11: Bilateral lower extremity doppler venous US: Bilaterally, the common femoral, superficial femoral and popliteal veins are f ully compressible with transducer pressure and demonstrate normal spontaneous and phasic flow, without evidence of deep venous thrombosis. The peroneal and posterior tibial veins could not be visualized due to patient body habitus. IMPRESSION: No evidence of deep venous thrombosis of the bilateral lower extremity femoral popliteal venous system. 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 Persistent A. fib - Patient is currently asymptomatic - s/p PPM placement on 12/02 - c/w Metoprolol succinate - continue eliquis Asystole/Sick Sinus Syndrome/Tachy Oniel syndrome s/p PPM c/b incision site d ehiscence - Presented with advanced AV block, > 7 sec period of asystole - s/p Pacemaker implantation on 12/02/[address] Gamble - reached out to Dr. Gamble about the dehiscence PPM incision site dehiscence: - informed Dr. Gamble, who requested gen surgery consult for wound evaluation. Dr. Rosas on seeing images of the wound recommended wet to dry dressings BID and will evaluate her today Systemic Hypertension - BP well controlled - c/w antihypertensives Presented with Leukocytosis - Initial echocardiogram completed suggested small sessile vegetation; of her clinically patient did not exhibit any signs of endocarditis - Findings were initially discussed with Dr. Gamble, and infectious disease, Dr. Angel - no indication for further antibiotics - Was evaluated by General surgery on 12/02; no evidence of cholecystitis - Bcx were negative JENN on CKD - Cr baseline of 1.3-1.6 - Nephrology on consultation; appreciate their input w/ PRN diuresis Intertrigo - c/w topical nystatin therapy Hypothyroidism - c/w Levothyroxine Anemia - Hg stable despite vaginal bleeding DVT prophylaxis - continue eliquis 5mg BID Disposition: - Will need rehab VS,Fishbone, I+O VS, Fishbone, I+O Laboratory Tests 12/21/20 05:41 Vital Signs Date Time Temp Pulse Resp B/P (MAP) Pulse Ox O2 Delivery O2 Flow Rate FiO2 12/21/20 06:00 97.2 89 18 113/67 (82) 96 Room Air 12/19/20 14:55 12.0 I&O- Last 24 Hours up to 6 AM 12/21/20 06:00 Intake Total 720 ml Output Total 480 ml Balance 240 ml RADHA LÓPEZ MD Dec 21, 2020 09:14
[2020-12-21] MEDS: VITAMIN D 50,000 UNITS CAPSULE (ERGOCALCIFEROL 1.25MG) PO SCH (15:47)
--- NOTE | 2020-12-22 05:34 | CR ---
CONSULTATION DATE: 12/21/2020 REASON FOR CONSULTATION: Wound dehiscence. BRIEF HISTORY OF PRESENT ILLNESS: Patient is a 70-year-old female without underwent pacemaker placement on 12/03 and presents two weeks later with cordell that were removed and essentially the wound was coming apart and I have been asked to see her for additional recommendations. She does not complain of any fevers or chills. She has not had an elevated white count. She has had no cellulitis. Unfortunately, she is in the hospital because of numerous medical issues with sepsis, chronic kidney disease, hypertension, essentially presented to the hospital with weakness and fatigue originally with atrial fibrillation and has been seen earlier in this hospital course for some sepsis issues and she has been doing poorly throughout and is essentially bed-bound and is a frail individual. PHYSICAL EXAMINATION: On her physical exam, specifically in the area of the pacemaker, she has some superficial wound separation with some minimal drainage at the site. There is really not much granulation tissue and I can seen an edge of a Vicryl in the wound itself but it is nontender. There is no evidence of hematoma. No evidence of cellulitis and no significant drainage at this time. IMPRESSION/PLAN: Patient has poor wound healing and unfortunately this has a very high likelihood of getting infected. At this point, I would recommend that we do some wet to dry dressing changes. We will see how it looks over the next 24 to 48 hours and otherwise possibly using some of Wound-Vac may be warranted although it is not significantly the edges, probably by 3 or 4 mm on its edges. My concern obviously is with the very atrophic skin that any re-resection of this area will be significantly likely to dehiscence as well or give us problems. In general, the wound has not any further since the cordell were removed yesterday. If there is still some ongoing issues, a second opinion from the [facility]ound [facility] is reasonable tomorrow.
[2020-12-22 05:56] LABS: BASO % 0.6 % (0.0-1.0); EOS # 0.2 10^3/uL (0.0-0.5); EOS % 2.2 % (0.0-3.0); HEMATOCRIT 32.4 % (36.0-47.0); HEMOGLOBIN 10.4 g/dl (12.0-15.5); LYMPH # 2.1 10^3/uL (1.5-5.0); LYMPH % 30.3 % (24.0-44.0); MEAN CORPUSCULAR HEMOGLOBIN 32.6 pg (27.0-33.0); MEAN CORPUSCULAR HGB CONC 32.1 g/dl (32.0-36.5); MEAN CORPUSCULAR VOLUME 101.6 fl (80.0-96.0); MONO # 0.6 10^3/uL (0.0-0.8); MONO % 9.3 % (2.0-8.0); NEUTROPHILS # 3.8 10^3/uL (1.5-8.5); PLATELET COUNT, AUTOMATED 163 10^3/uL (150-450); RED BLOOD COUNT 3.19 10^6/uL (4.00-5.40); WHITE BLOOD COUNT 6.9 10^3/uL (4.0-10.0)
[2020-12-22] MEDS: LEVOTHYROXINE 112MCG TABLET (0.112MG) PO SCH (05:59)
[2020-12-22 06:21] LABS: CALCIUM LEVEL 7.8 MG/DL (8.8-10.2); CREATININE FOR GFR 1.85 MG/DL (0.55-1.30); GLOMERULAR FILTRATION RATE 28.6 (>39); POTASSIUM SERUM 4.1 MEQ/L (3.5-5.1)
[2020-12-22 06:24] VITALS: BP 115/67
[2020-12-22] MEDS: amLODIPine 5 MG TAB PO SCH (09:00)
[2020-12-22] MEDS: ASCORBIC ACID 250 MG TAB PO SCH (09:32)
[2020-12-22] MEDS: MAGNESIUM OXIDE 400MG TAB (MAG-OX) PO SCH (09:32)
[2020-12-22] MEDS: LACTOBACILLUS ACIDOPHILUS CAP (BACID) PO SCH ×2 (09:32→17:16)
[2020-12-22] MEDS: TORSEMIDE 10 MG TABLET PO SCH (09:32)
[2020-12-22] MEDS: APIXABAN 5 MG TAB (ELIQUIS) PO SCH ×2 (09:33→20:08)
[2020-12-22] MEDS: allopurinoL 300 MG TAB PO SCH (09:33)
[2020-12-22] MEDS: METOPROLOL SUCC (TopROL XL) 50MG **XL** TAB PO SCH (09:33)
[2020-12-22] MEDS: TIMOLOL MALEATE 0.5% OPHTH SOLN 5 ML OU SCH ×2 (09:34→20:08)
[2020-12-22] MEDS: NYSTATIN 100,000 UNITS/GM TOPICAL PWD 15 GM TOP SCH (09:34)
[2020-12-22] MEDS: CALCITRIOL 0.25 MCG CAP (S0169) PO SCH (09:36)
[2020-12-22] MEDS: MOM 30ML SUSPENSION UDC PO PRN (12:39)
[2020-12-22] MEDS: SENOKOT S TAB PO PRN (12:39)
--- NOTE | 2020-12-22 14:37 | IPNPDOC ---
Text Note Date of Service The patient was seen on 12/22/20. NOTE SUBJECTIVE: -No acute complaints. Without complaints of chest pain, abdominal pain, flank pain, SOB, nausea or emesis -PPM incision dehisced wound without drainage, redness or pain OBJECTIVE: Vitals: See below General: Lying in bed, appears comfortable, obese, Awake / Alert, Oriented x3 HEENT: NC, AT, poor dentition, MMM CVS: irregular rhythm, regular rate, +S1S2, systolic murmur at apex. PPM dehisced incision with c/d/i dressing without drainage or surrounding erythema Lungs: CTAB, no wheezing, rales or rhonchi Abdomen: Soft, ND, NT Extremities: R lower extremity is larger than L per baseline, no calf tenderness, WWP Labs: Reviewed, stable Imaging: CXR 11/25: Cardiomegaly. Otherwise no acute disease. Abdomen US 11/25: 1. Evidence of fatty infiltration of the liver. 2. Cholelithiasis with gallbladder wall thickening and positive sonographic Merida sign. Correlate clinically to assess for cholecystitis. 3. Possible left renal mass as described above. Pre and postcontrast enhanced renal CT is recommended. 4. There is a small amount of ascites. 5. There is splenomegaly. CT abdomen / pelvis 11/29: Small bilateral pleural effusions and dependent atelectatic changes. No gross renal mass, however, evaluation is limited without IV contrast. No free air or obstruction. Moderate abdominal and pelvic ascites, located primarily to the right of midline. Fluoro guided Pacemaker placement 12/02: Satisfactory single lead pacemaker placement. CXR 12/02: 1. Appropriate placement of right ventricular pacing device without evidence of pneumothorax or other complication. 2. Residual pleural effusions and cardiac enlargement as seen on the recent CT, but with no active pulmonary edema CXR 12/03: Suspect small area of atelectasis or infiltrate posteriorly and inferiorly, as seen on the lateral view, not visualized on the frontal view. Left single lead pacemaker. TTE 11/25: INDICATION: Atrial fibrillation. Murmur. Abnormal EKG. MEASUREMENTS: 2D Measurements: RV 4.6 cm LV 4.6 cm Septum 1.3 cm Posterior wall 1.3 cm Aortic Root 3.2 cm LA 4.7 cm LVEF 55% Doppler Measurements: AV 3.15 m/s LVOT 1.08 m/s LVOT diameter 1.9 cm Mean AV gradient 22 mmHg Dimensionless index 0.38 MV-E 1.59 Early mitral deceleration time 224 ms Pressure half-time 66 ms MVA 3.3 cm2 PV 1.0 m/s Pulmonary artery acceleration time 85 ms PASP 43 mmHg IVC 2.2 cm COMMENTS: Underlying atrial fibrillation with controlled ventricular response. Subtle intraventricular conduction disturbance. Technically difficult study in light of the patient's body habitus, but diagnostically useful information was still obtained. M-Mode and Two Dimensional Echocardiography was performed with pulse, continuous wave, color flow, and tissue Doppler studies. Mild concentric left ventricular hypertrophy with normal wall motion. Moderately dilated left atrium, but unable to comment on LV diastolic function or estimate mean left atrial pressure in light of mitral valve disorder and atrial fibrillation. Mildly dilated right heart chambers with slight right ventricular free wall hypokinesis and Doppler evidence of at least moderately severe pulmonary hypertension. Mildly dilated inferior vena cava (IVC) with reduced respiratory collapse suggestive of at least a mildly elevated central venous pressure. Moderate calcific aortic stenosis with mild insufficiency. Normal aortic dimensions. Moderately severe mitral annular calcification with at least mild LV inflow tract obstruction and moderate mitral insufficiency. Normal-appearing tricuspid valve with at least mild insufficiency. Unable to detect any clear cut vegetation or pedunculated mass, but could not rule out a small sessile vegetation in light of the irregularity of her valvular structures believed to be related to degenerative change. 12/13: Pelvic US: The uterus measures 7.4 x 56.2 x 5.0 cm. There is hypoechoic material within the endometrial canal measuring 3.5 x 2.4 x 2.3 cm, may be hemorrhage/hematoma. There is no blood flow noted within the endometrial canal. There is a large amount of pelvic ascites. The ovaries are not identified. There is a Sahni catheter present in the urinary bladder. IMPRESSION: 1. Complex material within the endometrial canal may be hemorrhage/hematoma. 2. Large amount of ascites. 3. Sahni catheter present in the urinary bladder. 12/12 CT A/P: The lung bases are unchanged. There are bilateral pleural effusions status quo. There are bilateral lung base subsegmental atelectatic changes. Concomitant pneumonia cannot be ruled out. There is ascites status quo. The liver, spleen, gallbladder, pancreas, adrenal glands, and kidneys are unchanged. The abdominal aorta and para-aortic regions are unchanged. The bowel loops and the mesenteries are unchanged. The osseous structures are unchanged. IMPRESSION: Limited noncontrast CT examination of the abdomen and pelvis, as described above, showing no evidence of change compared to the examination which was obtained 13 days ago. 12/11: Bilateral lower extremity doppler venous US: Bilaterally, the common femoral, superficial femoral and popliteal veins are fully compressible with transducer pressure and demonstrate normal spontaneous and phasic flow, without evidence of deep venous thrombosis. The peroneal and posterior ti bial veins could not be visualized due to patient body habitus. IMPRESSION: No evidence of deep venous thrombosis of the bilateral lower extremity femoral popliteal venous system. 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 Chronic A. fib - Patient is currently asymptomatic - s/p PPM placement on 12/02 - c/w Metoprolol succinate - continue eliquis Asystole/Sick Sinus Syndrome/Tachy Oniel syndrome s/p PPM c/b incision site dehiscence - Presented with advanced AV block, > 7 sec period of asystole - s/p Pacemaker implantation on 12/02/[address] Gamble - reached out to Dr. Gamble about the dehiscence, aware that for now is on wet-to-dy dressings and surgery is onboard PPM incision site dehiscence: - informed Dr. Gamble, who requested gen surgery consult for wound evaluation. Dr. Rosas for now recommending wet-to-dry dressings and will watch closely given high risk for infection. Systemic Hypertension - BP well controlled - c/w antihypertensives Presented with Leukocytosis - Initial echocardiogram completed suggested small sessile vegetation; of her clinically patient did not exhibit any signs of endocarditis - Findings were initially discussed with Dr. Gamble, and infectious disease, Dr. Angel - no indication for further antibiotics - Was evaluated by General surgery on 12/02; no evidence of cholecystitis - Bcx were negative JENN on CKD - Cr baseline of 1.3-1.6 - Nephrology on consultation; appreciate their input w/ PRN diuresis Intertrigo - c/w topical nystatin therapy Hypothyroidism - c/w Levothyroxine Anemia - Hg stable despite vaginal bleeding DVT prophylaxis - continue eliquis 5mg BID Disposition: - Will need rehab VS,Fishbone, I+O VS, Fishbone, I+O Laboratory Tests 12/22/20 05:15 Vital Signs Date Time Temp Pulse Resp B/P (MAP) Pulse Ox O2 Delivery O2 Flow Rate FiO2 12/22/20 09:33 85 115/66 12/22/20 06:24 97.2 20 97 Room Air 12/19/20 14:55 12.0 I&O- Last 24 Hours up to 6 AM 12/22/20 06:00 Intake Total 900 ml Output Total 575 ml Balance 325 ml RADHA LÓPEZ MD Dec 22, 2020 14:37
[2020-12-22 21:00] VITALS: BP 111/52
[2020-12-23] MEDS: LEVOTHYROXINE 112MCG TABLET (0.112MG) PO SCH (05:31)
[2020-12-23] MEDS: APIXABAN 5 MG TAB (ELIQUIS) PO SCH ×2 (08:15→20:56)
[2020-12-23] MEDS: LACTOBACILLUS ACIDOPHILUS CAP (BACID) PO SCH ×2 (08:15→17:06)
[2020-12-23] MEDS: ASCORBIC ACID 250 MG TAB PO SCH (08:15)
[2020-12-23] MEDS: NYSTATIN 100,000 UNITS/GM TOPICAL PWD 15 GM TOP SCH (08:16)
[2020-12-23] MEDS: allopurinoL 300 MG TAB PO SCH (08:16)
[2020-12-23] MEDS: TIMOLOL MALEATE 0.5% OPHTH SOLN 5 ML OU SCH ×2 (08:16→20:57)
[2020-12-23] MEDS: MAGNESIUM OXIDE 400MG TAB (MAG-OX) PO SCH (08:16)
[2020-12-23] MEDS: amLODIPine 5 MG TAB PO SCH (08:19)
[2020-12-23] MEDS: METOPROLOL SUCC (TopROL XL) 50MG **XL** TAB PO SCH (08:20)
[2020-12-23] MEDS ORDERED: BISACODYL 10 MG SUPP PR PRN (09:00)
[2020-12-23] MEDS: MOM 30ML SUSPENSION UDC PO SCH ×2 (09:48→20:56)
[2020-12-23] MEDS: SENOKOT S TAB PO SCH ×2 (09:48→20:56)
--- NOTE | 2020-12-23 12:10 | IPN ---
PROGRESS NOTE DATE: 12/23/2020 SUBJECTIVE: Mrs. Correa is seen this morning on her bedside. She is feeling about the same. She is waiting for subacute rehab. She denies any nausea, vomiting, dyspnea or chest pain. OBJECTIVE: VITAL SIGNS: Temperature is 97.8 degrees Fahrenheit, heart rate is 80 per minute and respiratory rate is 18 per minute. Blood pressure is 110/53 mmHg and oxygen saturation 95% on room air. HEENT: Head is atraumatic. NECK: Supple without JVD or thyroid enlargement. CHEST: She has a new pacemaker on her left shoulder area and her incision is slightly which is now covered with a dressing. HEART: Heart sounds are irregular in rhythm. LUNGS: Clear to auscultation. ABDOMEN: Obese, nontender and bowel sounds are normal. EXTREMITIES: Without any cyanosis or clubbing. She has minimal edema on her right leg only. LABORATORY DATA: Her labs done yesterday showed a WBC count of 6.9, hemoglobin 10.4 and hematocrit 32.4. Sodium 142, potassium 4.1, CO2 28, BUN 30 and creatinine 1.85. PROBLEMS: 1. Acute kidney injury superimposed on chronic kidney disease, kidney function is mostly stable with slight fluctuations in her BUN and creatinine but overall it has been stable. Electrolytes are within normal range. 2. Congestive heart failure, volume status is very well compensated with minimal lower extremity edema and she is only on 10 mg of torsemide every 48 hours. 3. Anemia, her anemia is stable and does not need any urgent intervention. 4. Hyperparathyroidism. Patient has been on Calcitriol 0.25 mcg on Tuesday, Tuesday and Tuesday which should continue and this can be followed up as an outpatient. 5. Gout, her uric acid level has been appropriate and she is on Allopurinol 300 mg daily. 6. Hypertension, blood pressure has been well-controlled on current antihypertensive medications.
--- NOTE | 2020-12-23 12:15 | IPNPDOC ---
Text Note Date of Service The patient was seen on 12/23/20. NOTE Subjective: Patient is a 70-year-old female with a PMHx of HTN, Hypothyroidism, Gout, Obesity, who presented to the emergency room on 11/25 with complaint of weakness and fatigue. Patient also complains of right-sided abdominal pain. Patient reported that she had fallen out of bed. Upon arrival to emergency room, patient was found to have atrial fibrillation with RVR. Patient had an echocardiogram completed which had revealed possible evidence of vegetation and patient was started on empiric antibiotics. Infectious disease was called on consultation; had deemed that the patient does not have endocarditis is cleared to proceed with pacemaker placement on 12/02. Patient was seen and examined at the bedside. Patient reports that she feels relatively fine. She denies any chest pain, shortness breath, palpitations, nausea, vomiting, abdominal pain or diarrhea. Patient does report some discharge from her vagina. Objective: Vitals (See below) General: Patient is lying in bed and appears to be operable without any acute distress. She is awake, alert. She is oriented to person, place and time HEENT: Atraumatic and normocephalic CVS: +S1S2 Lungs: There appears to be fair air entry bilaterally without any evidence of crackles, wheezing or rhonchi Abdomen: Soft, nondistended and nontender Extremities: Lower extremities are without any edema Imaging: CXR 11/25: Cardiomegaly. Otherwise no acute disease. Abdomen US 11/25: 1. Evidence of fatty infiltration of the liver. 2. Cholelithiasis with gallbladder wall thickening and positive sonographic Merida sign. Correlate clinically to assess for cholecystitis. 3. Possible left renal mass as described above. Pre and postcontrast enhanced renal CT is recommended. 4. There is a small amount of ascites. 5. There is splenomegaly. CT abdomen / pelvis 11/29: Small bilateral pleural effusions and dependent atelectatic changes. No gross renal mass, however, evaluation is limited without IV contrast. No free air or obstruction. Moderate abdominal and pelvic ascites, located primarily to the right of midline. Fluoro guided Pacemaker placement 12/02: Satisfactory single lead pacemaker placement. CXR 12/02: 1. Appropriate placement of right ventricular pacing device without evidence of pneumothorax or other complication. 2. Residual pleural effusions and cardiac enlargement as seen on the recent CT, but with no active pulmonary edema CXR 12/03: Suspect small area of atelectasis or infiltrate posteriorly and inferiorly, as seen on the lateral view, not visualized on the frontal view. Left single lead pacemaker. Assessment and plan: PM incision site wound dehiscence - Currently does not appear to be any signs of infection - Gen. surgery has been called in consultation for evaluation - Will continue with wet-to-dry dressing as per surgery - Will have outpatient follow-up with general surgery and cardiology on discharge Vaginal bleeding - Patient has had an endometrial biopsy completed which was unrevealing - s/p dilation and curettage on 12/[address] Shanice Orr - Gynecology is following; Dr. Orr Pseudomonas UTI - Urine culture 12/11: Pseudomonas aeruginosa - s/p Antibiotics; Levofloxacin Chronic A. fib - Patient is currently asymptomatic - s/p PM placement on 12/02 - c/w Metoprolol succinate - c/w full anticoagulation with Eliquis Asystole/Sick Sinus Syndrome/Tachy Oniel syndrome - Presented with advanced AV block, > 7 sec period of asystole - s/p Pacemaker implantation on 12/02/[address] Gamble Systemic Hypertension - BP well controlled - c/w Amlodipine / Metoprolol s/p Leukocytosis - ROS negative - Remains hemodynamically stable and afebrile - Initial echocardiogram completed suggested small sessile vegetation; of her clinically patient did not exhibit any signs of endocarditis - Findings were initially discussed with Dr. Gamble, and infectious disease, Dr. Angel - no indication for further antibiotics - Was evaluated by General surgery on 12/02; no evidence of cholecystitis - ID on consultation; appreciate their input JENN on CKD - Cr baseline of 1.3-1.6 - Cr has been trending toward baseline - Nephrology on consultation; appreciate their input Intertrigo - c/w topical nystatin therapy Hypothyroidism - c/w Levothyroxine Anemia - Hg stable - No transfusions required DVT prophylaxis - c/w full anticoagulation with Eliquis Disposition: - c/w ALC status; Will need rehab VS,Fishbone, I+O VS, Fishbone, I+O Vital Signs Date Time Temp Pulse Resp B/P (MAP) Pulse Ox O2 Delivery O2 Flow Rate FiO2 12/23/20 08:19 80 110/53 12/22/20 21:00 97.8 18 95 Room Air 12/19/20 14:55 12.0 I&O- Last 24 Hours up to 6 AM 12/23/20 05:59 Intake Total 780 ml Output Total 450 ml Balance 330 ml KARLY COLE MD Dec 23, 2020 12:15
[2020-12-24] MEDS: LEVOTHYROXINE 112MCG TABLET (0.112MG) PO SCH (05:37)
[2020-12-24 06:00] VITALS: BP 108/54
[2020-12-24] MEDS: SENOKOT S TAB PO SCH ×2 (09:00→20:52)
[2020-12-24] MEDS: MOM 30ML SUSPENSION UDC PO SCH ×2 (09:00→20:52)
[2020-12-24] MEDS: LACTOBACILLUS ACIDOPHILUS CAP (BACID) PO SCH ×2 (09:15→17:06)
[2020-12-24] MEDS: allopurinoL 300 MG TAB PO SCH (09:15)
[2020-12-24] MEDS: METOPROLOL SUCC (TopROL XL) 50MG **XL** TAB PO SCH (09:15)
[2020-12-24] MEDS: ASCORBIC ACID 250 MG TAB PO SCH (09:15)
[2020-12-24] MEDS: APIXABAN 5 MG TAB (ELIQUIS) PO SCH ×2 (09:16→20:52)
[2020-12-24] MEDS: amLODIPine 5 MG TAB PO SCH (09:16)
[2020-12-24] MEDS: MAGNESIUM OXIDE 400MG TAB (MAG-OX) PO SCH (09:16)
[2020-12-24] MEDS: NYSTATIN 100,000 UNITS/GM TOPICAL PWD 15 GM TOP SCH (09:19)
[2020-12-24] MEDS: TIMOLOL MALEATE 0.5% OPHTH SOLN 5 ML OU SCH ×2 (09:19→20:52)
[2020-12-24] MEDS: CALCITRIOL 0.25 MCG CAP (S0169) PO SCH (09:23)
[2020-12-24] MEDS: TORSEMIDE 10 MG TABLET PO SCH (09:23)
--- NOTE | 2020-12-24 11:23 | IPNPDOC ---
Text Note Date of Service The patient was seen on 12/24/20. NOTE Subjective: Patient is a 70-year-old female with a PMHx of HTN, Hypothyroidism, Gout, Obesity, who presented to the emergency room on 11/25 with complaint of weakness and fatigue. Patient also complains of right-sided abdominal pain. Patient reported that she had fallen out of bed. Upon arrival to emergency room, patient was found to have atrial fibrillation with RVR. Patient had an echocardiogram completed which had revealed possible evidence of vegetation and patient was started on empiric antibiotics. Infectious disease was called on consultation; had deemed that the patient does not have endocarditis is cleared to proceed with pacemaker placement on 12/02. Patient was seen and examined at the bedside with her present. Patient denies any chest pain, shortness breath, palpitations, nausea, vomiting, abdominal pain or diarrhea. Has been up working with physical therapy. Objective: Vitals (See below) General: Patient is lying in bed, appears to be comfortable, not in acute distress, is awake and alert, oriented to person/place/time HEENT: NC, AT CVS: +S1S2 Lungs: Appears to have fair air entry b/l, no wheezing / crackles / rhonchi Abdomen: Abdomen remains soft, ND, NT Extremities: Lower tremors reveal trace to 1+ pitting edema Imaging: CXR 11/25: Cardiomegaly. Otherwise no acute disease. Abdomen US 11/25: 1. Evidence of fatty infiltration of the liver. 2. Cholelithiasis with gallbladder wall thickening and positive sonographic Merida sign. Correlate clinically to assess for cholecystitis. 3. Possible left renal mass as described above. Pre and postcontrast enhanced renal CT is recommended. 4. There is a small amount of ascites. 5. There is splenomegaly. CT abdomen / pelvis 11/29: Small bilateral pleural effusions and dependent atelectatic changes. No gross renal mass, however, evaluation is limited without IV contrast. No free air or obstruction. Moderate abdominal and pelvic ascites, located primarily to the right of midline. Fluoro guided Pacemaker placement 12/02: Satisfactory single lead pacemaker placement. CXR 12/02: 1. Appropriate placement of right ventricular pacing device without evidence of pneumothorax or other complication. 2. Residual pleural effusions and cardiac enlargement as seen on the recent CT, but with no active pulmonary edema CXR 12/03: Suspect small area of atelectasis or infiltrate posteriorly and inferiorly, as seen on the lateral view, not visualized on the frontal view. Left single lead pacemaker. Assessment and plan: PM incision site wound dehiscence - No signs of infection - Will continue vashe and hydroferra blue as per Dr. Morse - Will have outpatient follow-up with general surgery and cardiology on discharge - General surgery has been called in consultation for evaluation; appreciate their recommendations - Consulted advanced wound care with Dr. Morse; will be evaluated today Vaginal bleeding - Patient has had an endometrial biopsy completed which was unrevealing - s/p dilation and curettage on 12/[address] Shanice Orr - Pathology 12/22/20: Negative for hyperplasia / malignancy - Gynecology is following; Dr. Orr Pseudomonas UTI - Urine culture 12/11: Pseudomonas aeruginosa - s/p Antibiotics; Levofloxacin Chronic A. fib - Patient is currently asymptomatic - s/p PM placement on 12/02 - c/w Metoprolol succinate - c/w full anticoagulation with Eliquis Asystole/Sick Sinus Syndrome/Tachy Oniel syndrome - Presented with advanced AV block, > 7 sec period of asystole - s/p Pacemaker implantation on 12/02/[address] Gamble Systemic Hypertension - BP well controlled - c/w Amlodipine / Metoprolol s/p Leukocytosis - ROS negative - Remains hemodynamically stable and afebrile - Initial echocardiogram completed suggested small sessile vegetation; of her clinically patient did not exhibit any signs of endocarditis - Findings were initially discussed with Dr. Gamble, and infectious disease, Dr. Angel - no indication for further antibiotics - Was evaluated by General surgery on 12/02; no evidence of cholecystitis - ID on consultation; appreciate their input JENN on CKD - Cr baseline of 1.3-1.6 - Nephrology on consultation; appreciate their input - c/w Torsemide q48 hours Intertrigo - c/w topical nystatin therapy Hypothyroidism - c/w Levothyroxine Anemia - Hg stable - No transfusions required DVT prophylaxis - c/w full anticoagulation with Eliquis Disposition: - Awaiting wound care evaluation - Will need rehab moving forward VS,Fishbone, I+O VS, Fishbone, I+O Vital Signs Date Time Temp Pulse Resp B/P (MAP) Pulse Ox O2 Delivery O2 Flow Rate FiO2 12/24/20 09:16 108/54 12/24/20 09:15 92 12/24/20 06:00 98.4 18 97 Room Air 12/19/20 14:55 12.0 I&O- Last 24 Hours up to 6 AM 12/24/20 06:00 Intake Total 730 ml Output Total 800 ml Balance -70 ml KARLY COLE MD Dec 24, 2020 11:23
[2020-12-24 11:59] LABS: BASO # 0.1 10^3/uL (0.0-0.2); BASO % 0.9 % (0.0-1.0); EOS # 0.1 10^3/uL (0.0-0.5); EOS % 1.5 % (0.0-3.0); HEMATOCRIT 38.2 % (36.0-47.0); HEMOGLOBIN 12.1 g/dl (12.0-15.5); LYMPH # 2.1 10^3/uL (1.5-5.0); LYMPH % 24.3 % (24.0-44.0); MEAN CORPUSCULAR HEMOGLOBIN 32.2 pg (27.0-33.0); MEAN CORPUSCULAR HGB CONC 31.7 g/dl (32.0-36.5); MEAN CORPUSCULAR VOLUME 101.6 fl (80.0-96.0); MONO # 0.7 10^3/uL (0.0-0.8); MONO % 7.6 % (2.0-8.0); NEUTROPHILS # 5.4 10^3/uL (1.5-8.5); NEUTROPHILS % 63.1 % (36.0-66.0); PLATELET COUNT, AUTOMATED 218 10^3/uL (150-450); RED BLOOD COUNT 3.76 10^6/uL (4.00-5.40); WHITE BLOOD COUNT 8.5 10^3/uL (4.0-10.0)
[2020-12-24 13:08] LABS: CREATININE FOR GFR 1.86 MG/DL (0.55-1.30); GLOMERULAR FILTRATION RATE 28.4 (>39); MAGNESIUM LEVEL 2.4 MG/DL (1.8-2.4); POTASSIUM SERUM 4.2 MEQ/L (3.5-5.1)
[2020-12-25] MEDS: LEVOTHYROXINE 112MCG TABLET (0.112MG) PO SCH (05:23)
[2020-12-25 06:00] VITALS: BP 92/55
[2020-12-25 06:02] LABS: BASO % 0.4 % (0.0-1.0); EOS # 0.1 10^3/uL (0.0-0.5); EOS % 1.8 % (0.0-3.0); HEMATOCRIT 30.8 % (36.0-47.0); LYMPH # 2.3 10^3/uL (1.5-5.0); LYMPH % 33.6 % (24.0-44.0); MEAN CORPUSCULAR HGB CONC 31.8 g/dl (32.0-36.5); MEAN CORPUSCULAR VOLUME 100.7 fl (80.0-96.0); MONO # 0.7 10^3/uL (0.0-0.8); MONO % 9.8 % (2.0-8.0); NEUTROPHILS # 3.6 10^3/uL (1.5-8.5); NEUTROPHILS % 52.1 % (36.0-66.0); PLATELET COUNT, AUTOMATED 130 10^3/uL (150-450); RED BLOOD COUNT 3.06 10^6/uL (4.00-5.40); WHITE BLOOD COUNT 6.9 10^3/uL (4.0-10.0)
--- NOTE | 2020-12-25 06:02 | IPNPDOC ---
Text Note Date of Service Significant event NOTE Notified patient with small amount of vaginal bleeding yesterday and tonight that is described as moderate with few clots. A.m. blood pressure soft 92/55 heart rate 80 patient does endorse some lightheadedness. RN to obtain manual BP; Patient ALC status but may require gentle hydration for interim. Will obtain stat H&H with other a.m. labs. Her hemoglobin robust and reassuring at 12 yes terday morning. Base Remover has been following along since pt had D&C on 12/19. WCTM and adjust careplan accordingly. VS,Fishbone, I+O VS, Fishbone, I+O Laboratory Tests 12/24/20 11:07 Vital Signs Date Time Temp Pulse Resp B/P (MAP) Pulse Ox O2 Delivery O2 Flow Rate FiO2 12/24/20 09:16 108/54 12/24/20 09:15 92 12/24/20 06:00 98.4 18 97 Room Air 12/19/20 14:55 12.0 I&O- Last 24 Hours up to 6 AM 12/25/20 06:00 Intake Total 1740 ml Output Total 550 ml Balance 1190 ml WALTER MENESES NP Dec 25, 2020 06:02
[2020-12-25] MEDS ORDERED: NS 500 ML IV ONE (06:05)
[2020-12-25 06:13] LABS: HEMOGLOBIN 9.8 g/dl (12.0-15.5)
[2020-12-25 06:27] LABS: CALCIUM LEVEL 7.7 MG/DL (8.8-10.2); CREATININE FOR GFR 1.88 MG/DL (0.55-1.30); GLOMERULAR FILTRATION RATE 28.1 (>39); MAGNESIUM LEVEL 2.1 MG/DL (1.8-2.4); POTASSIUM SERUM 4.4 MEQ/L (3.5-5.1)
[2020-12-25 08:00] VITALS: BP 90/60
[2020-12-25] MEDS: APIXABAN 5 MG TAB (ELIQUIS) PO SCH (08:39)
[2020-12-25] MEDS: METOPROLOL SUCC (TopROL XL) 50MG **XL** TAB PO SCH (08:42)
[2020-12-25] MEDS: amLODIPine 5 MG TAB PO SCH (08:42)
[2020-12-25] MEDS: SENOKOT S TAB PO SCH ×2 (08:47→20:14)
[2020-12-25] MEDS: MOM 30ML SUSPENSION UDC PO SCH ×2 (08:47→20:15)
[2020-12-25] MEDS: ASCORBIC ACID 250 MG TAB PO SCH (09:13)
[2020-12-25] MEDS: LACTOBACILLUS ACIDOPHILUS CAP (BACID) PO SCH ×2 (09:13→17:11)
[2020-12-25] MEDS: MAGNESIUM OXIDE 400MG TAB (MAG-OX) PO SCH (09:14)
[2020-12-25] MEDS: NYSTATIN 100,000 UNITS/GM TOPICAL PWD 15 GM TOP SCH (09:14)
[2020-12-25] MEDS: allopurinoL 300 MG TAB PO SCH ×2 (09:14→09:25)
[2020-12-25] MEDS: TIMOLOL MALEATE 0.5% OPHTH SOLN 5 ML OU SCH ×2 (09:15→20:15)
--- NOTE | 2020-12-25 10:50 | IPNPDOC ---
Text Note Date of Service The patient was seen on 12/25/20. NOTE Interval update: - This morning I was informed by Valeria Cortez, WILLIAM about vaginal bleeding / clots that happened overnight - I have come to the bedside to evaluate patient - Patient's blood pressure appears to be at the borderline limits of normal - Hemoglobin was reported by nursing staff to had a significant decline; however review indicates that Hg has been at ~10 over the last 1 week (however a single measurement of 12 occurred yesterday) - Regardless, we will trend H&H / Type and Screen / Patient has been consented for blood - Eliquis will be held - Called and discussed case directly with Dr. Orr ([employer] TECHNOLOGIST); advised that this bleeding may be a normal finding after a D&C; recommended starting Medroxyprogesterone for 7-14 days - Updated patient's ; Otis Martinsbelle at the bedside this morning VS,Fishbone, I+O VS, Fishbone, I+O Laboratory Tests 12/24/20 11:07 12/25/20 05:22 Vital Signs Date Time Temp Pulse Resp B/P (MAP) Pulse Ox O2 Delivery O2 Flow Rate FiO2 12/25/20 08:00 97.7 94 16 90/60 (70) 97 Room Air 12/19/20 14:55 12.0 I&O- Last 24 Hours up to 6 AM 12/25/20 05:59 Intake Total 1865 ml Output Total 1100 ml Balance 765 ml KARLY COLE MD Dec 25, 2020 10:50
[2020-12-25 10:57] VITALS: BP 104/66
[2020-12-25] MEDS: medroxyPROGESTERone 5MG TABLET PO SCH (11:20)
[2020-12-25 13:14] LABS: HEMATOCRIT 31.7 % (36.0-47.0); HEMOGLOBIN 10.5 g/dl (12.0-15.5)
--- NOTE | 2020-12-25 13:52 | CR ---
ADVANCED WOUND CARE CONSULTATION VIA TELEMEDICINE DATE: 12/25/2020 REQUESTING PHYSICIAN: Dr. Lopez. REASON FOR CONSULTATION: Left chest wall wound dehiscence status post insertion of permanent pacemaker. Wound Care telemedicine provides a visual assessment of a wound without the benefit of physical examination. It can assist with establishing a diagnosis and etiology. This allows for initial treatment plan. As wounds often change, it may be necessary to modify the original care. Our recommendation is periodic wound reassessment to monitor treatment. Failure to comply may result in nonhealing of the wound, possible complications and/or a poor outcome. The recommendations given will serve as treatment options. As I will not be following this patient, this care plan will require the attending physician to give and sign the orders. Upon discharge, outpatient follow-up can be scheduled at our [facility]. HISTORY OF PRESENT ILLNESS: A 70-year-old female who appears much older than her stated age status post insertion of permanent pacemaker via a left chest wall approach, pacemaker inserted on December 03, 2020. Postoperatively, after suture removal, patient developed a wound dehiscence. Prior treatment was wet to dry dressings. PHYSICAL EXAMINATION: There is a partial wound dehiscence measuring 3.0 cm horizontally with a vertical width of 0.5 cm and a wound depth of 0.2 cm. The wound base shows superficial fat tissue necrosis without exposure of the underlying pacemaker. There is minimal serous drainage and the jessica-wound shows no erythema, maceration or ischemic change. TREATMENT RECOMMENDATIONS: Discontinue wet to dry dressing. Clean wound with Vashe Wound Cleanser for 10 minutes. This should be followed by a Hydrofera Blue Ready Foam dressing. This does not require a second overlying dressing. Skin prep should be used for the jessica-wound and the dressing should be changed on an every other day basis, at that time wound cleanser can be utilized. No indication for antibiotic therapy at this time. Case was discussed in detail with Dr. Lopez via telephone. GODFREY
[2020-12-25 19:14] LABS: HEMATOCRIT 31.1 % (36.0-47.0); HEMOGLOBIN 9.8 g/dl (12.0-15.5)
[2020-12-26 00:36] LABS: HEMATOCRIT 34.3 % (36.0-47.0); HEMOGLOBIN 10.9 g/dl (12.0-15.5)
[2020-12-26] MEDS: LEVOTHYROXINE 112MCG TABLET (0.112MG) PO SCH (05:12)
[2020-12-26 05:50] LABS: BASO % 0.4 % (0.0-1.0); EOS # 0.1 10^3/uL (0.0-0.5); EOS % 1.2 % (0.0-3.0); HEMATOCRIT 29.2 % (36.0-47.0); HEMOGLOBIN 9.5 g/dl (12.0-15.5); LYMPH # 1.7 10^3/uL (1.5-5.0); LYMPH % 22.9 % (24.0-44.0); MEAN CORPUSCULAR HEMOGLOBIN 32.4 pg (27.0-33.0); MEAN CORPUSCULAR HGB CONC 32.5 g/dl (32.0-36.5); MEAN CORPUSCULAR VOLUME 99.7 fl (80.0-96.0); MONO # 0.8 10^3/uL (0.0-0.8); MONO % 10.6 % (2.0-8.0); NEUTROPHILS # 4.6 10^3/uL (1.5-8.5); NEUTROPHILS % 63.5 % (36.0-66.0); PLATELET COUNT, AUTOMATED 127 10^3/uL (150-450); RED BLOOD COUNT 2.93 10^6/uL (4.00-5.40); WHITE BLOOD COUNT 7.3 10^3/uL (4.0-10.0)
[2020-12-26 06:00] VITALS: BP 118/65
[2020-12-26 06:13] LABS: CALCIUM LEVEL 7.5 MG/DL (8.8-10.2); CREATININE FOR GFR 1.68 MG/DL (0.55-1.30); MAGNESIUM LEVEL 1.9 MG/DL (1.8-2.4)
[2020-12-26] MEDS: ACETAMINOPHEN TAB 650MG DOSE (2X325MG) PO PRN (06:39)
[2020-12-26] MEDS: ASCORBIC ACID 250 MG TAB PO SCH (08:40)
[2020-12-26] MEDS: SENOKOT S TAB PO SCH ×2 (08:40→21:14)
[2020-12-26] MEDS: medroxyPROGESTERone 5MG TABLET PO SCH (08:40)
[2020-12-26] MEDS: TIMOLOL MALEATE 0.5% OPHTH SOLN 5 ML OU SCH ×2 (08:40→21:14)
[2020-12-26] MEDS: NYSTATIN 100,000 UNITS/GM TOPICAL PWD 15 GM TOP SCH (08:40)
[2020-12-26] MEDS: allopurinoL 300 MG TAB PO SCH (08:41)
[2020-12-26] MEDS: MAGNESIUM OXIDE 400MG TAB (MAG-OX) PO SCH (08:41)
[2020-12-26] MEDS: amLODIPine 5 MG TAB PO SCH (08:41)
[2020-12-26] MEDS: METOPROLOL SUCC (TopROL XL) 50MG **XL** TAB PO SCH (08:41)
[2020-12-26] MEDS: MOM 30ML SUSPENSION UDC PO SCH ×2 (08:42→21:13)
[2020-12-26] MEDS: TORSEMIDE 10 MG TABLET PO SCH (08:42)
[2020-12-26] MEDS: LACTOBACILLUS ACIDOPHILUS CAP (BACID) PO SCH ×2 (08:42→17:30)
[2020-12-26] MEDS: CALCITRIOL 0.25 MCG CAP (S0169) PO SCH (08:44)
[2020-12-26] MEDS ORDERED: METOPROLOL SUCC (TopROL XL) 50MG **XL** TAB PO ONE (11:45)
[2020-12-27] MEDS: LEVOTHYROXINE 112MCG TABLET (0.112MG) PO SCH (05:43)
[2020-12-27 06:00] VITALS: BP 108/57
[2020-12-27 08:11] LABS: BASO % 0.4 % (0.0-1.0); EOS # 0.1 10^3/uL (0.0-0.5); EOS % 1.6 % (0.0-3.0); HEMATOCRIT 29.3 % (36.0-47.0); HEMOGLOBIN 9.4 g/dl (12.0-15.5); LYMPH # 2.1 10^3/uL (1.5-5.0); LYMPH % 28.3 % (24.0-44.0); MEAN CORPUSCULAR HEMOGLOBIN 32.3 pg (27.0-33.0); MEAN CORPUSCULAR HGB CONC 32.1 g/dl (32.0-36.5); MEAN CORPUSCULAR VOLUME 100.7 fl (80.0-96.0); MONO # 0.6 10^3/uL (0.0-0.8); MONO % 8.8 % (2.0-8.0); NEUTROPHILS # 4.3 10^3/uL (1.5-8.5); NEUTROPHILS % 59.4 % (36.0-66.0); PLATELET COUNT, AUTOMATED 120 10^3/uL (150-450); RED BLOOD COUNT 2.91 10^6/uL (4.00-5.40); WHITE BLOOD COUNT 7.3 10^3/uL (4.0-10.0)
[2020-12-27 08:35] LABS: CALCIUM LEVEL 7.7 MG/DL (8.8-10.2); CREATININE FOR GFR 1.69 MG/DL (0.55-1.30); GLOMERULAR FILTRATION RATE 31.8 (>39); MAGNESIUM LEVEL 2.1 MG/DL (1.8-2.4); POTASSIUM SERUM 3.7 MEQ/L (3.5-5.1)
[2020-12-27] MEDS: SENOKOT S TAB PO SCH ×2 (09:00→20:42)
[2020-12-27] MEDS: MOM 30ML SUSPENSION UDC PO SCH ×2 (09:00→20:42)
[2020-12-27] MEDS: ASCORBIC ACID 250 MG TAB PO SCH (10:11)
[2020-12-27] MEDS: allopurinoL 300 MG TAB PO SCH (10:11)
[2020-12-27] MEDS: MAGNESIUM OXIDE 400MG TAB (MAG-OX) PO SCH (10:11)
[2020-12-27] MEDS: METOPROLOL SUCC (TopROL XL) 50MG **XL** TAB PO SCH (10:12)
[2020-12-27] MEDS: medroxyPROGESTERone 5MG TABLET PO SCH (10:13)
[2020-12-27] MEDS: LACTOBACILLUS ACIDOPHILUS CAP (BACID) PO SCH ×2 (10:16→17:12)
[2020-12-27] MEDS: TIMOLOL MALEATE 0.5% OPHTH SOLN 5 ML OU SCH ×2 (10:17→20:43)
[2020-12-27] MEDS: NYSTATIN 100,000 UNITS/GM TOPICAL PWD 15 GM TOP SCH (10:17)
[2020-12-27] MEDS: ACETAMINOPHEN TAB 650MG DOSE (2X325MG) PO PRN (17:12)
[2020-12-28 06:00] VITALS: BP 107/59
[2020-12-28] MEDS: LEVOTHYROXINE 112MCG TABLET (0.112MG) PO SCH (06:16)
[2020-12-28 06:39] LABS: BASO % 0.4 % (0.0-1.0); EOS # 0.1 10^3/uL (0.0-0.5); EOS % 1.3 % (0.0-3.0); HEMATOCRIT 27.1 % (36.0-47.0); HEMOGLOBIN 8.7 g/dl (12.0-15.5); LYMPH # 1.9 10^3/uL (1.5-5.0); LYMPH % 25.2 % (24.0-44.0); MEAN CORPUSCULAR HEMOGLOBIN 32.2 pg (27.0-33.0); MEAN CORPUSCULAR HGB CONC 32.1 g/dl (32.0-36.5); MEAN CORPUSCULAR VOLUME 100.4 fl (80.0-96.0); MONO # 0.9 10^3/uL (0.0-0.8); MONO % 12.3 % (2.0-8.0); NEUTROPHILS # 4.4 10^3/uL (1.5-8.5); NEUTROPHILS % 59.7 % (36.0-66.0); PLATELET COUNT, AUTOMATED 111 10^3/uL (150-450); WHITE BLOOD COUNT 7.4 10^3/uL (4.0-10.0)
[2020-12-28 06:56] LABS: CALCIUM LEVEL 7.5 MG/DL (8.8-10.2); CREATININE FOR GFR 1.64 MG/DL (0.55-1.30); GLOMERULAR FILTRATION RATE 32.9 (>39); POTASSIUM SERUM 3.9 MEQ/L (3.5-5.1)
[2020-12-28] MEDS: LACTOBACILLUS ACIDOPHILUS CAP (BACID) PO SCH ×2 (08:00→18:00)
[2020-12-28] MEDS: SENOKOT S TAB PO SCH ×2 (09:00→20:43)
[2020-12-28] MEDS: METOPROLOL SUCC (TopROL XL) 50MG **XL** TAB PO SCH (09:00)
[2020-12-28] MEDS: MOM 30ML SUSPENSION UDC PO SCH ×2 (09:00→20:43)
[2020-12-28] MEDS: TORSEMIDE 10 MG TABLET PO SCH (09:00)
[2020-12-28] MEDS: TIMOLOL MALEATE 0.5% OPHTH SOLN 5 ML OU SCH ×2 (10:39→20:42)
[2020-12-28] MEDS: VITAMIN D 50,000 UNITS CAPSULE (ERGOCALCIFEROL 1.25MG) PO SCH (10:40)
[2020-12-28] MEDS: MAGNESIUM OXIDE 400MG TAB (MAG-OX) PO SCH (10:41)
[2020-12-28] MEDS: allopurinoL 300 MG TAB PO SCH (10:41)
[2020-12-28] MEDS: ACETAMINOPHEN TAB 650MG DOSE (2X325MG) PO PRN (10:41)
[2020-12-28] MEDS: medroxyPROGESTERone 5MG TABLET PO SCH (10:41)
[2020-12-28] MEDS: ASCORBIC ACID 250 MG TAB PO SCH (10:41)
[2020-12-28] MEDS: NYSTATIN 100,000 UNITS/GM TOPICAL PWD 15 GM TOP SCH (11:02)
[2020-12-29] MEDS: LEVOTHYROXINE 112MCG TABLET (0.112MG) PO SCH (05:33)
[2020-12-29 06:00] VITALS: BP 129/68
[2020-12-29 06:27] LABS: BASO % 0.4 % (0.0-1.0); EOS # 0.1 10^3/uL (0.0-0.5); EOS % 1.3 % (0.0-3.0); HEMATOCRIT 27.5 % (36.0-47.0); HEMOGLOBIN 8.9 g/dl (12.0-15.5); LYMPH # 1.9 10^3/uL (1.5-5.0); MEAN CORPUSCULAR HEMOGLOBIN 32.7 pg (27.0-33.0); MEAN CORPUSCULAR HGB CONC 32.4 g/dl (32.0-36.5); MEAN CORPUSCULAR VOLUME 101.1 fl (80.0-96.0); MONO # 0.7 10^3/uL (0.0-0.8); MONO % 10.6 % (2.0-8.0); NEUTROPHILS # 4.2 10^3/uL (1.5-8.5); NEUTROPHILS % 59.6 % (36.0-66.0); PLATELET COUNT, AUTOMATED 117 10^3/uL (150-450); RED BLOOD COUNT 2.72 10^6/uL (4.00-5.40)
[2020-12-29 06:47] LABS: CALCIUM LEVEL 7.1 MG/DL (8.8-10.2); CREATININE FOR GFR 1.53 MG/DL (0.55-1.30); GLOMERULAR FILTRATION RATE 35.6 (>39); MAGNESIUM LEVEL 1.9 MG/DL (1.8-2.4); POTASSIUM SERUM 3.8 MEQ/L (3.5-5.1)
[2020-12-29] MEDS: MOM 30ML SUSPENSION UDC PO SCH ×3 (09:00→20:26)
[2020-12-29] MEDS: SENOKOT S TAB PO SCH ×3 (09:37→20:25)
[2020-12-29] MEDS: allopurinoL 300 MG TAB PO SCH (09:37)
[2020-12-29] MEDS: medroxyPROGESTERone 5MG TABLET PO SCH (09:37)
[2020-12-29] MEDS: LACTOBACILLUS ACIDOPHILUS CAP (BACID) PO SCH ×2 (09:37→17:05)
[2020-12-29] MEDS: ASCORBIC ACID 250 MG TAB PO SCH (09:37)
[2020-12-29] MEDS: MAGNESIUM OXIDE 400MG TAB (MAG-OX) PO SCH (09:37)
[2020-12-29] MEDS: NYSTATIN 100,000 UNITS/GM TOPICAL PWD 15 GM TOP SCH (09:38)
[2020-12-29] MEDS: METOPROLOL SUCC (TopROL XL) 50MG **XL** TAB PO SCH (09:38)
[2020-12-29] MEDS: TIMOLOL MALEATE 0.5% OPHTH SOLN 5 ML OU SCH ×2 (09:38→20:23)
[2020-12-29] MEDS: CALCITRIOL 0.25 MCG CAP (S0169) PO SCH (09:39)
[2020-12-29] MEDS: ACETAMINOPHEN TAB 650MG DOSE (2X325MG) PO PRN (15:40)
[2020-12-30] MEDS: LEVOTHYROXINE 112MCG TABLET (0.112MG) PO SCH (05:40)
[2020-12-30 06:00] VITALS: BP 107/62
[2020-12-30 06:31] LABS: BASO % 0.4 % (0.0-1.0); EOS # 0.1 10^3/uL (0.0-0.5); EOS % 1.7 % (0.0-3.0); HEMATOCRIT 28.1 % (36.0-47.0); HEMOGLOBIN 8.9 g/dl (12.0-15.5); LYMPH # 1.7 10^3/uL (1.5-5.0); MEAN CORPUSCULAR HEMOGLOBIN 32.1 pg (27.0-33.0); MEAN CORPUSCULAR HGB CONC 31.7 g/dl (32.0-36.5); MEAN CORPUSCULAR VOLUME 101.4 fl (80.0-96.0); MONO # 0.8 10^3/uL (0.0-0.8); MONO % 11.1 % (2.0-8.0); NEUTROPHILS # 4.3 10^3/uL (1.5-8.5); NEUTROPHILS % 61.9 % (36.0-66.0); PLATELET COUNT, AUTOMATED 122 10^3/uL (150-450); RED BLOOD COUNT 2.77 10^6/uL (4.00-5.40); WHITE BLOOD COUNT 6.9 10^3/uL (4.0-10.0)
[2020-12-30 07:01] LABS: CALCIUM LEVEL 7.6 MG/DL (8.8-10.2); CREATININE FOR GFR 1.51 MG/DL (0.55-1.30); GLOMERULAR FILTRATION RATE 36.2 (>39); MAGNESIUM LEVEL 1.9 MG/DL (1.8-2.4)
[2020-12-30] MEDS: MOM 30ML SUSPENSION UDC PO SCH ×2 (09:00→20:44)
[2020-12-30] MEDS: TORSEMIDE 10 MG TABLET PO SCH (09:00)
[2020-12-30] MEDS: medroxyPROGESTERone 5MG TABLET PO SCH (09:16)
[2020-12-30] MEDS: METOPROLOL SUCC (TopROL XL) 50MG **XL** TAB PO SCH (09:17)
[2020-12-30] MEDS: SENOKOT S TAB PO SCH ×2 (09:17→20:44)
[2020-12-30] MEDS: ASCORBIC ACID 250 MG TAB PO SCH (09:17)
[2020-12-30] MEDS: allopurinoL 300 MG TAB PO SCH (09:17)
[2020-12-30] MEDS: APIXABAN 5 MG TAB (ELIQUIS) PO SCH ×2 (09:17→20:47)
[2020-12-30] MEDS: NYSTATIN 100,000 UNITS/GM TOPICAL PWD 15 GM TOP SCH (09:18)
[2020-12-30] MEDS: LACTOBACILLUS ACIDOPHILUS CAP (BACID) PO SCH ×2 (09:18→17:11)
[2020-12-30] MEDS: MAGNESIUM OXIDE 400MG TAB (MAG-OX) PO SCH (09:18)
[2020-12-30] MEDS: TIMOLOL MALEATE 0.5% OPHTH SOLN 5 ML OU SCH ×2 (09:18→20:47)
--- NOTE | 2020-12-30 10:09 | REP ---
INDICATION: pain COMPARISON: None. TECHNIQUE: AP, lateral, bilateral oblique views right foot. FINDINGS: Osteopenia and age-related degenerative changes are appreciated. Superimposed soft tissue swelling noted. There is no evidence for acute fracture or dislocation. No subcutaneous emphysema. Thin linear foreign body densities overlie the medial ankle/calcaneus possibly related to prior surgery. IMPRESSION: Significant soft tissue swelling. No acute fracture or dislocation. Foreign body versus surgical material as above. <Electronically signed by Raymundo Ramirez > 12/30/20 [id number]
--- NOTE | 2020-12-30 14:32 | REP ---
INDICATION: r/o DVT COMPARISON: None. TECHNIQUE: Laurent scale and color Doppler evaluation using linear high frequency transducer. FINDINGS: Ultrasound examination of the right lower extremity deep venous structures from the common femoral vein through the popliteal vein demonstrates normal compressibility flow and wave patterns in response to respiration and augmentation. There is no evidence for deep venous thrombosis. Calf veins could not be evaluated due to edema. Contralateral CFV is patent and normal. IMPRESSION: No evidence for deep venous thrombosis. <Electronically signed by Raymundo Ramirez > 12/30/20 [id number]
[2020-12-31] MEDS: LEVOTHYROXINE 112MCG TABLET (0.112MG) PO SCH (05:46)
[2020-12-31 05:54] LABS: BASO % 0.6 % (0.0-1.0); EOS # 0.2 10^3/uL (0.0-0.5); EOS % 2.5 % (0.0-3.0); HEMATOCRIT 29.1 % (36.0-47.0); HEMOGLOBIN 9.2 g/dl (12.0-15.5); LYMPH # 1.7 10^3/uL (1.5-5.0); LYMPH % 26.5 % (24.0-44.0); MEAN CORPUSCULAR HEMOGLOBIN 32.4 pg (27.0-33.0); MEAN CORPUSCULAR HGB CONC 31.6 g/dl (32.0-36.5); MEAN CORPUSCULAR VOLUME 102.5 fl (80.0-96.0); MONO # 0.7 10^3/uL (0.0-0.8); NEUTROPHILS # 3.9 10^3/uL (1.5-8.5); NEUTROPHILS % 59.3 % (36.0-66.0); PLATELET COUNT, AUTOMATED 134 10^3/uL (150-450); RED BLOOD COUNT 2.84 10^6/uL (4.00-5.40); WHITE BLOOD COUNT 6.5 10^3/uL (4.0-10.0)
[2020-12-31 06:00] VITALS: BP 102/71
[2020-12-31 06:13] LABS: CALCIUM LEVEL 6.9 MG/DL (8.8-10.2); CREATININE FOR GFR 1.59 MG/DL (0.55-1.30); GLOMERULAR FILTRATION RATE 34.1 (>39); MAGNESIUM LEVEL 1.9 MG/DL (1.8-2.4); POTASSIUM SERUM 3.8 MEQ/L (3.5-5.1); URIC ACID 5.4 MG/DL (2.6-6.0)
[2020-12-31] MEDS: allopurinoL 300 MG TAB PO SCH (08:38)
[2020-12-31] MEDS: APIXABAN 5 MG TAB (ELIQUIS) PO SCH ×2 (08:38→20:45)
[2020-12-31] MEDS: SENOKOT S TAB PO SCH ×2 (08:39→20:46)
[2020-12-31] MEDS: METOPROLOL SUCC (TopROL XL) 50MG **XL** TAB PO SCH (08:39)
[2020-12-31] MEDS: medroxyPROGESTERone 5MG TABLET PO SCH (08:39)
[2020-12-31] MEDS: MAGNESIUM OXIDE 400MG TAB (MAG-OX) PO SCH (08:39)
[2020-12-31] MEDS: ASCORBIC ACID 250 MG TAB PO SCH (08:39)
[2020-12-31] MEDS: LACTOBACILLUS ACIDOPHILUS CAP (BACID) PO SCH ×2 (08:39→18:09)
[2020-12-31] MEDS: MOM 30ML SUSPENSION UDC PO SCH ×2 (08:40→20:45)
[2020-12-31] MEDS: CALCITRIOL 0.25 MCG CAP (S0169) PO SCH (08:41)
[2020-12-31] MEDS: TIMOLOL MALEATE 0.5% OPHTH SOLN 5 ML OU SCH ×2 (08:41→20:45)
[2020-12-31] MEDS: NYSTATIN 100,000 UNITS/GM TOPICAL PWD 15 GM TOP SCH (08:41)
--- NOTE | 2020-12-31 15:28 | REP ---
INDICATION: swelling and pain of foot. COMPARISON: None. TECHNIQUE: Helical scanning using 2 x 2 mm increments through the right ankle and reconstructed in both sagittal and coronal planes FINDINGS: Seen along the medial cortical margin of the mid os calcis there is a 1.4 x 0.3 cm sized linear metallic radiodensity within the soft tissues. Degenerative changes are seen throughout the ankle. There is no evidence of an acute fracture. There is asymmetric narrowing of the mortise particularly medially there is a heel valgus deformity. The bones appear demineralized. IMPRESSION: There is a metallic radiodensity seen imbedded in the soft tissues as described above. The only history of been given is pain and swelling. If this is not a surgical implant than it represents an unwanted foreign body. Other findings and chronic changes as described above. <Electronically signed by Durga Marie > 12/31/20 [id number]
--- NOTE | 2020-12-31 15:33 | REP ---
INDICATION: swelling and pain of foot. COMPARISON: None. TECHNIQUE: Helical technique using 2 x 2 mm increments with sagittal and coronal reconstructions. The toes were not included. FINDINGS: See the ankle report made same day. There is a plantar calcaneal heel spur. There is an incidental os trigonum. Degenerative changes are seen throughout the imaged portion of the foot. There is no evidence of an acute fracture. The bones are demineralized. IMPRESSION: No evidence of an acute osseous abnormality. Findings as described above. See the ankle report made same day. <Electronically signed by Durga Marie > 12/31/20 [id number]
--- NOTE | 2020-12-31 15:48 | IPNPDOC ---
Date Seen The patient was seen on 12/31/20. Progress Note SUBJECTIVE: 70-year-old female with a PMHx of HTN, Hypothyroidism, Gout, Obesity, who presented to the emergency room on 11/25 with complaint of weakness and fatigue. Patient also complains of right-sided abdominal pain. Patient reported that she had fallen out of bed. Upon arrival to emergency room, patient was found to have atrial fibrillation with RVR. Patient had an echocardiogram completed which had revealed possible evidence of vegetation and patient was started on empiric antibiotics. Infectious disease was consulted and deemed patient not to have endocarditis; she was cleared to proceed with pacemaker placement on 12/02. Seen and examined at bedside. Concerned about vaginal bleeding, but has been unable to see amount. I spoke to RN, reports improvement in her amount of vaginal bleeding. Presently receiving medroxyprogesterone. C/o R foot swelling, but pain has slightly improved. Denies CP, palpitations, n/v/d. OBJECTIVE PHYSICAL EXAMINATION: VITAL SIGNS: please see below General: NAD, comfortable HEENT: PERRLA, EOMI, sclerae clear Neck: supple, normal ROM, no JVD Respiratory: lungs CTAB, no wheeze, no rales, no crackles CVS: RRR, normal S1, S2, no murmurs Abdo: soft, no masses, no hepatosplenomegaly, BS+, no rebound tenderness Extremities: R foot swollen, non pitting, non tender compared to L. No calf tederness. MSK: no joint deformities, normal ROM Neuro: no focal neuro deficits, moving all 4 extremities, CN2-12 intact. Strength 5/5 in all 4 extremities. No nystagmus. Psych: calm, cooperative, AAO x 3 LABORATORY DATA, IMAGING STUDIES, MICROBIOLOGY: Please see below. CT R ankle (12/31/20); There is a metallic radiodensity seen imbedded in the soft tissues as described above. The only history of been given is pain and swelling. If this is not a surgical implant than it represents an unwanted foreign body. Other findings and chronic changes as described above. CT foot wo contrast (12/31/20): There is a plantar calcaneal heel spur. There is an incidental os trigonum. Degenerative changes are seen throughout the imaged portion of the foot. There is no evidence of an acute fracture. The bones are demineralized. RLE venous duplex (12/30/20): IMPRESSION: No evidence for deep venous thrombosis. XR R foot complete (12/30/20): IMPRESSION: Significant soft tissue swelling. No acute fracture or dislocation. Foreign body versus surgical material as above. PROBLEMS: PM incision site wound dehiscence - No signs of infection - Will continue vashe and hydroferra blue as per Dr. Morse - Will have outpatient follow-up with general surgery and cardiology on discharge - General surgery has been called in consultation for evaluation; appreciate their recommendations - Consulted advanced wound care with Dr. Morse; will be evaluated today Vaginal bleeding - Patient has had an endometrial biopsy completed which was unrevealing - s/p dilation and curettage on 12/[address] Shanice Orr - Pathology 12/22/20: Negative for hyperplasia / malignancy - Gynecology is following; Dr. Orr - bleeding is improving per nursing R foot swelling - XR and CT showing 1.4 x 0.3 cm linear metallic radiodensity near medal cortical margin of mid os calcis - venous duplex negative for DVT - Dr. Parry consulted Pseudomonas UTI - Urine culture 12/11: Pseudomonas aeruginosa - s/p Antibiotics; Levofloxacin Chronic A. fib - Patient is currently asymptomatic - s/p PM placement on 12/02 - c/w Metoprolol succinate - c/w full anticoagulation with Eliquis Asystole/Sick Sinus Syndrome/Tachy Oniel syndrome - Presented with advanced AV block, > 7 sec period of asystole - s/p Pacemaker implantation on 12/02/[address] Gamble Systemic Hypertension - BP well controlled - c/w Amlodipine / Metoprolol s/p Leukocytosis - ROS negative - Remains hemodynamically stable and afebrile - Initial echocardiogram completed suggested small sessile vegetation; of her clinically patient did not exhibit any signs of endocarditis - Findings were initially discussed with Dr. Gamble, and infectious disease, Dr. Angel - no indication for further antibiotics - Was evaluated by General surgery on 12/02; no evidence of cholecystitis - ID on consultation; appreciate their input JENN on CKD - Cr baseline of 1.3-1.6 - Nephrology on consultation; appreciate their input - c/w Torsemide q48 hours Intertrigo - c/w topical nystatin therapy Hypothyroidism - c/w Levothyroxine Anemia - Hg stable - No transfusions required DVT prophylaxis - c/w full anticoagulation with Eliquis Disposition: - pending approval for a rehab bed. VS, I&O, 24H, Fishbone Vital Signs/I&O Vital Signs Date Time Temp Pulse Resp B/P (MAP) Pulse Ox O2 Delivery O2 Flow Rate FiO2 12/31/20 08:39 104 119/78 12/31/20 06:00 98.9 18 96 Room Air I&O- Last 24 Hours up to 6 AM 12/31/20 06:00 Intake Total 985 ml Output Total 525 ml Balance 460 ml Laboratory Data 24H LABS Laboratory Tests 2 12/31/20 05:22: Immature Granulocyte % (Auto) 1.1, Neutrophils (%) (Auto) 59.3, Lymphocytes (%) (Auto) 26.5, Monocytes (%) (Auto) 10.0H, Eosinophils (%) (Auto) 2.5, Basophils (%) (Auto) 0.6, Neutrophils # (Auto) 3.9, Lymphocytes # (Auto) 1.7, Monocytes # (Auto) 0.7, Eosinophils # (Auto) 0.2, Basophils # (Auto) 0.0, Nucleated Red Blood Cells % (auto) 0.0, Anion Gap 4L, Glomerular Filtration Rate 34.1L, Uric Acid 5.4, Calcium Level 6.9L, Magnesium Level 1.9 CBC/BMP Laboratory Tests 12/31/20 05:22 ENMANUEL DIAZ MD Dec 31, 2020 15:48
--- NOTE | 2020-12-31 20:35 | CR.PDOC ---
General Date of Consultation: Dec 31, 2020 Consultation REASON FOR CONSULTATION/CHIEF COMPLAINT: Right foot pain and swelling HISTORY OF PRESENT ILLNESS: SUBJECTIVE: 70-year-old female with a PMHx of HTN, Hypothyroidism, Gout, Obesity, who presented to the emergency room on 11/25 with complaint of weakness and fatigue. Patient also complains of right- sided abdominal pain. Patient reported that she had fallen out of bed. Upon arrival to emergency room, patient was found to have atrial fibrillation with RVR. Patient had an echocardiogram completed which had revealed possible evidence of vegetation and patient was started on empiric antibiotics. Infectious disease was called on consultation; had deemed that the patient does not have endocarditis is cleared to proceed with pacemaker placement on 12/02. I was called by the hospitalist service with regards to the patient complaining of right foot pain and swelling. The patient states that just prior to her admission she had undergone a bout of gout to that foot. She reportedly had a foreign body in her right foot near the medial malleoli region plantarly for over 2 years. When it was discovered at that time a decision was made to leave it alone as more damage would be done trying to find the small metal filament as opposed to leaving it in situ On visiting the patient today, she states that her foot pain has actually been feeling much better today compared to the previous 2 days. She does not really report any significant pain or discomfort aside from the swelling. ALLERGIES: Please see below. HOME MEDICATIONS: Please see below. As above FAMILY HISTORY: Noncontributory SOCIAL HISTORY: See admission HPI REVIEW OF SYSTEMS: Patient denies any significant pain or discomfort aside from that foot on the right which is resolving, reported PHYSICAL EXAMINATION: VITAL SIGNS: Please see below. GENERAL APPEARANCE: Alert and oriented in no acute distress EXTREMITIES: The right lower extremity demonstrates more swelling compared to the left. They are both edematous however. There is at least 2 possibly 3+ pitting edema to the left foot dorsum up to the level of the proximal leg. There is no significant erythema, calor or otherwise. There are no open wounds and there is no pain on palpation around the medial malleolus soft tissue area where the foreign body resides as per imaging. The patient has palpable posterior tibial and dorsalis pedis pulses. She is moving her foot and ankle with a full range of motion with no pain or discomfort NEUROLOGICAL: Patient is grossly neurovascularly intact to light touch to the right foot. CT and x-ray imaging were independently reviewed. Aside from the foreign body there did not appear to be any significant findings other than soft tissue swelling. There is no evidence of any collections or otherwise LABORATORY DATA: Please see below. ASSESSMENT/PLAN: 1. The patient does not demonstrate any obvious signs of infection or otherwise. CT imaging demonstrates diffuse swelling which presents as pitting edema and this may be associated with the patient's medical comorbidities. There is no obvious signs of infection or otherwise. There is no indication for surgical removal of the foreign body which has been in there for several years. This is likely an incidental finding. Overall, the patient states that her symptoms are improving and she does not have any significant pain or discomfort to the right foot and ankle at this time. No indications for orthopedic intervention, at this time. Orthopedic surgery signing off Vital Signs/I&O Vital Signs Date Time Temp Pulse Resp B/P (MAP) Pulse Ox O2 Delivery O2 Flow Rate FiO2 12/31/20 08:39 104 119/78 12/31/20 06:00 98.9 18 96 Room Air I&O- Last 24 Hours up to 6 AM 12/31/20 06:00 Intake Total 985 ml Output Total 525 ml Balance 460 ml Laboratory Data Labs 24H Laboratory Tests 2 12/31/20 05:22: Immature Granulocyte % (Auto) 1.1, Neutrophils (%) (Auto) 59.3, Lymphocytes (%) (Auto) 26.5, Monocytes (%) (Auto) 10.0H, Eosinophils (%) (Auto) 2.5, Basophils (%) (Auto) 0.6, Neutrophils # (Auto) 3.9, Lymphocytes # (Auto) 1.7, Monocytes # (Auto) 0.7, Eosinophils # (Auto) 0.2, Basophils # (Auto) 0.0, Nucleated Red Blood Cells % (auto) 0.0, Anion Gap 4L, Glomerular Filtration Rate 34.1L, Uric A henry 5.4, Calcium Level 6.9L, Magnesium Level 1.9 CBC/BMP Laboratory Tests 12/31/20 05:22 Allergies Coded Allergies: No Known Allergies (Unverified , 11/25/20) Home Medications Scheduled Amlodipine Besylate (Amlodipine Besylate) 5 Mg Tablet, 5 MG PO DAILY, (Reported) Cyanocobalamin (Cyanocobalamin Injection) 1,000 Mcg/1 Ml Vial, 1 ML IM Q30D, (Reported) NEXT DOSE DUE 12/01/20 Ergocalciferol (Vitamin D2) (Vitamin D2) 50,000 Units Cap, 50,000 UNITS PO QWEEK, (Reported) SUNDAYS Levothyroxine Sodium (Synthroid) 112 Mcg Tablet, 112 MCG PO DAILY, (Reported) Telmisartan/Hydrochlorothiazid (Telmisartan-Hctz 80-25 mg Tab) 1 Each Tablet, 1 TAB PO DAILY, (Reported) Timolol Maleate (Timolol Maleate) 0.5% 5ML Drops, 1 DROP OU BID, (Reported) allopurinoL (allopurinoL) 300 Mg Tablet, 300 MG PO DAILY, (Reported) Scheduled PRN Nystatin (Nystop) 60 Gm Powder, 1 APLCT TOP TID PRN for RASH, (Reported) APPLIES UNDER BREASTS BRIA KEMP MD Dec 31, 2020 20:35
[2020-12-31] MEDS: ACETAMINOPHEN TAB 650MG DOSE (2X325MG) PO PRN (20:46)
[2021-01-01] MEDS: LEVOTHYROXINE 112MCG TABLET (0.112MG) PO SCH (05:59)
[2021-01-01 06:00] VITALS: BP 129/64
[2021-01-01] MEDS: MOM 30ML SUSPENSION UDC PO SCH ×2 (08:55→20:00)
[2021-01-01] MEDS: TIMOLOL MALEATE 0.5% OPHTH SOLN 5 ML OU SCH ×2 (08:56→20:00)
[2021-01-01] MEDS: medroxyPROGESTERone 5MG TABLET PO SCH (08:56)
[2021-01-01] MEDS: SENOKOT S TAB PO SCH ×2 (08:56→20:00)
[2021-01-01] MEDS: APIXABAN 5 MG TAB (ELIQUIS) PO SCH ×2 (08:57→20:00)
[2021-01-01] MEDS: allopurinoL 300 MG TAB PO SCH (08:57)
[2021-01-01] MEDS: LACTOBACILLUS ACIDOPHILUS CAP (BACID) PO SCH ×2 (08:57→17:48)
[2021-01-01] MEDS: ASCORBIC ACID 250 MG TAB PO SCH (08:58)
[2021-01-01] MEDS: MAGNESIUM OXIDE 400MG TAB (MAG-OX) PO SCH (08:58)
[2021-01-01] MEDS: TORSEMIDE 10 MG TABLET PO SCH (09:00)
[2021-01-01] MEDS: METOPROLOL SUCC (TopROL XL) 50MG **XL** TAB PO SCH (09:09)
[2021-01-01] MEDS: NYSTATIN 100,000 UNITS/GM TOPICAL PWD 15 GM TOP SCH (09:11)
[2021-01-02] MEDS: LEVOTHYROXINE 112MCG TABLET (0.112MG) PO SCH (05:16)
[2021-01-02 05:52] VITALS: BP 112/55
[2021-01-02] MEDS: MOM 30ML SUSPENSION UDC PO SCH ×2 (08:09→20:28)
[2021-01-02] MEDS: medroxyPROGESTERone 5MG TABLET PO SCH (08:09)
[2021-01-02] MEDS: MAGNESIUM OXIDE 400MG TAB (MAG-OX) PO SCH (08:10)
[2021-01-02] MEDS: APIXABAN 5 MG TAB (ELIQUIS) PO SCH ×2 (08:10→20:33)
[2021-01-02] MEDS: SENOKOT S TAB PO SCH ×2 (08:10→20:28)
[2021-01-02] MEDS: TIMOLOL MALEATE 0.5% OPHTH SOLN 5 ML OU SCH ×2 (08:10→20:33)
[2021-01-02] MEDS: allopurinoL 300 MG TAB PO SCH (08:10)
[2021-01-02] MEDS: LACTOBACILLUS ACIDOPHILUS CAP (BACID) PO SCH ×2 (08:10→17:46)
[2021-01-02] MEDS: NYSTATIN 100,000 UNITS/GM TOPICAL PWD 15 GM TOP SCH (08:11)
[2021-01-02] MEDS: METOPROLOL SUCC (TopROL XL) 50MG **XL** TAB PO SCH (08:12)
[2021-01-02] MEDS: CALCITRIOL 0.25 MCG CAP (S0169) PO SCH (08:21)
[2021-01-02 09:05] LABS: BASO % 0.5 % (0.0-1.0); EOS # 0.2 10^3/uL (0.0-0.5); EOS % 2.4 % (0.0-3.0); HEMATOCRIT 31.7 % (36.0-47.0); HEMOGLOBIN 9.8 g/dl (12.0-15.5); LYMPH # 1.8 10^3/uL (1.5-5.0); LYMPH % 26.8 % (24.0-44.0); MEAN CORPUSCULAR HEMOGLOBIN 31.8 pg (27.0-33.0); MEAN CORPUSCULAR HGB CONC 30.9 g/dl (32.0-36.5); MEAN CORPUSCULAR VOLUME 102.9 fl (80.0-96.0); MONO # 0.5 10^3/uL (0.0-0.8); MONO % 7.3 % (2.0-8.0); NEUTROPHILS # 4.1 10^3/uL (1.5-8.5); NEUTROPHILS % 62.2 % (36.0-66.0); PLATELET COUNT, AUTOMATED 155 10^3/uL (150-450); RED BLOOD COUNT 3.08 10^6/uL (4.00-5.40); WHITE BLOOD COUNT 6.6 10^3/uL (4.0-10.0)
[2021-01-02 09:36] LABS: ALBUMIN 1.6 GM/DL (3.2-5.2); BILIRUBIN,TOTAL 0.6 MG/DL (0.2-1.0); CALCIUM LEVEL 7.6 MG/DL (8.8-10.2); CREATININE FOR GFR 1.54 MG/DL (0.55-1.30); GLOMERULAR FILTRATION RATE 35.4 (>39); MAGNESIUM LEVEL 2.1 MG/DL (1.8-2.4); POTASSIUM SERUM 4.1 MEQ/L (3.5-5.1); TOTAL PROTEIN 6.7 GM/DL (6.4-8.2)
[2021-01-02] MEDS: ACETAMINOPHEN TAB 650MG DOSE (2X325MG) PO PRN (20:33)
[2021-01-03] MEDS: LEVOTHYROXINE 112MCG TABLET (0.112MG) PO SCH (05:17)
[2021-01-03 06:00] VITALS: BP 129/85
[2021-01-03] MEDS: TIMOLOL MALEATE 0.5% OPHTH SOLN 5 ML OU SCH ×2 (09:16→20:54)
[2021-01-03] MEDS: APIXABAN 5 MG TAB (ELIQUIS) PO SCH ×2 (09:17→20:53)
[2021-01-03] MEDS: allopurinoL 300 MG TAB PO SCH (09:17)
[2021-01-03] MEDS: SENOKOT S TAB PO SCH ×2 (09:17→20:53)
[2021-01-03] MEDS: MAGNESIUM OXIDE 400MG TAB (MAG-OX) PO SCH (09:17)
[2021-01-03] MEDS: METOPROLOL SUCC (TopROL XL) 50MG **XL** TAB PO SCH (09:18)
[2021-01-03] MEDS: LACTOBACILLUS ACIDOPHILUS CAP (BACID) PO SCH ×2 (09:18→17:33)
[2021-01-03] MEDS: NYSTATIN 100,000 UNITS/GM TOPICAL PWD 15 GM TOP SCH (09:19)
[2021-01-03] MEDS: medroxyPROGESTERone 5MG TABLET PO SCH (09:19)
[2021-01-03] MEDS: MOM 30ML SUSPENSION UDC PO SCH ×2 (09:19→20:53)
[2021-01-03] MEDS: TORSEMIDE 10 MG TABLET PO SCH (09:20)
[2021-01-04] MEDS: LEVOTHYROXINE 112MCG TABLET (0.112MG) PO SCH (05:47)
[2021-01-04 06:00] VITALS: BP 114/68
[2021-01-04] MEDS: LACTOBACILLUS ACIDOPHILUS CAP (BACID) PO SCH ×2 (09:26→18:42)
[2021-01-04] MEDS: SENOKOT S TAB PO SCH ×2 (09:29→20:39)
[2021-01-04] MEDS: VITAMIN D 50,000 UNITS CAPSULE (ERGOCALCIFEROL 1.25MG) PO SCH (09:29)
[2021-01-04] MEDS: MAGNESIUM OXIDE 400MG TAB (MAG-OX) PO SCH (09:30)
[2021-01-04] MEDS: allopurinoL 300 MG TAB PO SCH (09:30)
[2021-01-04] MEDS: APIXABAN 5 MG TAB (ELIQUIS) PO SCH ×2 (09:30→20:44)
[2021-01-04] MEDS: METOPROLOL SUCC (TopROL XL) 50MG **XL** TAB PO SCH (09:30)
[2021-01-04] MEDS: TIMOLOL MALEATE 0.5% OPHTH SOLN 5 ML OU SCH ×2 (09:31→20:44)
[2021-01-04] MEDS: MOM 30ML SUSPENSION UDC PO SCH ×2 (09:31→20:38)
[2021-01-04] MEDS: NYSTATIN 100,000 UNITS/GM TOPICAL PWD 15 GM TOP SCH (09:31)
[2021-01-05] MEDS: LEVOTHYROXINE 112MCG TABLET (0.112MG) PO SCH (05:29)
[2021-01-05 06:00] VITALS: BP 106/66
[2021-01-05] MEDS: SENOKOT S TAB PO SCH ×2 (09:00→21:00)
[2021-01-05] MEDS: MOM 30ML SUSPENSION UDC PO SCH ×2 (09:00→21:00)
[2021-01-05] MEDS: TORSEMIDE 10 MG TABLET PO SCH (09:00)
[2021-01-05] MEDS: allopurinoL 300 MG TAB PO SCH (09:32)
[2021-01-05] MEDS: LACTOBACILLUS ACIDOPHILUS CAP (BACID) PO SCH ×2 (09:32→17:42)
[2021-01-05] MEDS: MAGNESIUM OXIDE 400MG TAB (MAG-OX) PO SCH (09:32)
[2021-01-05] MEDS: TIMOLOL MALEATE 0.5% OPHTH SOLN 5 ML OU SCH ×2 (09:33→21:43)
[2021-01-05] MEDS: APIXABAN 5 MG TAB (ELIQUIS) PO SCH ×2 (09:33→21:43)
[2021-01-05] MEDS: NYSTATIN 100,000 UNITS/GM TOPICAL PWD 15 GM TOP SCH (09:34)
[2021-01-05] MEDS: CALCITRIOL 0.25 MCG CAP (S0169) PO SCH (09:36)
[2021-01-05 09:39] VITALS: BP 107/70
[2021-01-05] MEDS: METOPROLOL SUCC (TopROL XL) 50MG **XL** TAB PO SCH (09:39)
--- NOTE | 2021-01-05 15:52 | IPNPDOC ---
Date Seen The patient was seen on 01/05/21. Progress Note Interval update note: I was informed by RN that patient continues to having vaginal spotting after her D&C, and had an episode of slightly more vaginal bleeding on the evening of 01/04/21 without gross hemorrhage or blood clots. She continues to take eliquis. 5mg BID. She completed a 10 day course of provera on 01/03/21. I discussed these events with Dr. Orr. She assured me that this was withdrawal bleeding after stopping the provera. She recommends to continue with eliquis. The spotting is expected to stop in time. Patient is not a candidate for a repeat D&C for another year. Her pathology is negative for malignancy. Patient will f/u with Dr. Orr in clinic upon DC. With regard to chronic R foot swelling, I d/w with Dr. France, vascular surgery. She has a negative venous duplex. Eval by ortho regarding retained foreign body who recommended no further w/u. Dr. France, recommends NICK wrap. Likely lymp hedema. CT abdo pelvis showed no abnormality in pelvic structures. No further workup. VS, I&O, 24H, Fishbone Vital Signs/I&O Vital Signs Date Time Temp Pulse Resp B/P (MAP) Pulse Ox O2 Delivery O2 Flow Rate FiO2 01/05/21 09:39 102 107/70 01/05/21 06:00 97.6 18 96 Room Air I&O- Last 24 Hours up to 6 AM 01/05/21 06:00 Intake Total 1130 ml Output Total 800 ml Balance 330 ml Laboratory Data 24H LABS Laboratory Tests 2 01/05/21 11:50: Coronavirus (COVID-19)(PCR) NEGATIVE ENMANUEL DIAZ MD Jan 05, 2021 15:52
[2021-01-05 16:19] LABS: BASO % 0.4 % (0.0-1.0); EOS # 0.2 10^3/uL (0.0-0.5); EOS % 2.2 % (0.0-3.0); HEMATOCRIT 33.9 % (36.0-47.0); HEMOGLOBIN 10.2 g/dl (12.0-15.5); LYMPH # 1.9 10^3/uL (1.5-5.0); LYMPH % 24.4 % (24.0-44.0); MEAN CORPUSCULAR HEMOGLOBIN 31.8 pg (27.0-33.0); MEAN CORPUSCULAR HGB CONC 30.1 g/dl (32.0-36.5); MEAN CORPUSCULAR VOLUME 105.6 fl (80.0-96.0); MONO # 0.5 10^3/uL (0.0-0.8); MONO % 6.7 % (2.0-8.0); NEUTROPHILS # 5.2 10^3/uL (1.5-8.5); NEUTROPHILS % 65.5 % (36.0-66.0); PLATELET COUNT, AUTOMATED 186 10^3/uL (150-450); RED BLOOD COUNT 3.21 10^6/uL (4.00-5.40); WHITE BLOOD COUNT 7.9 10^3/uL (4.0-10.0)
[2021-01-05 16:36] LABS: CALCIUM LEVEL 7.9 MG/DL (8.8-10.2); CREATININE FOR GFR 1.68 MG/DL (0.55-1.30); MAGNESIUM LEVEL 2.6 MG/DL (1.8-2.4); POTASSIUM SERUM 4.5 MEQ/L (3.5-5.1)
[2021-01-06] MEDS: LEVOTHYROXINE 112MCG TABLET (0.112MG) PO SCH (05:39)
[2021-01-06 06:22] LABS: HEMATOCRIT 32.1 % (36.0-47.0); MEAN CORPUSCULAR HEMOGLOBIN 31.7 pg (27.0-33.0); MEAN CORPUSCULAR HGB CONC 31.2 g/dl (32.0-36.5); MEAN CORPUSCULAR VOLUME 101.9 fl (80.0-96.0); PLATELET COUNT, AUTOMATED 168 10^3/uL (150-450); RED BLOOD COUNT 3.15 10^6/uL (4.00-5.40); WHITE BLOOD COUNT 7.1 10^3/uL (4.0-10.0)
[2021-01-06 06:41] LABS: CALCIUM LEVEL 7.7 MG/DL (8.8-10.2); CREATININE FOR GFR 1.51 MG/DL (0.55-1.30); GLOMERULAR FILTRATION RATE 36.2 (>39); MAGNESIUM LEVEL 2.5 MG/DL (1.8-2.4)
[2021-01-06 06:49] VITALS: BP 116/71
[2021-01-06] MEDS ORDERED: ELIQ5TAB PO (07:20)
[2021-01-06] MEDS ORDERED: METO1TAB7 PO (07:20)
[2021-01-06] MEDS ORDERED: MAGN400T2 PO (07:20)
[2021-01-06] MEDS ORDERED: NYST10006 TOP (07:20)
[2021-01-06] MEDS ORDERED: TORS10TA3 PO (07:20)
[2021-01-06] MEDS ORDERED: CALC1CAP31 PO (07:20)
--- NOTE | 2021-01-06 07:52 | DS.PDOC ---
Discharge Summary General Date of Admission Nov 25, 2020 at 10:59 Date of Discharge 01/06/21 Discharge Summary PROCEDURES PERFORMED DURING STAY: pacemaker placement, PM incision site wound dehiscence ADMITTING DIAGNOSES: PM incision site wound dehiscence Vaginal bleeding R foot swelling Chronic A. fib Asystole/Sick Sinus Syndrome/Tachy Oniel syndrome Systemic Hypertension Pseudomonas UTI Leukocytosis JENN on CKD Intertrigo Hypothyroidism Anemia DISCHARGE DIAGNOSES: PM incision site wound dehiscence Vaginal bleeding R foot swelling Chronic A. fib Asystole/Sick Sinus Syndrome/Tachy Oniel syndrome Systemic Hypertension Pseudomonas UTI Leukocytosis JENN on CKD Intertrigo Hypothyroidism Anemia Deconditioning COMPLICATIONS/CHIEF COMPLAINT: Acute Renal Failure, Atrial Fibrillation With Rapi. HISTORY OF PRESENT ILLNESS: Mrs. Correa is a 70-year-old female who was brought into [facility] by ambulance for weakness and fatigue. In the ER she had been in atrial fibrillation and later was noted to have significant asystolic pauses on telemetry. The patient was seen in consultation by Dr. Gamble and he recommended pacemaker placement, which was subsequently placed. The patient denied any chest pain, palpitations, shortness of breath or any significant symptoms other than weakness. She denied any dysuria, hematuria, nausea, vomiting on admission. She started having diarrhea after started IV antibiotic. The patient was noted to have on admission a rash that was felt to be related to mucocutaneous candidiasis, it was mostly on her abdomen under her breasts which were extremely large. The rash was treated with Fluconazole for a total of 4 days with marked improvement. She also was treated with Ceftriaxone one dose on 11/25 and Zosyn for 4 days. Blood cultures were negative times two sets. Urine culture had less than 10,000 gram negative rods. On 11/26 blood culture repeated negative as well. She had CT of abdomen and pelvis which showed moderate ascites on the right side of the pelvis and there was concern on ultrasound of left renal mass which was not confirmed by CT abdomen HOSPITAL COURSE: During the hospital stay the following issue addressed Patient received pacemaker placement secondary advanced AV block, > 7 sec period of asystole s/p PM placement on 12/02. Eliquis was initiated Postoperative wound was treated with vashe and hydroferra blue as per Dr. Sameer linares. Patient developed leukocytosis Initial echocardiogram completed suggested small sessile vegetation; of her clinically patient did not exhibit any signs of endocarditis. Patient received short course of antibiotics per ID specialist. Also patient developed acute on chronic kidney injury, currently resolved. Nephrology team followed her. Also patient was noted to have R foot swelling. XR and CT showing 1.4 x 0.3 cm linear metallic radiodensity near medal cortical murali of mid os calcis, venous duplex negative for DVT. Per ortho team no indication for surgery. Dr. France, recommends NICK wrap. Likely lymphedema. CT abdo pelvis showed no abnormality in pelvic structures. No further workup. Also patient was found to have UTI secondary to Pseudomonas infection. Patient received course of levofloxacin. Patient developed vaginal bleeding. Patient has had an endometrial biopsy completed which was unrevealing. - s/p dilation and curettage on 12/[address] Shanice Orr . The case was discussed with with Dr. Orr. She thinks it was withdrawal bleeding after stopping the provera. She recommends to continue with eliquis. The spotting is expected to stop in time. Patient is not a candidate for a repeat D&C for another year. - Pathology 12/22/20: Negative for hyperplasia / malignancy. Patient received physical therapy for deconditioning. DISCHARGE MEDICATIONS: Please see below. ALLERGIES: Please see below. PHYSICAL EXAMINATION ON DISCHARGE: VITAL SIGNS: please see below General: NAD, comfortable HEENT: PERRLA, EOMI, sclerae clear Neck: supple, normal ROM, no JVD Respiratory: lungs CTAB, no wheeze, no rales, no crackles CVS: RRR, normal S1, S2, no murmurs Abdo: soft, no masses, no hepatosplenomegaly, BS+, no rebound tenderness Extremities: R foot swollen, non pitting, non tender compared to L. MSK: no joint deformities, normal ROM Neuro: no focal neuro deficits, moving all 4 extremities, CN2-12 intact. Strength 5/5 in all 4 extremities. No nystagmus. Psych: calm, cooperative, AAO x 3 LABORATORY DATA: Please see below. IMAGING:CT R ankle (12/31/20); There is a metallic radiodensity seen imbedded in the soft tissues as described above. The only history of been given is pain and swelling. If this is not a surgical implant than it represents an unwanted foreign body. Other findings and chronic changes as described above. CT foot wo contrast (12/31/20): There is a plantar calcaneal heel spur. There is an incidental os trigonum. Degenerative changes are seen throughout the imaged portion of the foot. There is no evidence of an acute fracture. The bones are demineralized. RLE venous duplex (12/30/20): IMPRESSION: No evidence for deep venous thrombosis. XR R foot complete (12/30/20): IMPRESSION: Significant soft tissue swelling. No acute fracture or dislocation. Foreign body versus surgical material as above. PROGNOSIS: Fair ACTIVITY: As tolerated. DIET: Cardiac DISCHARGE PLAN: Rehab ITEMS TO FOLLOWUP ON ON OUTPATIENT: Follow-up with general surgery, PCP, [employer] [facility] DISCHARGE CONDITION: Stable. TIME SPENT ON DISCHARGE: 45Minutes. Vital Signs/I&Os Vital Signs Date Time Temp Pulse Resp B/P (MAP) Pulse Ox O2 Delivery O2 Flow Rate FiO2 01/06/21 06:49 98.7 72 18 116/71 (86) 93 Room Air I&O- Last 24 Hours up to 6 AM 01/06/21 06:00 Intake Total 835 ml Output Total 400 ml Balance 435 ml Laboratory Data Labs 24H Laboratory Tests 2 01/05/21 11:50: Coronavirus (COVID-19)(PCR) NEGATIVE 01/05/21 15:44: Immature Granulocyte % (Auto) 0.8, Neutrophils (%) (Auto) 65.5, Lymphocytes (%) (Auto) 24.4, Monocytes (%) (Auto) 6.7, Eosinophils (%) (Auto) 2.2, Basophils (%) (Auto) 0.4, Neutrophils # (Auto) 5.2, Lymphocytes # (Auto) 1.9, Monocytes # (Auto) 0.5, Eosinophils # (Auto) 0.2, Basophils # (Auto) 0.0, Nucleated Red Blood Cells % (auto) 0.0, Anion Gap 4L, Glomerular Filtration Rate 32.0L, Calcium Level 7.9L, Magnesium Level 2.6H 01/06/21 05:23: Nucleated Red Blood Cells % (auto) 0.0, Anion Gap 3L, Glomerular Filtration Rate 36.2L, Calcium Level 7.7L, Magnesium Level 2.5H CBC/BMP Laboratory Tests 01/05/21 15:44 01/06/21 05:23 Discharge Medications Scheduled Amlodipine Besylate (Amlodipine Besylate) 5 Mg Tablet, 5 MG PO DAILY, (Reported) Apixaban (Eliquis) 5 Mg Tablet, 5 MG PO BID Calcitriol (Calcitriol) 0.25 Mcg Capsule, 0.25 MCG PO MoWe Cyanocobalamin (Cyanocobalamin Injection) 1,000 Mcg/1 Ml Vial, 1 ML IM Q30D, (Reported) NEXT DOSE DUE 12/01/20 Ergocalciferol (Vitamin D2) (Vitamin D2) 50,000 Units Cap, 50,000 UNITS PO QWEEK, (Reported) SUNDAYS Levothyroxine Sodium (Synthroid) 112 Mcg Tablet, 112 MCG PO DAILY, (Reported) Magnesium Oxide (Magnesium Oxide) 400 Mg Tablet, 400 MG PO DAILY Metoprolol Succinate (Metoprolol Succinate) 50 Mg Tab.er.24h, 50 MG PO DAILY Telmisartan/Hydrochlorothiazid (Telmisartan-Hctz 80-25 mg Tab) 1 Each Tablet, 1 TAB PO DAILY, (Reported) Timolol Maleate (Timolol Maleate) 0.5% 5ML Drops, 1 DROP OU BID, (Reported) Torsemide (Torsemide) 10 Mg Tablet, 10 MG PO Q48H allopurinoL (allopurinoL) 300 Mg Tablet, 300 MG PO DAILY, (Reported) Scheduled PRN Nystatin (Nystop) 60 Gm Powder, 1 APLCT TOP TID PRN for RASH, (Reported) APPLIES UNDER BREASTS Allergies Coded Allergies: No Known Allergies (Unverified , 11/25/20) MAGALI PRASAD DO Jan 06, 2021 07:52
== END 2021-01-06 08:23 | disposition home health service (06) | DRG 243 ==
LOC: M ED 07:07 → EDBD 07:07 → M ED INP 10:59 → ENRESERV 12:10 → M PCU 16:03 → M MSPAV 12-05 21:22
PROVIDERS: ADMIT Internal Medicine; ATTEND Internal Medicine
PROC: 0JH604Z Insertion of Pacemaker, Single Chamber into Chest Subcutaneous Tissue and Fascia, Open Approach (ICD-10-PCS; 2020-12-02)
PROC: 02HK3JZ Insertion of Pacemaker Lead into Right Ventricle, Percutaneous Approach (ICD-10-PCS; principal; 2020-12-02 13:00)
PROC: 0UDB8ZX Extraction of Endometrium, Via Natural or Artificial Opening Endoscopic, Diagnostic (ICD-10-PCS; 2020-12-19)
PROC: 0UJD8ZZ Inspection of Uterus and Cervix, Via Natural or Artificial Opening Endoscopic (ICD-10-PCS; 2020-12-19)
DX: I49.5 Sick sinus syndrome (principal); I48.11 Longstanding persistent atrial fibrillation; N17.9 Acute kidney failure, unspecified; N39.0 Urinary tract infection, site not specified; T81.31XA Disruption of external operation (surgical) wound, not elsewhere classified, initial encounter; N18.4 Chronic kidney disease, stage 4 (severe); E87.2 Acidosis; N25.81 Secondary hyperparathyroidism of renal origin; B37.89 Other sites of candidiasis; I12.9 Hypertensive chronic kidney disease with stage 1 through stage 4 chronic kidney disease, or unspecified chronic kidney disease; B96.5 Pseudomonas (aeruginosa) (mallei) (pseudomallei) as the cause of diseases classified elsewhere; E03.9 Hypothyroidism, unspecified; D64.9 Anemia, unspecified; Z79.899 Other long term (current) drug therapy; E53.8 Deficiency of other specified B group vitamins; E86.0 Dehydration; L30.4 Erythema intertrigo; K81.9 Cholecystitis, unspecified; E66.01 Morbid (severe) obesity due to excess calories; I27.20 Pulmonary hypertension, unspecified; M10.9 Gout, unspecified; Z98.42 Cataract extraction status, left eye; Z98.41 Cataract extraction status, right eye; I08.0 Rheumatic disorders of both mitral and aortic valves; I50.9 Heart failure, unspecified; I44.1 Atrioventricular block, second degree; K76.0 Fatty (change of) liver, not elsewhere classified; E83.42 Hypomagnesemia; N84.0 Polyp of corpus uteri; Y83.1 Surgical operation with implant of artificial internal device as the cause of abnormal reaction of the patient, or of later complication, without mention of misadventure at the time of the procedure

== ENCOUNTER → 2021-07-30 | Outpatient (REF) | payer MEDICARE, MEDICAID ==
[~2021-07-30] MED LIST: ACET500T15 PO; ALLO100T PO; ALLO300T2 PO; AMLO1TAB24 PO; CALC1CAP31 PO; COLC1TAB14 PO; CYAN1000VL IM; DIVA125C6 PO; DULC10SU2 PR; ELIQ5TAB PO; ERGO500029 PO; FLEEENE12 PR; FOSF3PAC2 PO; MAGN400T2 PO; METO1TAB32 PO; METO1TAB7 PO; MILKSUS3 PO; NYST10006 TOP; OMEP20TA2 PO; SERT50TA29 PO; SYNT112T2 PO; SYNT125T PO; TELM1TAB17 PO; TELM1TAB33 PO; TIMO0.5S29 OU; TIMO0.5S39 OU; TORS10TA3 PO; TORS20TA2 PO
[2021-07-30 18:04] LABS: HEMATOCRIT 28.4 % (36.0-47.0); HEMOGLOBIN 9.2 g/dl (12.0-15.5); MEAN CORPUSCULAR HEMOGLOBIN 33.9 pg (27.0-33.0); MEAN CORPUSCULAR HGB CONC 32.4 g/dl (32.0-36.5); MEAN CORPUSCULAR VOLUME 104.8 fl (80.0-96.0); PLATELET COUNT, AUTOMATED 150 10^3/uL (150-450); RED BLOOD COUNT 2.71 10^6/uL (4.00-5.40); WHITE BLOOD COUNT 7.8 10^3/uL (4.0-10.0)
[2021-07-30 18:39] LABS: CK-MB VALUE MASS < 1.0 NG/ML (<3.6); CPK CREATINE PHOSPHOKINASE 31 U/L (26-192); MB/CK RELATIVE INDEX 3.23 (< OR =4)
[2021-07-30 18:44] LABS: THYROID STIMULATING HORMONE 5.14 uIU/ML (0.358-3.740)
[2021-07-30 21:14] LABS: TOTAL 25(OH) VITAMIN D 30.3 NG/ML (30.0-100.0)
== END ==
LOC: SKLAB4 16:18
PROVIDERS: ATTEND Nurse Practitioner Family
DX: E03.9 Hypothyroidism, unspecified (principal); F03.91 Unspecified dementia, unspecified severity, with behavioral disturbance; D64.9 Anemia, unspecified; I10 Essential (primary) hypertension; Z79.899 Other long term (current) drug therapy

== ENCOUNTER → 2021-07-31 | Outpatient (REF) ==
[~2021-07-31] MED LIST changes: -ACET500T15 PO; -DIVA125C6 PO; -DULC10SU2 PR; -FLEEENE12 PR; -FOSF3PAC2 PO; -METO1TAB32 PO; -MILKSUS3 PO; -OMEP20TA2 PO; -SERT50TA29 PO; -SYNT125T PO; -TELM1TAB33 PO; -TIMO0.5S39 OU; -TORS20TA2 PO
== END ==
LOC: SKLAB4 23:13
PROVIDERS: ATTEND Internal Medicine
DX: D64.9 Anemia, unspecified (principal)

== ENCOUNTER → 2021-08-01 | Outpatient (REF) | LOC: SKLAB4 23:10 | PROVIDERS: ATTEND Internal Medicine | DX: D64.9 Anemia, unspecified (principal) ==

== ENCOUNTER → 2021-08-03 | Outpatient (CLI) | payer MEDICARE, MEDICAID | LOC: SKLAB4 04:06 | PROVIDERS: ATTEND Internal Medicine | DX: D64.9 Anemia, unspecified (principal) ==

== ENCOUNTER → 2021-08-31 | Outpatient (REF) | payer MEDICARE, MEDICAID ==
[~2021-08-31] MED LIST changes: +ACET500T15 PO; +DIVA125C6 PO; +DULC10SU2 PR; +FLEEENE12 PR; +FOSF3PAC2 PO; +METO1TAB32 PO; +MILKSUS3 PO; +OMEP20TA2 PO; +SERT50TA29 PO; +SYNT125T PO; +TELM1TAB33 PO; +TIMO0.5S39 OU; +TORS20TA2 PO
[2021-08-31 07:45] LABS: HEMATOCRIT 33.6 % (36.0-47.0); HEMOGLOBIN 10.3 g/dl (12.0-15.5); MEAN CORPUSCULAR HEMOGLOBIN 34.1 pg (27.0-33.0); MEAN CORPUSCULAR HGB CONC 30.7 g/dl (32.0-36.5); MEAN CORPUSCULAR VOLUME 111.3 fl (80.0-96.0); PLATELET COUNT, AUTOMATED 110 10^3/uL (150-450); RED BLOOD COUNT 3.02 10^6/uL (4.00-5.40)
[2021-08-31 08:13] LABS: CALCIUM LEVEL 8.6 MG/DL (8.8-10.2); CREATININE FOR GFR 2.62 MG/DL (0.55-1.30); GLOMERULAR FILTRATION RATE 19.1 (>39)
[2021-08-31 11:46] LABS: THYROID STIMULATING HORMONE 3.63 uIU/ML (0.358-3.740); THYROXINE (T4) 3.2 UG/DL (4.5-12.0); VALPROIC ACID (DEPAKOTE) 35.1 UG/ML (50.0-100.0)
== END ==
LOC: SKLAB4 08:56
PROVIDERS: ATTEND Internal Medicine
DX: Z79.01 Long term (current) use of anticoagulants (principal); E03.9 Hypothyroidism, unspecified

== ENCOUNTER → 2021-08-31 | Outpatient (REF) | payer OTHER, MEDICARE, MEDICAID ==
[~2021-08-31] MED LIST changes: -ACET500T15 PO; -DIVA125C6 PO; -DULC10SU2 PR; -FLEEENE12 PR; -FOSF3PAC2 PO; -METO1TAB32 PO; -MILKSUS3 PO; -OMEP20TA2 PO; -SERT50TA29 PO; -SYNT125T PO; -TELM1TAB33 PO; -TIMO0.5S39 OU; -TORS20TA2 PO
== END ==
LOC: SKLAB4 10:48
PROVIDERS: ATTEND Internal Medicine
DX: E03.9 Hypothyroidism, unspecified (principal); Z53.9 Procedure and treatment not carried out, unspecified reason

== ENCOUNTER → 2021-08-31 | Outpatient (REF) | payer OTHER, MEDICARE, MEDICAID | LOC: SKLAB3 08:58 | PROVIDERS: ATTEND Nurse Practitioner Family | DX: D64.9 Anemia, unspecified (principal) ==

== ENCOUNTER → 2021-09-01 | Outpatient (REF) | payer MEDICARE, MEDICAID ==
[~2021-09-01] MED LIST changes: +ACET500T15 PO; +DIVA125C6 PO; +DULC10SU2 PR; +FLEEENE12 PR; +FOSF3PAC2 PO; +METO1TAB32 PO; +MILKSUS3 PO; +OMEP20TA2 PO; +SERT50TA29 PO; +SYNT125T PO; +TELM1TAB33 PO; +TIMO0.5S39 OU; +TORS20TA2 PO
[2021-09-01 11:51] LABS: APPEARANCE, URINE CLOUDY (CLEAR); BACTERIA, URINE AUTO 3+ (NEGATIVE); BILIRUBIN, URINE AUTO NEGATIVE (NEGATIVE); BLOOD, URINE BLOOD 2+ (NEGATIVE); COLOR, URINE YELLOW (YELLOW); GLUCOSE, URINE (UA) AUTO NEGATIVE (NEGATIVE); GRANULAR CAST, URINE AUTO 1 /LPF; KETONE, URINE AUTO NEGATIVE (NEGATIVE); LEUKOCYTE ESTERASE, URINE AUTO 3+ (NEGATIVE); MUCUS, URINE SMALL (NEGATIVE); NITRITE, URINE AUTO NEGATIVE (NEGATIVE); PROTEIN, URINE AUTO 1+ mg/dL (NEGATIVE); RBC, URINE AUTO 7 /HPF (0-3); SPECIFIC GRAVITY URINE AUTO 1.015 (1.002-1.035); SQUAMOUS EPITHELIAL CELL UR AU 1 /HPF (0-6); UROBILINOGEN, URINE AUTO 0.2 mg/dL (0.0-2.0); WBC, URINE AUTO 167 /HPF (0-3)
== END ==
LOC: EEVIPCON 11:26 → SKLAB4 11:26
PROVIDERS: ATTEND Internal Medicine
DX: R41.0 Disorientation, unspecified (principal); R30.9 Painful micturition, unspecified

== ENCOUNTER → 2021-09-01 | Outpatient (REF) | payer OTHER, MEDICARE, MEDICAID ==
[~2021-09-01] MED LIST changes: -ACET500T15 PO; -DIVA125C6 PO; -DULC10SU2 PR; -FLEEENE12 PR; -FOSF3PAC2 PO; -METO1TAB32 PO; -MILKSUS3 PO; -OMEP20TA2 PO; -SERT50TA29 PO; -SYNT125T PO; -TELM1TAB33 PO; -TIMO0.5S39 OU; -TORS20TA2 PO
== END ==
LOC: SKLAB4 11:22
PROVIDERS: ATTEND Internal Medicine
DX: R41.0 Disorientation, unspecified (principal); R30.9 Painful micturition, unspecified

== ENCOUNTER → 2021-09-15 | Outpatient (CLI) | payer MEDICARE, MEDICAID ==
[~2021-09-15] MED LIST changes: +ACET500T15 PO; +DIVA125C6 PO; +DULC10SU2 PR; +FLEEENE12 PR; +FOSF3PAC2 PO; +METO1TAB32 PO; +MILKSUS3 PO; +OMEP20TA2 PO; +SERT50TA29 PO; +SYNT125T PO; +TELM1TAB33 PO; +TIMO0.5S39 OU; +TORS20TA2 PO
== END ==
LOC: M RAD 11:47
DX: R51.9 Headache, unspecified (principal); R41.82 Altered mental status, unspecified; G31.9 Degenerative disease of nervous system, unspecified

== ENCOUNTER 2021-09-16 14:58 | Inpatient (IN) | payer MEDICARE, MEDICAID ==
[~2021-09-16] VITALS: Ht 170.2 cm; Wt 111.2 kg
[~2021-09-16 14:58] MED LIST changes: -OMEP20TA2 PO; -SYNT125T PO
[2021-09-16 17:16] LABS: BASO % 0.3 % (0.0-1.0); EOS # 0.1 10^3/uL (0.0-0.5); EOS % 0.7 % (0.0-3.0); HEMATOCRIT 35.1 % (36.0-47.0); HEMOGLOBIN 10.7 g/dl (12.0-15.5); LYMPH # 1.6 10^3/uL (1.5-5.0); LYMPH % 22.1 % (24.0-44.0); MEAN CORPUSCULAR HEMOGLOBIN 35.9 pg (27.0-33.0); MEAN CORPUSCULAR HGB CONC 30.5 g/dl (32.0-36.5); MONO # 0.5 10^3/uL (0.0-0.8); MONO % 6.8 % (2.0-8.0); NEUTROPHILS # 5.1 10^3/uL (1.5-8.5); NEUTROPHILS % 69.1 % (36.0-66.0); RED BLOOD COUNT 2.98 10^6/uL (4.00-5.40); WHITE BLOOD COUNT 7.3 10^3/uL (4.0-10.0)
[2021-09-16 17:21] LABS: MEAN CORPUSCULAR VOLUME 117.8 fl (80.0-96.0); PLATELET COUNT, AUTOMATED 75 10^3/uL (150-450)
[2021-09-16 17:56] LABS: ALBUMIN 2.6 GM/DL (3.2-5.2); BILIRUBIN,DIRECT 0.3 MG/DL (0.0-0.2); BILIRUBIN,TOTAL 0.9 MG/DL (0.2-1.0); CALCIUM LEVEL 8.1 MG/DL (8.8-10.2); CREATININE FOR GFR 3.58 MG/DL (0.55-1.30); GLOMERULAR FILTRATION RATE 13.3 (>39); POTASSIUM SERUM 5.8 MEQ/L (3.5-5.1); THYROID STIMULATING HORMONE 1.98 uIU/ML (0.358-3.740); TOTAL PROTEIN 7.6 GM/DL (6.4-8.2)
[2021-09-16 18:15] LABS: ANISOCYTOSIS 2+
[2021-09-16 18:16] LABS: OVALOCYTES 1+
[2021-09-16 18:17] LABS: PLATELET ESTIMATE DECREASED (NORMAL)
[2021-09-16] MEDS ORDERED: NS 1,000 ML IV SCH (19:20)
[2021-09-16] MEDS ORDERED: NS 500 ML IV ONE (19:20)
[2021-09-16] MEDS ORDERED: CEFEPIME HCL 2 GM in D5W MINI-BAG PLUS 50 ML IV ONE (20:35)
[2021-09-16] MEDS: OMEPRAZOLE 20MG CAP PO SCH (21:00)
[2021-09-16] MEDS ORDERED: NS 2,500 ML in IV 1 EA IV ONE (21:10)
[2021-09-16] MEDS ORDERED: DEXTROSE 50% 50 ML SYRINGE IV PRN (21:40)
[2021-09-16] MEDS: NS 1,000 ML IV SCH (21:40)
[2021-09-16] MEDS ORDERED: GLUCOSE 4GM CHEW TABLET PO PRN (21:40)
[2021-09-16] MEDS ORDERED: GLUCAGON INJ 1MG VIAL SC PRN (21:40)
[2021-09-16] MEDS ORDERED: MOM 30ML SUSPENSION UDC PO PRN (21:40)
[2021-09-16 22:44] LABS: RSV AMPLIFICATION NEGATIVE (NEGATIVE)
[2021-09-17] MEDS ORDERED: MEROPENEM INJ 1 GM in IV 1 EA IV SCH ×2
[2021-09-17] MEDS ORDERED: diphenhydrAMINE 25MG CAP PO ONE
[2021-09-17 00:35] VITALS: BP 92/60
[2021-09-17] MEDS: INSULIN LISPRO (NovoLOG) PER UNIT SC SCH ×5 (01:02→23:52)
[2021-09-17] MEDS: MEROPENEM INJ 500 MG in IV 1 EA IV SCH ×2 (01:21→12:57)
[2021-09-17] MEDS ORDERED: SYNT125T PO (01:50)
[2021-09-17] MEDS ORDERED: MILKSUS3 PO (01:50)
[2021-09-17] MEDS ORDERED: OMEP20TA2 PO (01:50)
[2021-09-17] MEDS ORDERED: ERGO500029 PO (01:50)
[2021-09-17] MEDS ORDERED: HOME MED LIST COMPLETE! XX SCH (01:55)
[2021-09-17] MEDS ORDERED: BISACODYL 10 MG SUPP PR PRN (03:25)
[2021-09-17 06:00] VITALS: BP 96/60
[2021-09-17] MEDS: NS 1,000 ML IV SCH (06:40)
[2021-09-17] MEDS: LEVOTHYROXINE 125MCG TABLET (0.125MG) PO SCH (06:40)
[2021-09-17 07:41] LABS: BASO % 0.1 % (0.0-1.0); EOS # 0.1 10^3/uL (0.0-0.5); EOS % 1.7 % (0.0-3.0); HEMOGLOBIN 10.8 g/dl (12.0-15.5); LYMPH # 1.4 10^3/uL (1.5-5.0); LYMPH % 17.1 % (24.0-44.0); MEAN CORPUSCULAR HEMOGLOBIN 35.6 pg (27.0-33.0); MEAN CORPUSCULAR HGB CONC 30.9 g/dl (32.0-36.5); MONO # 0.6 10^3/uL (0.0-0.8); MONO % 7.4 % (2.0-8.0); NEUTROPHILS # 5.9 10^3/uL (1.5-8.5); NEUTROPHILS % 72.3 % (36.0-66.0); RED BLOOD COUNT 3.03 10^6/uL (4.00-5.40); WHITE BLOOD COUNT 8.1 10^3/uL (4.0-10.0)
[2021-09-17 07:42] LABS: MEAN CORPUSCULAR VOLUME 115.5 fl (80.0-96.0); PLATELET COUNT, AUTOMATED 72 10^3/uL (150-450)
[2021-09-17 08:01] LABS: ERYTHROCYTE SEDIMENTATION RATE 35 mm/hr (0-30)
[2021-09-17 08:16] LABS: CALCIUM LEVEL 7.7 MG/DL (8.8-10.2); CREATININE FOR GFR 3.13 MG/DL (0.55-1.30); GLOMERULAR FILTRATION RATE 15.5 (>39); POTASSIUM SERUM 4.5 MEQ/L (3.5-5.1)
[2021-09-17] MEDS: SERTRALINE HCL 25 MG TABLET PO SCH (10:15)
[2021-09-17] MEDS: APIXABAN 5 MG TAB (ELIQUIS) PO SCH ×2 (10:15→20:40)
[2021-09-17] MEDS: allopurinoL 100 MG TAB PO SCH (10:15)
[2021-09-17] MEDS: DIVALPROEX SPRINKLE 125 MG CAP PO SCH ×2 (10:15→20:40)
[2021-09-17 14:00] VITALS: BP 99/64
[2021-09-17 20:33] VITALS: BP 92/58
[2021-09-17] MEDS: METOPROLOL SUCC *XL* 25MG TAB (TopROL *XL*) PO SCH (20:36)
[2021-09-17] MEDS: OMEPRAZOLE 20MG CAP PO SCH (20:40)
[2021-09-17] MEDS: TIMOLOL MALEATE 0.5% OPHTH SOLN 5 ML OU SCH (20:40)
[2021-09-17] MEDS: ACETAMINOPHEN TAB 650MG DOSE (2X325MG) PO PRN (20:40)
[2021-09-18] VITALS (7 sets, daily range): BP systolic 90–100; BP diastolic 54–80; O2SAT 93
[2021-09-18] MEDS: LEVOTHYROXINE 125MCG TABLET (0.125MG) PO SCH (06:06)
[2021-09-18] MEDS: INSULIN LISPRO (NovoLOG) PER UNIT SC SCH ×4 (06:11→20:21)
[2021-09-18 07:46] LABS: BASO % 0.3 % (0.0-1.0); EOS # 0.1 10^3/uL (0.0-0.5); EOS % 1.2 % (0.0-3.0); HEMATOCRIT 34.9 % (36.0-47.0); HEMOGLOBIN 10.7 g/dl (12.0-15.5); LYMPH # 1.3 10^3/uL (1.5-5.0); LYMPH % 16.3 % (24.0-44.0); MEAN CORPUSCULAR HEMOGLOBIN 35.2 pg (27.0-33.0); MEAN CORPUSCULAR HGB CONC 30.7 g/dl (32.0-36.5); MONO # 0.5 10^3/uL (0.0-0.8); MONO % 6.2 % (2.0-8.0); NEUTROPHILS # 5.8 10^3/uL (1.5-8.5); NEUTROPHILS % 74.4 % (36.0-66.0); RED BLOOD COUNT 3.04 10^6/uL (4.00-5.40); WHITE BLOOD COUNT 7.7 10^3/uL (4.0-10.0)
[2021-09-18 07:52] LABS: CREATININE FOR GFR 3.31 MG/DL (0.55-1.30); GLOMERULAR FILTRATION RATE 14.6 (>39); MAGNESIUM LEVEL 3.1 MG/DL (1.8-2.4); POTASSIUM SERUM 4.8 MEQ/L (3.5-5.1)
[2021-09-18 07:58] LABS: MEAN CORPUSCULAR VOLUME 114.8 fl (80.0-96.0); PLATELET COUNT, AUTOMATED 66 10^3/uL (150-450)
[2021-09-18 08:32] LABS: ANISOCYTOSIS 1+; PLATELET ESTIMATE MARKED DECREASE (NORMAL)
[2021-09-18] MEDS: NS 1,000 ML IV SCH ×2 (08:48→20:23)
[2021-09-18] MEDS: SERTRALINE HCL 25 MG TABLET PO SCH (08:49)
[2021-09-18] MEDS: APIXABAN 5 MG TAB (ELIQUIS) PO SCH ×2 (08:49→20:20)
[2021-09-18] MEDS: allopurinoL 100 MG TAB PO SCH (08:49)
[2021-09-18] MEDS: DIVALPROEX SPRINKLE 125 MG CAP PO SCH ×2 (08:50→20:20)
[2021-09-18] MEDS: TIMOLOL MALEATE 0.5% OPHTH SOLN 5 ML OU SCH ×2 (08:50→20:23)
[2021-09-18] MEDS ORDERED: NS 500 ML IV ONE (10:35)
[2021-09-18] MEDS ORDERED: METOPROLOL SUCC *XL* 25MG TAB (TopROL *XL*) PO ONE (10:40)
[2021-09-18] MEDS ORDERED: NS 1,000 ML IV ONE (10:45)
[2021-09-18 11:37] LABS: CK-MB VALUE MASS 1.6 NG/ML (<3.6); MB/CK RELATIVE INDEX 6.4 (< OR =4)
[2021-09-18] MEDS ORDERED: GLUCAGON INJ 1MG VIAL SC PRN (11:50)
[2021-09-18] MEDS ORDERED: DEXTROSE 50% 50 ML SYRINGE IV PRN (11:50)
[2021-09-18] MEDS ORDERED: GLUCOSE 4GM CHEW TABLET PO PRN (11:50)
[2021-09-18] MEDS: MEROPENEM INJ 500 MG in IV 1 EA IV SCH ×3 (13:57)
[2021-09-18] MEDS: OMEPRAZOLE 20MG CAP PO SCH (20:20)
[2021-09-18] MEDS: METOPROLOL SUCC *XL* 25MG TAB (TopROL *XL*) PO SCH (20:22)
[2021-09-19] VITALS (20 sets, daily range): BP systolic 64–109; BP diastolic 47–72; O2SAT 91
[2021-09-19] MEDS: MEROPENEM INJ 500 MG in IV 1 EA IV SCH ×3 (00:11→23:46)
[2021-09-19] MEDS: PROCHLORPERAZINE 10MG 2ML VIAL IV PRN (01:47)
[2021-09-19] MEDS: LEVOTHYROXINE 125MCG TABLET (0.125MG) PO SCH (05:12)
[2021-09-19] MEDS: NS 1,000 ML IV SCH (05:57)
[2021-09-19] MEDS: INSULIN LISPRO (NovoLOG) PER UNIT SC SCH ×4 (07:54→21:00)
[2021-09-19 08:20] LABS: BASO % 0.1 % (0.0-1.0); EOS # 0.3 10^3/uL (0.0-0.5); EOS % 2.8 % (0.0-3.0); HEMATOCRIT 34.5 % (36.0-47.0); HEMOGLOBIN 10.6 g/dl (12.0-15.5); LYMPH # 0.7 10^3/uL (1.5-5.0); LYMPH % 8.1 % (24.0-44.0); MEAN CORPUSCULAR HEMOGLOBIN 35.7 pg (27.0-33.0); MEAN CORPUSCULAR HGB CONC 30.7 g/dl (32.0-36.5); MONO # 0.5 10^3/uL (0.0-0.8); NEUTROPHILS # 7.5 10^3/uL (1.5-8.5); NEUTROPHILS % 82.3 % (36.0-66.0); RED BLOOD COUNT 2.97 10^6/uL (4.00-5.40); WHITE BLOOD COUNT 9.1 10^3/uL (4.0-10.0)
[2021-09-19 08:21] LABS: MEAN CORPUSCULAR VOLUME 116.2 fl (80.0-96.0); PLATELET COUNT, AUTOMATED 67 10^3/uL (150-450)
[2021-09-19 08:40] LABS: GIANT PLATELETS 1+; TEAR DROP CELLS 1+
[2021-09-19 08:42] LABS: OVALOCYTES 3+; PLATELET ESTIMATE DECREASED (NORMAL)
[2021-09-19 08:57] LABS: CALCIUM LEVEL 7.7 MG/DL (8.8-10.2); CREATININE FOR GFR 3.18 MG/DL (0.55-1.30); GLOMERULAR FILTRATION RATE 15.3 (>39); MAGNESIUM LEVEL 2.9 MG/DL (1.8-2.4); PERCENT SATURATION 16.2 % (13.2-45.0); PHOSPHORUS LEVEL 6.4 MG/DL (2.5-4.9); POTASSIUM SERUM 4.8 MEQ/L (3.5-5.1)
[2021-09-19] MEDS: SERTRALINE HCL 25 MG TABLET PO SCH (10:27)
[2021-09-19] MEDS: ACETAMINOPHEN TAB 650MG DOSE (2X325MG) PO PRN (10:31)
[2021-09-19] MEDS: allopurinoL 100 MG TAB PO SCH (10:31)
[2021-09-19] MEDS: APIXABAN 5 MG TAB (ELIQUIS) PO SCH (10:32)
[2021-09-19] MEDS: TIMOLOL MALEATE 0.5% OPHTH SOLN 5 ML OU SCH ×2 (10:32→23:46)
[2021-09-19] MEDS: DIVALPROEX SPRINKLE 125 MG CAP PO SCH ×2 (11:29→23:46)
[2021-09-19 13:43] LABS: ABG BASE EXCESS -8.8 (-2.0-2.0); ABG HCO3 18.7 MEQ/L (22.0-26.0); ABG O2 SATURATION 99.9 % (95.0-99.0); ABG PARTIAL PRESSURE CO2 46.7 mmHg (35.0-45.0); ABG PARTIAL PRESSURE O2 299.6 mmHg (75.0-100.0); ABG STANDARD HCO3 17.4 MEQ/L (22.0-26.0); ABG TOTAL CO2 20.1 MEQ/L (23.0-31.0)
[2021-09-19 14:47] LABS: CK-MB VALUE MASS 2.1 NG/ML (<3.6); MB/CK RELATIVE INDEX 6.77 (< OR =4)
[2021-09-19] MEDS: FUROSEMIDE 100MG/10ML VIAL (J1940) IV SCH (15:00)
[2021-09-19 15:23] LABS: MB/CK RELATIVE INDEX 5.88 (< OR =4)
[2021-09-19 15:25] LABS: ACETONE/KETONE 2.35 MG/DL (<2.81); ALBUMIN 2.5 GM/DL (3.2-5.2); BILIRUBIN,DIRECT 0.6 MG/DL (0.0-0.2); BILIRUBIN,TOTAL 0.8 MG/DL (0.2-1.0); C REACTIVE PROTEIN QUANTITATIV 2.36 MG/DL (0.00-0.30); CALCIUM LEVEL 7.7 MG/DL (8.8-10.2); CREATININE FOR GFR 3.17 MG/DL (0.55-1.30); GLOMERULAR FILTRATION RATE 15.3 (>39); MAGNESIUM LEVEL 2.8 MG/DL (1.8-2.4); POTASSIUM SERUM 4.8 MEQ/L (3.5-5.1); TOTAL PROTEIN 7.3 GM/DL (6.4-8.2)
[2021-09-19 15:36] LABS: BASO % 0.2 % (0.0-1.0); EOS # 0.3 10^3/uL (0.0-0.5); EOS % 2.5 % (0.0-3.0); HEMATOCRIT 36.8 % (36.0-47.0); HEMOGLOBIN 11.2 g/dl (12.0-15.5); LYMPH # 0.7 10^3/uL (1.5-5.0); LYMPH % 6.9 % (24.0-44.0); MEAN CORPUSCULAR HGB CONC 30.4 g/dl (32.0-36.5); MEAN CORPUSCULAR VOLUME 118.3 fl (80.0-96.0); MONO # 0.5 10^3/uL (0.0-0.8); MONO % 5.5 % (2.0-8.0); NEUTROPHILS # 8.2 10^3/uL (1.5-8.5); NEUTROPHILS % 82.5 % (36.0-66.0); RED BLOOD COUNT 3.11 10^6/uL (4.00-5.40); WHITE BLOOD COUNT 9.9 10^3/uL (4.0-10.0)
[2021-09-19 15:37] LABS: PLATELET COUNT, AUTOMATED 69 10^3/uL (150-450)
[2021-09-19] MEDS ORDERED: NOREPINEPHRINE 8MG IN 500ML DEXTROSE 5% BAG As Ordered ONE (18:59)
[2021-09-19] MEDS: NOREPINEPHRINE/DEXTROSE 8 MG in IV 1 EA IV SCH (19:05)
[2021-09-19] MEDS ORDERED: HEPARIN SOD (PORCINE) 5000UNITS/ML 1ML VIAL/SYRINGE IV PRN (21:00)
[2021-09-19] MEDS: HEPARIN DRIP 25,000 UNITS in IV 1 EA IV SCH (21:16)
[2021-09-19] MEDS: OMEPRAZOLE 20MG CAP PO SCH (23:46)
[2021-09-20] VITALS (77 sets, daily range): BP systolic 74–251; BP diastolic 48–251
[2021-09-20] MEDS: FUROSEMIDE 100MG/10ML VIAL (J1940) IV SCH ×3 (00:07→08:40)
[2021-09-20] MEDS: PROCHLORPERAZINE 10MG 2ML VIAL IV PRN (00:40)
[2021-09-20 03:41] LABS: BASO % 0.3 % (0.0-1.0); EOS # 0.3 10^3/uL (0.0-0.5); EOS % 2.2 % (0.0-3.0); HEMATOCRIT 33.5 % (36.0-47.0); HEMOGLOBIN 10.4 g/dl (12.0-15.5); LYMPH # 0.6 10^3/uL (1.5-5.0); LYMPH % 5.3 % (24.0-44.0); MEAN CORPUSCULAR HEMOGLOBIN 36.2 pg (27.0-33.0); MONO # 0.8 10^3/uL (0.0-0.8); MONO % 6.6 % (2.0-8.0); NEUTROPHILS # 9.4 10^3/uL (1.5-8.5); NEUTROPHILS % 83.5 % (36.0-66.0); RED BLOOD COUNT 2.87 10^6/uL (4.00-5.40); WHITE BLOOD COUNT 11.3 10^3/uL (4.0-10.0)
[2021-09-20 03:42] LABS: MEAN CORPUSCULAR VOLUME 116.7 fl (80.0-96.0); PLATELET COUNT, AUTOMATED 97 10^3/uL (150-450)
[2021-09-20 04:53] LABS: ALBUMIN 3.1 GM/DL (3.2-5.2); BILIRUBIN,DIRECT 0.6 MG/DL (0.0-0.2); BILIRUBIN,TOTAL 1.1 MG/DL (0.2-1.0); CALCIUM LEVEL 8.1 MG/DL (8.8-10.2); CREATININE FOR GFR 3.36 MG/DL (0.55-1.30); GLOMERULAR FILTRATION RATE 14.3 (>39); MAGNESIUM LEVEL 2.9 MG/DL (1.8-2.4); POTASSIUM SERUM 5.1 MEQ/L (3.5-5.1); TOTAL PROTEIN 7.5 GM/DL (6.4-8.2)
[2021-09-20] MEDS: HEPARIN DRIP 25,000 UNITS in IV 1 EA IV SCH (05:34)
[2021-09-20] MEDS: LEVOTHYROXINE 125MCG TABLET (0.125MG) PO SCH (06:12)
[2021-09-20] MEDS: allopurinoL 100 MG TAB PO SCH (08:30)
[2021-09-20] MEDS: SERTRALINE HCL 25 MG TABLET PO SCH (08:30)
[2021-09-20] MEDS: DIVALPROEX SPRINKLE 125 MG CAP PO SCH ×2 (08:30→21:50)
[2021-09-20 08:31] LABS: ABG BASE EXCESS -9.4 (-2.0-2.0); ABG HCO3 18.3 MEQ/L (22.0-26.0); ABG O2 SATURATION 95.4 % (95.0-99.0); ABG PARTIAL PRESSURE CO2 47.5 mmHg (35.0-45.0); ABG PARTIAL PRESSURE O2 88.2 mmHg (75.0-100.0); ABG STANDARD HCO3 16.9 MEQ/L (22.0-26.0); ABG TOTAL CO2 19.8 MEQ/L (23.0-31.0)
[2021-09-20] MEDS: INSULIN LISPRO (NovoLOG) PER UNIT SC SCH ×4 (08:31→23:31)
[2021-09-20] MEDS: ESMOLOL HCL 2,000 MG in IV 1 EA IV SCH ×4 (08:32→17:55)
[2021-09-20 08:35] LABS: ABG pH (ARTERIAL) 7.204 UNITS (7.350-7.450)
[2021-09-20] MEDS: NOREPINEPHRINE/DEXTROSE 8 MG in IV 1 EA IV SCH ×2 (08:39→14:08)
[2021-09-20] MEDS: TIMOLOL MALEATE 0.5% OPHTH SOLN 5 ML OU SCH ×2 (08:40→21:55)
[2021-09-20] MEDS ORDERED: SODIUM CHLORIDE 0.9% INJ 10 ML SYR IV PRN (11:20)
[2021-09-20 11:32] LABS: HEMATOCRIT 33.5 % (36.0-47.0); HEMOGLOBIN 10.3 g/dl (12.0-15.5); MEAN CORPUSCULAR HEMOGLOBIN 36.4 pg (27.0-33.0); MEAN CORPUSCULAR HGB CONC 30.7 g/dl (32.0-36.5); MEAN CORPUSCULAR VOLUME 118.4 fl (80.0-96.0); PLATELET COUNT, AUTOMATED 105 10^3/uL (150-450); RED BLOOD COUNT 2.83 10^6/uL (4.00-5.40)
[2021-09-20 11:42] LABS: INR 2.05; PROTHROMBIN TIME 23.5 SECONDS (12.7-14.5)
[2021-09-20 11:53] LABS: CALCIUM LEVEL 7.9 MG/DL (8.8-10.2); CREATININE FOR GFR 3.45 MG/DL (0.55-1.30); GLOMERULAR FILTRATION RATE 13.9 (>39); MAGNESIUM LEVEL 2.8 MG/DL (1.8-2.4)
[2021-09-20] MEDS: VASOPRESSIN INJ 20 UNITS in NS 499 ML IV SCH ×2 (11:54→18:23)
[2021-09-20] MEDS ORDERED: LIDOCAINE 1% MDV 20ML VIAL As Ordered ONE (12:58)
[2021-09-20] MEDS: CALCIUM GLUCONATE 1,000 MG in NS 100 ML IV SCH ×2 (14:05→15:28)
[2021-09-20] MEDS: MEROPENEM INJ 500 MG in IV 1 EA IV SCH (14:06)
[2021-09-20 14:59] LABS: PHOSPHORUS LEVEL 7.6 MG/DL (2.5-4.9)
[2021-09-20] MEDS ORDERED: NOREPINEPHRINE/DEXTROSE 8 MG in IV 1 EA IV SCH (16:01)
[2021-09-20 17:36] LABS: HEMATOCRIT 34.6 % (36.0-47.0); HEMOGLOBIN 10.6 g/dl (12.0-15.5); MEAN CORPUSCULAR HEMOGLOBIN 36.3 pg (27.0-33.0); MEAN CORPUSCULAR HGB CONC 30.6 g/dl (32.0-36.5); PLATELET COUNT, AUTOMATED 103 10^3/uL (150-450); RED BLOOD COUNT 2.92 10^6/uL (4.00-5.40); WHITE BLOOD COUNT 11.2 10^3/uL (4.0-10.0)
[2021-09-20 17:42] LABS: MEAN CORPUSCULAR VOLUME 118.5 fl (80.0-96.0)
[2021-09-20] MEDS: NOREPINEPHRINE BITARTRATE 16 MG in D5W 484 ML IV SCH (17:54)
[2021-09-20] MEDS: HYDROCORTISONE 100 MG/2 ML VIAL (J1720 PER 1) IV SCH ×2 (17:55→23:22)
[2021-09-20] MEDS: ENOXAPARIN 100MG/1ML SYRINGE (J1650 PER 10MG) SC SCH (17:56)
[2021-09-20 18:06] LABS: CALCIUM LEVEL 8.2 MG/DL (8.8-10.2); CREATININE FOR GFR 2.86 MG/DL (0.55-1.30); GLOMERULAR FILTRATION RATE 17.3 (>39); MAGNESIUM LEVEL 2.5 MG/DL (1.8-2.4); PHOSPHORUS LEVEL 6.1 MG/DL (2.5-4.9); POTASSIUM SERUM 4.8 MEQ/L (3.5-5.1)
[2021-09-20] MEDS ORDERED: LIDOCAINE 1% MDV 20ML VIAL SC ONE (18:25)
[2021-09-20] MEDS ORDERED: LIDOCAINE 1% SDV 30ML VIAL SC SCH (18:40)
[2021-09-20] MEDS: OMEPRAZOLE 20MG CAP PO SCH (21:50)
[2021-09-20] MEDS: ACETAMINOPHEN TAB 650MG DOSE (2X325MG) PO PRN (21:50)
[2021-09-20 22:42] LABS: HEMATOCRIT 33.4 % (36.0-47.0); HEMOGLOBIN 10.1 g/dl (12.0-15.5); MEAN CORPUSCULAR HEMOGLOBIN 35.7 pg (27.0-33.0); MEAN CORPUSCULAR HGB CONC 30.2 g/dl (32.0-36.5); RED BLOOD COUNT 2.83 10^6/uL (4.00-5.40); WHITE BLOOD COUNT 12.3 10^3/uL (4.0-10.0)
[2021-09-20 22:43] LABS: PLATELET COUNT, AUTOMATED 89 10^3/uL (150-450)
[2021-09-20 23:08] LABS: CALCIUM LEVEL 8.3 MG/DL (8.8-10.2); CREATININE FOR GFR 2.53 MG/DL (0.55-1.30); GLOMERULAR FILTRATION RATE 19.9 (>39); MAGNESIUM LEVEL 2.4 MG/DL (1.8-2.4); PHOSPHORUS LEVEL 5.5 MG/DL (2.5-4.9); POTASSIUM SERUM 4.6 MEQ/L (3.5-5.1)
[2021-09-21] VITALS (63 sets, daily range): BP systolic 74–124; BP diastolic 42–61
[2021-09-21] MEDS ORDERED: CALCIUM GLUCONATE 1,000 MG in NS 100 ML IV ONE ×2
[2021-09-21] MEDS: MEROPENEM INJ 500 MG in IV 1 EA IV SCH (00:24)
[2021-09-21] MEDS: NOREPINEPHRINE BITARTRATE 16 MG in D5W 484 ML IV SCH (03:20)
[2021-09-21] MEDS: VASOPRESSIN INJ 20 UNITS in NS 499 ML IV SCH (03:20)
[2021-09-21 05:08] LABS: BASO % 0.2 % (0.0-1.0); HEMATOCRIT 31.5 % (36.0-47.0); HEMOGLOBIN 9.5 g/dl (12.0-15.5); LYMPH # 0.5 10^3/uL (1.5-5.0); LYMPH % 4.1 % (24.0-44.0); MEAN CORPUSCULAR HEMOGLOBIN 35.6 pg (27.0-33.0); MEAN CORPUSCULAR HGB CONC 30.2 g/dl (32.0-36.5); MONO # 0.6 10^3/uL (0.0-0.8); NEUTROPHILS % 88.5 % (36.0-66.0); RED BLOOD COUNT 2.67 10^6/uL (4.00-5.40); WHITE BLOOD COUNT 12.4 10^3/uL (4.0-10.0)
[2021-09-21 05:13] LABS: PLATELET COUNT, AUTOMATED 78 10^3/uL (150-450)
[2021-09-21 05:27] LABS: CALCIUM LEVEL 8.9 MG/DL (8.8-10.2); CREATININE FOR GFR 2.25 MG/DL (0.55-1.30); GLOMERULAR FILTRATION RATE 22.8 (>39); MAGNESIUM LEVEL 2.3 MG/DL (1.8-2.4); PHOSPHORUS LEVEL 4.7 MG/DL (2.5-4.9); POTASSIUM SERUM 4.6 MEQ/L (3.5-5.1)
[2021-09-21] MEDS: HYDROCORTISONE 100 MG/2 ML VIAL (J1720 PER 1) IV SCH (05:41)
[2021-09-21] MEDS: INSULIN LISPRO (NovoLOG) PER UNIT SC SCH (05:42)
[2021-09-21 08:43] LABS: ABG BASE EXCESS -10.1 (-2.0-2.0); ABG O2 SATURATION 88.1 % (95.0-99.0); ABG PARTIAL PRESSURE CO2 58.3 mmHg (35.0-45.0); ABG PARTIAL PRESSURE O2 60.8 mmHg (75.0-100.0); ABG STANDARD HCO3 16.2 MEQ/L (22.0-26.0); ABG TOTAL CO2 20.8 MEQ/L (23.0-31.0); ABG pH (ARTERIAL) 7.132 UNITS (7.350-7.450)
[2021-09-21] MEDS: LEVOTHYROXINE 125MCG TABLET (0.125MG) PO SCH (08:44)
[2021-09-21] MEDS: SERTRALINE HCL 25 MG TABLET PO SCH (08:45)
[2021-09-21] MEDS: DIVALPROEX SPRINKLE 125 MG CAP PO SCH (08:45)
[2021-09-21] MEDS: TIMOLOL MALEATE 0.5% OPHTH SOLN 5 ML OU SCH (08:45)
[2021-09-21] MEDS: ENOXAPARIN 100MG/1ML SYRINGE (J1650 PER 10MG) SC SCH (08:45)
[2021-09-21] MEDS: allopurinoL 100 MG TAB PO SCH (08:45)
[2021-09-21] MEDS ORDERED: SODIUM BICARBONATE 8.4% INJ 50 ML SYRINGE IV STA ×2 (09:19→09:48)
[2021-09-21] MEDS ORDERED: VASOPRESSIN INJ 40 UNITS in NS 498 ML IV SCH (10:00)
[2021-09-21] MEDS ORDERED: GLYCOPYRROLATE INJ 0.2 MG/ML 2 ML VIAL IV PRN (10:00)
[2021-09-21] MEDS ORDERED: MORPHINE 4 MG/ML 1ML VIAL/SYRINGE IV ONE (10:05)
[2021-09-21] MEDS ORDERED: MORPHINE SULF IN 0.9% NACL 100 MG in IV 1 EA IV SCH ×2 (11:00)
[2021-09-22 10:36] LABS: FOLATE 11.8 NG/ML (>5.4); TOTAL 25(OH) VITAMIN D 36.2 NG/ML (30.0-100.0)
== END 2021-09-21 19:27 | disposition expired | DRG 871 ==
LOC: M ED 14:58 → M ED INP 22:19 → M MS5PR 09-17 00:34 → M PCU 09-19 14:01 → M ICU 09-19 17:49
PROVIDERS: ADMIT Family Medicine; ATTEND Internal Medicine
PROC: B246ZZZ Ultrasonography of Right and Left Heart (ICD-10-PCS; principal; 2021-09-19)
PROC: 04HY32Z Insertion of Monitoring Device into Lower Artery, Percutaneous Approach (ICD-10-PCS; 2021-09-19)
PROC: 06HN33Z Insertion of Infusion Device into Left Femoral Vein, Percutaneous Approach (ICD-10-PCS; 2021-09-19)
PROC: 02HV33Z Insertion of Infusion Device into Superior Vena Cava, Percutaneous Approach (ICD-10-PCS; 2021-09-20)
PROC: 5A1D90Z Performance of Urinary Filtration, Continuous, Greater than 18 hours Per Day (ICD-10-PCS; 2021-09-21)
DX: A41.9 Sepsis, unspecified organism (principal); G93.41 Metabolic encephalopathy; R65.21 Severe sepsis with septic shock; J96.21 Acute and chronic respiratory failure with hypoxia; J96.22 Acute and chronic respiratory failure with hypercapnia; I50.32 Chronic diastolic (congestive) heart failure; I13.0 Hypertensive heart and chronic kidney disease with heart failure and stage 1 through stage 4 chronic kidney disease, or unspecified chronic kidney disease; N17.9 Acute kidney failure, unspecified; N39.0 Urinary tract infection, site not specified; F03.91 Unspecified dementia, unspecified severity, with behavioral disturbance; J90 Pleural effusion, not elsewhere classified; E87.2 Acidosis; E21.1 Secondary hyperparathyroidism, not elsewhere classified; Z66 Do not resuscitate; Z95.0 Presence of cardiac pacemaker; I48.91 Unspecified atrial fibrillation; Z95.5 Presence of coronary angioplasty implant and graft; I49.5 Sick sinus syndrome; N18.32 Chronic kidney disease, stage 3b; K21.9 Gastro-esophageal reflux disease without esophagitis; M10.9 Gout, unspecified; E53.8 Deficiency of other specified B group vitamins; F32.A Depression, unspecified; F41.9 Anxiety disorder, unspecified; I89.0 Lymphedema, not elsewhere classified; Z98.41 Cataract extraction status, right eye; Z98.42 Cataract extraction status, left eye; R26.2 Difficulty in walking, not elsewhere classified; D69.6 Thrombocytopenia, unspecified; Z20.822 Contact with and (suspected) exposure to COVID-19; Z79.899 Other long term (current) drug therapy; E87.5 Hyperkalemia; E03.9 Hypothyroidism, unspecified; I95.9 Hypotension, unspecified; B96.1 Klebsiella pneumoniae [K. pneumoniae] as the cause of diseases classified elsewhere